=== PATIENT | female | born 1955 | race African-American/Black ===

== ENCOUNTER 2016-07-25 11:21 | Day surgery (SDC) | payer OTHER ==
[2016-06-14 12:08] VITALS: BMI 20.1
[2016-07-25 12:19] LABS: INR 1.09 (0.82-1.09)
--- NOTE | 2016-07-25 12:55 | HP ---
Admitting History and Physical - Admission History of Present Illness: 61 year old female ESRD on HD with swollen right arm due to venous hypertension and occluded subclavian vein. She has functioning AV graft in the left arm. 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, Other (Blindness) Cardiovascular: Yes: HTN Renal/: Yes: Renal Failure (PCKD s/p nephrectomies) Heme/Onc: Yes: Anemia - Past Surgical History Past Surgical History: Yes: AV Fistula/Graft, Nephrectomy (right nephrectomy and left partial nephrectomy) - Smoking History Smoking history: Current every day smoker Have you smoked in the past 12 months: Yes Aproximately how many cigarettes per day: 12 - Alcohol/Substance Use Hx Alcohol Use: No History of Substance Use: reports: None - Social History ADL: Family Assistance History of Recent Travel: No Home Medications - Allergies Allergies/Adverse Reactions: Allergies Allergy/AdvReac Type Severity Reaction Status Date / Time codeine Allergy Severe Verified 07/25/16 12:19 - Home Medications Home Medications: Ambulatory Orders Phenytoin 200 mg PO BID 01/13/14 Clonidine HCl [Catapres -] 0.2 mg PO BID 11/19/14 Sevelamer Carbonate [Renvela -] 1,600 mg PO TID 02/10/15 Nifedipine [Nifedical Xl] 90 mg PO DAILY 07/21/15 Hydralazine HCl 50 mg PO BID 03/24/16 Losartan Potassium [Cozaar -] 100 mg PO DAILY 03/24/16 Family Disease History - Family Disease History Family Disease History: Other: Father (HTN), Mother (HTN) Physical Examination Vital Signs: Vital Signs Temperature 97.8 F 07/25/16 12:33 Pulse Rate 80 07/25/16 12:33 Respiratory Rate 20 07/25/16 12:33 Blood Pressure 146/68 07/25/16 12:33 O2 Sat by Pulse Oximetry (%) 97 07/25/16 12:29 Constitutional: Yes: No Distress Eyes: Yes: EOM Intact HENT: Yes: Other (Facial swelling) Neck: Yes: Other (Distended right jugular vein) Cardiovascular: Yes: Regular Rate and Rhythm Respiratory: Yes: Regular Gastrointestinal: Yes: Soft Edema: Yes Edema: RUE: 4+ Peripheral Pulses WNL: Yes Labs: CBC, BMP 07/25/16 11:35 Problem List - Problems (1) ESRD on hemodialysis Code(s): N18.6 - END STAGE RENAL DISEASE Z99.2 - DEPENDENCE ON RENAL DIALYSIS (2) Complication of AV dialysis fistula Assessment/Plan: Venous hypertension right arm. Plan ligation of AV fistula Code(s): T82.9XXA - UNSP COMP OF CARDIAC AND VASCULAR PROSTH DEV/GRFT, INIT Qualifiers: Encounter type: sequela Qualified Code(s): T82.9XXS - Unspecified complication of cardiac and vascular prosthetic device, implant and graft, sequela
[2016-07-25] MEDS ORDERED: MIDAZOLAM HCL 2 MG/2 ML SINGLE DOSE VIAL ONE (13:20)
[2016-07-25] MEDS ORDERED: hydrALAZINE HCL 20 MG/ML VIAL ONE (13:32)
[2016-07-25] MEDS ORDERED: LIDOCAINE HCL 1%, 10 MG/ML (20ML VIAL) IJ ONE (13:38)
--- NOTE | 2016-07-25 13:59 | OP ---
Operative Note - Note: Operative Date: 07/25/16 Pre-Operative Diagnosis: Venous hypertension right arm Operation: Ligation AV fistula right arm Findings: Brachial basilic fistula with known proximal venous occlusion Post-Operative Diagnosis: Same as Pre-op Surgeon: Regan Kim Toggler: Nandini Elaine Anesthesiologist/CLIN NURSE: Julien Forbes Anesthesia: Fractional Operative Report Dictated: Yes
[2016-07-25] MEDS ORDERED: ACETAMINOPHEN 325 MG TABLET (FP) PO PRN (14:00)
[2016-07-25] MEDS ORDERED: ONDANSETRON 4 MG/2 ML VIAL IVPUSH PRN (14:01)
[2016-07-25] MEDS ORDERED: PROMETHAZINE HCL 25 MG/1 ML VIAL IVPUSH PRN (14:01)
--- NOTE | 2016-07-25 14:08 | SURG ---
Surgery Simulation Software Engineer Note Simulation Software Engineer: Nandini Elaine PA-C Date of Service: 07/25/16 Diagnosis: Venous hypertension right arm Procedure: Ligation AV fistula right arm I was present for the entirety of the operative procedure. For further detail, please refer to operative report. Visit type - Case Type Case Type: Scheduled Admission - New patient This patient is new to me today: Yes Date on this admission: 07/25/16
[2016-07-25] MEDS ORDERED: SODIUM CHLORIDE 1,000 ML IV SCH (14:15)
[2016-07-25] MEDS: hydrALAZINE HCL 20 MG/ML VIAL IVPUSH ONE ×2 (15:00→15:40)
[2016-07-25 18:06] VITALS: PULSE 78
[2016-07-25 18:09] VITALS: BP 178/82; TEMP 97.8
--- NOTE | 2016-07-26 | OP ---
DATE OF OPERATION: 07/25/2016 SURGEON: Regan Garnica M.D. COLLECTION TELLER: PROCEDURE: Ligation arteriovenous fistula right arm. PREOPERATIVE DIAGNOSIS: Renal failure with venous hypertension of right arm fistula. POSTOPERATIVE DIAGNOSIS: Renal failure with venous hypertension of right arm fistula. ANESTHESIA: Fractional anesthesia. ANESTHESIOLOGIST: Julien Forbes M.D. OPERATIVE FINDINGS: The brachial artery basilic vein fistula was patent with dilatation of the proximal veins due to an occlusion of the subclavian vein. OPERATIVE PROCEDURE: Following routine patient identification with side and site verification, intravenous sedation was established. The right arm was prepped with Chloraprep. Then 1% Xylocaine was infiltrated over the arteriovenous anastomosis. The old scar was opened, and subcutaneous tissues divided sharply. Cautery was used for hemostasis. The distal portion of the fistula was identified near the arterial anastomosis. It was dissected free and doubly ligated with 2-0 silk. The wound was closed with interrupted suture of 3-0 Vicryl and skin enrique. A sterile dressing was applied, and the patient was taken to the recovery room in stable condition. REGAN GARNICA M.D. [id number]
== END 2016-07-25 18:11 | disposition home or self-care (01) ==
LOC: JASU-SURG 11:21
PROVIDERS: ATTEND Surgery
PROC: 05LD0ZZ Occlusion of Right Cephalic Vein, Open Approach (ICD-10-PCS; principal; 2016-07-25 12:30)
DX: I82.B11 Acute embolism and thrombosis of right subclavian vein (principal); I12.0 Hypertensive chronic kidney disease with stage 5 chronic kidney disease or end stage renal disease; N18.6 End stage renal disease; Z99.2 Dependence on renal dialysis; T82.898A Other specified complication of vascular prosthetic devices, implants and grafts, initial encounter; Y83.8 Other surgical procedures as the cause of abnormal reaction of the patient, or of later complication, without mention of misadventure at the time of the procedure; G40.909 Epilepsy, unspecified, not intractable, without status epilepticus; D64.9 Anemia, unspecified; Z90.5 Acquired absence of kidney; H54.0 Blindness, both eyes
CPT/HCPCS: 36415; 84132; 85610; 94760; J1644

== ENCOUNTER 2016-07-28 13:43 | Inpatient (IN) | payer OTHER ==
[2016-07-28 14:41] LABS: BASOPHIL 0.5 % (0-2.0); EOSINOPHIL 1.6 % (0-4.5); MCH 34.5 pg (25.7-33.7); MCHC 33.2 g/dl (32.0-36.0); MEAN CELL VOLUME 103.9 fl (80-96); MEAN PLT VOLUME 7.8 fl (7.5-11.1); NEUTROPHILS 68.2 % (42.8-82.8); PLATELET COUNT 159 K/MM3 (134-434); RDW 15.1 % (11.6-15.6); WHITE BLOOD COUNT 6.4 K/mm3 (4.0-10.0)
[2016-07-28 14:46] LABS: ALBUMIN 2.9 g/dl (3.4-5.0); CREATININE 3.5 mg/dL (0.55-1.02)
[2016-07-28 14:50] LABS: BILIRUBIN,TOTAL 0.2 mg/dL (0.2-1.0); TOT PROT 6.8 g/dl (6.4-8.2); TROPONIN I 0.02 ng/ml (0.00-0.05)
[2016-07-28 14:53] LABS: INR 1.07 (0.82-1.09); PROTHROMBIN TIME (PATIENT) 11.8 SEC (9.98-11.88)
--- NOTE | 2016-07-28 15:47 | PDOC ---
*Physical Exam - Vital Signs Last Vital Signs Temp Pulse Resp BP Pulse Ox 98.5 F 77 20 171/115 99 07/28/16 13:55 07/28/16 13:55 07/28/16 13:55 07/28/16 13:55 07/28/16 14:00 ED Treatment Course - LABORATORY CBC & Chemistry Diagram: 08/01/16 05:32 08/01/16 05:32 - ADDITIONAL ORDERS Additional order review: Laboratory Results 07/28/16 07/28/16 07/28/16 13:53 13:53 13:53 INR 1.07 Sodium 136 Potassium 3.3 L Chloride 101 Carbon Dioxide 26 Anion Gap 9 BUN 12 D Creatinine 3.5 H D Creat Clearance w eGFR 13.32 Random Glucose 93 Calcium 8.0 L Magnesium 2.0 Total Bilirubin 0.2 D AST 15 ALT 12 Alkaline Phosphatase 105 Creatine Kinase 156 D CK-MB (CK-2) 2.858 Troponin I 0.02 Total Protein 6.8 Albumin 2.9 L 07/28/16 13:53 RBC 3.21 L MCV 103.9 H MCHC 33.2 RDW 15.1 MPV 7.8 Neutrophils % 68.2 Lymphocytes % 17.3 D Monocytes % 12.4 H Eosinophils % 1.6 Basophils % 0.5 Medical Decision Making - Medical Decision Making 07/28/16 15:47 Pt seen by the Advanced Practice Provider under my direct supervision CECY Anna Ancillary studies reviewed I agree with plan as outlined by the Advanced Practice Provider *DC/Admit/Observation/Transfer Diagnosis at time of Disposition: End stage renal disease, Hypertension, Weakness, Poor appetite
--- NOTE | 2016-07-28 16:00 | PDOC ---
History of Present Illness - General Chief Complaint: Weakness Stated Complaint: WEANKNESS Time Seen by Provider: 07/28/16 13:53 History Source: Patient Exam Limitations: No Limitations - History of Present Illness Initial Comments: 07/28/16 15:57 61-year-old female presents the ED for evaluation of generalized fatigue, decreased appetite, and not feeling well a proximally 1 hour into dialysis today. Patient states has not been eating for the past 2 days and feels generally fatigued. Patient arrives here with a BP of 177/112 with no complaints of abdominal pain, chest pain, shortness of breath, headache, or low back pain. Patient also denies diarrhea. Patient is followed by Dr. Morrow and Dr. Darlene Anguiano kiln tester Timing/Duration: getting worse Severity: moderate Associated Symptoms: reports: loss of appetite, malaise, weakness Past History - Past Medical History Allergies/Adverse Reactions: Allergies Allergy/AdvReac Type Severity Reaction Status Date / Time codeine Allergy Severe Verified 07/28/16 13:55 Home Medications: Ambulatory Orders Clonidine HCl [Catapres -] 0.2 mg PO BID 07/28/16 Hydralazine HCl [Apresoline -] 50 mg PO TID 07/28/16 Labetalol HCl [Normodyne -] 300 mg PO BID 07/28/16 Losartan Potassium [Cozaar -] 50 mg PO DAILY 07/28/16 Nifedipine [Nifedipine ER] 90 mg PO DAILY 07/28/16 Phenytoin Na Extended [Dilantin -] 200 mg PO BID 07/28/16 Anemia: No Asthma: No Cancer: Yes (renal cell ca) Cardiac Disorders: No CVA: No COPD: No CHF: No Dementia: No Diabetes: No Dialysis: Yes () GI Disorders: Yes (REFLUX) Disorders: Yes (DIALYSIS ,,[facility] [place] [facility]) HTN: Yes Hypercholesterolemia: No Liver Disease: No Suicide Attempt (Hx): No Seizures: Yes (LAST SEIZURE X2 MONS AGO) Thyroid Disease: No - Surgical History Abdominal Surgery: No Appendectomy: No Cardiac Surgery: No Cholecystectomy: Yes Lung Surgery: No Neurologic Surgery: No Orthopedic Surgery: No - Immunization History Immunization Up to Date: Yes - Psycho/Social/Smoking Cessation Hx Anxiety: No Suicidal Ideation: No Smoking Status: Yes Smoking History: Current every day smoker Have you smoked in the past 12 months: Yes Number of Cigarettes Smoked Daily: 10 Information on smoking cessation initiated: No 'Breaking Loose' booklet given: 04/06/16 Hx Alcohol Use: No Drug/Substance Use Hx: No Substance Use Type: None Hx Substance Use Treatment: No Patient Lives Alone: No Review of Systems - Review of Systems Able to Perform ROS?: Yes Constitutional: Yes: Loss of Appetite, Malaise, Weakness HEENTM: No: Symptoms Reported Respiratory: No: Symptoms reported Cardiac (ROS): No: Symptoms Reported ABD/GI: Yes: Poor Appetite, Poor Fluid Intake Integumentary: No: Symptoms Reported Neurological: Yes: Weakness, Dizziness *Physical Exam - Vital Signs Last Vital Signs Temp Pulse Resp BP Pulse Ox 98.5 F 77 20 171/115 99 07/28/16 13:55 07/28/16 13:55 07/28/16 13:55 07/28/16 13:55 07/28/16 14:00 - Physical Exam General Appearance: Yes: Nourished, Appropriately Dressed. No: Apparent Distress HEENT: negative: JUNIOR (patient of bilateral opacified cataracts), Pale Conjunctivae Neck: positive: Supple Respiratory/Chest: positive: Lungs Clear, Normal Breath Sounds. negative: Respiratory Distress, Accessory Muscle Use Cardiovascular: positive: Regular Rhythm, Regular Rate. negative: Murmur Gastrointestinal/Abdominal: positive: Soft. negative: Tenderness Integumentary: positive: Normal Color, Dry, Warm Neurologic: positive: Normal Mood/Affect, Motor Strength 5/5 Heart Score/ECG Review - ECG Intrepretation Rhythm: Regular Rhythm (rate 72. Normal sinus rhythm.) ED Treatment Course - LABORATORY CBC & Chemistry Diagram: 07/28/16 13:53 07/28/16 13:53 - ADDITIONAL ORDERS Additional order review: Laboratory Results 07/28/16 07/28/16 07/28/16 13:53 13:53 13:53 INR 1.07 Sodium 136 Potassium 3.3 L Chloride 101 Carbon Dioxide 26 Anion Gap 9 BUN 12 D Creatinine 3.5 H D Creat Clearance w eGFR 13.32 Random Glucose 93 Calcium 8.0 L Magnesium 2.0 Total Bilirubin 0.2 D AST 15 ALT 12 Alkaline Phosphatase 105 Creatine Kinase 156 D CK-MB (CK-2) 2.858 Troponin I 0.02 Total Protein 6.8 Albumin 2.9 L 07/28/16 13:53 RBC 3.21 L MCV 103.9 H MCHC 33.2 RDW 15.1 MPV 7.8 Neutrophils % 68.2 Lymphocytes % 17.3 D Monocytes % 12.4 H Eosinophils % 1.6 Basophils % 0.5 - RADIOLOGY Radiology Studies Ordered: Category Date Time Status CHEST X-RAY PORTABLE* [RAD] Stat Radiology 07/28/16 13:58 Completed Medical Decision Making - Medical Decision Making 07/28/16 15:11 Patient here for complaints of decreased appetite, generalized fatigue, dizziness, and elevated BP noted while in dialysis labs including chest x-ray were sent. Call placed to patient's kiln tester, Dr. Leyva. 07/28/16 16:16 Sent text to Nae Sprague who is covering for Dr. Lj Morrow. Case discussed with Dr. Myke Joseph who is recommending clonidine 0.2 and will put patient on scheduled for dialysis. 07/28/16 16:18 Laboratory Tests 07/28/16 07/28/16 07/28/16 13:53 13:53 13:53 WBC 6.4 RBC 3.21 L Hgb 11.1 Hct 33.4 Plt Count 159 D MPV 7.8 Neutrophils % 68.2 Lymphocytes % 17.3 D INR 1.07 Sodium 136 Potassium 3.3 L Chloride 101 Carbon Dioxide 26 Anion Gap 9 BUN 12 D Creatinine 3.5 H D Creat Clearance w eGFR 13.32 Random Glucose 93 Calcium 8.0 L Magnesium AST 15 ALT 12 Alkaline Phosphatase 105 CK-MB (CK-2) 2.858 Troponin I 0.02 07/28/16 13:53 WBC RBC Hgb Hct Plt Count MPV Neutrophils % Lymphocytes % INR Sodium Potassium Chloride Carbon Dioxide Anion Gap BUN Creatinine Creat Clearance w eGFR Random Glucose Calcium Magnesium 2.0 AST ALT Alkaline Phosphatase CK-MB (CK-2) Troponin I Chest x-ray negative for acute findings. 07/28/16 16:[address] Bustamante who is covering for Dr. morrow and states to admit to MedSurg observation. Case rediscussed with Dr. Joseph and states will dialyze patient tomorrow since patient received most of her dialysis today and feels she is not in fluid overload and would benefit from antihypertensive medication tonight and will reevaluate in the morning. *DC/Admit/Observation/Transfer Diagnosis at time of Disposition: End stage renal disease, Weakness, Decrease in appetite Hypertension Qualifiers: Hypertension type: essential hypertension Qualified Code(s): I10 - Essential ( primary) hypertension - Discharge Dispostion Admit: Yes
[2016-07-28] MEDS ORDERED: cloNIDine HCL 0.1 MG TABLET PO ONE (16:15)
[2016-07-28] MEDS ORDERED: cloNIDine HCL 0.1 MG TABLET ONE (16:43)
--- NOTE | 2016-07-28 17:14 | EKG ---
Test Reason : Blood Pressure : / mmHG Vent. Rate : 072 BPM Atrial Rate : 072 BPM P-R Int : 152 ms QRS Dur : 094 ms QT Int : 442 ms P-R-T Axes : 065 -02 055 degrees QTc Int : 483 ms NORMAL SINUS RHYTHM POSSIBLE LEFT ATRIAL ENLARGEMENT PROLONGED QT ABNORMAL ECG WHEN COMPARED WITH ECG OF 21-JUL-2015 06:12, FUSION COMPLEXES ARE NO LONGER PRESENT NONSPECIFIC T WAVE ABNORMALITY HAS REPLACED INVERTED T WAVES IN LATERAL LEADS Confirmed by INNA MCCARTNEY MD ([id number]) on 07/28/2016 5:14:24 PM Referred By: Confirmed By:INNA MCCARTNEY MD
[2016-07-28] MEDS ORDERED: LABETALOL HCL 100 MG TABLET (FP) PO ONE (18:28)
[2016-07-28] MEDS ORDERED: hydrALAZINE HCL 50 MG TABLET (FP) PO ONE (22:30)
[2016-07-28] MEDS: cloNIDine HCL 0.1 MG TABLET PO SCH (22:45)
[2016-07-28] MEDS: LABETALOL HCL 100 MG TABLET (FP) PO SCH (22:47)
[2016-07-28] MEDS: PHENYTOIN NA EXTENDED 100 MG CAPSULE (FP) PO SCH (22:47)
[2016-07-29] MEDS ORDERED: METOPROLOL TARTRATE 5 MG/5 ML VIAL IVPB ONE (00:15)
[2016-07-29] MEDS ORDERED: ACETAMINOPHEN 325 MG TABLET (FP) PO ONE (00:52)
[2016-07-29 01:06] VITALS: BMI 19.3
[2016-07-29] MEDS: hydrALAZINE HCL 50 MG TABLET (FP) PO SCH ×4 (05:28→22:34)
[2016-07-29] MEDS ORDERED: PT OWN MED DRAWER 7, Y5N ONE (08:58)
--- NOTE | 2016-07-29 09:02 | CON.CARD ---
Consult Consult Specialty:: Cardiology Referred by:: Dr. Bustamante Reason for Consultation:: HTN urgency - History of Present Illness Chief Complaint: fatigue History of Present Illness: 61 year old woman with a history of ESRD on HD, HTN, chronic diastolic CHF admitted from HD with c/o fatigue, not feeling well during HD noted to have uncontrolled HTN. Pt. seen and examined today. states she has pain behind her eyes. denies chest pain, sob, palpitations. no pnd, orthopnea or LE edema. 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 - Past Surgical History Past Surgical History: Yes: AV Fistula/Graft, Nephrectomy (right nephrectomy and left partial nephrectomy) - Alcohol/Substance Use Hx Alcohol Use: No History of Substance Use: reports: None - Smoking History Smoking history: Current every day smoker Have you smoked in the past 12 months: Yes Aproximately how many cigarettes per day: 10 - Social History Usual Living Arrangement: With Spouse ADL: Family Assistance History of Recent Travel: No Home Medications - Allergies Allergies/Adverse Reactions: Allergies Allergy/AdvReac Type Severity Reaction Status Date / Time codeine Allergy Severe Verified 07/28/16 13:55 - Home Medications Home Medications: Ambulatory Orders Clonidine HCl [Catapres -] 0.2 mg PO BID 07/28/16 Hydralazine HCl [Apresoline -] 50 mg PO TID 07/28/16 Labetalol HCl [Normodyne -] 300 mg PO BID 07/28/16 Losartan Potassium [Cozaar -] 50 mg PO DAILY 07/28/16 Nifedipine [Nifedipine ER] 90 mg PO DAILY 07/28/16 Phenytoin Na Extended [Dilantin -] 200 mg PO BID 07/28/16 Family Disease History - Family Disease History Family Disease History: Other: Father (HTN), Mother (HTN) Review of Systems - Review of Systems Constitutional: reports: Malaise, Weakness. denies: No Symptoms, Chills, Diaphoresis, Fever, Lethargy, Loss of Appetite, Night Sweats, Unintentional Wgt. Loss, Other Eyes: reports: Other (blindness). denies: No Symptoms, Blind Spots, Blurred Vision, Double Vision, Eye Pain, Floaters, Photophobia, Recent Change in Vision HENT: denies: No Symptoms, Difficult Swallowing, Ear Discharge, Ear Pain, Epistaxis, Gingival Bleeding, Hearing Loss, Mouth Swelling, Nasal Congestion, Ocular Prosthesis, Throat Pain, Toothache, Ringing in Ears, Other Neck: denies: No Symptoms, Decreased ROM, Lumps, Pain on Movement, Stiffness, Swollen Glands, Tenderness, Other Cardiovascular: denies: No Symptoms, Chest Pain, Edema, Palpitations, Shortness of Breath, Other Respiratory: denies: No Symptoms, Cough, Exercise Intolerance, Hemoptysis, Orthopnea, PND, Snoring, SOB, SOB on Exertion, Wheezing, Other Gastrointestinal: denies: No Symptoms, Abdominal Pain, Bloating, Constipation, Diarrhea, Dysphagia, Indigestion, Melena, Nausea, Rectal Bleeding, Vomiting, Vomiting Blood, Other Genitourinary: denies: No Symptoms, Burning, Discharge, Dysuria, Flank Pain, Frequency, Hematuria, Incontinence, Lesions, Menses, Pain, Testicular Mass, Testicular Pain, Testicular Swelling, Urgency, Vaginal Bleeding, Other Breasts: denies: No Symptoms Reported, See HPI, Breast Implants, Discharge from Nipple, Lumps, Pain, Skin Changes, Other Musculoskeletal: denies: No Symptoms, Back Pain, Crepitus, Decreased ROM, Extremity Pain, Joint Pain, Joint Swelling, Muscle Pain, Muscle Cramps, Muscle Weakness, Other Integumentary: denies: No Symptoms, Blister, Bruising, Change in Color, Eczema, Erythema, Incision, Lesions, Lump, Pallor, Pruritis, Rash, Wound, Other Neurological: denies: No Symptoms, Change in LOC, Change in Speech, Confusion, Dizziness, Headache, Incoordination, Numbness, Parasthesia, Pre-Existing Deficit , Seizure, Syncope, Tremors, Unsteady Gait, Weakness, Other Endocrine: denies: No Symptoms, Excessive Sweating, Flushing, Increased Hunger, Increased Thirst, Intolerance to Cold, Intolerance to Heat, Unexplained Weight Gain, Unexplained Weight Loss, Other Hematology/Lymphatic: denies: No Symptoms, Easily Bruised, Excessive Bleeding, Swollen Glands, Other Psychiatric: denies: No Symptoms, Altered Sleep Pattern, Anxiety, Depression, Hallucinations, Panic, Paranoia, Suicidal, Other - Risk Factors Known Risk Factors: Yes: Hypercholesterolemia, Hypertension Vital Signs: Vital Signs Temperature 98.0 F 07/29/16 05:30 Pulse Rate 78 07/29/16 05:30 Respiratory Rate 18 07/29/16 05:30 Blood Pressure 177/97 07/29/16 05:30 O2 Sat by Pulse Oximetry (%) 99 07/28/16 21:00 Constitutional: Yes: Well Nourished, No Distress, Calm Eyes: Yes: Cataracts, Other (blindness) HENT: Yes: WNL, Atraumatic, Normocephalic Neck: Yes: WNL, Supple, Trachea Midline Respiratory: Yes: WNL, Regular, CTA Bilaterally. No: Rales, Rhonchi, Wheezes Gastrointestinal: Yes: WNL, Normal Bowel Sounds, Soft. No: Distention, Tenderness Renal/: Yes: WNL Cardiovascular: Yes: WNL, Regular Rate and Rhythm. No: Bradycardia, Tachycardia , Pulse Irregular, Gallop, Rub, Varicosities JVD: No Carotid Bruit: No PMI: Non-Displaced Heart Sounds: Yes: S1, S2. No: Split S2, S3, S4, Clicks, Gallop, Rub, Bruit Murmur: No: Systolic Murmur, Diastolic Murmur Musculoskeletal: Yes: WNL Extremities: Yes: WNL Edema: No Peripheral Pulses WNL: Yes Peripheral Pulses: 2+ Left Doralis Pedis, 2+ Right Dorsalis Pedis Integumentary: Yes: WNL Neurological: Yes: Alert, Oriented Psychiatric: Yes: Alert, Oriented - Other Data Labs, Other Data: INR, PTT INR 1.07 (0.82-1.09) 07/28/16 13:53 ekg 07/28-nsr 72bpm, lae, poor r progression, lvh, nonspecific St abnl Echo: Report Reviewed Imaging - Results Chest X-ray: Report Reviewed, Image Reviewed EKG: Report Reviewed, Image Reviewed Other: Report Reviewed, Image Reviewed Problem List - Problems (1) Hypertension Code(s): I10 - ESSENTIAL (PRIMARY) HYPERTENSION Qualifiers: Hypertension type: essential hypertension Qualified Code(s): I10 - Essential (primary) hypertension (2) End stage renal disease Code(s): N18.6 - END STAGE RENAL DISEASE (3) Dyspnea Code(s): R06.00 - DYSPNEA, UNSPECIFIED Qualifiers: Dyspnea type: unspecified Qualified Code(s): R06.00 - Dyspnea, unspecified (4) ESRD on hemodialysis Code(s): N18.6 - END STAGE RENAL DISEASE Z99.2 - DEPENDENCE ON RENAL DIALYSIS (5) Chronic diastolic (congestive) heart failure Code(s): I50.32 - CHRONIC DIASTOLIC (CONGESTIVE) HEART FAILURE Assessment/Plan HTN urgency -resume home meds Labetalol 300mg bid, nifedipine xl 90mg daily, hydralazine 50mg tid, clonidine 0.2mg bid Losartan 50mg daily (confirm dose-PMD office records say 100mg daily) -confirm pt adherence to medical regimen Chronic diastolic CHF -currently euvolemic -cont home medical regimen
[2016-07-29] MEDS: LABETALOL HCL 100 MG TABLET (FP) PO SCH ×3 (09:03→22:34)
[2016-07-29] MEDS: PHENYTOIN NA EXTENDED 100 MG CAPSULE (FP) PO SCH ×3 (09:03→22:34)
[2016-07-29] MEDS: cloNIDine HCL 0.1 MG TABLET PO SCH ×3 (09:04→22:34)
[2016-07-29] MEDS: NIFEdipine E.R. 90 MG TABLET (FP) PO SCH (09:04)
[2016-07-29] MEDS: HEPARIN NA (PORCINE) 5,000 UNITS/ML 1ML VIAL SQ SCH ×2 (09:04→21:01)
[2016-07-29] MEDS ORDERED: LOSARTAN POTASSIUM 50 MG TABLET (FP) PO SCH (10:00)
--- NOTE | 2016-07-29 13:06 | CONSULT ---
Consult - text type - Consultation Consultation Note: Renal Consult for ESRD on HD/Hypertensive Urgency This is a 61 year old woman with PMhx of ESRD on HD (TTS), Difficult to control hypertension, D-CHF, RCC s/p Nephrecotmy, Blindness with B/L cataracts who presented from the HD unit s/p dialysis with NELSON and elevated BP and admitted for hypertensive urgency. Pt Bp in HD was ~190/110. As per HD unit staff, pt was only given BP meds by daughter after she started dialysis. Pt reports taking medication in the AM before treatment. s/p HD yesterday. Reports feeling better today. BP running high overnight. Recived oral Hypertensive meds this am. No sob, chest pain, fever, chills, N/V/D. PMhx: as above Allergies: NKDA Family hx: NC Social Hx: No T/A/D ROS: as per HPI, all other ROS negative Home meds: Home Medications Medication Instructions Recorded Clonidine HCl [Catapres -] 0.2 mg PO BID 07/28/16 Hydralazine HCl [Apresoline -] 50 mg PO TID 07/28/16 Labetalol HCl [Normodyne -] 300 mg PO BID 07/28/16 Losartan Potassium [Cozaar -] 50 mg PO DAILY 07/28/16 Nifedipine [Nifedipine ER] 90 mg PO DAILY 07/28/16 Phenytoin Na Extended [Dilantin -] 200 mg PO BID 07/28/16 Vital Signs Temperature 98.0 F 07/29/16 05:30 Pulse Rate 78 07/29/16 05:30 Respiratory Rate 18 07/29/16 05:30 Blood Pressure 177/97 07/29/16 05:30 O2 Sat by Pulse Oximetry (%) 99 07/28/16 21:00 Intake & Output 07/26/16 07/27/16 07/28/16 07/29/16 23:59 23:59 23:59 23:59 Intake Total 50 50 Balance 50 50 Weight 120 lb 114 lb 14.4 oz Gen: NAD, awake and alert HEENT: NC/AT, MMM, No JVD CVS: RRR, No M/R Lungs: CTA, no rales or wheeze Abd: soft NT/ND Ext: No edema, clubbing or cyanosis Access: + AVF Neuro: awake and alert CBC, BMP 07/28/16 13:53 07/28/16 13:53 Laboratory Tests 07/28/16 07/28/16 13:53 13:53 Calcium 8.0 L Magnesium 2.0 Albumin 2.9 L Current Medications Acetaminophen (Tylenol -) 650 mg PO Q6H PRN PRN Reason: FEVER OR PAIN Clonidine (Catapres -) 0.2 mg PO BID [facility] Last Admin: 07/29/16 09:04 Dose: 0.2 mg Heparin Sodium (Porcine) (Heparin -) 5,000 unit SQ BID [facility] Last Admin: 07/29/16 09:04 Dose: 5,000 unit Hydralazine HCl (Apresoline -) 50 mg PO TID [facility] Last Admin: 07/29/16 05:28 Dose: 50 mg Labetalol HCl (Normodyne -) 300 mg PO BID [facility] Last Admin: 07/29/16 09:03 Dose: 300 mg Losartan Potassium (Cozaar -) 50 mg PO DAILY [facility] Last Admin: 07/29/16 09:04 Dose: 50 mg Nifedipine (Procardia Xl -) 90 mg PO DAILY [facility] Last Admin: 07/29/16 09:04 Dose: 90 mg Phenytoin Sodium (Dilantin -) 200 mg PO BID [facility] Last Admin: 07/29/16 09:03 Dose: 200 mg A/P 61 year old woman with PMhx of ESRD on HD (TTS), Difficult to control hypertension, D-CHF, RCC s/p Nephrecotmy, Blindness with B/L cataracts who presented from the HD unit s/p dialysis with NELSON and elevated BP and admitted for hypertensive urgency. #Hypertensive Urgency Continue Labetalol 300mg BID, Losartan 50mg Daily, Nifedpine 90mg Daily, Clonidine 0.2mg BID Goal BP < 140/90 Can titrate up Losartan to 100mg (can give additional 50mg today) if BP remains high No signs of volume expansion so unlikely that UF will help BP at this time #ESRD on HD for dialysis tomorrow with UF as tolerated #NELSON now improved Tylenol PRN #Seizure D/O continue Dilantin PO BID Thank you Will follow Jake Stringer DO
[2016-07-29] MEDS: ACETAMINOPHEN 325 MG TABLET (FP) PO PRN (17:36)
[2016-07-29] MEDS ORDERED: hydrALAZINE HCL 50 MG TABLET (FP) PO ONE (18:00)
[2016-07-29] MEDS ORDERED: LOSARTAN POTASSIUM 50 MG TABLET (FP) PO ONE (21:00)
[2016-07-30] MEDS: guaiFENesin 200 MG/10 ML 10 ML UNIT-DOSE CUPS PO PRN ×4 (01:14→21:30)
[2016-07-30] MEDS: hydrALAZINE HCL 50 MG TABLET (FP) PO SCH ×3 (06:21→21:29)
[2016-07-30] MEDS: ACETAMINOPHEN 325 MG TABLET (FP) PO PRN ×3 (06:22→20:28)
--- NOTE | 2016-07-30 07:54 | PN ---
Progress Note, Physician Chief Complaint: Pt is hard of hearing and blind; denies chest pain, but has a cough. History of Present Illness: 61-year-old black female presents to the ED for evaluation of generalized fatigue, decreased appetite, and not feeling well a proximately 1 hour into dialysis today. Patient states has not been eating for the past 2 days and feels generally fatigued. Patient arrives here with a BP of 177/112 with no complaints of abdominal pain, chest pain, shortness of breath, headache, or low back pain. Patient also denies diarrhea. Patient is followed by Dr. Morrow and Dr. Darlene Anguiano special makeup fx artist instructor Timing/Duration: getting worse Severity: moderate Associated Symptoms: reports: loss of appetite, malaise, weakness - Current Medication List Current Medications: Active Medications Acetaminophen (Tylenol -) 650 mg PO Q6H PRN PRN Reason: FEVER OR PAIN Last Admin: 07/30/16 06:22 Dose: 650 mg Clonidine (Catapres -) 0.2 mg PO BID [facility] Last Admin: 07/29/16 22:34 Dose: Not Given Guaifenesin (Robitussin -) 5 ml PO Q6H PRN PRN Reason: COUGH Last Admin: 07/30/16 01:14 Dose: 5 ml Heparin Sodium (Porcine) (Heparin -) 5,000 unit SQ BID [facility] Last Admin: 07/29/16 21:01 Dose: 5,000 unit Hydralazine HCl (Apresoline -) 100 mg PO TID [facility] Last Admin: 07/30/16 06:21 Dose: 100 mg Isosorbide Mononitrate (Imdur -) 30 mg PO DAILY [facility] Labetalol HCl (Normodyne -) 300 mg PO BID [facility] Last Admin: 07/29/16 22:34 Dose: Not Given Losartan Potassium (Cozaar -) 100 mg PO DAILY [facility] Nifedipine (Procardia Xl -) 90 mg PO DAILY [facility] Last Admin: 07/29/16 09:04 Dose: 90 mg Phenytoin Sodium (Dilantin -) 200 mg PO BID [facility] Last Admin: 07/29/16 22:34 Dose: Not Given Spironolactone (Aldactone -) 25 mg PO DAILY [facility] - Objective Vital Signs: Vital Signs Temperature 97.3 F L 07/30/16 06:00 Pulse Rate 83 07/30/16 06:00 Respiratory Rate 20 07/30/16 06:00 Blood Pressure 201/110 07/30/16 06:00 O2 Sat by Pulse Oximetry (%) 95 07/29/16 21:00 Constitutional: Yes: Anxious Eyes: Yes: Other (sclera, pupils covered opaque white streaks) HENT: Yes: WNL Neck: Yes: WNL Cardiovascular: Yes: Regular Rate and Rhythm, S1, S2, S4 Respiratory: Yes: Regular Gastrointestinal: Yes: Soft ...Rectal Exam: Yes: Deferred Genitourinary: Yes: Other (undergoing regular hemodialysis) Breast(s): Yes: WNL Musculoskeletal: Yes: Muscle Weakness Extremities: Yes: Cool Edema: No Peripheral Pulses WNL: No Peripheral Pulses: Left Doralis Pedis: 1+, Right Dorsalis Pedis: 1+ Integumentary: Yes: Venous Stasis Changes Wound/Incision: Yes: Other (UE AV graft) Neurological: Yes: Alert, Oriented, Weakness Psychiatric: Yes: WNL Labs: INR, PTT INR 1.07 (0.82-1.09) 07/28/16 13:53 - ....Imaging Other: Image Reviewed (telemetry: NSR) Problem List - Problems (1) Chronic diastolic (congestive) heart failure Code(s): I50.32 - CHRONIC DIASTOLIC (CONGESTIVE) HEART FAILURE (2) Hypertension Assessment/Plan: Added spironolactone for HTN; on multiple classes of antihypertensives, and undergoing hemodialysis: follow BP frequently and carefully. ECHO: low normal LVEF: moderate LVH; mlld AR; moderate pulmonary HTN. F/u electrolytes (low K+ 07/28/16). F/u lipids, TSH. Code(s): I10 - ESSENTIAL (PRIMARY) HYPERTENSION Qualifiers: Hypertension type: essential hypertension Qualified Code(s): I10 - Essential (primary) hypertension (3) Poor appetite Code(s): R63.0 - ANOREXIA (4) Weakness Code(s): R53.1 - WEAKNESS (5) ESRD on hemodialysis Code(s): N18.6 - END STAGE RENAL DISEASE Z99.2 - DEPENDENCE ON RENAL DIALYSIS (6) History of nephrectomy Code(s): Z90.5 - ACQUIRED ABSENCE OF KIDNEY (7) Seizure Code(s): R56.9 - UNSPECIFIED CONVULSIONS Qualifiers: Convulsion type: unspecified Qualified Code(s): R56.9 - Unspecified convulsions
[2016-07-30] MEDS: NIFEdipine E.R. 90 MG TABLET (FP) PO SCH ×2 (07:56→09:24)
[2016-07-30] MEDS: LABETALOL HCL 100 MG TABLET (FP) PO SCH ×3 (07:56→21:30)
[2016-07-30 08:40] LABS: BASOPHIL 0.4 % (0-2.0); EOSINOPHIL 2.3 % (0-4.5); MCH 34.5 pg (25.7-33.7); MCHC 33.3 g/dl (32.0-36.0); MEAN CELL VOLUME 103.7 fl (80-96); MEAN PLT VOLUME 7.8 fl (7.5-11.1); NEUTROPHILS 58.6 % (42.8-82.8); PLATELET COUNT 162 K/MM3 (134-434); RDW 14.9 % (11.6-15.6); WHITE BLOOD COUNT 5.5 K/mm3 (4.0-10.0)
[2016-07-30] MEDS ORDERED: PT OWN MED DRAWER 7, Y5N ONE ×2 (08:55→09:20)
[2016-07-30 08:56] LABS: ALBUMIN 2.8 g/dl (3.4-5.0); CALCIUM 8.1 mg/dL (8.5-10.1)
[2016-07-30 09:06] LABS: BILIRUBIN,TOTAL 0.3 mg/dL (0.2-1.0); CREATININE 6.5 mg/dL (0.55-1.02); PHOSPHOROUS 3.5 mg/dL (2.5-4.9); THYROID STIMULATING HORMONE 0.76 uIU/ml (0.358-3.74); TOT PROT 6.4 g/dl (6.4-8.2)
[2016-07-30] MEDS: cloNIDine HCL 0.1 MG TABLET PO SCH ×2 (09:22→21:30)
[2016-07-30] MEDS: LOSARTAN POTASSIUM 50 MG TABLET (FP) PO SCH (09:23)
[2016-07-30] MEDS: HEPARIN NA (PORCINE) 5,000 UNITS/ML 1ML VIAL SQ SCH ×2 (09:23→21:30)
[2016-07-30] MEDS ORDERED: ISOSORBIDE MONONITRATE 30 MG TAB.SR.24H (FP) PO SCH (10:00)
[2016-07-30] MEDS ORDERED: SPIRONOLACTONE 25 MG TABLET (FP) PO SCH (10:00)
[2016-07-30] MEDS: PHENYTOIN NA EXTENDED 100 MG CAPSULE (FP) PO SCH ×2 (10:28→21:30)
--- NOTE | 2016-07-30 12:44 | PN ---
Progress Note (short form) - Note Progress Note: Renal follow up for ESRD on HD Pt seen and examined at the bedside feel uncomfortable denies any NELSON BP high this am no chest pain or sob s/p dialysis this am with 2.8 L UF Vital Signs Temperature 98.0 F 07/30/16 10:45 Pulse Rate 78 07/30/16 10:45 Respiratory Rate 18 07/30/16 10:45 Blood Pressure 185/101 07/30/16 10:45 O2 Sat by Pulse Oximetry (%) 95 07/30/16 09:00 Intake & Output 07/27/16 07/28/16 07/29/16 07/30/16 23:59 23:59 23:59 23:59 Intake Total 50 350 10 Balance 50 350 10 Weight 120 lb 114 lb 14.4 oz 119 lb Gen: NAD, awake and alert CVS: RRR, No M/R Lungs: CTA, no rales or wheeze Abd: soft NT/ND Ext: No edema, clubbing or cyanosis CBC, BMP 07/30/16 07:00 07/30/16 07:00 Current Medications Acetaminophen (Tylenol -) 650 mg PO Q6H PRN PRN Reason: FEVER OR PAIN Last Admin: 07/30/16 06:22 Dose: 650 mg Clonidine (Catapres -) 0.2 mg PO BID [facility] Last Admin: 07/30/16 09:22 Dose: 0.2 mg Guaifenesin (Robitussin -) 5 ml PO Q6H PRN PRN Reason: COUGH Last Admin: 07/30/16 07:56 Dose: 5 ml Heparin Sodium (Porcine) (Heparin -) 5,000 unit SQ BID [facility] Last Admin: 07/30/16 09:23 Dose: 5,000 unit Hydralazine HCl (Apresoline -) 100 mg PO TID [facility] Last Admin: 07/30/16 06:21 Dose: 100 mg Isosorbide Mononitrate (Imdur -) 30 mg PO DAILY [facility] Last Admin: 07/30/16 09:22 Dose: 30 mg Labetalol HCl (Normodyne -) 300 mg PO BID [facility] Last Admin: 07/30/16 09:23 Dose: Not Given Losartan Potassium (Cozaar -) 100 mg PO DAILY [facility] Last Admin: 07/30/16 09:23 Dose: 100 mg Nifedipine (Procardia Xl -) 90 mg PO DAILY [facility] Last Admin: 07/30/16 09:24 Dose: Not Given Phenytoin Sodium (Dilantin -) 200 mg PO BID [facility] Last Admin: 07/30/16 10:28 Dose: 200 mg Spironolactone (Aldactone -) 25 mg PO DAILY [facility] Last Admin: 07/30/16 09:22 Dose: 25 mg A/P 61 year old woman with PMhx of ESRD on HD (TTS), Difficult to control hypertension, D-CHF, RCC s/p Nephrecotmy, Blindness with B/L cataracts who presented from the HD unit s/p dialysis with NELSON and elevated BP and admitted for hypertensive urgency. #Hypertensive Urgency Continue Labetalol 300mg BID, Nifedpine 90mg Daily, Clonidine 0.2mg BID Losartan increased to 100mg Daily and Started on Aldactone Trend BP on new meds s/p UF with HD #ESRD on HD Tolerated Hd well with 2.8L UF Jake Stringer DO
[2016-07-30] MEDS: FLUTICASONE PROP 0.05% 16 GM NASAL SPRAY NS SCH (23:09)
--- NOTE | 2016-07-30 23:22 | HP ---
Admitting History and Physical - Admission Chief Complaint: Pt was seen and examined on 07/29/16 however note was not saved History of Present Illness: Pt is a m61 y/o blind female w/ PMH [id number] for HTN, HLD, ESRD on HD, chronic diastolic chf, anemia, renal cell carcinoma (Rt nephrectomy and partial Lt nephrectomy) and seizure dz. Pt was sent to the ER from dialysis wc was not finished due to NELSON wc is frontal associated with generalized fatigue/weakness and poor appetite. Pt denies any fewver/chills. In the ER pt found to have accelerated HTN with a BP of 221/107 - Past Medical History ADDICTIONS THERAPIST: Yes: Seizure, Other (Blindness) Cardiovascular: Yes: HTN Renal/: Yes: Renal Failure (PCKD s/p nephrectomies), Cancer (Renal cell carcinoma) Heme/Onc: Yes: Anemia, Cancer (Renal cell carcinoma) - Past Surgical History Past Surgical History: Yes: AV Fistula/Graft, Nephrectomy (right nephrectomy and left partial nephrectomy) - Smoking History Smoking history: Current every day smoker Have you smoked in the past 12 months: Yes Aproximately how many cigarettes per day: 10 - Alcohol/Substance Use Hx Alcohol Use: No History of Substance Use: reports: None - Social History ADL: Family Assistance History of Recent Travel: No Home Medications - Allergies Allergies/Adverse Reactions: Allergies Allergy/AdvReac Type Severity Reaction Status Date / Time codeine Allergy Severe Verified 07/28/16 13:55 - Home Medications Home Medications: Ambulatory Orders Clonidine HCl [Catapres -] 0.2 mg PO BID 07/28/16 Hydralazine HCl [Apresoline -] 50 mg PO TID 07/28/16 Labetalol HCl [Normodyne -] 300 mg PO BID 07/28/16 Losartan Potassium [Cozaar -] 50 mg PO DAILY 07/28/16 Nifedipine [Nifedipine ER] 90 mg PO DAILY 07/28/16 Phenytoin Na Extended [Dilantin -] 200 mg PO BID 07/28/16 Family Disease History - Family Disease History Family History: Unremarkable Family Disease History: Other: Father (HTN), Mother (HTN) Review of Systems - Review of Systems Constitutional: reports: Lethargy, Loss of Appetite, Weakness HENT: reports: Other (Headache) Cardiovascular: reports: No Symptoms Respiratory: reports: No Symptoms Gastrointestinal: reports: No Symptoms Physical Examination Vital Signs: Vital Signs Temperature 98.2 F 07/30/16 18:00 Pulse Rate 80 07/30/16 18:00 Respiratory Rate 19 07/30/16 18:00 Blood Pressure 188/101 07/30/16 18:00 O2 Sat by Pulse Oximetry (%) 95 07/30/16 09:00 Constitutional: Yes: No Distress Eyes: Yes: Cataracts HENT: Yes: WNL Neck: Yes: Supple Cardiovascular: Yes: WNL, Regular Rate and Rhythm Respiratory: Yes: WNL, Regular, CTA Bilaterally Gastrointestinal: Yes: WNL, Normal Bowel Sounds, Soft Breast(s): Yes: WNL Musculoskeletal: Yes: WNL Extremities: Yes: Other ((+) AV graft) Edema: No Neurological: Yes: WNL, Alert, Oriented ...Motor Strength: WNL Labs: CBC, BMP 07/30/16 07:00 07/30/16 07:00 Problem List - Problems (1) Hypertension, uncontrolled Assessment/Plan: BP not controlled Cont hydralazine/clonidine/imdur/labetalol Check echo Cardiuo consult Adjust BP meds Code(s): I10 - ESSENTIAL (PRIMARY) HYPERTENSION (2) ESRD on hemodialysis Assessment/Plan: Pt on dialysis Probable dialsysis in am As per renal Monitor electrolytes Code(s): N18.6 - END STAGE RENAL DISEASE Z99.2 - DEPENDENCE ON RENAL DIALYSIS (3) Chronic diastolic (congestive) heart failure Code(s): I50.32 - CHRONIC DIASTOLIC (CONGESTIVE) HEART FAILURE (4) Seizure Assessment/Plan: Conbt dilantin Code(s): R56.9 - UNSPECIFIED CONVULSIONS Qualifiers: Convulsion type: unspecified Qualified Code(s): R56.9 - Unspecified convulsions (5) Weakness Assessment/Plan: Due to renal failure Code(s): R53.1 - WEAKNESS (6) Anemia Assessment/Plan: Anemia due to chronic dz(ESRD) Code(s): D64.9 - ANEMIA, UNSPECIFIED (7) Blind Code(s): H54.0 - BLINDNESS, BOTH EYES
--- NOTE | 2016-07-30 23:23 | PN ---
Progress Note, Physician History of Present Illness: Pt complains of hearing loss wc she states has been going on for a while - Current Medication List Current Medications: Active Medications Acetaminophen (Tylenol -) 650 mg PO Q6H PRN PRN Reason: FEVER OR PAIN Last Admin: 07/30/16 20:28 Dose: 650 mg Clonidine (Catapres -) 0.2 mg PO BID [facility] Last Admin: 07/30/16 21:30 Dose: 0.2 mg Fluticasone Propionate (Flonase -) 2 spray NS DAILY [facility] Last Admin: 07/30/16 23:09 Dose: 2 spray Guaifenesin (Robitussin -) 5 ml PO Q6H PRN PRN Reason: COUGH Last Admin: 07/30/16 21:30 Dose: 5 ml Heparin Sodium (Porcine) (Heparin -) 5,000 unit SQ BID [facility] Last Admin: 07/30/16 21:30 Dose: 5,000 unit Hydralazine HCl (Apresoline -) 100 mg PO TID [facility] Last Admin: 07/30/16 21:29 Dose: 100 mg Isosorbide Mononitrate (Imdur -) 30 mg PO DAILY [facility] Last Admin: 07/30/16 09:22 Dose: 30 mg Labetalol HCl (Normodyne -) 300 mg PO BID [facility] Last Admin: 07/30/16 21:30 Dose: 300 mg Losartan Potassium (Cozaar -) 100 mg PO DAILY [facility] Last Admin: 07/30/16 09:23 Dose: 100 mg Nifedipine (Procardia Xl -) 90 mg PO DAILY [facility] Last Admin: 07/30/16 09:24 Dose: Not Given Phenytoin Sodium (Dilantin -) 200 mg PO BID [facility] Last Admin: 07/30/16 21:30 Dose: 200 mg Spironolactone (Aldactone -) 25 mg PO DAILY [facility] Last Admin: 07/30/16 09:22 Dose: 25 mg - Objective Vital Signs: Vital Signs Temperature 98.2 F 07/30/16 18:00 Pulse Rate 80 07/30/16 18:00 Respiratory Rate 19 07/30/16 18:00 Blood Pressure 188/101 07/30/16 18:00 O2 Sat by Pulse Oximetry (%) 95 07/30/16 09:00 Constitutional: Yes: Anxious Eyes: Yes: Cataracts Neck: Yes: Supple Cardiovascular: Yes: WNL, Regular Rate and Rhythm, Murmur Respiratory: Yes: WNL, Regular, CTA Bilaterally Gastrointestinal: Yes: WNL, Normal Bowel Sounds, Soft Labs: CBC, BMP 07/30/16 07:00 07/30/16 07:00 INR, PTT INR 1.07 (0.82-1.09) 07/28/16 13:53 Problem List - Problems (1) Hearing loss Assessment/Plan: Will get ct scan head ENT consult Code(s): H91.90 - UNSPECIFIED HEARING LOSS, UNSPECIFIED EAR (2) Chronic diastolic (congestive) heart failure Code(s): I50.32 - CHRONIC DIASTOLIC (CONGESTIVE) HEART FAILURE (3) Weakness Code(s): R53.1 - WEAKNESS (4) ESRD on hemodialysis Code(s): N18.6 - END STAGE RENAL DISEASE Z99.2 - DEPENDENCE ON RENAL DIALYSIS (5) History of nephrectomy Code(s): Z90.5 - ACQUIRED ABSENCE OF KIDNEY (6) Hypertension, uncontrolled Code(s): I10 - ESSENTIAL (PRIMARY) HYPERTENSION (7) Seizure Code(s): R56.9 - UNSPECIFIED CONVULSIONS Qualifiers: Convulsion type: unspecified Qualified Code(s): R56.9 - Unspecified convulsions (8) Anemia Code(s): D64.9 - ANEMIA, UNSPECIFIED
[2016-07-31] MEDS: ACETAMINOPHEN 325 MG TABLET (FP) PO PRN ×3 (02:30→21:22)
[2016-07-31] MEDS: hydrALAZINE HCL 50 MG TABLET (FP) PO SCH ×3 (06:10→21:21)
--- NOTE | 2016-07-31 07:40 | PN ---
Progress Note, Physician Chief Complaint: Pt alert, pleasant; no chest pain or dyspnea; still with cough. History of Present Illness: 61-year-old black female presents to the ED for evaluation of generalized fatigue, decreased appetite, and not feeling well a proximately 1 hour into dialysis today. Patient states has not been eating for the past 2 days and feels generally fatigued. Patient arrives here with a BP of 177/112 with no complaints of abdominal pain, chest pain, shortness of breath, headache, or low back pain. Patient also denies diarrhea. Patient is followed by Dr. Morrow and Dr. 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 Timing/Duration: getting worse Severity: moderate Associated Symptoms: reports: loss of appetite, malaise, weakness - Current Medication List Current Medications: Active Medications Acetaminophen (Tylenol -) 650 mg PO Q6H PRN PRN Reason: FEVER OR PAIN Last Admin: 07/31/16 02:30 Dose: 650 mg Clonidine (Catapres -) 0.2 mg PO BID [facility] Last Admin: 07/30/16 21:30 Dose: 0.2 mg Fluticasone Propionate (Flonase -) 2 spray NS DAILY [facility] Last Admin: 07/30/16 23:09 Dose: 2 spray Guaifenesin (Robitussin -) 5 ml PO Q6H PRN PRN Reason: COUGH Last Admin: 07/30/16 21:30 Dose: 5 ml Heparin Sodium (Porcine) (Heparin -) 5,000 unit SQ BID [facility] Last Admin: 07/30/16 21:30 Dose: 5,000 unit Hydralazine HCl (Apresoline -) 100 mg PO TID [facility] Last Admin: 07/31/16 06:10 Dose: 100 mg Isosorbide Mononitrate (Imdur -) 30 mg PO DAILY [facility] Last Admin: 07/30/16 09:22 Dose: 30 mg Labetalol HCl (Normodyne -) 300 mg PO BID [facility] Last Admin: 07/30/16 21:30 Dose: 300 mg Losartan Potassium (Cozaar -) 100 mg PO DAILY [facility] Last Admin: 07/30/16 09:23 Dose: 100 mg Nifedipine (Procardia Xl -) 90 mg PO DAILY [facility] Last Admin: 07/30/16 09:24 Dose: Not Given Phenytoin Sodium (Dilantin -) 200 mg PO BID [facility] Last Admin: 07/30/16 21:30 Dose: 200 mg Spironolactone (Aldactone -) 50 mg PO DAILY [facility] - Objective Vital Signs: Vital Signs Temperature 98.1 F 07/31/16 02:00 Pulse Rate 82 07/31/16 02:00 Respiratory Rate 20 07/31/16 02:00 Blood Pressure 194/97 07/31/16 02:00 O2 Sat by Pulse Oximetry (%) 94 L 07/30/16 21:00 Constitutional: Yes: Calm Eyes: Yes: Other (blind; cloudy sclera) HENT: Yes: Other (cough; hard of hearing x past 2 months) Neck: Yes: WNL Cardiovascular: Yes: Regular Rate and Rhythm Respiratory: Yes: Regular Gastrointestinal: Yes: Soft ...Rectal Exam: Yes: Deferred Genitourinary: No: Anuria Breast(s): Yes: WNL Musculoskeletal: Yes: Muscle Weakness Extremities: Yes: Cool Edema: No Peripheral Pulses WNL: Yes Peripheral Pulses: Left Doralis Pedis: 1+, Right Dorsalis Pedis: 1+ Integumentary: Yes: Other (joceline UE AV grafts) Neurological: Yes: Alert, Oriented Psychiatric: Yes: WNL Labs: CBC, BMP 07/30/16 07:00 07/30/16 07:00 INR, PTT INR 1.07 (0.82-1.09) 07/28/16 13:53 Abnormal Lab Results 07/30/16 07/30/16 07:00 07:00 RBC 2.97 L Hgb 10.3 L Hct 30.8 L MCV 103.7 H Monocytes % 16.0 H Sodium 131 L Chloride 96 L BUN 24 H D Creatinine 6.5 H D Calcium 8.1 L AST 13 L ALT 9 L D Albumin 2.8 L Problem List - Problems (1) Chronic diastolic (congestive) heart failure Code(s): I50.32 - CHRONIC DIASTOLIC (CONGESTIVE) HEART FAILURE (2) Hypertension Assessment/Plan: Increase spironolactone to 50 mg daily. Increase Imdur to 60 mg daily. K+ 3.6. TSH WNL. Total cholesterol < 100 mg/dL. Code(s): I10 - ESSENTIAL (PRIMARY) HYPERTENSION Qualifiers: Qualified Code(s): I10 - Essential (primary) hypertension (3) Poor appetite Code(s): R63.0 - ANOREXIA (4) Weakness Code(s): R53.1 - WEAKNESS (5) ESRD on hemodialysis Assessment/Plan: had Hemodialysis yesterday; f/u with pasteurizing machine operator. Code(s): N18.6 - END STAGE RENAL DISEASE Z99.2 - DEPENDENCE ON RENAL DIALYSIS (6) History of nephrectomy Code(s): Z90.5 - ACQUIRED ABSENCE OF KIDNEY (7) Seizure Code(s): R56.9 - UNSPECIFIED CONVULSIONS Qualifiers: Qualified Code(s): R56.9 - Unspecified convulsions
[2016-07-31] MEDS: NIFEdipine E.R. 90 MG TABLET (FP) PO SCH (08:23)
[2016-07-31] MEDS: LOSARTAN POTASSIUM 50 MG TABLET (FP) PO SCH ×2 (08:24→11:10)
[2016-07-31] MEDS: cloNIDine HCL 0.1 MG TABLET PO SCH ×3 (08:25→21:22)
[2016-07-31] MEDS: LABETALOL HCL 100 MG TABLET (FP) PO SCH (08:26)
[2016-07-31] MEDS: HEPARIN NA (PORCINE) 5,000 UNITS/ML 1ML VIAL SQ SCH ×3 (08:27→21:22)
[2016-07-31 08:35] LABS: BASOPHIL 0.4 % (0-2.0); EOSINOPHIL 1.7 % (0-4.5); MCH 34.8 pg (25.7-33.7); MCHC 33.7 g/dl (32.0-36.0); MEAN CELL VOLUME 103.2 fl (80-96); MEAN PLT VOLUME 7.4 fl (7.5-11.1); NEUTROPHILS 64.1 % (42.8-82.8); PLATELET COUNT 161 K/MM3 (134-434); RDW 15.1 % (11.6-15.6); WHITE BLOOD COUNT 5.9 K/mm3 (4.0-10.0)
[2016-07-31] MEDS: ISOSORBIDE MONONITRATE 60 MG TAB.SR.24H (FP) PO SCH ×2 (08:45→11:10)
[2016-07-31] MEDS: SPIRONOLACTONE 25 MG TABLET (FP) PO SCH ×2 (08:46→11:09)
[2016-07-31] MEDS: FLUTICASONE PROP 0.05% 16 GM NASAL SPRAY NS SCH ×2 (08:47→11:11)
[2016-07-31 09:01] LABS: CALCIUM 8.4 mg/dL (8.5-10.1)
[2016-07-31 09:02] LABS: CREATININE 4.5 mg/dL (0.55-1.02)
[2016-07-31] MEDS ORDERED: PT OWN MED DRAWER 7, Y5N ONE ×2 (10:57→21:17)
[2016-07-31] MEDS: LABETALOL HCL 200 MG TABLET (FP) PO SCH ×2 (11:10→21:21)
[2016-07-31] MEDS: PHENYTOIN NA EXTENDED 100 MG CAPSULE (FP) PO SCH ×2 (11:16→21:21)
[2016-07-31] MEDS: guaiFENesin 200 MG/10 ML 10 ML UNIT-DOSE CUPS PO PRN (12:38)
[2016-07-31] MEDS: AMOX TR/POT CLAV 500MG/125MG TABLETS (FP) PO SCH (17:40)
--- NOTE | 2016-07-31 20:07 | PN ---
Progress Note, Physician History of Present Illness: Pt very anxious Pt complains of pain in her ears and states that her hearing has improved slightly - Current Medication List Current Medications: Active Medications Acetaminophen (Tylenol -) 650 mg PO Q6H PRN PRN Reason: FEVER OR PAIN Last Admin: 07/31/16 08:48 Dose: 650 mg Amoxicillin/Clavulanate Potassium (Augmentin - 500mg Tablet) 1 tab PO BIDWM [facility] Last Admin: 07/31/16 17:40 Dose: 1 tab Clonidine (Catapres -) 0.2 mg PO BID [facility] Last Admin: 07/31/16 11:10 Dose: Not Given Fluticasone Propionate (Flonase -) 2 spray NS DAILY [facility] Last Admin: 07/31/16 11:11 Dose: Not Given Guaifenesin (Robitussin -) 5 ml PO Q6H PRN PRN Reason: COUGH Last Admin: 07/31/16 12:38 Dose: 5 ml Heparin Sodium (Porcine) (Heparin -) 5,000 unit SQ BID [facility] Last Admin: 07/31/16 11:12 Dose: Not Given Hydralazine HCl (Apresoline -) 100 mg PO TID [facility] Last Admin: 07/31/16 14:22 Dose: 100 mg Isosorbide Mononitrate (Imdur -) 60 mg PO DAILY [facility] Last Admin: 07/31/16 11:10 Dose: Not Given Labetalol HCl (Normodyne -) 400 mg PO BID [facility] Last Admin: 07/31/16 11:10 Dose: Not Given Losartan Potassium (Cozaar -) 100 mg PO DAILY [facility] Last Admin: 07/31/16 11:10 Dose: Not Given Nifedipine (Procardia Xl -) 120 mg PO DAILY [facility] Phenytoin Sodium (Dilantin -) 200 mg PO BID [facility] Last Admin: 07/31/16 11:16 Dose: 200 mg Spironolactone (Aldactone -) 50 mg PO DAILY [facility] Last Admin: 07/31/16 11:09 Dose: Not Given - Objective Vital Signs: Vital Signs Temperature 98.4 F 07/31/16 18:16 Pulse Rate 78 07/31/16 18:16 Respiratory Rate 18 07/31/16 18:16 Blood Pressure 155/101 07/31/16 18:16 O2 Sat by Pulse Oximetry (%) 94 L 07/30/16 21:00 Neck: Yes: Supple Cardiovascular: Yes: WNL, Regular Rate and Rhythm, Murmur Respiratory: Yes: WNL, Regular, CTA Bilaterally Gastrointestinal: Yes: WNL, Normal Bowel Sounds, Soft Extremities: Yes: Other ((+) AVF) Labs: CBC, BMP 07/31/16 08:10 07/31/16 08:10 INR, PTT INR 1.07 (0.82-1.09) 07/28/16 13:53 Problem List - Problems (1) Anxiety Assessment/Plan: Anxiety may be adding to accelerated HTN Will add xanax Code(s): F41.9 - ANXIETY DISORDER, UNSPECIFIED (2) Hypertension, uncontrolled Assessment/Plan: BP not controlled and fluctuating Spironolactoneprocardia dose increased Cont hydralazine/clonidine/imdur/labetalol/procardia Code(s): I10 - ESSENTIAL (PRIMARY) HYPERTENSION (3) Hearing loss Assessment/Plan: Ct scan head showed [id number] of sinusis Pt started on augmentin ENT consult for am Code(s): H91.90 - UNSPECIFIED HEARING LOSS, UNSPECIFIED EAR (4) Weakness Assessment/Plan: Due to renal failure PT eval in am Code(s): R53.1 - WEAKNESS (5) ESRD on hemodialysis Assessment/Plan: Dialysis as per renal As per renal Monitor electrolytes Code(s): N18.6 - END STAGE RENAL DISEASE Z99.2 - DEPENDENCE ON RENAL DIALYSIS (6) Chronic diastolic (congestive) heart failure Assessment/Plan: Pt is no on spironolactone Code(s): I50.32 - CHRONIC DIASTOLIC (CONGESTIVE) HEART FAILURE (7) Seizure Assessment/Plan: Cont dilantin Check dilantin level in am Code(s): R56.9 - UNSPECIFIED CONVULSIONS Qualifiers: Convulsion type: unspecified Qualified Code(s): R56.9 - Unspecified convulsions (8) History of nephrectomy Assessment/Plan: Due to renal cell carcinoma Code(s): Z90.5 - ACQUIRED ABSENCE OF KIDNEY (9) Blind Code(s): H54.0 - BLINDNESS, BOTH EYES
[2016-08-01] MEDS: ACETAMINOPHEN 325 MG TABLET (FP) PO PRN ×2 (05:37→21:16)
[2016-08-01] MEDS: LOSARTAN POTASSIUM 50 MG TABLET (FP) PO SCH ×2 (06:48→09:04)
[2016-08-01] MEDS: hydrALAZINE HCL 50 MG TABLET (FP) PO SCH ×3 (06:48→21:16)
[2016-08-01 07:38] LABS: MCH 34.7 pg (25.7-33.7); MCHC 33.6 g/dl (32.0-36.0); MEAN CELL VOLUME 103.3 fl (80-96); MEAN PLT VOLUME 7.4 fl (7.5-11.1); PLATELET COUNT 172 K/MM3 (134-434); RDW 14.7 % (11.6-15.6); WHITE BLOOD COUNT 5.8 K/mm3 (4.0-10.0)
[2016-08-01 07:54] LABS: ALBUMIN 2.8 g/dl (3.4-5.0); CALCIUM 8.3 mg/dL (8.5-10.1)
[2016-08-01 07:56] LABS: BILIRUBIN,TOTAL 0.4 mg/dL (0.2-1.0); CREATININE 5.8 mg/dL (0.55-1.02); TOT PROT 6.3 g/dl (6.4-8.2)
--- NOTE | 2016-08-01 09:00 | CONSULT ---
Consult Consult Specialty:: ENT - History of Present Illness History of Present Illness: 61F ESRD on HD admitted for general fatigue, notes progressive hearing loss bilaterally of unclear duration possibly a couple days to weeks. She is legally blind. No pain, tinnitus, or vertigo. Had a cold recently. - History Source History Provided By: Patient - Past Medical History CPC: Yes: Seizure, Other (Blindness) Cardio/Vascular: Yes: HTN Renal/: Yes: Renal Failure (PCKD s/p nephrectomies), Cancer (Renal cell carcinoma) Additional Medical History: HTN for >10 years, RCC s/p R nephrectomy and L partial nephrectomy, CKD, seizure disorder, blindness, anemia referred for admission due to signs and symptoms of worsening renal function for initiation of [employer] - Past Surgical History Past Surgical History: Yes: AV Fistula/Graft, Nephrectomy (right nephrectomy and left partial nephrectomy) - Alcohol/Substance Use Hx Alcohol Use: No History of Substance Use: reports: None - Smoking History Smoking history: Current every day smoker Have you smoked in the past 12 months: Yes Aproximately how many cigarettes per day: 10 - Social History Usual Living Arrangement: With Spouse ADL: Family Assistance History of Recent Travel: No Home Medications - Allergies Allergies/Adverse Reactions: Allergies Allergy/AdvReac Type Severity Reaction Status Date / Time codeine Allergy Severe Verified 07/28/16 13:55 - Home Medications Home Medications: Ambulatory Orders Clonidine HCl [Catapres -] 0.2 mg PO BID 07/28/16 Hydralazine HCl [Apresoline -] 50 mg PO TID 07/28/16 Labetalol HCl [Normodyne -] 300 mg PO BID 07/28/16 Losartan Potassium [Cozaar -] 50 mg PO DAILY 07/28/16 Nifedipine [Nifedipine ER] 90 mg PO DAILY 07/28/16 Phenytoin Na Extended [Dilantin -] 200 mg PO BID 07/28/16 Family Disease History - Family Disease History Family Disease History: Other: Father (HTN), Mother (HTN) Review of Systems - Review of Systems HENT: reports: Hearing Loss. denies: Ear Pain Physical Exam Vital Signs: Vital Signs Temperature 98.9 F 08/01/16 08:47 Pulse Rate 81 08/01/16 08:47 Respiratory Rate 16 08/01/16 08:47 Blood Pressure 178/96 08/01/16 08:47 O2 Sat by Pulse Oximetry (%) 95 07/31/16 21:00 Constitutional: Yes: Well Nourished, No Distress, Calm Eyes: Yes: Other (cloudy sclerae OU) HENT: Yes: Other (ears: nml pinna, eacs. both eardrums are dull, retracted with serous effusions. no hyperemia or purulence. no mastoid tenderness or swelling. no auric protrusion. Nose: +DNA. Mouth: poor dentition (adv DDS). no gross masses/lesions. Post o/p clear.) Neck: Yes: Supple, Thyromegaly (known thyromegaly, followed by PMD) Neurological: Yes: Other (CN5, 7, 11,12 intact. (pt legally blind)) Labs: CBC, BMP 08/01/16 05:32 08/01/16 05:32 Imaging - Results Cat Scan: Report Reviewed, Image Reviewed (bilateral mastoid & middle ear effusions without bony destruction or mastoid swelling. sinuses clear.) Problem List - Problems (1) Acute serous otitis media of both ears Assessment/Plan: Middle Ear Serous Effusions, bilaterally - No infection. No indication for antibiotics for this purpose. - Likely postviral - Advise outpatient hearing test in my office in 1-2 weeks to re-evaluate. Further discussion can then take place regarding potential myringotomy to drain the fluid, though usually this is not necessary as it clears on its own and requires incising the eardrum(s). - Also advise dental evaluation for her teeth as outpatient. Discussed with Dr. Bustamante. Thank you for this consultation. Please call if there are any further questions. Code(s): H65.03 - ACUTE SEROUS OTITIS MEDIA, BILATERAL (2) Thyroid enlargement Assessment/Plan: Per her managing physician Code(s): E01.0 - IODINE-DEFICIENCY RELATED DIFFUSE (ENDEMIC) GOITER
[2016-08-01] MEDS: AMOX TR/POT CLAV 500MG/125MG TABLETS (FP) PO SCH ×2 (09:01→17:30)
[2016-08-01] MEDS: LABETALOL HCL 200 MG TABLET (FP) PO SCH ×2 (09:01→21:16)
[2016-08-01] MEDS: NIFEdipine E.R 60 MG TABLET (UD) PO SCH (09:01)
[2016-08-01] MEDS: SPIRONOLACTONE 25 MG TABLET (FP) PO SCH (09:04)
[2016-08-01] MEDS: cloNIDine HCL 0.1 MG TABLET PO SCH ×2 (09:04→21:16)
[2016-08-01] MEDS: ISOSORBIDE MONONITRATE 60 MG TAB.SR.24H (FP) PO SCH (09:06)
[2016-08-01] MEDS: PHENYTOIN NA EXTENDED 100 MG CAPSULE (FP) PO SCH ×2 (09:06→21:17)
[2016-08-01] MEDS: FLUTICASONE PROP 0.05% 16 GM NASAL SPRAY NS SCH (09:07)
[2016-08-01] MEDS: guaiFENesin 200 MG/10 ML 10 ML UNIT-DOSE CUPS PO PRN ×3 (09:07→23:40)
[2016-08-01] MEDS: HEPARIN NA (PORCINE) 5,000 UNITS/ML 1ML VIAL SQ SCH ×2 (09:08→21:17)
--- NOTE | 2016-08-01 11:16 | PN ---
Progress Note, Physician History of Present Illness: seen and examined today in nad. continued intermittent headaches. no overnight events. no new complaints. - Current Medication List Current Medications: Active Medications Acetaminophen (Tylenol -) 650 mg PO Q6H PRN PRN Reason: FEVER OR PAIN Last Admin: 08/01/16 05:37 Dose: 650 mg Alprazolam (Xanax -) 0.25 mg PO BID PRN PRN Reason: ANXIETY Amoxicillin/Clavulanate Potassium (Augmentin - 500mg Tablet) 1 tab PO BIDWM [facility] Last Admin: 08/01/16 09:01 Dose: 1 tab Clonidine (Catapres -) 0.2 mg PO BID [facility] Last Admin: 08/01/16 09:04 Dose: 0.2 mg Fluticasone Propionate (Flonase -) 2 spray NS DAILY [facility] Last Admin: 08/01/16 09:07 Dose: 2 spray Guaifenesin (Robitussin -) 5 ml PO Q6H PRN PRN Reason: COUGH Last Admin: 08/01/16 09:07 Dose: 5 ml Heparin Sodium (Porcine) (Heparin -) 5,000 unit SQ BID [facility] Last Admin: 08/01/16 09:08 Dose: 5,000 unit Hydralazine HCl (Apresoline -) 100 mg PO TID [facility] Last Admin: 08/01/16 06:48 Dose: 100 mg Isosorbide Mononitrate (Imdur -) 60 mg PO DAILY [facility] Last Admin: 08/01/16 09:06 Dose: 60 mg Labetalol HCl (Normodyne -) 400 mg PO BID [facility] Last Admin: 08/01/16 09:01 Dose: 400 mg Losartan Potassium (Cozaar -) 100 mg PO DAILY [facility] Last Admin: 08/01/16 09:04 Dose: Not Given Nifedipine (Procardia Xl -) 120 mg PO DAILY [facility] Last Admin: 08/01/16 09:01 Dose: 120 mg Phenytoin Sodium (Dilantin -) 200 mg PO BID [facility] Last Admin: 08/01/16 09:06 Dose: 200 mg Spironolactone (Aldactone -) 50 mg PO DAILY [facility] Last Admin: 08/01/16 09:04 Dose: 50 mg - Objective Vital Signs: Vital Signs Temperature 98.9 F 08/01/16 08:47 Pulse Rate 81 08/01/16 08:47 Respiratory Rate 16 03/27/17 08:51 Blood Pressure 178/96 08/01/16 08:47 O2 Sat by Pulse Oximetry (%) 95 08/01/16 08:51 Constitutional: Yes: Well Nourished, No Distress, Calm Eyes: Yes: EOM Intact. No: Conjunctiva Clear HENT: Yes: Atraumatic, Normocephalic Neck: Yes: Supple, Trachea Midline Cardiovascular: Yes: Regular Rate and Rhythm, S1, S2. No: Bradycardia, Tachycardia, Pulse Irregular, Bruit, JVD, Gallop, Murmur, Rub, S3, S4, Varicosities Respiratory: Yes: Regular, CTA Bilaterally. No: Rales, Rhonchi, Wheezes Gastrointestinal: Yes: WNL, Normal Bowel Sounds, Soft. No: Distention, Tenderness Extremities: Yes: WNL Edema: No Peripheral Pulses WNL: Yes Peripheral Pulses: Left Doralis Pedis: 2+, Right Dorsalis Pedis: 2+ Integumentary: Yes: WNL Neurological: Yes: Alert, Oriented Psychiatric: Yes: Alert, Oriented Labs: CBC, BMP 08/01/16 05:32 08/01/16 05:32 INR, PTT INR 1.07 (0.82-1.09) 07/28/16 13:53 - ....Imaging Chest X-ray: Report Reviewed, Image Reviewed EKG: Report Reviewed, Image Reviewed Other: Report Reviewed, Image Reviewed (tele-nsr, frequent pvcs) Problem List - Problems (1) Hypertension Code(s): I10 - ESSENTIAL (PRIMARY) HYPERTENSION Qualifiers: Hypertension type: essential hypertension Qualified Code(s): I10 - Essential (primary) hypertension (2) End stage renal disease Code(s): N18.6 - END STAGE RENAL DISEASE (3) Dyspnea Code(s): R06.00 - DYSPNEA, UNSPECIFIED Qualifiers: Dyspnea type: unspecified Qualified Code(s): R06.00 - Dyspnea, unspecified (4) ESRD on hemodialysis Code(s): N18.6 - END STAGE RENAL DISEASE Z99.2 - DEPENDENCE ON RENAL DIALYSIS (5) Chronic diastolic (congestive) heart failure Code(s): I50.32 - CHRONIC DIASTOLIC (CONGESTIVE) HEART FAILURE Assessment/Plan HTN urgency-HTN still uncontrolled, meds being uptitrated -cont Labetalol 400mg bid, nifedipine xl 120mg daily, hydralazine 100mg tid, clonidine 0.2mg bid, losartant 100mg daily -spironolactone 50mg daily was added, monitor K+ closely in setting of ESRD -low salt renal diet -of note pt had an IR embolization of a branch of R renal artery in 2014 due to RP bleed, as per reports no stenosis was found at the time -consider work up for other secondary causes of Severe uncontrolled HTN such as pheochromocytoma Chronic diastolic CHF -currently euvolemic -regular HD -cont home medical regimen
[2016-08-01 14:14] LABS: HEP B SURFACE AB Non Reactive (.)
[2016-08-01] MEDS ORDERED: LABETALOL HCL 5 MG/1 ML (100MG/20 ML VIAL) IVPUSH PRN (16:58)
--- NOTE | 2016-08-01 16:59 | PN ---
Progress Note (short form) - Note Progress Note: Renal follow up for ESRD on HD Pt seen and examined at the bedside no acute complaints no NELSON, chest pain, sob BP remains very elevated s/p dialysis on Monday Vital Signs Temperature 98.6 F 08/01/16 14:00 Pulse Rate 75 08/01/16 14:00 Respiratory Rate 20 08/01/16 14:00 Blood Pressure 170/79 08/01/16 14:00 O2 Sat by Pulse Oximetry (%) 95 08/01/16 08:51 Intake & Output 07/29/16 07/30/16 07/31/16 08/01/16 23:59 23:59 23:59 23:59 Intake Total 350 510 Balance 350 510 Weight 114 lb 14.4 oz 119 lb 116 lb 12.8 oz 120 lb 4 oz Gen: NAD, awake and alert CVS: RRR, No M/R Lungs: CTA, no rales or wheeze Abd: soft NT/ND Ext: No edema, clubbing or cyanosis CBC, BMP 08/01/16 05:32 08/01/16 05:32 Current Medications Acetaminophen (Tylenol -) 650 mg PO Q6H PRN PRN Reason: FEVER OR PAIN Last Admin: 08/01/16 05:37 Dose: 650 mg Alprazolam (Xanax -) 0.25 mg PO BID PRN PRN Reason: ANXIETY Amoxicillin/Clavulanate Potassium (Augmentin - 500mg Tablet) 1 tab PO BIDWM [facility] Last Admin: 08/01/16 09:01 Dose: 1 tab Clonidine (Catapres -) 0.2 mg PO BID [facility] Last Admin: 08/01/16 09:04 Dose: 0.2 mg Fluticasone Propionate (Flonase -) 2 spray NS DAILY [facility] Last Admin: 08/01/16 09:07 Dose: 2 spray Guaifenesin (Robitussin -) 5 ml PO Q6H PRN PRN Reason: COUGH Last Admin: 08/01/16 09:07 Dose: 5 ml Heparin Sodium (Porcine) (Heparin -) 5,000 unit SQ BID [facility] Last Admin: 08/01/16 09:08 Dose: 5,000 unit Hydralazine HCl (Apresoline -) 100 mg PO TID [facility] Last Admin: 08/01/16 14:15 Dose: 100 mg Isosorbide Mononitrate (Imdur -) 60 mg PO DAILY [facility] Last Admin: 08/01/16 09:06 Dose: 60 mg Labetalol HCl (Normodyne -) 400 mg PO BID [facility] Last Admin: 08/01/16 09:01 Dose: 400 mg Losartan Potassium (Cozaar -) 100 mg PO DAILY [facility] Last Admin: 08/01/16 09:04 Dose: Not Given Nifedipine (Procardia Xl -) 120 mg PO DAILY [facility] Last Admin: 08/01/16 09:01 Dose: 120 mg Phenytoin Sodium (Dilantin -) 200 mg PO BID [facility] Last Admin: 08/01/16 09:06 Dose: 200 mg Spironolactone (Aldactone -) 50 mg PO DAILY [facility] Last Admin: 08/01/16 09:04 Dose: 50 mg A/P 61 year old woman with PMhx of ESRD on HD (TTS), Difficult to control hypertension, D-CHF, RCC s/p Nephrecotmy, Blindness with B/L cataracts who presented from the HD unit s/p dialysis with NELSON and elevated BP and admitted for hypertensive urgency. #Hypertensive Urgency BP still not controlled despite max dose Losartan, Nedipine Pt is also on Beta Antonio, and Hydralzine and Clonidine given poor response to these agents pt may benefit from central acting alpha antonio like Eugenia Will discuss with Cardiology #ESRD on HD no acute indication for dialysis today HD tomorrow with UF as tolerated Jake Stringer DO
[2016-08-01] MEDS ORDERED: AMOX TR/POT CLAV 500MG/125MG TABLETS (FP) PO SCH (17:45)
[2016-08-01] MEDS: DOXAZOSIN MESYLATE 1 MG TABLET PO SCH (20:24)
[2016-08-01] MEDS: ALPRAZolam 0.25 MG TABLET PO PRN (21:16)
--- NOTE | 2016-08-01 23:30 | PN ---
Progress Note, Physician - Current Medication List Current Medications: Active Medications Acetaminophen (Tylenol -) 650 mg PO Q6H PRN PRN Reason: FEVER OR PAIN Last Admin: 08/01/16 21:16 Dose: 650 mg Alprazolam (Xanax -) 0.25 mg PO BID PRN PRN Reason: ANXIETY Amoxicillin/Clavulanate Potassium (Augmentin - 500mg Tablet) 1 tab PO BIDWM [facility] Last Admin: 08/01/16 17:30 Dose: 1 tab Clonidine (Catapres -) 0.2 mg PO BID [facility] Last Admin: 08/01/16 21:16 Dose: 0.2 mg Doxazosin Mesylate (Cardura -) 1 mg PO DAILY [facility] Last Admin: 08/01/16 20:24 Dose: 1 mg Fluticasone Propionate (Flonase -) 2 spray NS DAILY [facility] Last Admin: 08/01/16 09:07 Dose: 2 spray Guaifenesin (Robitussin -) 5 ml PO Q6H PRN PRN Reason: COUGH Last Admin: 08/01/16 19:00 Dose: 5 ml Heparin Sodium (Porcine) (Heparin -) 5,000 unit SQ BID [facility] Last Admin: 08/01/16 21:17 Dose: 5,000 unit Hydralazine HCl (Apresoline -) 100 mg PO TID [facility] Last Admin: 08/01/16 21:16 Dose: 100 mg Isosorbide Mononitrate (Imdur -) 60 mg PO DAILY [facility] Last Admin: 08/01/16 09:06 Dose: 60 mg Labetalol HCl (Normodyne -) 400 mg PO BID [facility] Last Admin: 08/01/16 21:16 Dose: 400 mg Labetalol HCl (Normodyne Injection -) 10 mg IVPUSH Q2H PRN PRN Reason: HYPERTENSION Losartan Potassium (Cozaar -) 100 mg PO DAILY [facility] Last Admin: 08/01/16 09:04 Dose: Not Given Nifedipine (Procardia Xl -) 120 mg PO DAILY [facility] Last Admin: 08/01/16 09:01 Dose: 120 mg Phenytoin Sodium (Dilantin -) 200 mg PO BID [facility] Last Admin: 08/01/16 21:17 Dose: 200 mg Spironolactone (Aldactone -) 50 mg PO DAILY [facility] Last Admin: 08/01/16 09:04 Dose: 50 mg - Objective Vital Signs: Vital Signs Temperature 97.9 F 08/01/16 17:00 Pulse Rate 81 08/01/16 17:00 Respiratory Rate 20 08/01/16 17:00 Blood Pressure 173/81 08/01/16 17:00 O2 Sat by Pulse Oximetry (%) 95 08/01/16 08:51 Labs: CBC, BMP 08/01/16 05:32 08/01/16 05:32 INR, PTT INR 1.07 (0.82-1.09) 07/28/16 13:53 Problem List - Problems (1) Anxiety Code(s): F41.9 - ANXIETY DISORDER, UNSPECIFIED (2) Hypertension, uncontrolled Code(s): I10 - ESSENTIAL (PRIMARY) HYPERTENSION (3) Hearing loss Code(s): H91.90 - UNSPECIFIED HEARING LOSS, UNSPECIFIED EAR (4) Weakness Code(s): R53.1 - WEAKNESS (5) ESRD on hemodialysis Code(s): N18.6 - END STAGE RENAL DISEASE Z99.2 - DEPENDENCE ON RENAL DIALYSIS (6) Chronic diastolic (congestive) heart failure Code(s): I50.32 - CHRONIC DIASTOLIC (CONGESTIVE) HEART FAILURE (7) Seizure Code(s): R56.9 - UNSPECIFIED CONVULSIONS Qualifiers: Convulsion type: unspecified Qualified Code(s): R56.9 - Unspecified convulsions (8) History of nephrectomy Code(s): Z90.5 - ACQUIRED ABSENCE OF KIDNEY (9) Blind Code(s): H54.0 - BLINDNESS, BOTH EYES
[2016-08-02] MEDS: hydrALAZINE HCL 50 MG TABLET (FP) PO SCH ×4 (05:38→21:45)
[2016-08-02] MEDS: ACETAMINOPHEN 325 MG TABLET (FP) PO PRN ×3 (06:47→22:30)
[2016-08-02 08:46] LABS: MCH 33.8 pg (25.7-33.7); MEAN CELL VOLUME 102.3 fl (80-96); MEAN PLT VOLUME 7.3 fl (7.5-11.1); PLATELET COUNT 173 K/MM3 (134-434); RDW 14.7 % (11.6-15.6); WHITE BLOOD COUNT 4.7 K/mm3 (4.0-10.0)
[2016-08-02 09:33] LABS: CALCIUM 8.2 mg/dL (8.5-10.1)
[2016-08-02] MEDS: guaiFENesin 200 MG/10 ML 10 ML UNIT-DOSE CUPS PO PRN ×2 (09:33→22:56)
[2016-08-02] MEDS: LABETALOL HCL 200 MG TABLET (FP) PO SCH ×2 (09:33→21:46)
[2016-08-02] MEDS: cloNIDine HCL 0.1 MG TABLET PO SCH ×2 (09:33→21:45)
[2016-08-02] MEDS: LOSARTAN POTASSIUM 50 MG TABLET (FP) PO SCH (09:33)
[2016-08-02] MEDS: ALPRAZolam 0.25 MG TABLET PO PRN (09:34)
[2016-08-02] MEDS: PHENYTOIN NA EXTENDED 100 MG CAPSULE (FP) PO SCH ×2 (09:35→21:44)
--- NOTE | 2016-08-02 09:42 | PN ---
Progress Note, Physician Chief Complaint: On HD, no distress. BP remains elevated TELE: NSR. 3 beats NSVT - Current Medication List Current Medications: Active Medications Acetaminophen (Tylenol -) 650 mg PO Q6H PRN PRN Reason: FEVER OR PAIN Last Admin: 08/02/16 06:47 Dose: 650 mg Alprazolam (Xanax -) 0.25 mg PO BID PRN PRN Reason: ANXIETY Last Admin: 08/02/16 09:34 Dose: 0.25 mg Amoxicillin/Clavulanate Potassium (Augmentin - 500mg Tablet) 1 tab PO BIDWM [facility] Last Admin: 08/01/16 17:30 Dose: 1 tab Clonidine (Catapres -) 0.2 mg PO BID [facility] Last Admin: 08/02/16 09:33 Dose: 0.2 mg Doxazosin Mesylate (Cardura -) 1 mg PO DAILY [facility] Last Admin: 08/01/16 20:24 Dose: 1 mg Fluticasone Propionate (Flonase -) 2 spray NS DAILY [facility] Last Admin: 08/01/16 09:07 Dose: 2 spray Guaifenesin (Robitussin -) 5 ml PO Q6H PRN PRN Reason: COUGH Last Admin: 08/02/16 09:33 Dose: 5 ml Heparin Sodium (Porcine) (Heparin -) 5,000 unit SQ BID [facility] Last Admin: 08/01/16 21:17 Dose: 5,000 unit Hydralazine HCl (Apresoline -) 100 mg PO TID [facility] Last Admin: 08/02/16 05:38 Dose: 100 mg Isosorbide Mononitrate (Imdur -) 60 mg PO DAILY [facility] Last Admin: 08/01/16 09:06 Dose: 60 mg Labetalol HCl (Normodyne -) 400 mg PO BID [facility] Last Admin: 08/02/16 09:33 Dose: 400 mg Labetalol HCl (Normodyne Injection -) 10 mg IVPUSH Q2H PRN PRN Reason: HYPERTENSION Losartan Potassium (Cozaar -) 100 mg PO DAILY [facility] Last Admin: 08/02/16 09:33 Dose: 100 mg Nifedipine (Procardia Xl -) 120 mg PO DAILY [facility] Last Admin: 08/01/16 09:01 Dose: 120 mg Phenytoin Sodium (Dilantin -) 200 mg PO BID [facility] Last Admin: 08/02/16 09:35 Dose: 200 mg Spironolactone (Aldactone -) 50 mg PO DAILY [facility] Last Admin: 08/01/16 09:04 Dose: 50 mg - Objective Vital Signs: Vital Signs Temperature 98.0 F 08/02/16 06:45 Pulse Rate 78 08/02/16 08:30 Respiratory Rate 16 08/02/16 08:30 Blood Pressure 210/103 08/02/16 08:30 O2 Sat by Pulse Oximetry (%) 98 08/01/16 21:00 Constitutional: Yes: No Distress Cardiovascular: Yes: Regular Rate and Rhythm Respiratory: Yes: CTA Bilaterally Gastrointestinal: Yes: Soft Edema: No Neurological: Yes: Alert Labs: CBC, BMP 08/02/16 08:00 08/02/16 08:00 INR, PTT INR 1.07 (0.82-1.09) 07/28/16 13:53 Assessment/Plan Assessment/Plan HTN urgency-HTN still uncontrolled, meds being uptitrated -cont Labetalol 400mg bid, nifedipine xl 120mg daily, hydralazine 100mg tid, clonidine 0.2mg bid -Would increase Cardura -low salt renal diet -of note pt had an IR embolization of a branch of R renal artery in 2014 due to RP bleed, as per reports no stenosis was found at the time -consider work up for other secondary causes of Severe uncontrolled HTN such as pheochromocytoma Chronic diastolic CHF secondary to hypertensive heart disease. -currently euvolemic -regular HD -cont home medical regimen -Will review records, needs an ischemic evaluation if not done recently. Should be done when BP is optimized.
[2016-08-02] MEDS: DOXAZOSIN MESYLATE 1 MG TABLET PO SCH ×3 (10:00→21:45)
[2016-08-02] MEDS: HEPARIN NA (PORCINE) 5,000 UNITS/ML 1ML VIAL SQ SCH ×2 (10:00→21:46)
[2016-08-02] MEDS: FLUTICASONE PROP 0.05% 16 GM NASAL SPRAY NS SCH (10:09)
--- NOTE | 2016-08-02 11:09 | PN ---
Progress Note (short form) - Note Progress Note: Renal follow up for ESRD on HD Pt seen and examined during dialysis BP elevated during treatment and required AM med early pt without complaints UF goal is 2.5L denies any NELSON, chest pain, SOB, N/V/D Vital Signs Temperature 98.4 F 08/02/16 09:25 Pulse Rate 78 08/02/16 10:29 Respiratory Rate 16 08/02/16 10:29 Blood Pressure 199/96 08/02/16 10:29 O2 Sat by Pulse Oximetry (%) 98 08/01/16 21:00 Intake & Output 07/30/16 07/31/16 08/01/16 08/02/16 23:59 23:59 23:59 23:59 Intake Total 510 210 0 Balance 510 210 0 Weight 119 lb 116 lb 12.8 oz 120 lb 4 oz 122 lb 3.2 oz Gen: NAD, awake and alert CVS: RRR, No M/R Lungs: CTA, no rales or wheeze Abd: soft NT/ND Ext: No edema, clubbing or cyanosis CBC, BMP 08/02/16 08:00 08/02/16 08:00 Current Medications Acetaminophen (Tylenol -) 650 mg PO Q6H PRN PRN Reason: FEVER OR PAIN Last Admin: 08/02/16 06:47 Dose: 650 mg Alprazolam (Xanax -) 0.25 mg PO BID PRN PRN Reason: ANXIETY Last Admin: 08/02/16 09:34 Dose: 0.25 mg Amoxicillin/Clavulanate Potassium (Augmentin - 500mg Tablet) 1 tab PO BIDWM [facility] Last Admin: 08/01/16 17:30 Dose: 1 tab Clonidine (Catapres -) 0.2 mg PO BID [facility] Last Admin: 08/02/16 09:33 Dose: 0.2 mg Doxazosin Mesylate (Cardura -) 1 mg PO DAILY [facility] Last Admin: 08/01/16 20:24 Dose: 1 mg Fluticasone Propionate (Flonase -) 2 spray NS DAILY [facility] Last Admin: 08/01/16 09:07 Dose: 2 spray Guaifenesin (Robitussin -) 5 ml PO Q6H PRN PRN Reason: COUGH Last Admin: 08/02/16 09:33 Dose: 5 ml Heparin Sodium (Porcine) (Heparin -) 5,000 unit SQ BID [facility] Last Admin: 08/01/16 21:17 Dose: 5,000 unit Hydralazine HCl (Apresoline -) 100 mg PO TID [facility] Last Admin: 08/02/16 05:38 Dose: 100 mg Isosorbide Mononitrate (Imdur -) 60 mg PO DAILY [facility] Last Admin: 08/01/16 09:06 Dose: 60 mg Labetalol HCl (Normodyne -) 400 mg PO BID [facility] Last Admin: 08/02/16 09:33 Dose: 400 mg Labetalol HCl (Normodyne Injection -) 10 mg IVPUSH Q2H PRN PRN Reason: HYPERTENSION Losartan Potassium (Cozaar -) 100 mg PO DAILY [facility] Last Admin: 08/02/16 09:33 Dose: 100 mg Nifedipine (Procardia Xl -) 120 mg PO DAILY [facility] Last Admin: 08/01/16 09:01 Dose: 120 mg Phenytoin Sodium (Dilantin -) 200 mg PO BID [facility] Last Admin: 08/02/16 09:35 Dose: 200 mg Spironolactone (Aldactone -) 50 mg PO DAILY [facility] Last Admin: 08/01/16 09:04 Dose: 50 mg A/P 61 year old woman with PMhx of ESRD on HD (TTS), Difficult to control hypertension, D-CHF, RCC s/p Nephrecotmy, Blindness with B/L cataracts who presented from the HD unit s/p dialysis with NELSON and elevated BP and admitted for hypertensive urgency. #Hypertensive Urgency BP still above goal Increase Cardura to 2mg Daily Continue Losartan, NIfedpine, Clondine, Labetalol Goal BP < 140/90 Check Serum Metanephrines #ESRD on HD tolerating dialysis today with 2k UF Dose all meds for intermittent HD Jake Stringer DO
[2016-08-02] MEDS: AMOX TR/POT CLAV 500MG/125MG TABLETS (FP) PO SCH ×2 (12:08→17:15)
[2016-08-02] MEDS: SPIRONOLACTONE 25 MG TABLET (FP) PO SCH (12:08)
[2016-08-02] MEDS: ISOSORBIDE MONONITRATE 60 MG TAB.SR.24H (FP) PO SCH (12:10)
[2016-08-02] MEDS: NIFEdipine E.R 60 MG TABLET (UD) PO SCH (12:11)
--- NOTE | 2016-08-02 20:26 | PN ---
Progress Note, Physician - Current Medication List Current Medications: Active Medications Acetaminophen (Tylenol -) 650 mg PO Q6H PRN PRN Reason: FEVER OR PAIN Last Admin: 08/02/16 17:14 Dose: 650 mg Alprazolam (Xanax -) 0.25 mg PO BID PRN PRN Reason: ANXIETY Last Admin: 08/02/16 09:34 Dose: 0.25 mg Amoxicillin/Clavulanate Potassium (Augmentin - 500mg Tablet) 1 tab PO BIDWM [facility] Last Admin: 08/02/16 17:15 Dose: 1 tab Clonidine (Catapres -) 0.2 mg PO BID [facility] Last Admin: 08/02/16 09:33 Dose: 0.2 mg Doxazosin Mesylate (Cardura -) 1 mg PO BID [facility] Last Admin: 08/02/16 12:11 Dose: 1 mg Fluticasone Propionate (Flonase -) 2 spray NS DAILY [facility] Last Admin: 08/02/16 10:09 Dose: Not Given Guaifenesin (Robitussin -) 5 ml PO Q6H PRN PRN Reason: COUGH Last Admin: 08/02/16 09:33 Dose: 5 ml Heparin Sodium (Porcine) (Heparin -) 5,000 unit SQ BID [facility] Last Admin: 08/02/16 10:00 Dose: Not Given Hydralazine HCl (Apresoline -) 100 mg PO TID [facility] Last Admin: 08/02/16 14:16 Dose: 100 mg Isosorbide Mononitrate (Imdur -) 60 mg PO DAILY [facility] Last Admin: 08/02/16 12:10 Dose: 60 mg Labetalol HCl (Normodyne -) 400 mg PO BID [facility] Last Admin: 08/02/16 09:33 Dose: 400 mg Labetalol HCl (Normodyne Injection -) 10 mg IVPUSH Q2H PRN PRN Reason: HYPERTENSION Losartan Potassium (Cozaar -) 100 mg PO DAILY [facility] Last Admin: 08/02/16 09:33 Dose: 100 mg Nifedipine (Procardia Xl -) 120 mg PO DAILY [facility] Last Admin: 08/02/16 12:11 Dose: 120 mg Phenytoin Sodium (Dilantin -) 200 mg PO BID [facility] Last Admin: 08/02/16 09:35 Dose: 200 mg Spironolactone (Aldactone -) 50 mg PO DAILY [facility] Last Admin: 08/02/16 12:08 Dose: 50 mg - Objective Vital Signs: Vital Signs Temperature 98.7 F 08/02/16 17:00 Pulse Rate 85 08/02/16 17:00 Respiratory Rate 20 08/02/16 17:00 Blood Pressure 183/104 08/02/16 17:00 O2 Sat by Pulse Oximetry (%) 98 08/02/16 10:00 Labs: CBC, BMP 08/02/16 08:00 08/02/16 08:00 INR, PTT INR 1.07 (0.82-1.09) 07/28/16 13:53 Problem List - Problems (1) Anxiety Code(s): F41.9 - ANXIETY DISORDER, UNSPECIFIED (2) Hypertension, uncontrolled Code(s): I10 - ESSENTIAL (PRIMARY) HYPERTENSION (3) Hearing loss Code(s): H91.90 - UNSPECIFIED HEARING LOSS, UNSPECIFIED EAR (4) Weakness Code(s): R53.1 - WEAKNESS (5) ESRD on hemodialysis Code(s): N18.6 - END STAGE RENAL DISEASE Z99.2 - DEPENDENCE ON RENAL DIALYSIS (6) Chronic diastolic (congestive) heart failure Code(s): I50.32 - CHRONIC DIASTOLIC (CONGESTIVE) HEART FAILURE (7) Seizure Code(s): R56.9 - UNSPECIFIED CONVULSIONS Qualifiers: Convulsion type: unspecified Qualified Code(s): R56.9 - Unspecified convulsions (8) History of nephrectomy Code(s): Z90.5 - ACQUIRED ABSENCE OF KIDNEY (9) Blind Code(s): H54.0 - BLINDNESS, BOTH EYES
[2016-08-03] MEDS: hydrALAZINE HCL 50 MG TABLET (FP) PO SCH ×3 (05:28→21:02)
[2016-08-03] MEDS: ACETAMINOPHEN 325 MG TABLET (FP) PO PRN ×2 (05:39→21:06)
[2016-08-03] MEDS ORDERED: PT OWN MED DRAWER 7, Y5N ONE ×2 (08:17→20:54)
[2016-08-03] MEDS: PHENYTOIN NA EXTENDED 100 MG CAPSULE (FP) PO SCH ×2 (09:27→21:04)
[2016-08-03] MEDS: LABETALOL HCL 200 MG TABLET (FP) PO SCH ×2 (09:27→21:03)
[2016-08-03] MEDS: DOXAZOSIN MESYLATE 1 MG TABLET PO SCH ×2 (09:28→21:04)
[2016-08-03] MEDS: AMOX TR/POT CLAV 500MG/125MG TABLETS (FP) PO SCH ×2 (09:31→18:18)
[2016-08-03] MEDS: NIFEdipine E.R 60 MG TABLET (UD) PO SCH (09:32)
[2016-08-03] MEDS: cloNIDine HCL 0.1 MG TABLET PO SCH ×2 (09:32→21:02)
[2016-08-03] MEDS: LOSARTAN POTASSIUM 50 MG TABLET (FP) PO SCH (09:33)
[2016-08-03] MEDS: ISOSORBIDE MONONITRATE 60 MG TAB.SR.24H (FP) PO SCH (09:35)
[2016-08-03] MEDS: SPIRONOLACTONE 25 MG TABLET (FP) PO SCH (09:38)
--- NOTE | 2016-08-03 09:44 | PN ---
Progress Note, Physician Chief Complaint: Wants to go home "No one is doing Nothing for me here" Refused to have stress test. Explained reasoning (NSVT)- says she will do as outpatient - Current Medication List Current Medications: Active Medications Acetaminophen (Tylenol -) 650 mg PO Q6H PRN PRN Reason: FEVER OR PAIN Last Admin: 08/03/16 05:39 Dose: 650 mg Alprazolam (Xanax -) 0.25 mg PO BID PRN PRN Reason: ANXIETY Last Admin: 08/02/16 09:34 Dose: 0.25 mg Amoxicillin/Clavulanate Potassium (Augmentin - 500mg Tablet) 1 tab PO BIDWM [facility] Last Admin: 08/02/16 17:15 Dose: 1 tab Clonidine (Catapres -) 0.2 mg PO BID [facility] Last Admin: 08/02/16 21:45 Dose: 0.2 mg Doxazosin Mesylate (Cardura -) 1 mg PO BID [facility] Last Admin: 08/02/16 21:45 Dose: 1 mg Fluticasone Propionate (Flonase -) 2 spray NS DAILY [facility] Last Admin: 08/02/16 10:09 Dose: Not Given Guaifenesin (Robitussin -) 5 ml PO Q6H PRN PRN Reason: COUGH Last Admin: 08/02/16 22:56 Dose: 5 ml Heparin Sodium (Porcine) (Heparin -) 5,000 unit SQ BID [facility] Last Admin: 08/02/16 21:46 Dose: 5,000 unit Hydralazine HCl (Apresoline -) 100 mg PO TID [facility] Last Admin: 08/03/16 05:28 Dose: 100 mg Isosorbide Mononitrate (Imdur -) 60 mg PO DAILY [facility] Last Admin: 08/02/16 12:10 Dose: 60 mg Labetalol HCl (Normodyne -) 400 mg PO BID [facility] Last Admin: 08/02/16 21:46 Dose: 400 mg Labetalol HCl (Normodyne Injection -) 10 mg IVPUSH Q2H PRN PRN Reason: HYPERTENSION Losartan Potassium (Cozaar -) 100 mg PO DAILY [facility] Last Admin: 08/02/16 09:33 Dose: 100 mg Nifedipine (Procardia Xl -) 120 mg PO DAILY [facility] Last Admin: 08/02/16 12:11 Dose: 120 mg Phenytoin Sodium (Dilantin -) 200 mg PO BID [facility] Last Admin: 08/02/16 21:44 Dose: 200 mg Spironolactone (Aldactone -) 50 mg PO DAILY [facility] Last Admin: 08/02/16 12:08 Dose: 50 mg - Objective Vital Signs: Vital Signs Temperature 98.9 F 08/03/16 06:00 Pulse Rate 80 08/03/16 06:00 Respiratory Rate 20 08/03/16 06:00 Blood Pressure 175/96 08/03/16 06:00 O2 Sat by Pulse Oximetry (%) 96 08/02/16 21:00 Constitutional: Yes: No Distress Cardiovascular: Yes: Regular Rate and Rhythm Respiratory: Yes: CTA Bilaterally Gastrointestinal: Yes: Soft Edema: No Neurological: Yes: Alert Labs: CBC, BMP 08/02/16 08:00 08/02/16 08:00 INR, PTT INR 1.07 (0.82-1.09) 07/28/16 13:53 - ....Imaging EKG: Image Reviewed (TELE: NSR) Assessment/Plan IMP: ESRD on HD Chronic uncontrolled HTN Hypertensive heart dz NSVT REC: Would titrate clonidine or cardura as tolerated. Refusing stress test- will do as outpatient. Continue HD. Secondary HTN w/u can be done as outpatient if patient continues to insist on going home
[2016-08-03] MEDS: HEPARIN NA (PORCINE) 5,000 UNITS/ML 1ML VIAL SQ SCH ×2 (09:48→21:23)
[2016-08-03] MEDS: FLUTICASONE PROP 0.05% 16 GM NASAL SPRAY NS SCH (09:48)
--- NOTE | 2016-08-03 16:13 | PN ---
Progress Note (short form) - Note Progress Note: Renal follow up for ESRD on HD Pt seen and examined at the bedside no acute complaints wants to go home Vital Signs Temperature 97.9 F 08/03/16 15:14 Pulse Rate 77 08/03/16 15:14 Respiratory Rate 20 08/03/16 15:14 Blood Pressure 142/84 08/03/16 15:14 O2 Sat by Pulse Oximetry (%) 96 08/03/16 10:00 Intake & Output 07/31/16 08/01/16 08/02/16 08/03/16 23:59 23:59 23:59 23:59 Intake Total 210 550 850 Balance 210 550 850 Weight 116 lb 12.8 oz 120 lb 4 oz 122 lb 3.2 oz 117 lb 8 oz Gen: NAD CVS: RRR, No M/R Lungs: CTA, no rales or wheeze Abd: soft NT/ND Ext: No edema, clubbing or cyanosis CBC, BMP 08/02/16 08:00 08/02/16 08:00 Laboratory Tests 08/01/16 08/02/16 05:32 08:00 Calcium 8.2 L Phosphorus 4.0 Albumin 2.8 L Current Medications Acetaminophen (Tylenol -) 650 mg PO Q6H PRN PRN Reason: FEVER OR PAIN Last Admin: 08/03/16 05:39 Dose: 650 mg Alprazolam (Xanax -) 0.25 mg PO BID PRN PRN Reason: ANXIETY Last Admin: 08/02/16 09:34 Dose: 0.25 mg Amoxicillin/Clavulanate Potassium (Augmentin - 500mg Tablet) 1 tab PO BIDWM [facility] Last Admin: 08/03/16 09:31 Dose: 1 tab Clonidine (Catapres -) 0.2 mg PO BID [facility] Last Admin: 08/03/16 09:32 Dose: 0.2 mg Doxazosin Mesylate (Cardura -) 1 mg PO BID [facility] Last Admin: 08/03/16 09:28 Dose: 1 mg Fluticasone Propionate (Flonase -) 2 spray NS DAILY [facility] Last Admin: 08/03/16 09:48 Dose: Not Given Guaifenesin (Robitussin -) 5 ml PO Q6H PRN PRN Reason: COUGH Last Admin: 08/02/16 22:56 Dose: 5 ml Heparin Sodium (Porcine) (Heparin -) 5,000 unit SQ BID [facility] Last Admin: 08/03/16 09:48 Dose: 5,000 unit Hydralazine HCl (Apresoline -) 100 mg PO TID [facility] Last Admin: 08/03/16 15:00 Dose: 100 mg Isosorbide Mononitrate (Imdur -) 60 mg PO DAILY [facility] Last Admin: 08/03/16 09:35 Dose: 60 mg Labetalol HCl (Normodyne -) 400 mg PO BID [facility] Last Admin: 08/03/16 09:27 Dose: 400 mg Labetalol HCl (Normodyne Injection -) 10 mg IVPUSH Q2H PRN PRN Reason: HYPERTENSION Losartan Potassium (Cozaar -) 100 mg PO DAILY [facility] Last Admin: 08/03/16 09:33 Dose: 100 mg Nifedipine (Procardia Xl -) 120 mg PO DAILY [facility] Last Admin: 08/03/16 09:32 Dose: 120 mg Phenytoin Sodium (Dilantin -) 200 mg PO BID [facility] Last Admin: 08/03/16 09:27 Dose: 200 mg Spironolactone (Aldactone -) 50 mg PO DAILY [facility] Last Admin: 08/03/16 09:38 Dose: 50 mg A/P 61 year old woman with PMhx of ESRD on HD (TTS), Difficult to control hypertension, D-CHF, RCC s/p Nephrecotmy, Blindness with B/L cataracts who presented from the HD unit s/p dialysis with NELSON and elevated BP and admitted for hypertensive urgency. #Hypertensive Urgency Cardura increased to 1mg BID Continue Losartan, NIfedpine, Clondine, Labetalol BP with moderate improvement would not push to achieve gaol BP of 140/90 right at this time as pt may have symptoms of relative hypotension BP ~150-160/90-100 ok for ow #ESRD No acute indication for dialysis today next treatment planned for tomorrow UF as tolerated Jake Stringer DO
[2016-08-03] MEDS: guaiFENesin 200 MG/10 ML 10 ML UNIT-DOSE CUPS PO PRN (21:01)
--- NOTE | 2016-08-03 22:47 | PN ---
Progress Note, Physician - Current Medication List Current Medications: Active Medications Acetaminophen (Tylenol -) 650 mg PO Q6H PRN PRN Reason: FEVER OR PAIN Last Admin: 08/03/16 21:06 Dose: 650 mg Amoxicillin/Clavulanate Potassium (Augmentin - 500mg Tablet) 1 tab PO BIDWM [facility] Last Admin: 08/03/16 18:18 Dose: 1 tab Clonidine (Catapres -) 0.2 mg PO BID [facility] Last Admin: 08/03/16 21:02 Dose: 0.2 mg Doxazosin Mesylate (Cardura -) 1 mg PO BID [facility] Last Admin: 08/03/16 21:04 Dose: 1 mg Fluticasone Propionate (Flonase -) 2 spray NS DAILY [facility] Last Admin: 08/03/16 09:48 Dose: Not Given Guaifenesin (Robitussin -) 5 ml PO Q6H PRN PRN Reason: COUGH Last Admin: 08/03/16 21:01 Dose: 5 ml Heparin Sodium (Porcine) (Heparin -) 5,000 unit SQ BID [facility] Last Admin: 08/03/16 21:23 Dose: 5,000 unit Hydralazine HCl (Apresoline -) 100 mg PO TID [facility] Last Admin: 08/03/16 21:02 Dose: 100 mg Isosorbide Mononitrate (Imdur -) 60 mg PO DAILY [facility] Last Admin: 08/03/16 09:35 Dose: 60 mg Labetalol HCl (Normodyne -) 400 mg PO BID [facility] Last Admin: 08/03/16 21:03 Dose: 400 mg Labetalol HCl (Normodyne Injection -) 10 mg IVPUSH Q2H PRN PRN Reason: HYPERTENSION Losartan Potassium (Cozaar -) 100 mg PO DAILY [facility] Last Admin: 08/03/16 09:33 Dose: 100 mg Nifedipine (Procardia Xl -) 120 mg PO DAILY [facility] Last Admin: 08/03/16 09:32 Dose: 120 mg Phenytoin Sodium (Dilantin -) 200 mg PO BID [facility] Last Admin: 08/03/16 21:04 Dose: 200 mg Spironolactone (Aldactone -) 50 mg PO DAILY [facility] Last Admin: 08/03/16 09:38 Dose: 50 mg - Objective Vital Signs: Vital Signs Temperature 97.9 F 08/03/16 17:00 Pulse Rate 73 08/03/16 17:00 Respiratory Rate 20 08/03/16 17:00 Blood Pressure 154/87 08/03/16 17:00 O2 Sat by Pulse Oximetry (%) 96 08/03/16 10:00 Labs: CBC, BMP 08/02/16 08:00 08/02/16 08:00 INR, PTT INR 1.07 (0.82-1.09) 07/28/16 13:53 Problem List - Problems (1) Anxiety Code(s): F41.9 - ANXIETY DISORDER, UNSPECIFIED (2) Hypertension, uncontrolled Code(s): I10 - ESSENTIAL (PRIMARY) HYPERTENSION (3) Hearing loss Code(s): H91.90 - UNSPECIFIED HEARING LOSS, UNSPECIFIED EAR (4) Weakness Code(s): R53.1 - WEAKNESS (5) ESRD on hemodialysis Code(s): N18.6 - END STAGE RENAL DISEASE Z99.2 - DEPENDENCE ON RENAL DIALYSIS (6) Chronic diastolic (congestive) heart failure Code(s): I50.32 - CHRONIC DIASTOLIC (CONGESTIVE) HEART FAILURE (7) Seizure Code(s): R56.9 - UNSPECIFIED CONVULSIONS Qualifiers: Convulsion type: unspecified Qualified Code(s): R56.9 - Unspecified convulsions (8) History of nephrectomy Code(s): Z90.5 - ACQUIRED ABSENCE OF KIDNEY (9) Blind Code(s): H54.0 - BLINDNESS, BOTH EYES
[2016-08-04] MEDS: ACETAMINOPHEN 325 MG TABLET (FP) PO PRN ×2 (02:48→16:14)
[2016-08-04] MEDS: hydrALAZINE HCL 50 MG TABLET (FP) PO SCH ×3 (05:33→16:11)
[2016-08-04] MEDS: cloNIDine HCL 0.1 MG TABLET PO SCH (09:01)
[2016-08-04] MEDS: AMOX TR/POT CLAV 500MG/125MG TABLETS (FP) PO SCH (09:01)
[2016-08-04] MEDS: ISOSORBIDE MONONITRATE 60 MG TAB.SR.24H (FP) PO SCH (09:01)
[2016-08-04] MEDS: NIFEdipine E.R 60 MG TABLET (UD) PO SCH (09:01)
[2016-08-04] MEDS: SPIRONOLACTONE 25 MG TABLET (FP) PO SCH (09:01)
[2016-08-04] MEDS: LABETALOL HCL 200 MG TABLET (FP) PO SCH (09:02)
[2016-08-04] MEDS: LOSARTAN POTASSIUM 50 MG TABLET (FP) PO SCH (09:02)
[2016-08-04] MEDS: DOXAZOSIN MESYLATE 1 MG TABLET PO SCH (09:03)
[2016-08-04] MEDS: HEPARIN NA (PORCINE) 5,000 UNITS/ML 1ML VIAL SQ SCH (09:04)
[2016-08-04] MEDS ORDERED: PT OWN MED DRAWER 7, Y5N ONE ×2 (09:15→16:17)
[2016-08-04] MEDS: PHENYTOIN NA EXTENDED 100 MG CAPSULE (FP) PO SCH (09:16)
[2016-08-04] MEDS: FLUTICASONE PROP 0.05% 16 GM NASAL SPRAY NS SCH (09:22)
--- NOTE | 2016-08-04 09:36 | PN ---
Progress Note, Physician Chief Complaint: no new complaints TELE: NSR - Current Medication List Current Medications: Active Medications Acetaminophen (Tylenol -) 650 mg PO Q6H PRN PRN Reason: FEVER OR PAIN Last Admin: 08/04/16 02:48 Dose: 650 mg Amoxicillin/Clavulanate Potassium (Augmentin - 500mg Tablet) 1 tab PO BIDWM [facility] Last Admin: 08/04/16 09:01 Dose: 1 tab Clonidine (Catapres -) 0.2 mg PO BID [facility] Last Admin: 08/04/16 09:01 Dose: 0.2 mg Doxazosin Mesylate (Cardura -) 1 mg PO BID [facility] Last Admin: 08/04/16 09:03 Dose: 1 mg Fluticasone Propionate (Flonase -) 2 spray NS DAILY [facility] Last Admin: 08/04/16 09:22 Dose: Not Given Guaifenesin (Robitussin -) 5 ml PO Q6H PRN PRN Reason: COUGH Last Admin: 08/03/16 21:01 Dose: 5 ml Heparin Sodium (Porcine) (Heparin -) 5,000 unit SQ BID [facility] Last Admin: 08/04/16 09:04 Dose: 5,000 unit Hydralazine HCl (Apresoline -) 100 mg PO TID [facility] Last Admin: 08/04/16 05:33 Dose: 100 mg Isosorbide Mononitrate (Imdur -) 60 mg PO DAILY [facility] Last Admin: 08/04/16 09:01 Dose: 60 mg Labetalol HCl (Normodyne -) 400 mg PO BID [facility] Last Admin: 08/04/16 09:02 Dose: 400 mg Labetalol HCl (Normodyne Injection -) 10 mg IVPUSH Q2H PRN PRN Reason: HYPERTENSION Losartan Potassium (Cozaar -) 100 mg PO DAILY [facility] Last Admin: 08/04/16 09:02 Dose: 100 mg Nifedipine (Procardia Xl -) 120 mg PO DAILY [facility] Last Admin: 08/04/16 09:01 Dose: 120 mg Phenytoin Sodium (Dilantin -) 200 mg PO BID [facility] Last Admin: 08/04/16 09:16 Dose: 200 mg Spironolactone (Aldactone -) 50 mg PO DAILY [facility] Last Admin: 08/04/16 09:01 Dose: 50 mg - Objective Vital Signs: Vital Signs Temperature 98.8 F 08/04/16 06:00 Pulse Rate 78 08/04/16 06:00 Respiratory Rate 18 08/04/16 06:00 Blood Pressure 182/96 08/04/16 06:00 O2 Sat by Pulse Oximetry (%) 95 08/04/16 06:00 Constitutional: Yes: No Distress Cardiovascular: Yes: Regular Rate and Rhythm Respiratory: Yes: CTA Bilaterally Gastrointestinal: Yes: Soft Edema: No Neurological: Yes: Alert Labs: CBC, BMP 08/02/16 08:00 08/02/16 08:00 INR, PTT INR 1.07 (0.82-1.09) 07/28/16 13:53 Assessment/Plan IMP: ESRD on HD Chronic uncontrolled HTN Hypertensive heart dz NSVT REC: Would titrate clonidine or cardura as tolerated to goal BP 150/90 Refusing stress test- will do as outpatient. Continue HD. Secondary HTN w/u can be done as outpatient if patient continues to insist on going home No further inpatient work up planned at this time
--- NOTE | 2016-08-04 11:21 | PN ---
Progress Note (short form) - Note Progress Note: Renal follow up for ESRD on HD Pt seen and examined at the bedside no complaints for dialysis later today Vital Signs Temperature 98.8 F 08/04/16 06:00 Pulse Rate 78 08/04/16 06:00 Respiratory Rate 18 08/04/16 06:00 Blood Pressure 182/96 08/04/16 06:00 O2 Sat by Pulse Oximetry (%) 95 08/04/16 06:00 Intake & Output 08/01/16 08/02/16 08/03/16 08/04/16 23:59 23:59 23:59 23:59 Intake Total 375 440 0714 240 Output Total 100 0 Balance 993 771 2639 240 Weight 120 lb 4 oz 122 lb 3.2 oz 117 lb 8 oz 120 lb 4 oz Gen: NAD CVS: RRR, No M/R Lungs: CTA, no rales or wheeze Abd: soft NT/ND Ext: No edema, clubbing or cyanosis CBC, BMP 08/02/16 08:00 08/02/16 08:00 Laboratory Tests 08/02/16 08:00 Calcium 8.2 L Phosphorus 4.0 Current Medications Acetaminophen (Tylenol -) 650 mg PO Q6H PRN PRN Reason: FEVER OR PAIN Last Admin: 08/04/16 02:48 Dose: 650 mg Amoxicillin/Clavulanate Potassium (Augmentin - 500mg Tablet) 1 tab PO BIDWM [facility] Last Admin: 08/04/16 09:01 Dose: 1 tab Clonidine (Catapres -) 0.2 mg PO BID [facility] Last Admin: 08/04/16 09:01 Dose: 0.2 mg Doxazosin Mesylate (Cardura -) 1 mg PO BID [facility] Last Admin: 08/04/16 09:03 Dose: 1 mg Fluticasone Propionate (Flonase -) 2 spray NS DAILY [facility] Last Admin: 08/04/16 09:22 Dose: Not Given Guaifenesin (Robitussin -) 5 ml PO Q6H PRN PRN Reason: COUGH Last Admin: 08/03/16 21:01 Dose: 5 ml Heparin Sodium (Porcine) (Heparin -) 5,000 unit SQ BID [facility] Last Admin: 08/04/16 09:04 Dose: 5,000 unit Hydralazine HCl (Apresoline -) 100 mg PO TID [facility] Last Admin: 08/04/16 05:33 Dose: 100 mg Isosorbide Mononitrate (Imdur -) 60 mg PO DAILY [facility] Last Admin: 08/04/16 09:01 Dose: 60 mg Labetalol HCl (Normodyne -) 400 mg PO BID [facility] Last Admin: 08/04/16 09:02 Dose: 400 mg Labetalol HCl (Normodyne Injection -) 10 mg IVPUSH Q2H PRN PRN Reason: HYPERTENSION Losartan Potassium (Cozaar -) 100 mg PO DAILY [facility] Last Admin: 08/04/16 09:02 Dose: 100 mg Nifedipine (Procardia Xl -) 120 mg PO DAILY [facility] Last Admin: 08/04/16 09:01 Dose: 120 mg Phenytoin Sodium (Dilantin -) 200 mg PO BID [facility] Last Admin: 08/04/16 09:16 Dose: 200 mg Spironolactone (Aldactone -) 50 mg PO DAILY [facility] Last Admin: 08/04/16 09:01 Dose: 50 mg A/P 61 year old woman with PMhx of ESRD on HD (TTS), Difficult to control hypertension, D-CHF, RCC s/p Nephrecotmy, Blindness with B/L cataracts who presented from the HD unit s/p dialysis with NELSON and elevated BP and admitted for hypertensive urgency. #Hypertensive Urgency Continue Losartan, NIfedpine, Clondine, Labetalol, Cardura BP with moderate improvement Can continue to titrate medications as outpatient #ESRD For dialysis today with UF as tolerated #CKD Related Anemia holding DAISHA at this time because of uncontrolled HTN Jake Stringer DO
[2016-08-04 12:56] LABS: MCH 34.3 pg (25.7-33.7); MCHC 33.4 g/dl (32.0-36.0); MEAN PLT VOLUME 7.2 fl (7.5-11.1); PLATELET COUNT 147 K/MM3 (134-434); RDW 14.6 % (11.6-15.6); WHITE BLOOD COUNT 4.1 K/mm3 (4.0-10.0)
[2016-08-04 13:47] VITALS: TEMP 97.4
[2016-08-04 15:38] VITALS: BP 143/83; PULSE 76
[2016-08-04 15:54] LABS: CALCIUM 7.8 mg/dL (8.5-10.1); CREATININE 6.5 mg/dL (0.55-1.02); PHOSPHOROUS 3.3 mg/dL (2.5-4.9)
[2016-08-04 17:01] LABS: CREATININE 2.3 mg/dL (0.55-1.02)
== END 2016-08-04 16:26 | disposition home health service (06) | DRG 304 ==
LOC: JER 13:43 → JERBED 17:24 → J6S 20:22 → OBSVTOIN 07-29 → J4W 07-29 21:47
PROVIDERS: ADMIT Internal Medicine; ATTEND Internal Medicine
DX: I16.0 Hypertensive urgency (principal); N18.6 End stage renal disease; I50.32 Chronic diastolic (congestive) heart failure; I47.2 Ventricular tachycardia; F17.210 Nicotine dependence, cigarettes, uncomplicated; Z90.5 Acquired absence of kidney; H54.0 Blindness, both eyes; R56.9 Unspecified convulsions; H91.90 Unspecified hearing loss, unspecified ear; F41.9 Anxiety disorder, unspecified; E01.0 Iodine-deficiency related diffuse (endemic) goiter; I11.0 Hypertensive heart disease with heart failure; D63.1 Anemia in chronic kidney disease; H65.03 Acute serous otitis media, bilateral; Z99.2 Dependence on renal dialysis
CPT/HCPCS: 36415; 70450-TC; 71010-TC; 80048; 80053; 80061; 80185; 82550; 82553; 82565; 83721; 83735; 84100; 84443; 84484; 84520; 85025; 85027; 85610; 86704; 86706; 86708; 87340; 93005; 93010; 93306-TC; 97116-GP; 97161-GP; 99285-25; G0378; J1644

== ENCOUNTER → 2016-09-24 | Emergency (ER) | payer OTHER ==
[~2016-09-24] MED LIST: ACETAMINOPHEN 325 MG TABLET (FP) ONE; ACETAMINOPHEN 325 MG TABLET (FP) PO ONE; ALBUTEROL SO4 2.5/IPRATROPIUM 0.5 INH SOL 3 ML VIAL.NEB. NEB ONE; CEFTRIAXONE 1 GM in DEXTROSE 5%-WATER - 50 ML IVPB ONE; CEFTRIAXONE 50 ML ONE; methylPREDNISolone NA SUCC 125 MG/2 ML VIAL IVPB ONE; methylPREDNISolone NA SUCC 125 MG/2 ML VIAL ONE
[2016-09-24 22:17] VITALS: TEMP 97.7; BMI 18.6
--- NOTE | 2016-09-24 22:22 | PDOC ---
History of Present Illness - General Stated Complaint: SOB Time Seen by Provider: 09/24/16 21:41 History Source: Patient Exam Limitations: No Limitations - History of Present Illness Initial Comments: 09/24/16 22:20 61yo Female patient w/ PmHx: ESRD, HTN, Renal Ca s/p Nephrectomy, Dialysis (e , , Sat) presents to ED via EMS from home c/o diff breathing. Patient reports symptoms have been ongoing for past couple days not getting better. She denies fever, CP, Abd pain, n/v/d, rash, congestion, or any other complaints at this time. Associated Cough. +smoker. Timing/Duration: reports: getting worse, week Severity: reports: moderate Possible Cause: Yes: frequent episodes Modifying Factors: improves with: coughing. worse with: activity, albuterol inhaler, albuterol nebulizer, antibiotics, lying down, oxygen, rest, other Associated Symptoms: reports: cough, shortness of breath. denies: denies symptoms, chest pain/soreness, dizziness, earache, facial pain, fever/chills, headache, lightheadedness, muscle aches, nasal congestion, nasal drainage, sinus infection, sore throat, wheezing, other Past History - Travel Traveled outside of the country in the last 30 days: No Close contact w/someone who was outside of country & ill: No - Past Medical History Allergies/Adverse Reactions: Allergies Allergy/AdvReac Type Severity Reaction Status Date / Time codeine Allergy Severe Verified 07/28/16 13:55 Home Medications: Ambulatory Orders Clonidine HCl [Catapres -] 0.2 mg PO BID 07/28/16 Labetalol HCl [Normodyne -] 300 mg PO BID 07/28/16 Losartan Potassium [Cozaar -] 50 mg PO DAILY 07/28/16 Nifedipine [Nifedipine ER] 90 mg PO DAILY 07/28/16 Phenytoin Na Extended [Dilantin -] 200 mg PO BID 07/28/16 Amox-Tr/K Cl [Augmentin 500-125mg Tablet -] 1 tab PO BIDWM #10 tablet 08/04/16 Clonidine HCl [Catapres -] 0.2 mg PO BID #60 tablet 08/04/16 Doxazosin Mesylate [Cardura -] 1 mg PO BID #30 tablet 08/04/16 Fluticasone Prop 0.05% Nasal [Flonase -] 2 spray NS DAILY #1 spray 08/04/16 Hydralazine HCl [Apresoline -] 100 mg PO TID #90 tablet 08/04/16 Labetalol HCl [Normodyne -] 400 mg PO BID #60 tablet 08/04/16 Losartan Potassium [Cozaar -] 100 mg PO DAILY #30 tablet 08/04/16 Spironolactone [Aldactone -] 50 mg PO DAILY #30 tablet 08/04/16 Azithromycin [Zithromax -] 250 mg PO DAILY #6 tablet 09/25/16 Prednisone [Deltasone] 40 mg PO DAILY #8 tablet 09/25/16 Anemia: No Asthma: No Cancer: Yes (renal cell ca) Cardiac Disorders: No CVA: No COPD: No CHF: No Dementia: No Diabetes: No Dialysis: Yes (--Mon) GI Disorders: Yes (REFLUX) Disorders: Yes (DIALYSIS ,,[facility]) HTN: Yes Hypercholesterolemia: No Liver Disease: No Suicide Attempt (Hx): No Seizures: Yes (LAST SEIZURE X2 MONS AGO) Thyroid Disease: No - Surgical History Abdominal Surgery: No Appendectomy: No Cardiac Surgery: No Cholecystectomy: Yes Lung Surgery: No Neurologic Surgery: No Orthopedic Surgery: No - Immunization History Immunization Up to Date: Yes - Psycho/Social/Smoking Cessation Hx Anxiety: No Suicidal Ideation: No Smoking Status: Yes Smoking History: Current every day smoker Have you smoked in the past 12 months: Yes Number of Cigarettes Smoked Daily: 15 Information on smoking cessation initiated: No 'Breaking Loose' booklet given: 04/06/16 Hx Alcohol Use: No Drug/Substance Use Hx: No Substance Use Type: None Hx Substance Use Treatment: No Respiratory Specific PMHX - Complaint Specific PMHX Angina: No Bronchitis: No Pneumonia: No Pulmonary Embolus: No TB (Tuberculosis): No Review of Systems - Review of Systems Able to Perform ROS?: Yes Is the patient limited [place] proficient: No Constitutional: No: Chills, Fever Respiratory: Yes: Shortness of Breath, SOB with Exertion Cardiac (ROS): Yes: Edema. No: Chest Pain, Lightheadedness, Palpitations, Chest Tightness ABD/GI: No: Diarrhea, Nausea, Poor Appetite, Poor Fluid Intake, Vomiting : No: Burning, Dysuria, Frequency, Flank Pain, Hematuria Musculoskeletal: No: Back Pain All Other Systems: Reviewed and Negative *Physical Exam - Vital Signs Last Vital Signs Temp Pulse Resp BP Pulse Ox 97.7 F 72 16 193/94 100 09/24/16 21:50 09/24/16 21:50 09/24/16 21:50 09/24/16 21:50 09/24/16 21:50 - Physical Exam General Appearance: Yes: Appropriately Dressed, Mild Distress. No: Apparent Distress, Moderate Distress, Severe Distress Neck: positive: Trachea midline, Supple. negative: Stridor, Lymphadenopathy (R) , Lymphadenopathy (L) Respiratory/Chest: positive: Decreased Breath Sounds, Crackles, Wheezing. negative: Lungs Clear, Normal Breath Sounds, Respiratory Distress, Accessory Muscle Use, Labored Respiration, Rapid RR Cardiovascular: positive: Regular Rhythm, Regular Rate Gastrointestinal/Abdominal: positive: Normal Bowel Sounds, Soft. negative: Distended, Guarding, Rebound, Tenderness Musculoskeletal: positive: Normal Inspection. negative: CVA Tenderness Extremity: positive: Normal Capillary Refill, Normal Inspection, Normal Range of Motion Integumentary: positive: Normal Color, Dry, Warm Neurologic: positive: paramedic supervisor II-XII NML intact, Fully Oriented, Alert, Normal Mood/ Affect, Normal Response, Motor Strength / ED Treatment Course - LABORATORY CBC & Chemistry Diagram: 09/24/16 22:50 09/25/16 00:12 - RADIOLOGY Radiology Studies Ordered: Category Date Time Status CHEST X-RAY PORTABLE* [RAD] Stat Radiology 09/24/16 21:52 Taken *DC/Admit/Observation/Transfer Diagnosis at time of Disposition: COPD exacerbation - Discharge Dispostion Disposition: HOME Condition at time of disposition: Improved Admit: No - Prescriptions Prescriptions: Prednisone [Deltasone] 40 mg PO DAILY #8 tablet Azithromycin [Zithromax -] 250 mg PO DAILY #6 tablet - Patient Instructions Printed Discharge Instructions: DI for Chronic Obstructive Pulmonary Disease Additional Instructions: FOLLOW UP WITH YOUR PRIMARY CARE PROVIDER THIS WEEK. CALL TO SCHEDULE APPOINTMENT. TAKE MEDICATIONS PRESCRIBED. RETURN IF SYMPTOMS WORSEN OR ANY CONCERNS FOR FURTHER EVALUATION. Print Language: MALAY
[2016-09-24] MEDS: ALBUTEROL SO4 2.5/IPRATROPIUM 0.5 INH SOL 3 ML VIAL.NEB. NEB SCH ×3 (22:30→23:10)
[2016-09-24 23:13] LABS: BASOPHIL 0.5 % (0-2.0); EOSINOPHIL 1.5 % (0-4.5); MCH 33.8 pg (25.7-33.7); MCHC 33.1 g/dl (32.0-36.0); MEAN CELL VOLUME 102.1 fl (80-96); MEAN PLT VOLUME 8.7 fl (7.5-11.1); NEUTROPHILS 77.2 % (42.8-82.8); PLATELET COUNT 189 K/MM3 (134-434); RDW 18.1 % (11.6-15.6); WHITE BLOOD COUNT 7.6 K/mm3 (4.0-10.0)
[2016-09-25 00:46] LABS: ALBUMIN 2.7 g/dl (3.4-5.0); BILIRUBIN,TOTAL 0.4 mg/dL (0.2-1.0); CALCIUM 8.2 mg/dL (8.5-10.1); COCKROFT - GAULT 13.311; CREATININE 3.7 mg/dL (0.55-1.02); MAGNESIUM 2.3 mg/dL (1.8-2.4); PHOSPHOROUS 2.7 mg/dL (2.5-4.9); TOT PROT 6.2 g/dl (6.4-8.2)
[2016-09-25 01:43] VITALS: BP 196/98; PULSE 74
--- NOTE | 2016-09-25 02:19 | PDOC ---
*Physical Exam - Vital Signs Last Vital Signs Temp Pulse Resp BP Pulse Ox 97.7 F 74 18 196/98 98 09/24/16 21:50 09/25/16 01:42 09/25/16 01:42 09/25/16 01:42 09/25/16 01:42 - Physical Exam Comments: 09/25/16 02:16 elevated BP b/l cataracts neuro nonfocal diffuse end-expiratory wheeze without focally decreased BS, no accessory muscle use ED Treatment Course - LABORATORY CBC & Chemistry Diagram: 09/24/16 22:50 09/25/16 00:12 - ADDITIONAL ORDERS Additional order review: Laboratory Results 09/25/16 09/24/16 09/24/16 00:12 22:50 22:50 Sodium 139 Cancelled Potassium 4.0 Cancelled Chloride 102 D Cancelled Carbon Dioxide 26 Cancelled Anion Gap 11 Cancelled BUN 18 D Cancelled Creatinine 3.7 H D Cancelled Creat Clearance w eGFR 12.50 Cancelled Random Glucose 81 Cancelled Calcium 8.2 L Cancelled Phosphorus 2.7 Magnesium 2.3 Cancelled Total Bilirubin 0.4 Cancelled AST 52 H D Cancelled ALT 40 D Cancelled Alkaline Phosphatase 214 H D Cancelled Creatine Kinase Cancelled Troponin I Cancelled B-Natriuretic Peptide Cancelled Total Protein 6.2 L Cancelled Albumin 2.7 L Cancelled 09/24/16 22:50 RBC 2.96 L MCV 102.1 H MCHC 33.1 RDW 18.1 H D MPV 8.7 D Neutrophils % 77.2 D Lymphocytes % 12.2 D Monocytes % 8.6 Eosinophils % 1.5 Basophils % 0.5 - Medications Given in the ED: ED Medications Discontinued Medications Generic Name Dose Route Start Last Admin Trade Name Kota PRN Reason Stop Dose Admin Acetaminophen 650 mg 09/24/16 23:05 09/24/16 23:23 Tylenol - PO 09/24/16 23:06 650 mg ONCE ONE Administration Albuterol/Ipratropium 1 amp 09/24/16 22:00 09/24/16 23:10 Duoneb - NEB 09/24/16 22:31 1 amp Q15M CECILIO Administration Ceftriaxone Sodium 1 gm/ 50 mls @ 100 mls/hr 09/25/16 01:04 09/25/16 01:23 Dextrose IVPB 09/25/16 01:33 100 mls/hr ONCE ONE Administration Methylprednisolone Sodium Succinate 125 mg 09/25/16 01:40 09/25/16 01:49 Solu-Medrol - IVPB 09/25/16 01:41 125 mg ONCE ONE Administration Medical Decision Making - Medical Decision Making 09/25/16 02:17 Patient seen and evaluated with the nurse practitioner. I agree with the overall evaluation, assessment, and management with the following summary of visit: 61-year-old female with multiple medical problems including end-stage renal disease on dialysis, COPD, baseline difficult to control hypertension presents with subjective shortness of breath. Afebrile, elevated blood pressure but baseline O2 sats on room air, workup without leukocytosis or acute abnormalities on chest x-ray. Improved after nebulizers, received IV steroids subjectively improved and without respiratory distress will discharge on steroids and antibiotics to follow-up with her PMD and for dialysis as scheduled. Understands return criteria. *DC/Admit/Observation/Transfer Diagnosis at time of Disposition: COPD exacerbation - Prescriptions Prescriptions: Prednisone [Deltasone] 40 mg PO DAILY #8 tablet Azithromycin [Zithromax -] 250 mg PO DAILY #6 tablet - Referrals Referrals: Lj Morrow MD [Primary Care Provider] - - Patient Instructions Printed Discharge Instructions: DI for Chronic Obstructive Pulmonary Disease Additional Instructions: FOLLOW UP WITH YOUR PRIMARY CARE PROVIDER THIS WEEK. CALL TO SCHEDULE APPOINTMENT. TAKE MEDICATIONS PRESCRIBED. RETURN IF SYMPTOMS WORSEN OR ANY CONCERNS FOR FURTHER EVALUATION. Print Language: [place] - Post Discharge Activity
== END | disposition home or self-care (01) ==
LOC: JER 21:36
PROC: 3E0F7GC Introduction of Other Therapeutic Substance into Respiratory Tract, Via Natural or Artificial Opening (ICD-10-PCS; principal; 2016-09-24)
PROC: 3E03329 Introduction of Other Anti-infective into Peripheral Vein, Percutaneous Approach (ICD-10-PCS; 2016-09-24)
PROC: 3E0333Z Introduction of Anti-inflammatory into Peripheral Vein, Percutaneous Approach (ICD-10-PCS; 2016-09-24)
DX: J44.1 Chronic obstructive pulmonary disease with (acute) exacerbation (principal); I12.0 Hypertensive chronic kidney disease with stage 5 chronic kidney disease or end stage renal disease; N18.6 End stage renal disease; N17.8 Other acute kidney failure; Z99.2 Dependence on renal dialysis; Z85.528 Personal history of other malignant neoplasm of kidney; Z90.5 Acquired absence of kidney
CPT/HCPCS: 36415; 71010-TC; 80053; 83735; 84100; 85025; 87040; 94640; 96365; 96375; 99282-25

== ENCOUNTER 2016-12-13 14:58 | Inpatient (IN) | payer OTHER ==
--- NOTE | 2016-12-13 16:29 | PDOC ---
History of Present Illness - General History Source: Patient, Old Records Exam Limitations: No Limitations <Estephanie Rios - Last Filed: 12/13/16 18:26> - General History Source: Patient Exam Limitations: No Limitations - History of Present Illness Initial Comments: 12/13/16 16:31 The patient is a 61 year old female with a significant past medical history of ESRD, HTN, Renal CA s/p nephrectomy, dialysis (Mon, , Mon) and CHF who presents to the ED with 2 weeks of left arm pain. Patient reports she developed pain underneath her left armpit area secondary to moving it 2 weeks ago. Patient reports progressively worsening left armpit pain radiating down her left arm with numbness. She also reports a wound and states she developed swelling at the site of her left armpit pain. She states she took aspirin with no relief of present symptoms. Patient reports her right graft stopped working 3 months ago and she had a left graft placement. Patient was receiving dialysis today, full treatment, when the nurses called Dr. Kim and told patient to come into the ED because he was concerned for a blood clot. Denies fever or chills. Denies chest pain or shortness of breath. Denies nausea , vomiting, or diarrhea. Denies changes in urinary output. Denies any other symptoms. <Melo Douglas - Last Filed: 12/13/16 18:48> - General Chief Complaint: Pain, Acute Stated Complaint: BRUISED LT ARM (PCP SENT) Time Seen by Provider: 12/13/16 15:44 Past History - Past Medical History Anemia: No Asthma: No Cancer: Yes (renal cell ca) Cardiac Disorders: No CVA: No COPD: No CHF: No Dementia: No Diabetes: No Dialysis: Yes () GI Disorders: Yes (REFLUX) Disorders: Yes (DIALYSIS ,,[facility]) HTN: Yes Hypercholesterolemia: No Liver Disease: No Suicide Attempt (Hx): No Seizures: Yes (LAST SEIZURE X2 MONS AGO) Thyroid Disease: No - Surgical History Abdominal Surgery: No Appendectomy: No Cardiac Surgery: No Cholecystectomy: Yes Lung Surgery: No Neurologic Surgery: No Orthopedic Surgery: No - Immunization History Immunization Up to Date: Yes - Psycho/Social/Smoking Cessation Hx Anxiety: No Suicidal Ideation: No Smoking Status: Yes Smoking History: Current every day smoker Have you smoked in the past 12 months: Yes Number of Cigarettes Smoked Daily: 15 Information on smoking cessation initiated: No 'Breaking Loose' booklet given: 04/06/16 Hx Alcohol Use: No Drug/Substance Use Hx: No Substance Use Type: None Hx Substance Use Treatment: No <Estephanie Rios - Last Filed: 12/13/16 18:26> <Melo Douglas - Last Filed: 12/13/16 18:48> - Past Medical History Allergies/Adverse Reactions: Allergies Allergy/AdvReac Type Severity Reaction Status Date / Time codeine Allergy Severe Verified 12/13/16 15:02 Home Medications: Ambulatory Orders Nifedipine [Nifedipine ER] 90 mg PO DAILY 07/28/16 Phenytoin Na Extended [Dilantin -] 200 mg PO BID 07/28/16 Clonidine HCl [Catapres -] 0.2 mg PO BID #60 tablet 08/04/16 Doxazosin Mesylate [Cardura -] 1 mg PO BID #30 tablet 08/04/16 Fluticasone Prop 0.05% Nasal [Flonase -] 2 spray NS DAILY #1 spray 08/04/16 Hydralazine HCl [Apresoline -] 100 mg PO TID #90 tablet 08/04/16 Labetalol HCl [Normodyne -] 400 mg PO BID #60 tablet 08/04/16 Losartan Potassium [Cozaar -] 100 mg PO DAILY #30 tablet 08/04/16 Spironolactone [Aldactone -] 50 mg PO DAILY #30 tablet 08/04/16 Prednisone [Deltasone] 40 mg PO DAILY #8 tablet 09/25/16 Review of Systems - Review of Systems Able to Perform ROS?: Yes Comments:: 12/13/16 16:32 CONSTITUTIONAL: No reported: Fever, Chills, Diaphoresis, Generalized Weakness, Malaise, Loss of Appetite HEENT: No reported: Rhinorrhea, Nasal Congestion, Throat Pain, Throat Swelling, Difficulty Swallowing, Mouth Swelling, Ear Pain, Eye Pain, Visual Changes CARDIOVASCULAR: No reported: Chest Pain, Syncope, Palpitations, Irregular Heart Rate, Lightheadedness, Peripheral Edema RESPIRATORY: No reported: Cough, Shortness of Breath, SOB with Exertion, Orthopnea, Wheezing , Stridor, Hemoptysis GASTROINTESTINAL: No reported: Abdominal pain, Abdominal Distension, Nausea, Vomiting, Diarrhea, Constipation, Melena, Hematochezia GENITOURINARY: No reported: Dysuria, Frequency, Urgency, Hesitancy, Flank Pain, Genital Pain MUSCULOSKELETAL:+ arm pain No reported: Joint Swelling, Back pain, Neck Pain SKIN:n + arm wound No reported: Rash, Itching, Pallor HEMEATOLOGIC/IMMUNOLOGIC: No reported: Easy Bleeding, Easy Bruising, Lymphadenopathy, Frequent infections ENDOCRINE: No reported: Unexplained Weight Gain, Unexplained Weight Loss, Heat Intolerance , Cold Intolerance NEUROLOGIC: No reported: Headache, Focal Weakness, Paresthesias, Vertigo, Lightheadedness, Unsteady Gait, Seizure, Mental Status Changes, Incontinence PSYCHIATRIC: No reported: Anxiety, Depression All Other Systems: Reviewed and Negative <Melo Douglas - Last Filed: 12/13/16 18:48> *Physical Exam - Vital Signs Last Vital Signs Temp Pulse Resp BP Pulse Ox 98.1 F 81 18 120/52 98 12/13/16 15:02 12/13/16 15:02 12/13/16 15:02 12/13/16 15:02 12/13/16 15:02 <Estephanie Rios - Last Filed: 12/13/16 18:26> - Vital Signs Last Vital Signs Temp Pulse Resp BP Pulse Ox 98.1 F 81 18 120/52 98 12/13/16 15:02 12/13/16 15:02 12/13/16 15:02 12/13/16 15:02 12/13/16 15:02 - Physical Exam Comments: 12/13/16 16:32 GENERAL: Well developed, well nourished. Awake and alert. No acute distress. HEENT: + bilateral blindness Normocephalic, atraumatic. Moist mucous membranes. Oropharynx is clear. NECK: Supple. Full ROM. No JVD. Carotid pulses 2+ and symmetric, without bruits. No thyromegaly. No lymphadenopathy. CARDIOVASCULAR: Regular rate and rhythm. No murmurs, rubs, or gallops. Distal pulses are 2+ and symmetric. PULMONARY: No evidence of respiratory distress. Lungs clear to auscultation bilaterally. No wheezing, rales or rhonchi. ABDOMINAL: Soft. Non-tender. Non-distended. No rebound or guarding. No organomegaly. Normoactive bowel sounds. MUSCULOSKELETAL Normal range of motion at all joints. No bony deformities or tenderness. No CVA tenderness. EXTREMITIES: No cyanosis. No clubbing. No edema. No calf tenderness. SKIN: + large fluctuant area proximal and medial to the left graft site, 8x8 cm, with surrounding ecchymosis. Warm and dry. No rashes. No jaundice. NEUROLOGICAL: Alert, awake, appropriate. Cranial nerves 2-12 intact. No deficits to light touch and temperature in face, upper extremities and lower extremities. No motor deficits in the in face, upper extremities and lower extremities. Normoreflexic in the upper and lower extremities. Normal speech. Toes are down- going bilaterally. Gait is normal without ataxia. PSYCHIATRIC: Cooperative. Good eye contact. Appropriate mood and affect. <Melo Douglas - Last Filed: 12/13/16 18:48> ED Treatment Course - LABORATORY CBC & Chemistry Diagram: 12/13/16 17:00 12/13/16 17:00 - RADIOLOGY Radiology Studies Ordered: Category Date Time Status CHEST X-RAY PORTABLE* [RAD] Stat Radiology 12/13/16 16:26 Ordered DUPLEX VASCUL US-1 ARM [US] Stat Ultrasound 12/13/16 16:28 Ordered <Estephanie Rios - Last Filed: 12/13/16 18:26> - LABORATORY CBC & Chemistry Diagram: 12/13/16 17:00 12/13/16 17:00 - RADIOLOGY Radiograph Interpretation: 12/13/16 18:46 US/DUPLEX VASCUL US 1-ARM Impression: Large left upper extremity fluid collection with some internal debris. The collection is separate from a paten AV fistula with no associated vascularity Clinical correlation is advised. Reported by: Emanuel Funez <Melo Douglas - Last Filed: 12/13/16 18:48> Medical Decision Making - Medical Decision Making 12/13/16 16:35 61-year-old female with history of renal cell carcinoma status post nephrectomy , hypertension, end-stage renal disease on hemodialysis Monday and Monday with AV graft in the left upper extremity presents the emergency department with 2 week history of swelling to the proximal medial aspect of the left upper extremity. Differential diagnosis includes but is not limited to: AV graft leak, hematoma, fistula, abscess. The patient had a full session of dialysis with access from the [facility] [place] today. Plan: 1. Labs 2. Vascular study of the left upper extremity 3. Vascular consult 4. Observe and reevaluate <Estephanie Rios - Last Filed: 12/13/16 18:26> - Medical Decision Making 12/13/16 16:30 Dr. Kim was paged at 16:13. Case discussed with Dr. Morrow at 16:27. 12/13/16 17:[address] Kim at 16:43. <Melo Douglas - Last Filed: 12/13/16 18:48> *DC/Admit/Observation/Transfer - Attestations Physician Attestion: 12/13/16 16:35 I, Dr. Estephanie Rios, attest that the scribes documentation that appears above has been prepared under my direction and personally reviewed by me in its entirety. I confirmed that the note above accurately reflects all work, treatment, procedures, and medical decision-making performed by me. <Estephanie Rios - Last Filed: 12/13/16 18:26> - Attestations Scribe Attestion: 12/13/16 16:32 Documentation prepared by Melo Douglas, acting as medical transcription editor for Estephanie Rios MD <Melo Douglas - Last Filed: 12/13/16 18:48> Diagnosis at time of Disposition: Left arm swelling - Referrals Referrals: Lj Morrow MD [Primary Care Provider] -
[2016-12-13 17:21] LABS: BASOPHIL 0.7 % (0-2.0); EOSINOPHIL 2.3 % (0-4.5); MCH 35.1 pg (25.7-33.7); MCHC 33.5 g/dl (32.0-36.0); MEAN CELL VOLUME 104.7 fl (80-96); MEAN PLT VOLUME 7.6 fl (7.5-11.1); NEUTROPHILS 76.6 % (42.8-82.8); PLATELET COUNT 273 K/MM3 (134-434); RDW 15.6 % (11.6-15.6)
[2016-12-13 17:41] LABS: INR 1.03 (0.82-1.09); PROTHROMBIN TIME (PATIENT) 11.3 SEC (9.98-11.88)
[2016-12-13 17:44] LABS: ACTIVATED PTT 29.8 SECONDS (26.9-34.4)
[2016-12-13] MEDS ORDERED: VANCOMYCIN 1,000 MG in DEXTROSE 5%-WATER - 250 ML IVPB ONE (18:34)
[2016-12-13] MEDS ORDERED: morphine CARPU-JECT 4 MG/1 ML DISP.SYRIN IVPUSH ONE (19:00)
[2016-12-13] MEDS ORDERED: VANCOMYCIN 1 GRAM (PRE-DOCKED) 250 ML IVPB ONE (19:02)
[2016-12-13 19:14] LABS: ANION GAP 8 (8-16); BILIRUBIN,TOTAL 0.4 mg/dL (0.2-1.0); CALCIUM 8.2 mg/dL (8.5-10.1); CO2 24 mmol/L (21-32); CREATININE 3.5 mg/dL (0.55-1.02); GLUCOSE,RANDOM 103 mg/dL (74-106); SGOT/AST 17 U/L (15-37); SGPT/ALT 14 U/L (12-78); TOT PROT 6.7 g/dl (6.4-8.2)
[2016-12-13 19:15] LABS: ALK PHOS 139 U/L (45-117)
[2016-12-13] MEDS ORDERED: morphine CARPU-JECT 4 MG/1 ML DISP.SYRIN ONE (19:27)
--- NOTE | 2016-12-13 20:34 | CONSULT ---
Consult - History of Present Illness History of Present Illness: 61 year old woman with ESRD on HD. She states about 10 days ago she moved while on dialysis and the needle infiltrated in the left arm causing severe swelling. Today the nurses at dialysis told her to go the ER. She denies pain, fever. She has been having dialysis with her arm graft without problem. 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 - Past Surgical History Past Surgical History: Yes: AV Fistula/Graft, Nephrectomy (right nephrectomy and left partial nephrectomy) - Alcohol/Substance Use Hx Alcohol Use: No History of Substance Use: reports: None - Smoking History Smoking history: Current every day smoker Have you smoked in the past 12 months: Yes Aproximately how many cigarettes per day: 15 - Social History Usual Living Arrangement: With Spouse ADL: Family Assistance History of Recent Travel: No Home Medications - Allergies Allergies/Adverse Reactions: Allergies Allergy/AdvReac Type Severity Reaction Status Date / Time codeine Allergy Severe Verified 12/13/16 15:02 - Home Medications Home Medications: Ambulatory Orders Nifedipine [Nifedipine ER] 90 mg PO DAILY 07/28/16 Phenytoin Na Extended [Dilantin -] 200 mg PO BID 07/28/16 Clonidine HCl [Catapres -] 0.2 mg PO BID #60 tablet 08/04/16 Doxazosin Mesylate [Cardura -] 1 mg PO BID #30 tablet 08/04/16 Fluticasone Prop 0.05% Nasal [Flonase -] 2 spray NS DAILY #1 spray 08/04/16 Hydralazine HCl [Apresoline -] 100 mg PO TID #90 tablet 08/04/16 Labetalol HCl [Normodyne -] 400 mg PO BID #60 tablet 08/04/16 Losartan Potassium [Cozaar -] 100 mg PO DAILY #30 tablet 08/04/16 Spironolactone [Aldactone -] 50 mg PO DAILY #30 tablet 03/30/17 Prednisone [Deltasone] 40 mg PO DAILY #8 tablet 09/25/16 Family Disease History - Family Disease History Family Disease History: Other: Father (HTN), Mother (HTN) Physical Exam Vital Signs: Vital Signs Temperature 98.1 F 12/13/16 15:02 Pulse Rate 81 12/13/16 15:02 Respiratory Rate 18 12/13/16 15:02 Blood Pressure 120/52 12/13/16 15:02 O2 Sat by Pulse Oximetry (%) 98 12/13/16 15:02 Constitutional: Yes: No Distress Eyes: Yes: Cataracts Neck: Yes: Supple Cardiovascular: Yes: Regular Rate and Rhythm Respiratory: Yes: Regular Gastrointestinal: Yes: Soft Extremities: Yes: Other (Large mass in left upper arm extending distal to axilla. Skin over mass has central necrosis. Graft pulse intact.) Imaging - Results Ultrasound: Image Reviewed (9 cm mass in left arm, no arterial flow on Duplex.) Problem List - Problems (1) Left arm swelling Assessment/Plan: Large hematoma in left arm adjacent to functioning AV graft. There is a necrotic area of skin and high risk for infection of the graft. Hematoma evacuation will be needed in OR. IV Vancomycin to be started. Surgery after next dialysis. Code(s): M79.89 - OTHER SPECIFIED SOFT TISSUE DISORDERS
[2016-12-13 21:48] VITALS: BMI 17.6
--- NOTE | 2016-12-14 01:17 | HP ---
Admitting History and Physical - Admission History of Present Illness: Pt is a 61 y/o female with PMH significant for ESRD( on H.D.), HTN, Renal CA s/ p nephrectomy, and CHF. Pt presented to the ER with 2 weeks of left arm pain. Patient reports she developed pain underneath her left armpit area secondary to moving it 2 weeks ago. Pt states that it was moved about 2 weeks ago when she had dialysis and it was the way the needle was positioned? Patient reports progressively worsening left armpit pain radiating down her left arm with numbness. Pt reports her right graft stopped working 3 months ago and she had a left graft placement. Patient was receiving dialysis today, full treatment, when the nurses called Dr. Kim and told patient to come into the ED because he was concerned for a blood clot. 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, Other (Blindness) Cardiovascular: Yes: HTN Renal/: Yes: Renal Failure (PCKD s/p nephrectomies), Cancer (Renal cell carcinoma) ...: No Heme/Onc: Yes: Anemia, Cancer (Renal cell carcinoma) - Past Surgical History Past Surgical History: Yes: AV Fistula/Graft, Nephrectomy (right nephrectomy and left partial nephrectomy) - Smoking History Smoking history: Current every day smoker Have you smoked in the past 12 months: Yes Aproximately how many cigarettes per day: 15 - Alcohol/Substance Use Hx Alcohol Use: No History of Substance Use: reports: None - Social History ADL: Family Assistance History of Recent Travel: No Home Medications - Allergies Allergies/Adverse Reactions: Allergies Allergy/AdvReac Type Severity Reaction Status Date / Time codeine Allergy Severe Verified 12/13/16 15:02 - Home Medications Home Medications: Ambulatory Orders Nifedipine [Nifedipine ER] 90 mg PO DAILY 07/28/16 Phenytoin Na Extended [Dilantin -] 200 mg PO BID 07/28/16 Clonidine HCl [Catapres -] 0.2 mg PO BID #60 tablet 08/04/16 Doxazosin Mesylate [Cardura -] 1 mg PO BID #30 tablet 08/04/16 Fluticasone Prop 0.05% Nasal [Flonase -] 2 spray NS DAILY #1 spray 08/04/16 Hydralazine HCl [Apresoline -] 100 mg PO TID #90 tablet 08/04/16 Labetalol HCl [Normodyne -] 400 mg PO BID #60 tablet 08/04/16 Losartan Potassium [Cozaar -] 100 mg PO DAILY #30 tablet 08/04/16 Spironolactone [Aldactone -] 50 mg PO DAILY #30 tablet 08/04/16 Prednisone [Deltasone] 40 mg PO DAILY #8 tablet 09/25/16 Family Disease History - Family Disease History Family History: Unremarkable Family Disease History: Other: Father (HTN), Mother (HTN) Review of Systems - Review of Systems Constitutional: reports: No Symptoms Eyes: reports: No Symptoms HENT: reports: No Symptoms Neck: reports: No Symptoms Cardiovascular: reports: No Symptoms Respiratory: reports: No Symptoms Gastrointestinal: reports: No Symptoms Physical Examination Vital Signs: Vital Signs Temperature 98.5 F 12/13/16 21:00 Pulse Rate 80 12/13/16 21:00 Respiratory Rate 22 12/13/16 21:00 Blood Pressure 166/83 12/13/16 21:00 O2 Sat by Pulse Oximetry (%) 100 12/13/16 21:00 Constitutional: Yes: No Distress Neck: Yes: WNL, Supple Cardiovascular: Yes: WNL, Regular Rate and Rhythm Respiratory: Yes: WNL, Regular, CTA Bilaterally Gastrointestinal: Yes: WNL, Normal Bowel Sounds, Soft Extremities: Yes: Other ((+) LUE AV graft w/ hematoma) Problem List - Problems (1) ESRD on hemodialysis Assessment/Plan: As per vascular surgery Pt to have evacuation of hematoma after dialysis Cont IV vanco Code(s): N18.6 - END STAGE RENAL DISEASE Z99.2 - DEPENDENCE ON RENAL DIALYSIS (2) Chronic diastolic (congestive) heart failure Code(s): I50.32 - CHRONIC DIASTOLIC (CONGESTIVE) HEART FAILURE (3) Hypertension Code(s): I10 - ESSENTIAL (PRIMARY) HYPERTENSION Qualifiers: Hypertension type: essential hypertension Qualified Code(s): I10 - Essential (primary) hypertension (4) End stage renal disease Code(s): N18.6 - END STAGE RENAL DISEASE (5) History of nephrectomy Code(s): Z90.5 - ACQUIRED ABSENCE OF KIDNEY (6) Seizure Code(s): R56.9 - UNSPECIFIED CONVULSIONS Qualifiers: Convulsion type: unspecified Qualified Code(s): R56.9 - Unspecified convulsions (7) Anemia Code(s): D64.9 - ANEMIA, UNSPECIFIED (8) Blind Code(s): H54.0 - BLINDNESS, BOTH EYES
[2016-12-14] MEDS: PHENYTOIN NA EXTENDED 100 MG CAPSULE (FP) PO SCH ×3 (01:39→22:04)
[2016-12-14] MEDS: DOXAZOSIN MESYLATE 1 MG TABLET PO SCH ×3 (01:41→22:04)
[2016-12-14] MEDS: cloNIDine HCL 0.1 MG TABLET PO SCH ×4 (01:41→22:03)
[2016-12-14] MEDS: hydrALAZINE HCL 50 MG TABLET (FP) PO SCH ×3 (06:41→22:03)
[2016-12-14] MEDS ORDERED: PT OWN MED DRAWER 7, Y5N ONE ×3 (08:47→22:15)
[2016-12-14] MEDS: morphine CARPU-JECT 4 MG/1 ML DISP.SYRIN IVPB PRN ×2 (08:53→22:05)
[2016-12-14] MEDS: SPIRONOLACTONE 25 MG TABLET (FP) PO SCH ×2 (08:56→09:37)
[2016-12-14] MEDS: LABETALOL HCL 200 MG TABLET (FP) PO SCH ×3 (08:57→22:03)
[2016-12-14] MEDS: LOSARTAN POTASSIUM 50 MG TABLET (FP) PO SCH ×2 (08:57→09:37)
[2016-12-14] MEDS: NIFEdipine E.R. 90 MG TABLET (FP) PO SCH ×2 (08:58→09:37)
[2016-12-14] MEDS ORDERED: VANCOMYCIN 1,000 MG in DEXTROSE 5%-WATER - 250 ML IVPB SCH (10:00)
[2016-12-14 11:58] LABS: BASOPHIL 0.7 % (0-2.0); EOSINOPHIL 2.7 % (0-4.5); MCH 33.7 pg (25.7-33.7); MCHC 33.2 g/dl (32.0-36.0); MEAN CELL VOLUME 101.7 fl (80-96); MEAN PLT VOLUME 7.3 fl (7.5-11.1); NEUTROPHILS 66.5 % (42.8-82.8); PLATELET COUNT 229 K/MM3 (134-434); RDW 16.9 % (11.6-15.6); WHITE BLOOD COUNT 8.6 K/mm3 (4.0-10.0)
[2016-12-14 12:25] LABS: CALCIUM 8.8 mg/dL (8.5-10.1); SGOT/AST 21 U/L (15-37)
[2016-12-14 13:00] LABS: ALBUMIN 2.8 g/dl (3.4-5.0); ANION GAP 9 (8-16); CO2 24 mmol/L (21-32); CREATININE 5.1 mg/dL (0.55-1.02); GLUCOSE,RANDOM 81 mg/dL (74-106)
[2016-12-14 13:02] LABS: ALK PHOS 118 U/L (45-117); BILIRUBIN,TOTAL 0.5 mg/dL (0.2-1.0); SGPT/ALT 15 U/L (12-78); TOT PROT 6.1 g/dl (6.4-8.2)
--- NOTE | 2016-12-14 14:34 | CONSULT ---
Consult Consult Specialty:: infectious diseases Referred by:: Reason for Consultation:: hematoma cellulitis of the rt arm - History of Present Illness Chief Complaint: pain and swelling of the left arm near the axilla History of Present Illness: this is a 61 year old woman with ESRD on HD. according to the patient about 10 days ago she moved while on dialysis and the needle infiltrated in the left arm causing severe swelling. Today the nurses at dialysis told her to go the ER. She denies pain, fever. She has been having dialysis with her arm graft without problem. patient is legally blind patient has been seen by vascular and the plan is to evacuate the collection. patient also has pain at the site but denies any fever or any other issues. u/s done shows the graft is intact with no problems Patient reports progressively worsening left armpit pain radiating down her left arm with numbness. She also reports a wound and states she developed swelling at the site of her left armpit pain. She states she took aspirin with no relief of present symptoms. Patient reports her right graft stopped working 3 months ago and she had a left graft placement. 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 Surgical History Past Surgical History: Yes: AV Fistula/Graft, Nephrectomy (right nephrectomy and left partial nephrectomy) - Alcohol/Substance Use Hx Alcohol Use: No History of Substance Use: reports: None - Smoking History Smoking history: Current every day smoker Have you smoked in the past 12 months: Yes Aproximately how many cigarettes per day: 15 - Social History Usual Living Arrangement: With Spouse ADL: Family Assistance History of Recent Travel: No Home Medications - Allergies Allergies/Adverse Reactions: Allergies Allergy/AdvReac Type Severity Reaction Status Date / Time codeine Allergy Severe Verified 12/13/16 15:02 - Home Medications Home Medications: Ambulatory Orders Nifedipine [Nifedipine ER] 90 mg PO DAILY 07/28/16 Phenytoin Na Extended [Dilantin -] 200 mg PO BID 07/28/16 Clonidine HCl [Catapres -] 0.2 mg PO BID #60 tablet 08/04/16 Doxazosin Mesylate [Cardura -] 1 mg PO BID #30 tablet 08/04/16 Fluticasone Prop 0.05% Nasal [Flonase -] 2 spray NS DAILY #1 spray 08/04/16 Hydralazine HCl [Apresoline -] 100 mg PO TID #90 tablet 08/04/16 Labetalol HCl [Normodyne -] 400 mg PO BID #60 tablet 08/04/16 Losartan Potassium [Cozaar -] 100 mg PO DAILY #30 tablet 08/04/16 Spironolactone [Aldactone -] 50 mg PO DAILY #30 tablet 08/04/16 Prednisone [Deltasone] 40 mg PO DAILY #8 tablet 09/25/16 Family Disease History - Family Disease History Family Disease History: Other: Father (HTN), Mother (HTN) Review of Systems - Review of Systems Constitutional: reports: No Symptoms Eyes: reports: No Symptoms HENT: reports: No Symptoms Neck: reports: No Symptoms Cardiovascular: reports: No Symptoms Respiratory: reports: No Symptoms Gastrointestinal: reports: No Symptoms Genitourinary: reports: No Symptoms Musculoskeletal: reports: Muscle Pain Integumentary: reports: Change in Color, Erythema (left axilla site) Neurological: reports: No Symptoms (legally blind) Endocrine: reports: No Symptoms Hematology/Lymphatic: reports: No Symptoms Psychiatric: reports: No Symptoms Physical Exam Vital Signs: Vital Signs Temperature 98.2 F 12/14/16 10:00 Pulse Rate 75 12/14/16 10:00 Respiratory Rate 18 12/14/16 10:00 Blood Pressure 166/81 12/14/16 10:00 O2 Sat by Pulse Oximetry (%) 100 12/14/16 09:00 Constitutional: Yes: No Distress, Calm Eyes: Yes: Other (bilateral catracts) HENT: Yes: Atraumatic Cardiovascular: Yes: Regular Rate and Rhythm Respiratory: Yes: Regular, CTA Bilaterally Gastrointestinal: Yes: Normal Bowel Sounds, Soft Musculoskeletal: Yes: Other Wound/Incision: Yes: Other (Yes: Other Large mass in left upper arm extending distal to axilla. Skin over mass has central necrosis. Graft pulse intact.) Neurological: Yes: Alert, Oriented Psychiatric: Yes: Alert, Oriented Labs: CBC, BMP 08/09/17 11:19 12/14/16 11:19 Imaging - Results Ultrasound: Report Reviewed, Image Reviewed Assessment/Plan Problem List - Problems (1) Left arm swelling Code(s): M79.89 - OTHER SPECIFIED SOFT TISSUE DISORDERS hematoma of the left arm plan we will continue vanco will add ceftriaxone rest as per vascular surgery
[2016-12-14] MEDS ORDERED: VANCOMYCIN 1 GRAM (PRE-DOCKED) 1,000 MG/250 ML BAG IVPB SCH (15:00)
[2016-12-14] MEDS ORDERED: DEXTROSE 5%-WATER - 50 ML IVPB ONE (15:03)
[2016-12-14] MEDS ORDERED: cefTRIAXone SODIUM 1 GM VIAL ONE (15:03)
[2016-12-14] MEDS: CEFTRIAXONE 1 GM in DEXTROSE 5%-WATER - 50 ML IVPB SCH (15:14)
--- NOTE | 2016-12-14 16:07 | CON.NEP ---
Consult Consult Specialty:: Nephrology (Je/Myke) Referred by:: Reason for Consultation:: ESRD on HD - History of Present Illness Chief Complaint: Hematoma on AVF Arm History of Present Illness: This is a 61 year old woman with PMhx of ESRD on HD (TTS), RCC s/p Nephrectomy, Blindness with b/l cataracts, CHF, Hypertension who presented with a large left arm hematoma near her AVF site. Pt states that she first started to notice a collection there about 3 weeks ago. It is located near her axilla and is away from the dialysis needle insertion site. + tenderness. Last dialysis was Monday w/o complication. 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 - Past Surgical History Past Surgical History: Yes: AV Fistula/Graft, Nephrectomy (right nephrectomy and left partial nephrectomy) - Alcohol/Substance Use Hx Alcohol Use: No History of Substance Use: reports: None - Smoking History Smoking history: Current every day smoker Have you smoked in the past 12 months: Yes Aproximately how many cigarettes per day: 15 - Social History Usual Living Arrangement: With Spouse ADL: Family Assistance History of Recent Travel: No Home Medications - Allergies Allergies/Adverse Reactions: Allergies Allergy/AdvReac Type Severity Reaction Status Date / Time codeine Allergy Severe Verified 12/13/16 15:02 - Home Medications Home Medications: Ambulatory Orders Nifedipine [Nifedipine ER] 90 mg PO DAILY 07/28/16 Phenytoin Na Extended [Dilantin -] 200 mg PO BID 07/28/16 Clonidine HCl [Catapres -] 0.2 mg PO BID #60 tablet 08/04/16 Doxazosin Mesylate [Cardura -] 1 mg PO BID #30 tablet 08/04/16 Fluticasone Prop 0.05% Nasal [Flonase -] 2 spray NS DAILY #1 spray 08/04/16 Hydralazine HCl [Apresoline -] 100 mg PO TID #90 tablet 08/04/16 Labetalol HCl [Normodyne -] 400 mg PO BID #60 tablet 08/04/16 Losartan Potassium [Cozaar -] 100 mg PO DAILY #30 tablet 08/04/16 Spironolactone [Aldactone -] 50 mg PO DAILY #30 tablet 08/04/16 Prednisone [Deltasone] 40 mg PO DAILY #8 tablet 09/25/16 Family Disease History - Family Disease History Family Disease History: Other: Father (HTN), Mother (HTN) Review of Systems - Review of Systems Constitutional: reports: No Symptoms Eyes: reports: No Symptoms HENT: reports: No Symptoms Neck: reports: No Symptoms Cardiovascular: reports: No Symptoms Respiratory: reports: No Symptoms Gastrointestinal: reports: No Symptoms Musculoskeletal: reports: No Symptoms Integumentary: reports: Other (collection on left arm with tenderness) Neurological: reports: No Symptoms Nephrology Consult - Height Height: 5 ft 6 in - Weight Weight: 109 lb 8 oz - BMI Body Mass Index (BMI): 17.6 - Lab Results CBC,BMP: CBC, BMP 12/14/16 11:19 12/14/16 11:19 Anion Gap: Anion Gap Anion Gap 9 (8-16) 12/14/16 11:19 - Imaging Chest X-ray: Report Reviewed - Physical Examination Vital Signs: Vital Signs Temperature 98.0 F 12/14/16 14:51 Pulse Rate 67 12/14/16 14:51 Respiratory Rate 18 12/14/16 14:51 Blood Pressure 148/78 12/14/16 14:51 O2 Sat by Pulse Oximetry (%) 100 12/14/16 09:00 Constitutional: Yes: Well Nourished, No Distress Eyes: Yes: Conjunctiva Clear HENT: Yes: Atraumatic, Normocephalic Neck: Yes: Supple Cardiovascular: Yes: Regular Rate and Rhythm Respiratory: Yes: Regular, CTA Bilaterally Gastrointestinal: Yes: Normal Bowel Sounds, Soft. No: Tenderness Extremities: Yes: Other (tender hematoma on left arm with eschar) Edema: No Problem List - Problems (1) Chronic diastolic (congestive) heart failure Code(s): I50.32 - CHRONIC DIASTOLIC (CONGESTIVE) HEART FAILURE (2) Hypertension Code(s): I10 - ESSENTIAL (PRIMARY) HYPERTENSION Qualifiers: Hypertension type: essential hypertension Qualified Code(s): I10 - Essential (primary) hypertension (3) Left arm swelling Code(s): M79.89 - OTHER SPECIFIED SOFT TISSUE DISORDERS (4) ESRD on hemodialysis Code(s): N18.6 - END STAGE RENAL DISEASE Z99.2 - DEPENDENCE ON RENAL DIALYSIS (5) History of nephrectomy Code(s): Z90.5 - ACQUIRED ABSENCE OF KIDNEY (6) Hypertension, uncontrolled Code(s): I10 - ESSENTIAL (PRIMARY) HYPERTENSION (7) Hematoma Code(s): T14.8 - OTHER INJURY OF UNSPECIFIED BODY REGION Assessment/Plan 61 year old woman with PMhx of ESRD on HD (TTS), RCC s/p Nephrectomy, Blindness with b/l cataracts, CHF, Hypertension who presented with a large left arm hematoma near her AVF site. #Hematoma on left ARM with eschar for evacuation of hematoma in am per vascular local wound care #ESRD on HD for dialysis in AM no acute indication for dialysis today #Hypertension Continue Losartan, Aldactone, Hydralazine, Nifedipine #CKD related Anemia Trend H/H continue DAISHA with HD transfuse for hgb less then 8 #CHF pt appears evolemic at the present time Current Medications Clonidine (Catapres -) 0.2 mg PO BID [facility] Last Admin: 12/14/16 22:03 Dose: 0.2 mg Doxazosin Mesylate (Cardura -) 1 mg PO BID [facility] Last Admin: 12/14/16 22:04 Dose: 1 mg Hydralazine HCl (Apresoline -) 100 mg PO TID [facility] Last Admin: 12/14/16 22:03 Dose: 100 mg Ceftriaxone Sodium 1 gm/ (Dextrose) 50 mls @ 100 mls/hr IVPB DAILY [facility] Last Admin: 12/14/16 15:14 Dose: 100 mls/hr Labetalol HCl (Normodyne -) 400 mg PO BID [facility] Last Admin: 12/14/16 22:03 Dose: 400 mg Losartan Potassium (Cozaar -) 100 mg PO DAILY [facility] Last Admin: 12/14/16 09:37 Dose: 100 mg Morphine Sulfate (Morphine Injection -) 2 mg IVPB Q6H PRN Last Admin: 12/14/16 22:05 Dose: 2 mg Nifedipine (Procardia Xl -) 90 mg PO DAILY [facility] Last Admin: 12/14/16 09:37 Dose: 90 mg Phenytoin Sodium (Dilantin -) 200 mg PO BID [facility] Last Admin: 12/14/16 22:04 Dose: 200 mg Spironolactone (Aldactone -) 50 mg PO DAILY [facility] Last Admin: 12/14/16 09:37 Dose: 50 mg Vancomycin HCl (Vancomycin (Pre-Docked)) 1,000 mg IVPB MoWeFr@1500 [facility] Last Admin: 12/14/16 15:15 Dose: 1,000 mg
--- NOTE | 2016-12-14 16:17 | SPA.PREOP ---
- PRE-OP NOTE Dx: left upper extremity hematoma Planned Procedure: evacuation of left upper extremity hematoma Surgeon: Dr. Kim Last Vital Signs Temp Pulse Resp BP Pulse Ox 98.0 F 67 18 148/78 100 12/14/16 14:51 12/14/16 14:51 12/14/16 14:51 12/14/16 14:51 12/14/16 09:00 Lab Results WBC 8.6 K/mm3 (4.0-10.0) 12/14/16 11:19 RBC 2.57 M/mm3 (3.60-5.2) L 12/14/16 11:19 Hgb 8.7 GM/dL (10.7-15.3) L D 12/14/16 11:19 Hct 26.2 % (32.4-45.2) L D 12/14/16 11:19 MCV 101.7 fl (80-96) H 12/14/16 11:19 MCHC 33.2 g/dl (32.0-36.0) 12/14/16 11:19 RDW 16.9 % (11.6-15.6) H 12/14/16 11:19 Plt Count 229 K/MM3 (134-434) 12/14/16 11:19 Sodium 139 mmol/L (136-145) 12/14/16 11:19 Potassium 4.7 mmol/L (3.5-5.1) D 12/14/16 11:19 Chloride 106 mmol/L (98-107) 12/14/16 11:19 Carbon Dioxide 24 mmol/L (21-32) 12/14/16 11:19 Anion Gap 9 (8-16) 12/14/16 11:19 BUN 27 mg/dL (7-18) H D 12/14/16 11:19 Creatinine 5.1 mg/dL (0.55-1.02) H D 12/14/16 11:19 Random Glucose 81 mg/dL (74-106) D 12/14/16 11:19 Calcium 8.8 mg/dL (8.5-10.1) 12/14/16 11:19 Blood Type O POSITIVE 12/13/16 17:00 Antibody Screen Negative 12/13/16 17:00 INR 1.03 (0.82-1.09) 12/13/16 17:00 US- 12/13/2016 large hematoma of Left upper extremity, separate from the AV fistula - ASSESSMENT/PLAN 61 yo female for evacuation of left upper ext hematoma 1. Make NPO after 7 am except po meds 2. Medical optimization / clearance 3. plan for HD in the am Visit type - Case Type Case Type: ED Admission - Emergency Emergency Visit: Yes ED Registration Date: 12/13/16 Care time: The patient presented to the Emergency Department on the above date and was hospitalized for further evaluation of their emergent condition. - New patient This patient is new to me today: Yes Date on this admission: 12/14/16 - Critical Care Critical Care patient: No
[2016-12-15] MEDS: hydrALAZINE HCL 50 MG TABLET (FP) PO SCH ×3 (06:09→21:55)
[2016-12-15] MEDS ORDERED: PT OWN MED DRAWER 7, Y5N ONE ×2 (06:36→21:32)
[2016-12-15 07:20] LABS: BASOPHIL 0.8 % (0-2.0); MCH 34.1 pg (25.7-33.7); MCHC 33.7 g/dl (32.0-36.0); MEAN CELL VOLUME 101.3 fl (80-96); MEAN PLT VOLUME 7.3 fl (7.5-11.1); NEUTROPHILS 64.9 % (42.8-82.8); PLATELET COUNT 238 K/MM3 (134-434); RDW 16.8 % (11.6-15.6); WHITE BLOOD COUNT 9.5 K/mm3 (4.0-10.0)
[2016-12-15 07:54] LABS: ALBUMIN 2.8 g/dl (3.4-5.0); ANION GAP 10 (8-16); CALCIUM 8.6 mg/dL (8.5-10.1); CO2 22 mmol/L (21-32); GLUCOSE,RANDOM 71 mg/dL (74-106)
[2016-12-15 07:58] LABS: ALK PHOS 121 U/L (45-117); BILIRUBIN,TOTAL 0.4 mg/dL (0.2-1.0); CREATININE 6.4 mg/dL (0.55-1.02); SGOT/AST 20 U/L (15-37); SGPT/ALT 15 U/L (12-78); TOT PROT 6.2 g/dl (6.4-8.2)
[2016-12-15 08:07] LABS: MCH 33.9 pg (25.7-33.7); MCHC 33.4 g/dl (32.0-36.0); MEAN CELL VOLUME 101.5 fl (80-96); MEAN PLT VOLUME 7.3 fl (7.5-11.1); PLATELET COUNT 241 K/MM3 (134-434); RDW 16.7 % (11.6-15.6); WHITE BLOOD COUNT 9.8 K/mm3 (4.0-10.0)
[2016-12-15] MEDS ORDERED: EPOETIN ALFA 20,000 UNIT/1 ML VIAL IVPUSH ONE (09:00)
[2016-12-15] MEDS: morphine CARPU-JECT 4 MG/1 ML DISP.SYRIN IVPB PRN ×2 (09:10→19:59)
--- NOTE | 2016-12-15 10:43 | PN ---
Progress Note (short form) - Note Progress Note: Renal follow up for ESRD on HD Pt seen and examined during dialysis BP stable, access with good flow goal UF is 2.5L pt without any acute complaints. Vital Signs Temperature 97.6 F 12/15/16 06:45 Pulse Rate 68 12/15/16 07:30 Respiratory Rate 18 12/15/16 07:30 Blood Pressure 146/77 12/15/16 07:30 O2 Sat by Pulse Oximetry (%) 96 12/14/16 20:53 Intake & Output 12/12/16 12/13/16 12/14/16 12/15/16 23:59 23:59 23:59 23:59 Intake Total 250 150 Output Total 0 Balance 250 150 Weight 109 lb 8 oz 109 lb 8 oz Gen: NAD CVS: RRR Lungs: CTA Abd: soft NT/ND Ext: left UE hematoma, with ozzing blood CBC, BMP 12/15/16 07:00 12/15/16 05:35 Current Medications Clonidine (Catapres -) 0.2 mg PO BID [facility] Last Admin: 12/14/16 22:03 Dose: 0.2 mg Doxazosin Mesylate (Cardura -) 1 mg PO BID [facility] Last Admin: 12/14/16 22:04 Dose: 1 mg Hydralazine HCl (Apresoline -) 100 mg PO TID [facility] Last Admin: 12/15/16 06:09 Dose: Not Given Ceftriaxone Sodium 1 gm/ (Dextrose) 50 mls @ 100 mls/hr IVPB DAILY [facility] Last Admin: 12/14/16 15:14 Dose: 100 mls/hr Labetalol HCl (Normodyne -) 400 mg PO BID [facility] Last Admin: 12/14/16 22:03 Dose: 400 mg Losartan Potassium (Cozaar -) 100 mg PO DAILY [facility] Last Admin: 12/14/16 09:37 Dose: 100 mg Morphine Sulfate (Morphine Injection -) 2 mg IVPB Q6H PRN Last Admin: 12/15/16 09:10 Dose: 2 mg Nifedipine (Procardia Xl -) 90 mg PO DAILY [facility] Last Admin: 12/14/16 09:37 Dose: 90 mg Phenytoin Sodium (Dilantin -) 200 mg PO BID [facility] Last Admin: 12/14/16 22:04 Dose: 200 mg Spironolactone (Aldactone -) 50 mg PO DAILY [facility] Last Admin: 12/14/16 09:37 Dose: 50 mg Vancomycin HCl (Vancomycin (Pre-Docked)) 1,000 mg IVPB MoWeFr@1500 [facility] Last Admin: 12/14/16 15:15 Dose: 1,000 mg A/P 61 year old woman with PMhx of ESRD on HD (TTS), RCC s/p Nephrectomy, Blindness with b/l cataracts, CHF, Hypertension who presented with a large left arm hematoma near her AVF site. #Hematoma on left ARM with eschar for evacuation of hematoma today in the OR #ESRD on HD tolerating dialysis well no acute complaints #Hypertension Continue Losartan, Aldactone, Hydralazine, Nifedipine #CKD related Anemia Trend H/H continue DAISHA with HD transfuse for hgb less then 8 #CHF pt appears evolemic at the present time continue UF with HD as neede Jake Stringer DO Problem List - Problems (1) Chronic diastolic (congestive) heart failure Code(s): I50.32 - CHRONIC DIASTOLIC (CONGESTIVE) HEART FAILURE (2) Hypertension Code(s): I10 - ESSENTIAL (PRIMARY) HYPERTENSION Qualifiers: Hypertension type: essential hypertension Qualified Code(s): I10 - Essential (primary) hypertension (3) Left arm swelling Code(s): M79.89 - OTHER SPECIFIED SOFT TISSUE DISORDERS (4) ESRD on hemodialysis Code(s): N18.6 - END STAGE RENAL DISEASE Z99.2 - DEPENDENCE ON RENAL DIALYSIS (5) History of nephrectomy Code(s): Z90.5 - ACQUIRED ABSENCE OF KIDNEY (6) Hypertension, uncontrolled Code(s): I10 - ESSENTIAL (PRIMARY) HYPERTENSION (7) Hematoma Code(s): T14.8 - OTHER INJURY OF UNSPECIFIED BODY REGION
[2016-12-15] MEDS ORDERED: DEXTROSE 5%-WATER - 50 ML IVPB ONE (10:49)
[2016-12-15] MEDS ORDERED: cefTRIAXone SODIUM 1 GM VIAL ONE (10:49)
[2016-12-15] MEDS: CEFTRIAXONE 1 GM in DEXTROSE 5%-WATER - 50 ML IVPB SCH (11:15)
[2016-12-15] MEDS: LABETALOL HCL 200 MG TABLET (FP) PO SCH ×2 (11:16→21:55)
[2016-12-15] MEDS: PHENYTOIN NA EXTENDED 100 MG CAPSULE (FP) PO SCH ×2 (11:16→21:54)
[2016-12-15] MEDS: DOXAZOSIN MESYLATE 1 MG TABLET PO SCH ×2 (11:16→21:54)
[2016-12-15] MEDS: cloNIDine HCL 0.1 MG TABLET PO SCH ×2 (11:16→21:56)
[2016-12-15] MEDS: NIFEdipine E.R. 90 MG TABLET (FP) PO SCH (11:16)
[2016-12-15] MEDS: LOSARTAN POTASSIUM 50 MG TABLET (FP) PO SCH (11:17)
[2016-12-15] MEDS: SPIRONOLACTONE 25 MG TABLET (FP) PO SCH (11:18)
--- NOTE | 2016-12-15 12:55 | PN ---
Progress Note, Physician History of Present Illness: stable no new issues - Current Medication List Current Medications: Active Medications Clonidine (Catapres -) 0.2 mg PO BID [facility] Last Admin: 12/15/16 11:16 Dose: 0.2 mg Doxazosin Mesylate (Cardura -) 1 mg PO BID [facility] Last Admin: 12/15/16 11:16 Dose: 1 mg Hydralazine HCl (Apresoline -) 100 mg PO TID [facility] Last Admin: 12/15/16 06:09 Dose: Not Given Ceftriaxone Sodium 1 gm/ (Dextrose) 50 mls @ 100 mls/hr IVPB DAILY [facility] Last Admin: 12/15/16 11:15 Dose: 100 mls/hr Labetalol HCl (Normodyne -) 400 mg PO BID [facility] Last Admin: 12/15/16 11:16 Dose: 400 mg Losartan Potassium (Cozaar -) 100 mg PO DAILY [facility] Last Admin: 12/15/16 11:17 Dose: 100 mg Morphine Sulfate (Morphine Injection -) 2 mg IVPB Q6H PRN Last Admin: 12/15/16 09:10 Dose: 2 mg Nifedipine (Procardia Xl -) 90 mg PO DAILY [facility] Last Admin: 12/15/16 11:16 Dose: 90 mg Phenytoin Sodium (Dilantin -) 200 mg PO BID [facility] Last Admin: 12/15/16 11:16 Dose: 200 mg Spironolactone (Aldactone -) 50 mg PO DAILY [facility] Last Admin: 12/15/16 11:18 Dose: 50 mg Vancomycin HCl (Vancomycin (Pre-Docked)) 1,000 mg IVPB MoWeFr@1500 [facility] Last Admin: 12/14/16 15:15 Dose: 1,000 mg - Objective Vital Signs: Vital Signs Temperature 98.2 F 12/15/16 10:50 Pulse Rate 72 12/15/16 10:50 Respiratory Rate 18 12/15/16 10:30 Blood Pressure 155/82 12/15/16 10:50 O2 Sat by Pulse Oximetry (%) 96 12/15/16 09:00 Constitutional: Yes: No Distress, Calm Cardiovascular: Yes: Regular Rate and Rhythm Respiratory: Yes: Regular, CTA Bilaterally Gastrointestinal: Yes: Normal Bowel Sounds, Soft Extremities: Yes: Other (hematoma of the left arm) Wound/Incision: Yes: Open to air, Other Neurological: Yes: Alert, Oriented Psychiatric: Yes: Alert Labs: CBC, BMP 12/15/16 07:00 12/15/16 05:35 INR, PTT INR 1.03 (0.82-1.09) 12/13/16 17:00 Assessment/Plan Problem List - Problems (1) Left arm swelling Code(s): M79.89 - OTHER SPECIFIED SOFT TISSUE DISORDERS hematoma of the left arm plan continue current mgmt patient going for surgery rest continue current mgmt rest as per primary team
[2016-12-15] MEDS ORDERED: LIDOCAINE HCL 1%, 10 MG/ML (20ML VIAL) ONE (16:00)
[2016-12-15] MEDS ORDERED: MIDAZOLAM HCL 2 MG/2 ML SINGLE DOSE VIAL ONE (16:21)
[2016-12-15] MEDS ORDERED: POVIDONE-IODINE OINTMENT 10% - 28.4 GM TUBE ONE (16:21)
[2016-12-15] MEDS ORDERED: HEPARIN NA (PORCINE) 5,000 UNITS/ML 1ML VIAL ONE (16:21)
[2016-12-15] MEDS ORDERED: ROCURONIUM BROMIDE 50 MG/5 ML VIAL ONE (16:38)
[2016-12-15] MEDS ORDERED: LIDOCAINE HCL/PF 2% SDV 5ML VIAL ONE (16:38)
[2016-12-15] MEDS ORDERED: PROPOFOL 20 ML ONE (16:38)
[2016-12-15] MEDS ORDERED: BACITRACIN 50,000 UNITS VIAL NR ONE (16:50)
[2016-12-15] MEDS ORDERED: LIDOCAINE HCL 1%, 10 MG/ML (50 mL VIAL) IJ ONE (17:00)
--- NOTE | 2016-12-15 17:07 | OP ---
Operative Note - Note: Operative Date: 12/15/16 Pre-Operative Diagnosis: Hematoma left upper arm Operation: Evacuation hematome left upper arm Findings: Large hematoma left proximal upper arm. 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
[2016-12-15] MEDS ORDERED: ONDANSETRON 4 MG/2 ML VIAL IVPUSH PRN (17:16)
--- NOTE | 2016-12-15 23:45 | PN ---
Progress Note, Physician - Current Medication List Current Medications: Active Medications Clonidine (Catapres -) 0.2 mg PO BID [facility] Last Admin: 12/15/16 21:56 Dose: 0.2 mg Doxazosin Mesylate (Cardura -) 1 mg PO BID [facility] Last Admin: 12/15/16 21:54 Dose: 1 mg Hydralazine HCl (Apresoline -) 100 mg PO TID [facility] Last Admin: 12/15/16 21:55 Dose: 100 mg Ceftriaxone Sodium 1 gm/ (Dextrose) 50 mls @ 100 mls/hr IVPB DAILY [facility] Labetalol HCl (Normodyne -) 400 mg PO BID [facility] Last Admin: 12/15/16 21:55 Dose: 400 mg Losartan Potassium (Cozaar -) 100 mg PO DAILY [facility] Morphine Sulfate (Morphine Injection -) 2 mg IVPB Q6H PRN Last Admin: 12/15/16 19:59 Dose: 2 mg Nifedipine (Procardia Xl -) 90 mg PO DAILY [facility] Phenytoin Sodium (Dilantin -) 200 mg PO BID [facility] Last Admin: 12/15/16 21:54 Dose: 200 mg Spironolactone (Aldactone -) 50 mg PO DAILY [facility] Vancomycin HCl (Vancomycin (Pre-Docked)) 1,000 mg IVPB MoWeFr@1500 [facility] - Objective Vital Signs: Vital Signs Temperature 98.9 F 12/15/16 18:11 Pulse Rate 72 12/15/16 18:11 Respiratory Rate 20 12/15/16 21:00 Blood Pressure 161/79 12/15/16 18:11 O2 Sat by Pulse Oximetry (%) 100 12/15/16 21:00 Constitutional: Yes: No Distress Neck: Yes: WNL, Supple Cardiovascular: Yes: WNL, Regular Rate and Rhythm Respiratory: Yes: WNL, Regular, CTA Bilaterally Gastrointestinal: Yes: WNL, Normal Bowel Sounds, Soft Extremities: Yes: Other ((+) LUE AV graft) Labs: CBC, BMP 12/15/16 07:00 12/15/16 05:35 INR, PTT INR 1.03 (0.82-1.09) 12/13/16 17:00 Problem List - Problems (1) ESRD on hemodialysis Assessment/Plan: S/P evacuation of LUE hematoma Cont IV ceftria xone/vanco Wound culture grew staph coag (-) Code(s): N18.6 - END STAGE RENAL DISEASE Z99.2 - DEPENDENCE ON RENAL DIALYSIS (2) Hypertension Assessment/Plan: BP stable Cont antihypertensives Code(s): I10 - ESSENTIAL (PRIMARY) HYPERTENSION Qualifiers: Hypertension type: essential hypertension Qualified Code(s): I10 - Essential (primary) hypertension (3) Seizure Assessment/Plan: Cont dilantin Code(s): R56.9 - UNSPECIFIED CONVULSIONS Qualifiers: Convulsion type: unspecified Qualified Code(s): R56.9 - Unspecified convulsions (4) Anemia Assessment/Plan: Multifactorial: CKD Monitor H/H Code(s): D64.9 - ANEMIA, UNSPECIFIED (5) Blind Code(s): H54.0 - BLINDNESS, BOTH EYES (6) History of nephrectomy Code(s): Z90.5 - ACQUIRED ABSENCE OF KIDNEY
[2016-12-16 06:07] LABS: HEP B SURFACE AB Non Reactive (.)
[2016-12-16] MEDS: hydrALAZINE HCL 50 MG TABLET (FP) PO SCH ×3 (07:01→21:22)
[2016-12-16 07:44] LABS: BASOPHIL 0.7 % (0-2.0); EOSINOPHIL 4.6 % (0-4.5); MCH 33.7 pg (25.7-33.7); MCHC 33.2 g/dl (32.0-36.0); MEAN CELL VOLUME 101.4 fl (80-96); MEAN PLT VOLUME 7.3 fl (7.5-11.1); NEUTROPHILS 66.2 % (42.8-82.8); PLATELET COUNT 236 K/MM3 (134-434); RDW 16.4 % (11.6-15.6); WHITE BLOOD COUNT 10.2 K/mm3 (4.0-10.0)
--- NOTE | 2016-12-16 08:03 | OP ---
DATE OF OPERATION: 12/15/2016 SURGEON: Regan Garnica MD PROCEDURE: Evacuation of hematoma of the left upper extremity. PREOPERATIVE DIAGNOSIS: Large hematoma of the left arm. POSTOPERATIVE DIAGNOSIS: Large hematoma of the left arm. ANESTHESIA: Fractional. ANESTHESIOLOGIST: Love Oneal MD OPERATIVE FINDINGS: At the upper aspect of the medial arm was a 10-cm hematoma. After evacuation, the underlying wound was clean, without evidence of infection and no exposed graft material. OPERATIVE PROCEDURE: Following routine patient identification, with site and side verification, intravenous sedation was established. The left arm was prepped with Betadine solution. One percent Xylocaine was infiltrated around the area of necrotic skin over the hematoma. This was excised and the underlying hematoma evacuated with suction and pressure. The cavity was cultured and then irrigated with bacitracin solution. A Jake-Chaudhary drain was placed into the cavity through a separate stab incision in the lower part of the arm. The skin was then approximated with a running suture of 3-0 nylon. The drain was sutured to the skin with 3-0 nylon. A sterile dressing was applied, and the patient was taken to the recovery room in stable condition. REGAN GARNICA M.D. [id number]
[2016-12-16] MEDS ORDERED: PT OWN MED DRAWER 7, Y5N ONE (09:11)
[2016-12-16] MEDS ORDERED: cefTRIAXone SODIUM 1 GM VIAL ONE (09:11)
[2016-12-16] MEDS ORDERED: DEXTROSE 5%-WATER - 50 ML IVPB ONE (09:11)
--- NOTE | 2016-12-16 09:12 | PN ---
Progress Note (short form) - Note Progress Note: Anesthesia Post op Pt seen and examined S:alert and awake O: Vital Signs Temperature 98 F 12/16/16 06:00 Pulse Rate 72 12/16/16 06:00 Respiratory Rate 20 12/16/16 06:00 Blood Pressure 160/75 12/16/16 06:00 O2 Sat by Pulse Oximetry (%) 100 12/15/16 21:00 CBC, BMP 12/16/16 06:00 12/15/16 05:35 A/P: Current Active Problems Acute serous otitis media of both ears (Acute) Anxiety (Acute) Chronic diastolic (congestive) heart failure (Acute) Hearing loss (Acute) Hematoma (Acute) Hypertension (Acute) Left arm swelling (Acute) Poor appetite (Acute) Thyroid enlargement (Acute) Weakness (Acute) End stage renal disease (Chronic) s/p evacuation of hematoma left upper extremity Doing well post op Continue current care Santiago Mathur MD
[2016-12-16] MEDS: LABETALOL HCL 200 MG TABLET (FP) PO SCH ×2 (09:20→21:22)
[2016-12-16] MEDS: CEFTRIAXONE 1 GM in DEXTROSE 5%-WATER - 50 ML IVPB SCH (09:20)
[2016-12-16] MEDS: LOSARTAN POTASSIUM 50 MG TABLET (FP) PO SCH (09:20)
[2016-12-16] MEDS: NIFEdipine E.R. 90 MG TABLET (FP) PO SCH (09:21)
[2016-12-16] MEDS: cloNIDine HCL 0.1 MG TABLET PO SCH ×2 (09:21→21:22)
[2016-12-16] MEDS: PHENYTOIN NA EXTENDED 100 MG CAPSULE (FP) PO SCH ×2 (09:21→21:21)
[2016-12-16] MEDS: DOXAZOSIN MESYLATE 1 MG TABLET PO SCH ×2 (09:21→21:22)
[2016-12-16] MEDS: SPIRONOLACTONE 25 MG TABLET (FP) PO SCH (09:21)
[2016-12-16] MEDS: morphine CARPU-JECT 4 MG/1 ML DISP.SYRIN IVPB PRN ×2 (09:22→20:29)
--- NOTE | 2016-12-16 09:34 | EKG ---
Test Reason : Blood Pressure : / mmHG Vent. Rate : 078 BPM Atrial Rate : 078 BPM P-R Int : 146 ms QRS Dur : 092 ms QT Int : 406 ms P-R-T Axes : 075 -01 060 degrees QTc Int : 462 ms NORMAL SINUS RHYTHM POSSIBLE LEFT ATRIAL ENLARGEMENT NONSPECIFIC ST ABNORMALITY WHEN COMPARED WITH ECG OF 28-JUL-2016 14:11, NO SIGNIFICANT CHANGE WAS FOUND Confirmed by WILMER PERALTA MD ([id number]) on 12/16/2016 9:34:11 AM Referred By: Confirmed By:WILMER PERALTA MD
--- NOTE | 2016-12-16 13:39 | PN ---
Progress Note, Physician History of Present Illness: patient post op from hematoma evacuation stable - Current Medication List Current Medications: Active Medications Clonidine (Catapres -) 0.2 mg PO BID [facility] Last Admin: 12/16/16 09:21 Dose: 0.2 mg Doxazosin Mesylate (Cardura -) 1 mg PO BID [facility] Last Admin: 12/16/16 09:21 Dose: 1 mg Hydralazine HCl (Apresoline -) 100 mg PO TID [facility] Last Admin: 12/16/16 07:01 Dose: 100 mg Ceftriaxone Sodium 1 gm/ (Dextrose) 50 mls @ 100 mls/hr IVPB DAILY [facility] Last Admin: 12/16/16 09:20 Dose: 100 mls/hr Labetalol HCl (Normodyne -) 400 mg PO BID [facility] Last Admin: 12/16/16 09:20 Dose: 400 mg Losartan Potassium (Cozaar -) 100 mg PO DAILY [facility] Last Admin: 12/16/16 09:20 Dose: 100 mg Morphine Sulfate (Morphine Injection -) 2 mg IVPB Q6H PRN Last Admin: 12/16/16 09:22 Dose: 2 mg Nifedipine (Procardia Xl -) 90 mg PO DAILY [facility] Last Admin: 12/16/16 09:21 Dose: 90 mg Phenytoin Sodium (Dilantin -) 200 mg PO BID [facility] Last Admin: 12/16/16 09:21 Dose: 200 mg Spironolactone (Aldactone -) 50 mg PO DAILY [facility] Last Admin: 12/16/16 09:21 Dose: 50 mg Vancomycin HCl (Vancomycin (Pre-Docked)) 1,000 mg IVPB MoWeFr@1500 [facility] - Objective Vital Signs: Vital Signs Temperature 99.3 F 12/16/16 10:00 Pulse Rate 75 12/16/16 10:00 Respiratory Rate 20 12/16/16 10:00 Blood Pressure 137/71 12/16/16 10:00 O2 Sat by Pulse Oximetry (%) 96 12/16/16 09:00 Constitutional: Yes: No Distress, Calm Cardiovascular: Yes: S1, S2 Respiratory: Yes: Regular, CTA Bilaterally Gastrointestinal: Yes: Normal Bowel Sounds, Soft Musculoskeletal: Yes: Other Extremities: Yes: Other Neurological: Yes: Alert Psychiatric: Yes: Alert Labs: CBC, BMP 12/16/16 06:00 12/15/16 05:35 INR, PTT INR 1.03 (0.82-1.09) 12/13/16 17:00 Assessment/Plan Problem List - Problems (1) Left arm swelling Code(s): M79.89 - OTHER SPECIFIED SOFT TISSUE DISORDERS hematoma of the left arm plan continue abx await for cx report once we have that will decide what abx will start deescalating from tomorrow
--- NOTE | 2016-12-16 13:55 | PN ---
Progress Note (short form) - Note Progress Note: Renal follow up for ESRD on HD Pt seen and examined at the bedside awake and alert no acute complaints s/p OR yesterday for proximal arm hematoma Vital Signs Temperature 99.3 F 12/16/16 10:00 Pulse Rate 75 12/16/16 10:00 Respiratory Rate 20 12/16/16 10:00 Blood Pressure 137/71 12/16/16 10:00 O2 Sat by Pulse Oximetry (%) 96 12/16/16 09:00 Intake & Output 12/13/16 12/14/16 12/15/16 12/16/16 23:59 23:59 23:59 23:59 Intake Total 250 450 150 Output Total 125 5 Balance 250 325 145 Weight 109 lb 8 oz 109 lb 8 oz Gen: NAD CVS: RRR Lungs: CTA Abd: soft NT/ND Ext: left UE hematoma, with ozzing blood CBC, BMP 12/16/16 06:00 12/15/16 05:35 Current Medications Clonidine (Catapres -) 0.2 mg PO BID [facility] Last Admin: 12/16/16 09:21 Dose: 0.2 mg Doxazosin Mesylate (Cardura -) 1 mg PO BID [facility] Last Admin: 12/16/16 09:21 Dose: 1 mg Hydralazine HCl (Apresoline -) 100 mg PO TID [facility] Last Admin: 12/16/16 07:01 Dose: 100 mg Ceftriaxone Sodium 1 gm/ (Dextrose) 50 mls @ 100 mls/hr IVPB DAILY [facility] Last Admin: 12/16/16 09:20 Dose: 100 mls/hr Labetalol HCl (Normodyne -) 400 mg PO BID [facility] Last Admin: 12/16/16 09:20 Dose: 400 mg Losartan Potassium (Cozaar -) 100 mg PO DAILY [facility] Last Admin: 12/16/16 09:20 Dose: 100 mg Morphine Sulfate (Morphine Injection -) 2 mg IVPB Q6H PRN Last Admin: 12/16/16 09:22 Dose: 2 mg Nifedipine (Procardia Xl -) 90 mg PO DAILY [facility] Last Admin: 12/16/16 09:21 Dose: 90 mg Phenytoin Sodium (Dilantin -) 200 mg PO BID [facility] Last Admin: 12/16/16 09:21 Dose: 200 mg Spironolactone (Aldactone -) 50 mg PO DAILY [facility] Last Admin: 12/16/16 09:21 Dose: 50 mg Vancomycin HCl (Vancomycin (Pre-Docked)) 1,000 mg IVPB MoWeFr@1500 [facility] A/P 61 year old woman with PMhx of ESRD on HD (TTS), RCC s/p Nephrectomy, Blindness with b/l cataracts, CHF, Hypertension who presented with a large left arm hematoma near her AVF site. #Hematoma on left ARM with eschar s/p evacuation of hematoma by vascular local wound care abx as per ID #[id number] on HD no acute indication for dialysis today next treatment is tomorrow #Hypertension Continue Losartan, Aldactone, Hydralazine, Nifedipine #CKD related Anemia Trend H/H continue DAISHA with HD transfuse for hgb less then 8 #CHF pt appears evolemic at the present time continue UF with HD as needed Jake Stringer DO Problem List - Problems (1) Chronic diastolic (congestive) heart failure Code(s): I50.32 - CHRONIC DIASTOLIC (CONGESTIVE) HEART FAILURE (2) Hypertension Code(s): I10 - ESSENTIAL (PRIMARY) HYPERTENSION Qualifiers: Hypertension type: essential hypertension Qualified Code(s): I10 - Essential (primary) hypertension (3) Left arm swelling Code(s): M79.89 - OTHER SPECIFIED SOFT TISSUE DISORDERS (4) ESRD on hemodialysis Code(s): N18.6 - END STAGE RENAL DISEASE Z99.2 - DEPENDENCE ON RENAL DIALYSIS (5) History of nephrectomy Code(s): Z90.5 - ACQUIRED ABSENCE OF KIDNEY (6) Hypertension, uncontrolled Code(s): I10 - ESSENTIAL (PRIMARY) HYPERTENSION (7) Hematoma Code(s): T14.8 - OTHER INJURY OF UNSPECIFIED BODY REGION
[2016-12-16] MEDS ORDERED: VANCOMYCIN 1 GRAM (PRE-DOCKED) 1,000 MG/250 ML BAG IVPB SCH (15:00)
--- NOTE | 2016-12-16 23:00 | PN ---
Progress Note, Physician History of Present Illness: No new complaints - Current Medication List Current Medications: Active Medications Clonidine (Catapres -) 0.2 mg PO BID [facility] Last Admin: 12/16/16 21:22 Dose: 0.2 mg Doxazosin Mesylate (Cardura -) 1 mg PO BID [facility] Last Admin: 12/16/16 21:22 Dose: 1 mg Epoetin Nick (Procrit -) 10,000 unit IVPUSH ONCE ONE Stop: 12/17/16 06:01 Hydralazine HCl (Apresoline -) 100 mg PO TID [facility] Last Admin: 12/16/16 21:22 Dose: 100 mg Ceftriaxone Sodium 1 gm/ (Dextrose) 50 mls @ 100 mls/hr IVPB DAILY [facility] Last Admin: 12/16/16 09:20 Dose: 100 mls/hr Labetalol HCl (Normodyne -) 400 mg PO BID [facility] Last Admin: 12/16/16 21:22 Dose: 400 mg Losartan Potassium (Cozaar -) 100 mg PO DAILY [facility] Last Admin: 12/16/16 09:20 Dose: 100 mg Morphine Sulfate (Morphine Injection -) 2 mg IVPB Q6H PRN Last Admin: 12/16/16 20:29 Dose: 2 mg Nifedipine (Procardia Xl -) 90 mg PO DAILY [facility] Last Admin: 12/16/16 09:21 Dose: 90 mg Phenytoin Sodium (Dilantin -) 200 mg PO BID [facility] Last Admin: 12/16/16 21:21 Dose: 200 mg Spironolactone (Aldactone -) 50 mg PO DAILY [facility] Last Admin: 12/16/16 09:21 Dose: 50 mg Vancomycin HCl (Vancomycin (Pre-Docked)) 1,000 mg IVPB MoWeFr@1500 [facility] Last Admin: 12/16/16 17:20 Dose: 1,000 mg - Objective Vital Signs: Vital Signs Temperature 98.2 F 12/16/16 18:00 Pulse Rate 77 12/16/16 18:00 Respiratory Rate 20 12/16/16 18:00 Blood Pressure 138/66 12/16/16 18:00 O2 Sat by Pulse Oximetry (%) 96 12/16/16 09:00 Neck: Yes: WNL, Supple Cardiovascular: Yes: WNL, Regular Rate and Rhythm Respiratory: Yes: WNL, Regular, CTA Bilaterally Gastrointestinal: Yes: WNL, Normal Bowel Sounds, Soft Extremities: Yes: Other ((+) LUE AV fistula) Labs: CBC, BMP 12/16/16 06:00 12/15/16 05:35 INR, PTT INR 1.03 (0.82-1.09) 12/13/16 17:00 Problem List - Problems (1) Hypertension Code(s): I10 - ESSENTIAL (PRIMARY) HYPERTENSION Qualifiers: Hypertension type: essential hypertension Qualified Code(s): I10 - Essential (primary) hypertension (2) ESRD on hemodialysis Code(s): N18.6 - END STAGE RENAL DISEASE Z99.2 - DEPENDENCE ON RENAL DIALYSIS (3) Hypertension, uncontrolled Code(s): I10 - ESSENTIAL (PRIMARY) HYPERTENSION (4) Seizure Code(s): R56.9 - UNSPECIFIED CONVULSIONS Qualifiers: Convulsion type: unspecified Qualified Code(s): R56.9 - Unspecified convulsions (5) Anemia Code(s): D64.9 - ANEMIA, UNSPECIFIED (6) Blind Code(s): H54.0 - BLINDNESS, BOTH EYES
[2016-12-17] MEDS: morphine CARPU-JECT 4 MG/1 ML DISP.SYRIN IVPB PRN (02:46)
[2016-12-17] MEDS: hydrALAZINE HCL 50 MG TABLET (FP) PO SCH ×3 (06:37→22:36)
[2016-12-17 08:02] LABS: ALBUMIN 2.7 g/dl (3.4-5.0); ALK PHOS 125 U/L (45-117); ANION GAP 9 (8-16); BILIRUBIN,TOTAL 0.4 mg/dL (0.2-1.0); CALCIUM 8.5 mg/dL (8.5-10.1); CO2 28 mmol/L (21-32); CREATININE 6.8 mg/dL (0.55-1.02); GLUCOSE,RANDOM 75 mg/dL (74-106); SGOT/AST 15 U/L (15-37); SGPT/ALT 15 U/L (12-78)
[2016-12-17 08:21] LABS: BASOPHIL 0.7 % (0-2.0); MCH 33.7 pg (25.7-33.7); MEAN CELL VOLUME 102.1 fl (80-96); MEAN PLT VOLUME 7.5 fl (7.5-11.1); NEUTROPHILS 61.2 % (42.8-82.8); PLATELET COUNT 225 K/MM3 (134-434); RDW 16.4 % (11.6-15.6); WHITE BLOOD COUNT 8.3 K/mm3 (4.0-10.0)
[2016-12-17] MEDS ORDERED: PT OWN MED DRAWER 7, Y5N ONE ×2 (10:51→20:43)
[2016-12-17] MEDS: PHENYTOIN NA EXTENDED 100 MG CAPSULE (FP) PO SCH ×2 (10:52→22:37)
[2016-12-17] MEDS: LOSARTAN POTASSIUM 50 MG TABLET (FP) PO SCH (10:53)
--- NOTE | 2016-12-17 11:06 | PN ---
Progress Note (short form) - Note Progress Note: VSS Wound dry, drain 10 cc Dialysis today I will remove drain tomorrow. Culture Staph epi Vanco at dialysis Problem List - Problems (1) Left arm swelling Code(s): M79.89 - OTHER SPECIFIED SOFT TISSUE DISORDERS
--- NOTE | 2016-12-17 11:24 | PN ---
Progress Note, Physician Chief Complaint: The patient seen in her bed. Awake, alert, with minimal pain at the surgical site. The TOMY drain with minimal bloody drainage. IV Abx well tolerated. History of Present Illness: 61 year old woman with PMhx of ESRD on HD , RCC s/p Nephrectomy, Blindness with b/l cataracts, CHF, Hypertension who presented with a large left arm hematoma near her AVF site. S/p evacuation of hematoma by the vascular surgeon. The patient receiving IV Rocephin and Vancomycin. - Current Medication List Current Medications: Active Medications Clonidine (Catapres -) 0.2 mg PO BID [facility] Last Admin: 12/16/16 21:22 Dose: 0.2 mg Doxazosin Mesylate (Cardura -) 1 mg PO BID [facility] Last Admin: 12/16/16 21:22 Dose: 1 mg Epoetin Nick (Procrit -) 10,000 unit IVPUSH ONCE ONE Stop: 12/17/16 06:01 Hydralazine HCl (Apresoline -) 100 mg PO TID [facility] Last Admin: 12/17/16 06:37 Dose: Not Given Ceftriaxone Sodium 1 gm/ (Dextrose) 50 mls @ 100 mls/hr IVPB DAILY [facility] Last Admin: 12/16/16 09:20 Dose: 100 mls/hr Labetalol HCl (Normodyne -) 400 mg PO BID [facility] Last Admin: 12/16/16 21:22 Dose: 400 mg Losartan Potassium (Cozaar -) 100 mg PO DAILY [facility] Last Admin: 12/17/16 10:53 Dose: 100 mg Morphine Sulfate (Morphine Injection -) 2 mg IVPUSH Q8H PRN PRN Reason: PAIN Nifedipine (Procardia Xl -) 90 mg PO DAILY [facility] Last Admin: 12/16/16 09:21 Dose: 90 mg Phenytoin Sodium (Dilantin -) 200 mg PO BID [facility] Last Admin: 12/17/16 10:52 Dose: 200 mg Spironolactone (Aldactone -) 50 mg PO DAILY [facility] Last Admin: 12/16/16 09:21 Dose: 50 mg Vancomycin HCl (Vancomycin (Pre-Docked)) 1,000 mg IVPB MoWeFr@1500 [facility] Last Admin: 12/16/16 17:20 Dose: 1,000 mg - Objective Vital Signs: Vital Signs Temperature 99.1 F 12/16/16 22:00 Pulse Rate 80 12/16/16 22:00 Respiratory Rate 20 12/16/16 22:00 Blood Pressure 143/78 12/16/16 22:00 O2 Sat by Pulse Oximetry (%) 96 12/16/16 21:00 Constitutional: Yes: Mild Distress HENT: Yes: Atraumatic Neck: Yes: Trachea Midline Respiratory: Yes: Regular, CTA Bilaterally Gastrointestinal: Yes: Normal Bowel Sounds, Soft Extremities: Yes: Other (dressing over the left arm surgical site, TOMY drain in place.) Labs: CBC, BMP 12/17/16 06:00 12/17/16 06:00 INR, PTT INR 1.03 (0.82-1.09) 12/13/16 17:00 Problem List - Problems (1) Hematoma Code(s): T14.8 - OTHER INJURY OF UNSPECIFIED BODY REGION (2) Hypertension Code(s): I10 - ESSENTIAL (PRIMARY) HYPERTENSION Qualifiers: Hypertension type: essential hypertension Qualified Code(s): I10 - Essential (primary) hypertension (3) ESRD on hemodialysis Code(s): N18.6 - END STAGE RENAL DISEASE Z99.2 - DEPENDENCE ON RENAL DIALYSIS (4) Smoker Code(s): F17.200 - NICOTINE DEPENDENCE, UNSPECIFIED, UNCOMPLICATED (5) Anemia Code(s): D64.9 - ANEMIA, UNSPECIFIED Assessment/Plan 61 year old woman with PMhx of ESRD on HD (TTS), RCC s/p Nephrectomy, Blindness with b/l cataracts, CHF, Hypertension who presented with a large left arm hematoma near her AVF site. Dr. Kim's f/u notes noted. Will continue the antibiotics. Hemodialyis today in the acute HD unit. Orders written and reviewed with the RN. Darlene Wooten MD
--- NOTE | 2016-12-17 12:43 | PN ---
Progress Note, Physician History of Present Illness: stable post op drain with minimal drain - Current Medication List Current Medications: Active Medications Clonidine (Catapres -) 0.2 mg PO BID [facility] Last Admin: 12/16/16 21:22 Dose: 0.2 mg Doxazosin Mesylate (Cardura -) 1 mg PO BID [facility] Last Admin: 12/16/16 21:22 Dose: 1 mg Epoetin Nick (Procrit -) 10,000 unit IVPUSH ONCE ONE Stop: 12/17/16 06:01 Hydralazine HCl (Apresoline -) 100 mg PO TID [facility] Last Admin: 12/17/16 06:37 Dose: Not Given Ceftriaxone Sodium 1 gm/ (Dextrose) 50 mls @ 100 mls/hr IVPB DAILY [facility] Last Admin: 12/16/16 09:20 Dose: 100 mls/hr Labetalol HCl (Normodyne -) 400 mg PO BID [facility] Last Admin: 12/16/16 21:22 Dose: 400 mg Losartan Potassium (Cozaar -) 100 mg PO DAILY [facility] Last Admin: 12/17/16 10:53 Dose: 100 mg Morphine Sulfate (Morphine Injection -) 2 mg IVPUSH Q8H PRN PRN Reason: PAIN Nifedipine (Procardia Xl -) 90 mg PO DAILY [facility] Last Admin: 12/16/16 09:21 Dose: 90 mg Phenytoin Sodium (Dilantin -) 200 mg PO BID [facility] Last Admin: 12/17/16 10:52 Dose: 200 mg Spironolactone (Aldactone -) 50 mg PO DAILY [facility] Last Admin: 12/16/16 09:21 Dose: 50 mg - Objective Vital Signs: Vital Signs Temperature 99.1 F 12/16/16 22:00 Pulse Rate 80 12/16/16 22:00 Respiratory Rate 20 12/16/16 22:00 Blood Pressure 143/78 12/16/16 22:00 O2 Sat by Pulse Oximetry (%) 96 12/16/16 21:00 Constitutional: Yes: No Distress, Calm Cardiovascular: Yes: Regular Rate and Rhythm Respiratory: Yes: Regular, CTA Bilaterally Gastrointestinal: Yes: Normal Bowel Sounds, Soft Musculoskeletal: Yes: Other Extremities: Yes: Other (drain in place) Wound/Incision: Yes: Clean/Dry, Other (drain with draiange improving) Neurological: Yes: Alert, Oriented Labs: CBC, BMP 12/17/16 06:00 12/17/16 06:00 INR, PTT INR 1.03 (0.82-1.09) 12/13/16 17:00 Assessment/Plan Problem List - Problems Left arm swelling Code(s): M79.89 - OTHER SPECIFIED SOFT TISSUE DISORDERS hematoma of the left arm (1) Hematoma Code(s): T14.8 - OTHER INJURY OF UNSPECIFIED BODY REGION (2) Hypertension Code(s): I10 - ESSENTIAL (PRIMARY) HYPERTENSION Qualifiers: Hypertension type: essential hypertension Qualified Code(s): I10 - Essential (primary) hypertension (3) ESRD on hemodialysis Code(s): N18.6 - END STAGE RENAL DISEASE Z99.2 - DEPENDENCE ON RENAL DIALYSIS (4) Smoker Code(s): F17.200 - NICOTINE DEPENDENCE, UNSPECIFIED, UNCOMPLICATED (5) Anemia Code(s): D64.9 - ANEMIA, UNSPECIFIED plan continue abx vanco level noted vanco stopped for now continue rest
[2016-12-17] MEDS: morphine CARPU-JECT 4 MG/1 ML DISP.SYRIN IVPUSH PRN ×2 (13:27→22:25)
[2016-12-17] MEDS ORDERED: EPOETIN ALFA 10,000 UNIT/1 ML VIAL IVPUSH ONE (15:00)
[2016-12-17 15:49] LABS: PHOSPHOROUS 5.8 mg/dL (2.5-4.9)
[2016-12-17] MEDS ORDERED: cefTRIAXone SODIUM 1 GM VIAL ONE (18:04)
[2016-12-17] MEDS ORDERED: DEXTROSE 5%-WATER - 50 ML IVPB ONE (18:04)
[2016-12-17] MEDS: CEFTRIAXONE 1 GM in DEXTROSE 5%-WATER - 50 ML IVPB SCH (18:12)
[2016-12-17] MEDS: NIFEdipine E.R. 90 MG TABLET (FP) PO SCH (18:13)
[2016-12-17] MEDS: SPIRONOLACTONE 25 MG TABLET (FP) PO SCH (18:13)
[2016-12-17] MEDS: cloNIDine HCL 0.1 MG TABLET PO SCH ×2 (18:14→22:36)
[2016-12-17] MEDS: DOXAZOSIN MESYLATE 1 MG TABLET PO SCH ×2 (18:41→22:37)
[2016-12-17] MEDS: LABETALOL HCL 200 MG TABLET (FP) PO SCH ×2 (18:41→22:36)
--- NOTE | 2016-12-17 21:02 | PN ---
Progress Note, Physician History of Present Illness: No new complaints - Current Medication List Current Medications: Active Medications Clonidine (Catapres -) 0.2 mg PO BID [facility] Last Admin: 12/17/16 18:14 Dose: 0.2 mg Doxazosin Mesylate (Cardura -) 1 mg PO BID [facility] Last Admin: 12/17/16 18:41 Dose: 1 mg Hydralazine HCl (Apresoline -) 100 mg PO TID [facility] Last Admin: 12/17/16 14:15 Dose: Not Given Ceftriaxone Sodium 1 gm/ (Dextrose) 50 mls @ 100 mls/hr IVPB DAILY [facility] Last Admin: 12/17/16 18:12 Dose: 100 mls/hr Labetalol HCl (Normodyne -) 400 mg PO BID [facility] Last Admin: 12/17/16 18:41 Dose: 400 mg Losartan Potassium (Cozaar -) 100 mg PO DAILY [facility] Last Admin: 12/17/16 10:53 Dose: 100 mg Morphine Sulfate (Morphine Injection -) 2 mg IVPUSH Q8H PRN PRN Reason: PAIN Last Admin: 12/17/16 13:27 Dose: 2 mg Nifedipine (Procardia Xl -) 90 mg PO DAILY [facility] Last Admin: 12/17/16 18:13 Dose: 90 mg Phenytoin Sodium (Dilantin -) 200 mg PO BID [facility] Last Admin: 12/17/16 10:52 Dose: 200 mg Spironolactone (Aldactone -) 50 mg PO DAILY [facility] Last Admin: 12/17/16 18:13 Dose: 50 mg - Objective Vital Signs: Vital Signs Temperature 98.4 F 12/17/16 18:25 Pulse Rate 79 12/17/16 18:25 Respiratory Rate 20 12/17/16 18:25 Blood Pressure 156/91 12/17/16 18:25 O2 Sat by Pulse Oximetry (%) 96 12/17/16 09:00 Constitutional: Yes: No Distress Neck: Yes: WNL, Supple Cardiovascular: Yes: WNL, Regular Rate and Rhythm Respiratory: Yes: WNL, Regular, CTA Bilaterally Gastrointestinal: Yes: WNL, Normal Bowel Sounds Extremities: Yes: Other ((+) LUE graft) Labs: CBC, BMP 12/17/16 06:00 12/17/16 06:00 INR, PTT INR 1.03 (0.82-1.09) 12/13/16 17:00 Problem List - Problems (1) ESRD on hemodialysis Assessment/Plan: S/P evacuation of LUE hematoma Cont IV ceftria xone/vanco Wound culture grew staph coag (-) As per ID Code(s): N18.6 - END STAGE RENAL DISEASE Z99.2 - DEPENDENCE ON RENAL DIALYSIS (2) Hypertension Assessment/Plan: BP stable Cont antihypertensives Code(s): I10 - ESSENTIAL (PRIMARY) HYPERTENSION Qualifiers: Hypertension type: essential hypertension Qualified Code(s): I10 - Essential (primary) hypertension (3) Seizure Assessment/Plan: Cont dilantin Code(s): R56.9 - UNSPECIFIED CONVULSIONS Qualifiers: Convulsion type: unspecified Qualified Code(s): R56.9 - Unspecified convulsions (4) Anemia Assessment/Plan: Multifactorial: CKD Monitor H/H Code(s): D64.9 - ANEMIA, UNSPECIFIED (5) Blind Code(s): H54.0 - BLINDNESS, BOTH EYES
[2016-12-18] MEDS: hydrALAZINE HCL 50 MG TABLET (FP) PO SCH ×2 (06:08→14:49)
[2016-12-18] MEDS ORDERED: DEXTROSE 5%-WATER - 50 ML IVPB ONE (08:42)
[2016-12-18] MEDS ORDERED: PT OWN MED DRAWER 7, Y5N ONE (08:42)
[2016-12-18] MEDS ORDERED: cefTRIAXone SODIUM 1 GM VIAL ONE (08:42)
[2016-12-18] MEDS: morphine CARPU-JECT 4 MG/1 ML DISP.SYRIN IVPUSH PRN (08:45)
[2016-12-18] MEDS: CEFTRIAXONE 1 GM in DEXTROSE 5%-WATER - 50 ML IVPB SCH (09:15)
[2016-12-18] MEDS: LABETALOL HCL 200 MG TABLET (FP) PO SCH (09:16)
[2016-12-18] MEDS: LOSARTAN POTASSIUM 50 MG TABLET (FP) PO SCH (09:16)
[2016-12-18] MEDS: cloNIDine HCL 0.1 MG TABLET PO SCH (09:17)
[2016-12-18] MEDS: SPIRONOLACTONE 25 MG TABLET (FP) PO SCH (09:17)
[2016-12-18] MEDS: DOXAZOSIN MESYLATE 1 MG TABLET PO SCH (09:17)
[2016-12-18] MEDS: NIFEdipine E.R. 90 MG TABLET (FP) PO SCH (09:17)
[2016-12-18] MEDS: PHENYTOIN NA EXTENDED 100 MG CAPSULE (FP) PO SCH (09:18)
--- NOTE | 2016-12-18 11:58 | PN ---
Progress Note, Physician History of Present Illness: stable post op drain with minimal drain no complaints - Current Medication List Current Medications: Active Medications Clonidine (Catapres -) 0.2 mg PO BID [facility] Last Admin: 12/18/16 09:17 Dose: 0.2 mg Doxazosin Mesylate (Cardura -) 1 mg PO BID [facility] Last Admin: 12/18/16 09:17 Dose: 1 mg Hydralazine HCl (Apresoline -) 100 mg PO TID [facility] Last Admin: 12/18/16 06:08 Dose: 100 mg Ceftriaxone Sodium 1 gm/ (Dextrose) 50 mls @ 100 mls/hr IVPB DAILY [facility] Last Admin: 12/18/16 09:15 Dose: 100 mls/hr Labetalol HCl (Normodyne -) 400 mg PO BID [facility] Last Admin: 12/18/16 09:16 Dose: 400 mg Losartan Potassium (Cozaar -) 100 mg PO DAILY [facility] Last Admin: 12/18/16 09:16 Dose: 100 mg Morphine Sulfate (Morphine Injection -) 2 mg IVPUSH Q8H PRN PRN Reason: PAIN Last Admin: 12/18/16 08:45 Dose: 2 mg Nifedipine (Procardia Xl -) 90 mg PO DAILY [facility] Last Admin: 12/18/16 09:17 Dose: 90 mg Phenytoin Sodium (Dilantin -) 200 mg PO BID [facility] Last Admin: 12/18/16 09:18 Dose: 200 mg Spironolactone (Aldactone -) 50 mg PO DAILY [facility] Last Admin: 12/18/16 09:17 Dose: 50 mg - Objective Vital Signs: Vital Signs Temperature 98.4 F 12/18/16 10:00 Pulse Rate 74 12/18/16 10:00 Respiratory Rate 18 12/18/16 10:00 Blood Pressure 139/60 12/18/16 10:00 O2 Sat by Pulse Oximetry (%) 97 12/17/16 21:00 Constitutional: Yes: No Distress, Calm Cardiovascular: Yes: Regular Rate and Rhythm Respiratory: Yes: Regular, CTA Bilaterally Gastrointestinal: Yes: Normal Bowel Sounds, Soft Musculoskeletal: Yes: Other Extremities: Yes: Other (dressing in place drainage tube in place) Wound/Incision: Yes: Dressing Dry and Intact, Other (drain present) Neurological: Yes: Alert, Oriented Psychiatric: Yes: Alert Labs: CBC, BMP 12/17/16 06:00 12/17/16 06:00 INR, PTT INR 1.03 (0.82-1.09) 12/13/16 17:00 Assessment/Plan Problem List - Problems Left arm swelling Code(s): M79.89 - OTHER SPECIFIED SOFT TISSUE DISORDERS hematoma of the left arm (1) Hematoma Code(s): T14.8 - OTHER INJURY OF UNSPECIFIED BODY REGION (2) Hypertension Code(s): I10 - ESSENTIAL (PRIMARY) HYPERTENSION Qualifiers: Hypertension type: essential hypertension Qualified Code(s): I10 - Essential (primary) hypertension (3) ESRD on hemodialysis Code(s): N18.6 - END STAGE RENAL DISEASE Z99.2 - DEPENDENCE ON RENAL DIALYSIS (4) Smoker Code(s): F17.200 - NICOTINE DEPENDENCE, UNSPECIFIED, UNCOMPLICATED (5) Anemia Code(s): D64.9 - ANEMIA, UNSPECIFIED plan continue abx labs to be done during dialysis cx result noted whittaker top abx
[2016-12-18 13:54] VITALS: BP 147/77; PULSE 71; TEMP 98.6
--- NOTE | 2016-12-18 14:04 | PN ---
Progress Note (short form) - Note Progress Note: No c/o VSS Arm swelling resolved, drain with minimal fluid Drain removed. Stable for discharge. Vancomycin can be given at dialysis if necessary. Problem List - Problems (1) Left arm swelling Code(s): M79.89 - OTHER SPECIFIED SOFT TISSUE DISORDERS
--- NOTE | 2016-12-18 15:13 | PN ---
Progress Note, Physician Chief Complaint: The patient seen in her bed. Awake, alert, with minimal pain at the surgical site. Dressings done by Dr. Kim. TOMY removed. History of Present Illness: 61 year old woman with PMhx of ESRD on HD , RCC s/p Nephrectomy, Blindness with b/l cataracts, CHF, Hypertension who presented with a large left arm hematoma near her AVF site. S/p evacuation of hematoma by the vascular surgeon. Off antibioics. - Current Medication List Current Medications: Active Medications Clonidine (Catapres -) 0.2 mg PO BID [facility] Last Admin: 12/18/16 09:17 Dose: 0.2 mg Doxazosin Mesylate (Cardura -) 1 mg PO BID [facility] Last Admin: 12/18/16 09:17 Dose: 1 mg Hydralazine HCl (Apresoline -) 100 mg PO TID [facility] Last Admin: 12/18/16 14:49 Dose: 100 mg Labetalol HCl (Normodyne -) 400 mg PO BID [facility] Last Admin: 12/18/16 09:16 Dose: 400 mg Losartan Potassium (Cozaar -) 100 mg PO DAILY [facility] Last Admin: 12/18/16 09:16 Dose: 100 mg Morphine Sulfate (Morphine Injection -) 2 mg IVPUSH Q8H PRN PRN Reason: PAIN Last Admin: 12/18/16 08:45 Dose: 2 mg Nifedipine (Procardia Xl -) 90 mg PO DAILY [facility] Last Admin: 12/18/16 09:17 Dose: 90 mg Phenytoin Sodium (Dilantin -) 200 mg PO BID [facility] Last Admin: 12/18/16 09:18 Dose: 200 mg Spironolactone (Aldactone -) 50 mg PO DAILY [facility] Last Admin: 12/18/16 09:17 Dose: 50 mg - Objective Vital Signs: Vital Signs Temperature 98.6 F 12/18/16 13:52 Pulse Rate 71 12/18/16 13:52 Respiratory Rate 20 12/18/16 13:52 Blood Pressure 147/77 12/18/16 13:52 O2 Sat by Pulse Oximetry (%) 100 12/18/16 09:00 Constitutional: Yes: No Distress Eyes: Yes: Conjunctiva Clear, Other (joceline blind) HENT: Yes: Atraumatic Neck: Yes: Trachea Midline Cardiovascular: Yes: Regular Rate and Rhythm, S1, S2 Respiratory: Yes: Regular Gastrointestinal: Yes: Normal Bowel Sounds, Soft Extremities: Yes: Other (Dressing over the rose marie wound. AVF working well.) Edema: No Labs: CBC, BMP 12/17/16 06:00 12/17/16 06:00 INR, PTT INR 1.03 (0.82-1.09) 12/13/16 17:00 Problem List - Problems (1) Hematoma Code(s): T14.8 - OTHER INJURY OF UNSPECIFIED BODY REGION (2) Hypertension Code(s): I10 - ESSENTIAL (PRIMARY) HYPERTENSION Qualifiers: Hypertension type: essential hypertension Qualified Code(s): I10 - Essential (primary) hypertension (3) ESRD on hemodialysis Code(s): N18.6 - END STAGE RENAL DISEASE Z99.2 - DEPENDENCE ON RENAL DIALYSIS (4) Smoker Code(s): F17.200 - NICOTINE DEPENDENCE, UNSPECIFIED, UNCOMPLICATED (5) Anemia Code(s): D64.9 - ANEMIA, UNSPECIFIED Assessment/Plan 61 year old woman with PMhx of ESRD on HD (TTS), RCC s/p Nephrectomy, Blindness with b/l cataracts, CHF, Hypertension who presented with a large left arm hematoma near her AVF site. Dr. Kim's f/u notes noted. The patient off antibiotics. If discharged, she will come to [facility] for her outpatient HD. Discussed with the patient and the . Out patient f/u with Dr. Kim with regards to wound care. Darlene Wooten MD
--- NOTE | 2016-12-18 15:31 | DS ---
Physical Examination Vital Signs: Vital Signs Temperature 98.6 F 12/18/16 13:52 Pulse Rate 71 12/18/16 13:52 Respiratory Rate 20 12/18/16 13:52 Blood Pressure 147/77 12/18/16 13:52 O2 Sat by Pulse Oximetry (%) 100 12/18/16 09:00 Labs: CBC, BMP 12/17/16 06:00 12/17/16 06:00 Discharge Summary Reason For Visit: ESRD ON HEMODIAL/SWELLING OF LEFT UPPER EXTREMITY Current Active Problems Hematoma LUE Anxiety (Acute) Chronic diastolic (congestive) heart failure (Acute) Hearing loss (Acute) Hypertension (Acute) Left arm swelling (Acute) Poor appetite (Acute) Thyroid enlargement (Acute) Weakness (Acute) End stage renal disease (Chronic) Hospital Course: Pt is a 61 y/o female w/ ESRD on dialysis who presented to the ER bc of pain and swelling of LUE. Pt was seen by vasular and ID and was intially started on IV antibxs. Pt had evacuation of hematoma of LUE. Pt toelrated procedure and now can be dc'ed home. As per ID pt does not need any outpt antibx Condition: Good - Instructions Diet, Activity, Other Instructions: Keep arm incision clean and dry, cover with gauze. Referrals: Lj Morrow MD [Primary Care Provider] - Regan Kim MD [Staff Physician] - 2 Weeks Disposition: VNS/HOME HEALTH CARE - Home Medications Comprehensive Discharge Medication List: Ambulatory Orders Nifedipine [Nifedipine ER] 90 mg PO DAILY 07/28/16 Phenytoin Na Extended [Dilantin -] 200 mg PO BID 07/28/16 Clonidine HCl [Catapres -] 0.2 mg PO BID #60 tablet 08/04/16 Doxazosin Mesylate [Cardura -] 1 mg PO BID #30 tablet 08/04/16 Fluticasone Prop 0.05% Nasal [Flonase -] 2 spray NS DAILY #1 spray 08/04/16 Hydralazine HCl [Apresoline -] 100 mg PO TID #90 tablet 08/04/16 Labetalol HCl [Normodyne -] 400 mg PO BID #60 tablet 08/04/16 Losartan Potassium [Cozaar -] 100 mg PO DAILY #30 tablet 08/04/16 Spironolactone [Aldactone -] 50 mg PO DAILY #30 tablet 08/04/16 Prednisone [Deltasone] 40 mg PO DAILY #8 tablet 09/25/16
--- NOTE | 2016-12-19 16:41 | PATH ---
Surgical Pathology Report Patient Name: RAFAEL RAMIREZ Med. Rec. #: [id number] /Age/Gender: 1955 (Age: 61) / F Account: [id number] Location: [facility] MED/SURG Taken: 12/16/2016 Received: 12/16/2016 Reported: 12/19/2016 Physicians: Cass Shelby M.D. Specimen(s) Received ESCHAR LEFT ARM WOUND Clinical History Hematoma left upper extremity Final Diagnosis ESCHAR, LEFT ARM WOUND, EXCISION: ULCERATED SKIN AND UNDERLYING SOFT TISSUE WITH GANGRENOUS NECROSIS, FRAGMENTS OF INFLAMED GRANULATION TISSUE AND CLOTTED BLOOD. Electronically Signed Sukh Peralta M.D. Gross Description Received in formalin labeled "eschar left arm wound" is a 2.1 x 2.0 cm brown-black portion of skin with minimal attached underlying soft tissue. Also received within the same container is a 5.5 x 4.8 x 1.4 cm aggregate of red-brown blood clot. Railway Traction Line Worker sections are submitted in one cassette. /12/16/2016 [facility]12/16/2016
== END 2016-12-18 15:57 | disposition home health service (06) | DRG 604 ==
LOC: JER 14:58 → JERBED 18:25 → J7W 21:36
PROVIDERS: ADMIT Internal Medicine; ATTEND Internal Medicine
PROC: 0X9 Anatomical Regions, Upper Extremities, Drainage (ICD-10-PCS; principal; 2016-12-15 16:00)
PROC: 5A1D60Z (ICD-10-PCS; 2016-12-17)
DX: S40.022A Contusion of left upper arm, initial encounter (principal); N18.6 End stage renal disease; E43 Unspecified severe protein-calorie malnutrition; I13.2 Hypertensive heart and chronic kidney disease with heart failure and with stage 5 chronic kidney disease, or end stage renal disease; I50.32 Chronic diastolic (congestive) heart failure; F17.210 Nicotine dependence, cigarettes, uncomplicated; Z99.2 Dependence on renal dialysis; T14.8 Other injury of unspecified body region; H54.0 Blindness, both eyes; M79.89 Other specified soft tissue disorders; D63.1 Anemia in chronic kidney disease; T14.90 Injury, unspecified; X58.XXXA Exposure to other specified factors, initial encounter; Y93.9 Activity, unspecified; Y92.89 Other specified places as the place of occurrence of the external cause; Y99.9 Unspecified external cause status
CPT/HCPCS: 36415; 36430; 71010-TC; 80053; 84100; 85025; 85027; 85610; 85730; 86704; 86706; 86708; 86803; 86850; 86900; 86901; 86922; 87070; 87186; 87205; 87340; 88304-TC; 93005; 93010; 93971; 94760; 99284-25; G0480; J0885; J1644; P9058

== ENCOUNTER 2017-02-14 13:56 | Inpatient (IN) | payer OTHER ==
--- NOTE | 2017-02-14 14:58 | PDOC ---
History of Present Illness - General Chief Complaint: Revisit, Lab Variance Stated Complaint: blood levels Problem Time Seen by Provider: 02/14/17 14:57 History Source: Patient - History of Present Illness Initial Comments: 02/14/17 15:39 CC: Presents from HD for Hb of 5 Patient is a 61 y.o. female with a PMH of ESRD (on HD ,,Mon), HTN, Renal CA ( s/p nephrectomy) and B/L cataracts who presents from HD for a Hb of 5. Patient notes lightheadedness but denies shortness of breath or palpitation. Past History - Past Medical History Allergies/Adverse Reactions: Allergies Allergy/AdvReac Type Severity Reaction Status Date / Time codeine Allergy Severe Verified 02/14/17 14:53 Home Medications: Ambulatory Orders Phenytoin Na Extended [Dilantin -] 200 mg PO BID 07/28/16 Hydralazine HCl [Apresoline -] 100 mg PO TID #90 tablet 08/04/16 Labetalol HCl [Normodyne -] 400 mg PO BID #60 tablet 08/04/16 Budesonide/Formeterol Fumarate [SYMBICORT 160/4.5mcg -] 2 inh PO BID 02/14/17 Sevelamer Carbonate [Renvela] 1,600 mg PO QID 02/14/17 Clonidine HCl 0.1 mg PO BID 02/18/17 Anemia: No Asthma: No Cancer: Yes (renal cell ca) Cardiac Disorders: No CVA: No COPD: No CHF: No Dementia: No Diabetes: No Dialysis: Yes () GI Disorders: Yes (REFLUX) Disorders: Yes (DIALYSIS ,,[facility]) HTN: Yes Hypercholesterolemia: No Liver Disease: No Seizures: Yes (LAST SEIZURE X2 MONS AGO) Thyroid Disease: No - Surgical History Abdominal Surgery: No Appendectomy: No Cardiac Surgery: No Cholecystectomy: Yes Lung Surgery: No Neurologic Surgery: No Orthopedic Surgery: No - Immunization History Immunization Up to Date: Yes - Suicide/Smoking/Psychosocial Hx Smoking Status: Yes Smoking History: Current some day smoker Have you smoked in the past 12 months: Yes Number of Cigarettes Smoked Daily: 15 Information on smoking cessation initiated: No 'Breaking Loose' booklet given: 04/06/16 Hx Alcohol Use: No Drug/Substance Use Hx: No Substance Use Type: None Hx Substance Use Treatment: No Review of Systems - Review of Systems Constitutional: No: Chills, Fever HEENTM: Yes: Cataracts Respiratory: No: Shortness of Breath Cardiac (ROS): Yes: Lightheadedness. No: Chest Pain ABD/GI: No: Constipated, Diarrhea, Nausea, Vomiting All Other Systems: Reviewed and Negative *Physical Exam - Vital Signs Last Vital Signs Temp Pulse Resp BP Pulse Ox 97.0 F L 85 18 148/82 100 02/14/17 14:50 02/14/17 14:50 02/14/17 14:50 02/14/17 14:50 02/14/17 14:50 - Physical Exam General Appearance: Yes: Thin HEENT: positive: Other (B/L blindness 2/2 cataracts) Neck: positive: Trachea midline, Supple Respiratory/Chest: positive: Lungs Clear, Normal Breath Sounds Cardiovascular: positive: S1, S2 Gastrointestinal/Abdominal: positive: Normal Bowel Sounds, Soft Musculoskeletal: negative: CVA Tenderness Extremity: positive: Normal Capillary Refill Integumentary: positive: Normal Color, Dry, Warm Neurologic: positive: Fully Oriented, Alert ED Treatment Course - LABORATORY CBC & Chemistry Diagram: 02/18/17 08:21 02/18/17 08:21 Medical Decision Making - Medical Decision Making 02/18/17 21:56 Patient is a 61 y.o. female who presents from HD for Hb of 5. Repeat Hb at our facility 5.3. Patient transfused 2 units PRBC and admitted under Dr. Bustamante. *DC/Admit/Observation/Transfer Diagnosis at time of Disposition: Anemia associated with stage 5 chronic renal failure - Discharge Dispostion Condition at time of disposition: Good
[2017-02-14 15:17] LABS: BASOPHIL 0.7 % (0-2.0); EOSINOPHIL 2.5 % (0-4.5); MCH 33.7 pg (25.7-33.7); MCHC 33.6 g/dl (32.0-36.0); MEAN CELL VOLUME 100.3 fl (80-96); MEAN PLT VOLUME 8.4 fl (7.5-11.1); PLATELET COUNT 202 K/MM3 (134-434); RDW 14.2 % (11.6-15.6); WHITE BLOOD COUNT 5.4 K/mm3 (4.0-10.0)
[2017-02-14 15:31] LABS: INR 1.05 (0.82-1.09); PROTHROMBIN TIME (PATIENT) 11.5 SEC (9.98-11.88)
[2017-02-14 15:34] LABS: ACTIVATED PTT 24.6 SECONDS (26.9-34.4)
[2017-02-14] MEDS ORDERED: IBUPROFEN 400 MG TABLET (FP) PO ONE ×2 (15:37→16:09)
[2017-02-14 15:50] LABS: ALBUMIN 2.7 g/dl (3.4-5.0); ANION GAP 12 (8-16); BILIRUBIN,TOTAL 0.2 mg/dL (0.2-1.0); CALCIUM 8.3 mg/dL (8.5-10.1); CO2 25 mmol/L (21-32); CREATININE 3.3 mg/dL (0.55-1.02); GLUCOSE,RANDOM 106 mg/dL (74-106); MAGNESIUM 2.2 mg/dL (1.8-2.4); SGOT/AST 19 U/L (15-37); SGPT/ALT 17 U/L (12-78); TOT PROT 6.1 g/dl (6.4-8.2)
[2017-02-14 15:51] LABS: ALK PHOS 85 U/L (45-117)
[2017-02-14 17:18] VITALS: BMI 19.1
--- NOTE | 2017-02-14 20:16 | HP ---
Admitting History and Physical - Admission History of Present Illness: Pt is a 61 y/o female with a PMH of ESRD (on HD T,Th,Sat), HTN, Renal CA (s/p nephrectomies), blindness, anemia, HTN and seizure dz. Pt was at dialysis but did not finish. Pt was found to have H/H of 515 and was sent to the ER for blood transfusion. Pt ordered for transfusion of 2 units PRBC's. Pt denies any chest pain, palpitations or SOB. 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, Other (Blindness) Cardiovascular: Yes: HTN Renal/: Yes: Renal Failure (PCKD s/p nephrectomies), Cancer (Renal cell carcinoma) Heme/Onc: Yes: Anemia, Cancer (Renal cell carcinoma) - Past Surgical History Past Surgical History: Yes: AV Fistula/Graft, Nephrectomy (right nephrectomy and left partial nephrectomy) - Smoking History Smoking history: Current some day smoker Have you smoked in the past 12 months: Yes Aproximately how many cigarettes per day: 15 - Alcohol/Substance Use Hx Alcohol Use: No History of Substance Use: reports: None - Social History ADL: Family Assistance History of Recent Travel: No Home Medications - Allergies Allergies/Adverse Reactions: Allergies Allergy/AdvReac Type Severity Reaction Status Date / Time codeine Allergy Severe Verified 02/14/17 14:53 - Home Medications Home Medications: Ambulatory Orders Phenytoin Na Extended [Dilantin -] 100 mg PO BID 07/28/16 Hydralazine HCl [Apresoline -] 100 mg PO TID #90 tablet 08/04/16 Labetalol HCl [Normodyne -] 400 mg PO BID #60 tablet 08/04/16 Budesonide/Formeterol Fumarate [SYMBICORT 160/4.5mcg -] 2 inh PO BID 02/14/17 Sevelamer Carbonate [Renvela] 1,600 mg PO QID 02/14/17 Family Disease History - Family Disease History Family History: Unremarkable Family Disease History: Other: Father (HTN), Mother (HTN) Review of Systems - Review of Systems Constitutional: reports: Other (B/L catarracts) HENT: reports: No Symptoms Neck: reports: No Symptoms Cardiovascular: reports: No Symptoms Respiratory: reports: No Symptoms Gastrointestinal: reports: No Symptoms Physical Examination Vital Signs: Vital Signs Temperature 97.0 F L 02/14/17 14:50 Pulse Rate 80 02/14/17 17:00 Respiratory Rate 18 02/14/17 17:00 Blood Pressure 146/77 02/14/17 17:00 O2 Sat by Pulse Oximetry (%) 99 02/14/17 19:00 Constitutional: Yes: No Distress Eyes: Yes: Cataracts HENT: Yes: WNL Neck: Yes: WNL, Supple Cardiovascular: Yes: WNL, Regular Rate and Rhythm Respiratory: Yes: WNL, Regular, CTA Bilaterally Gastrointestinal: Yes: WNL, Normal Bowel Sounds, Soft Musculoskeletal: Yes: WNL Extremities: Yes: WNL Edema: No Neurological: Yes: WNL, Alert, Oriented ...Motor Strength: WNL Problem List - Problems (1) Symptomatic anemia Assessment/Plan: Pt being transfused 2 units PRBC's Due to chronic renal dz Check H/H in am Code(s): D64.9 - ANEMIA, UNSPECIFIED (2) ESRD on hemodialysis Assessment/Plan: Pt only did partial dialysis today Renal consult Code(s): N18.6 - END STAGE RENAL DISEASE Z99.2 - DEPENDENCE ON RENAL DIALYSIS (3) Hypertension Assessment/Plan: Cont labetalol/hydralazine Code(s): I10 - ESSENTIAL (PRIMARY) HYPERTENSION Qualifiers: Hypertension type: essential hypertension Qualified Code(s): I10 - Essential (primary) hypertension; I10 - Essential (primary) hypertension; I10 - Essential (primary) hypertension (4) Seizure Assessment/Plan: Cont phenytoin Code(s): R56.9 - UNSPECIFIED CONVULSIONS Qualifiers: Convulsion type: unspecified Qualified Code(s): R56.9 - Unspecified convulsions; R56.9 - Unspecified convulsions; R56.9 - Unspecified convulsions; R56.9 - Unspecified convulsions (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
[2017-02-14] MEDS: KETOROLAC TROMETHAMINE 15 MG/ML VIAL IVPUSH PRN (20:49)
[2017-02-14] MEDS: SEVELAMER CARBONATE 800 MG TAB (FP) PO SCH (21:29)
[2017-02-14] MEDS: LABETALOL HCL 200 MG TABLET (FP) PO SCH (21:30)
[2017-02-14] MEDS: hydrALAZINE HCL 50 MG TABLET (FP) PO SCH (21:30)
[2017-02-14] MEDS: BUDESONIDE/FORMETEROL FUMARATE 160/4.5 mcg INHALER IH SCH (21:31)
[2017-02-14] MEDS ORDERED: PHENYTOIN NA EXTENDED 100 MG CAPSULE (FP) PO SCH (22:00)
[2017-02-14] MEDS: PHENYTOIN NA EXTENDED 100 MG CAPSULE (FP) PO SCH (23:06)
[2017-02-15] MEDS: KETOROLAC TROMETHAMINE 15 MG/ML VIAL IVPUSH PRN ×3 (03:02→21:50)
[2017-02-15] MEDS: hydrALAZINE HCL 50 MG TABLET (FP) PO SCH ×3 (06:58→21:06)
[2017-02-15 08:10] LABS: BASOPHIL 0.6 % (0-2.0); EOSINOPHIL 2.8 % (0-4.5); MCH 32.9 pg (25.7-33.7); MCHC 34.7 g/dl (32.0-36.0); MEAN CELL VOLUME 94.6 fl (80-96); MEAN PLT VOLUME 8.2 fl (7.5-11.1); NEUTROPHILS 63.7 % (42.8-82.8); PLATELET COUNT 194 K/MM3 (134-434); RDW 16.2 % (11.6-15.6); WHITE BLOOD COUNT 8.8 K/mm3 (4.0-10.0)
[2017-02-15 08:32] LABS: ALBUMIN 2.6 g/dl (3.4-5.0); ANION GAP 13 (8-16); CALCIUM 8.3 mg/dL (8.5-10.1); CO2 23 mmol/L (21-32); GLUCOSE,RANDOM 89 mg/dL (74-106)
[2017-02-15 08:35] LABS: ALK PHOS 71 U/L (45-117); BILIRUBIN,TOTAL 0.4 mg/dL (0.2-1.0); CREATININE 4.8 mg/dL (0.55-1.02); SGOT/AST 19 U/L (15-37); SGPT/ALT 16 U/L (12-78); TOT PROT 5.5 g/dl (6.4-8.2)
[2017-02-15] MEDS ORDERED: PT OWN MED DRAWER 7, Y5N ONE (12:06)
[2017-02-15] MEDS: LABETALOL HCL 200 MG TABLET (FP) PO SCH ×2 (12:07→21:06)
[2017-02-15] MEDS: SEVELAMER CARBONATE 800 MG TAB (FP) PO SCH ×4 (12:07→21:07)
[2017-02-15] MEDS: PHENYTOIN NA EXTENDED 100 MG CAPSULE (FP) PO SCH ×2 (12:07→21:06)
[2017-02-15] MEDS: FERROUS SO4 325 MG TABLET (FP) PO SCH ×2 (12:07→21:06)
[2017-02-15] MEDS: BUDESONIDE/FORMETEROL FUMARATE 160/4.5 mcg INHALER IH SCH ×2 (12:08→21:07)
--- NOTE | 2017-02-15 12:40 | CON.NEP ---
Consult Consult Specialty:: Nephrology Referred by:: Dr. Bustamante Reason for Consultation:: ESRD on HD - History of Present Illness Chief Complaint: Low Hgb at dialysis History of Present Illness: This is a 61 year old woman with PMhx of ESRD on HD, RCC s/p Nephrecotmy, Hypertension, CHF, B/l cataracts with blindness who was sent from HD unit with Hgb of 5. Pt s/p 2 units prbc transfusion last night off of dialysis. Pt told the HD unit that she felt weak and was having SOB during her treatment when they checked a stat Hgb which was 5. Pt denies any fall, bursing, abd pain, flank pain, N/V/D. Pt was not told that she had any dark stools. 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 - Past Surgical History Past Surgical History: Yes: AV Fistula/Graft, Nephrectomy (right nephrectomy and left partial nephrectomy) - Alcohol/Substance Use Hx Alcohol Use: No History of Substance Use: reports: None - Smoking History Smoking history: Current some day smoker Have you smoked in the past 12 months: Yes Aproximately how many cigarettes per day: 15 - Social History Usual Living Arrangement: With Spouse ADL: Family Assistance History of Recent Travel: No Home Medications - Allergies Allergies/Adverse Reactions: Allergies Allergy/AdvReac Type Severity Reaction Status Date / Time codeine Allergy Severe Verified 02/14/17 14:53 - Home Medications Home Medications: Ambulatory Orders Phenytoin Na Extended [Dilantin -] 200 mg PO BID 07/28/16 Hydralazine HCl [Apresoline -] 100 mg PO TID #90 tablet 08/04/16 Labetalol HCl [Normodyne -] 400 mg PO BID #60 tablet 08/04/16 Budesonide/Formeterol Fumarate [SYMBICORT 160/4.5mcg -] 2 inh PO BID 02/14/17 Sevelamer Carbonate [Renvela] 1,600 mg PO QID 02/14/17 Family Disease History - Family Disease History Family Disease History: Other: Father (HTN), Mother (HTN) Review of Systems - Review of Systems Constitutional: reports: No Symptoms Eyes: reports: No Symptoms HENT: reports: No Symptoms Neck: reports: No Symptoms Cardiovascular: reports: No Symptoms Respiratory: reports: No Symptoms Gastrointestinal: reports: No Symptoms Musculoskeletal: reports: No Symptoms Nephrology Consult - Height Height: 5 ft 5 in - Weight Weight: 115 lb - BMI Body Mass Index (BMI): 19.1 - Lab Results CBC,BMP: CBC, BMP 02/15/17 06:58 02/15/17 06:58 Anion Gap: Anion Gap Anion Gap 13 (8-16) 02/15/17 06:58 - Physical Examination Vital Signs: Vital Signs Temperature 98.4 F 02/15/17 06:00 Pulse Rate 87 02/15/17 10:00 Respiratory Rate 18 02/15/17 10:00 Blood Pressure 157/76 02/15/17 10:00 O2 Sat by Pulse Oximetry (%) 99 02/14/17 23:00 Constitutional: Yes: Well Nourished, No Distress, Calm Eyes: Yes: Conjunctiva Clear HENT: Yes: Atraumatic Neck: Yes: Supple Cardiovascular: Yes: Regular Rate and Rhythm Respiratory: Yes: Regular, CTA Bilaterally Gastrointestinal: Yes: Normal Bowel Sounds, Soft Renal/: No: CVA Tenderness - Left, CVA Tenderness - Right Extremities: No: Cold, Cool, Cyanosis Edema: No Peripheral Pulses WNL: Yes Problem List - Problems (1) Anemia Code(s): D64.9 - ANEMIA, UNSPECIFIED (2) ESRD on hemodialysis Code(s): N18.6 - END STAGE RENAL DISEASE Z99.2 - DEPENDENCE ON RENAL DIALYSIS (3) Hypertension Code(s): I10 - ESSENTIAL (PRIMARY) HYPERTENSION Qualifiers: Hypertension type: essential hypertension Qualified Code(s): I10 - Essential (primary) hypertension; I10 - Essential (primary) hypertension; I10 - Essential (primary) hypertension Assessment/Plan 61 year old woman with PMhx of ESRD on HD, RCC s/p Nephrecotmy, Hypertension, CHF, B/l cataracts with blindness who was sent from HD unit with Hgb of 5. Pt s/ p 2 units prbc transfusion last night off of dialysis. #Acute on Chronic Anemia Hgb improve to 6.9 s/p 2 units prbc will transfuse an additional 2 units with HD today check stool occult blood check LDH, Haptoglobin to r/o hemolysis Check CT of the Abd w/o contrast to r/o any RP bleed Goal Hgb ~10 will continue high dose DAISHA with HD #ESRD on Hd s/p 3 hours of HD as a outpatient yesterday will do a short run of dialysis with PRBC transfusion today will resume HD on regular TTS schedule tomorrow Renal Diet Fluid restriction dose all med for intermittent HD #Hypertension Continue Labetalola and Hydralazine #Renal osteodystrophy continue renvela trend phos levels Thank you Jake Stringer DO
--- NOTE | 2017-02-15 22:43 | PN ---
Progress Note, Physician History of Present Illness: No new changes - Current Medication List Current Medications: Active Medications Budesonide/Formoterol Fumarate (Symbicort 160/4.5mcg -) 2 puff IH BID [facility] Last Admin: 02/15/17 21:07 Dose: 2 puff Epoetin Nick (Epogen -) 20,000 units IVPUSH ONCE ONE Stop: 02/16/17 06:01 Ferrous Sulfate (Feosol -) 325 mg PO BID [facility] Last Admin: 02/15/17 21:06 Dose: 325 mg Hydralazine HCl (Apresoline -) 100 mg PO TID [facility] Last Admin: 02/15/17 21:06 Dose: 100 mg Ketorolac Tromethamine (Toradol Injection -) 15 mg IVPUSH Q6H PRN PRN Reason: PAIN Stop: 02/19/17 20:14 Last Admin: 02/15/17 21:50 Dose: 15 mg Labetalol HCl (Normodyne -) 400 mg PO BID [facility] Last Admin: 02/15/17 21:06 Dose: 400 mg Phenytoin Sodium (Dilantin -) 200 mg PO BID [facility] Last Admin: 02/15/17 21:06 Dose: 200 mg Sevelamer Carbonate (Renvela -) 1,600 mg PO QID [facility] Last Admin: 02/15/17 21:07 Dose: 1,600 mg - Objective Vital Signs: Vital Signs Temperature 98.2 F 02/15/17 18:50 Pulse Rate 79 02/15/17 20:40 Respiratory Rate 18 02/15/17 20:40 Blood Pressure 169/81 02/15/17 20:40 O2 Sat by Pulse Oximetry (%) 99 02/15/17 10:00 Eyes: Yes: Cataracts Neck: Yes: WNL, Supple Cardiovascular: Yes: WNL, Regular Rate and Rhythm Respiratory: Yes: WNL, Regular, CTA Bilaterally Gastrointestinal: Yes: WNL, Normal Bowel Sounds, Soft Labs: CBC, BMP 02/15/17 06:58 02/15/17 06:58 INR, PTT INR 1.05 (0.82-1.09) 02/14/17 15:00 Problem List - Problems (1) Symptomatic anemia Assessment/Plan: Pt transfused PRBC's Due to chronic renal dz Check H/H in am CT scan abd showed leimyoma 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 consult Follow stool hemoccult Code(s): D64.9 - ANEMIA, UNSPECIFIED (2) ESRD on hemodialysis Assessment/Plan: Dialysis as per renal Code(s): N18.6 - END STAGE RENAL DISEASE Z99.2 - DEPENDENCE ON RENAL DIALYSIS (3) Hypertension Assessment/Plan: Cont labetalol/hydralazine Code(s): I10 - ESSENTIAL (PRIMARY) HYPERTENSION Qualifiers: Hypertension type: essential hypertension Qualified Code(s): I10 - Essential (primary) hypertension; I10 - Essential (primary) hypertension; I10 - Essential (primary) hypertension (4) Seizure Code(s): R56.9 - UNSPECIFIED CONVULSIONS Qualifiers: Convulsion type: unspecified Qualified Code(s): R56.9 - Unspecified convulsions; R56.9 - Unspecified convulsions; R56.9 - Unspecified convulsions; R56.9 - Unspecified convulsions (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
[2017-02-16] MEDS: hydrALAZINE HCL 50 MG TABLET (FP) PO SCH ×3 (06:02→21:59)
[2017-02-16] MEDS: KETOROLAC TROMETHAMINE 15 MG/ML VIAL IVPUSH PRN ×3 (07:04→23:01)
[2017-02-16] MEDS ORDERED: EPOETIN ALFA 20,000 UNIT/1 ML VIAL IVPUSH ONE (10:00)
[2017-02-16] MEDS: SEVELAMER CARBONATE 800 MG TAB (FP) PO SCH ×4 (10:20→22:01)
[2017-02-16] MEDS: FERROUS SO4 325 MG TABLET (FP) PO SCH ×2 (10:20→22:00)
[2017-02-16] MEDS: BUDESONIDE/FORMETEROL FUMARATE 160/4.5 mcg INHALER IH SCH ×2 (10:21→22:01)
[2017-02-16] MEDS: PHENYTOIN NA EXTENDED 100 MG CAPSULE (FP) PO SCH ×2 (10:21→22:00)
[2017-02-16] MEDS: LABETALOL HCL 200 MG TABLET (FP) PO SCH ×2 (10:26→22:00)
[2017-02-16 12:04] LABS: BASOPHIL 0.5 % (0-2.0); MCH 31.2 pg (25.7-33.7); MCHC 34.7 g/dl (32.0-36.0); MEAN CELL VOLUME 90.1 fl (80-96); MEAN PLT VOLUME 8.1 fl (7.5-11.1); NEUTROPHILS 65.1 % (42.8-82.8); PLATELET COUNT 208 K/MM3 (134-434); RDW 17.4 % (11.6-15.6); WHITE BLOOD COUNT 8.8 K/mm3 (4.0-10.0)
[2017-02-16 12:32] LABS: ALBUMIN 2.5 g/dl (3.4-5.0); ANION GAP 11 (8-16); BILIRUBIN,TOTAL 0.4 mg/dL (0.2-1.0); CALCIUM 8.2 mg/dL (8.5-10.1); CO2 26 mmol/L (21-32); CREATININE 4.7 mg/dL (0.55-1.02); GLUCOSE,RANDOM 68 mg/dL (74-106); SGOT/AST 25 U/L (15-37); SGPT/ALT 23 U/L (12-78); TOT PROT 5.5 g/dl (6.4-8.2)
[2017-02-16 12:33] LABS: ALK PHOS 74 U/L (45-117)
--- NOTE | 2017-02-16 15:02 | CON.OBG ---
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 Patient had a Cat scan showing incidental finding of leiomyoma of the uterus. Patient denies any vaginal bleeding nor pelvic pain. She admits to one previous . 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 - Past Surgical History Past Surgical History: Yes: AV Fistula/Graft, , Nephrectomy (right nephrectomy and left partial nephrectomy) - Alcohol/Substance Use Hx Alcohol Use: No History of Substance Use: reports: None - Smoking History Smoking history: Current some day smoker Have you smoked in the past 12 months: Yes Aproximately how many cigarettes per day: 15 - Social History Usual Living Arrangement: With Spouse ADL: Family Assistance History of Recent Travel: No Home Medications - Allergies Allergies/Adverse Reactions: Allergies Allergy/AdvReac Type Severity Reaction Status Date / Time codeine Allergy Severe Verified 02/14/17 14:53 - Home Medications Home Medications: Ambulatory Orders Phenytoin Na Extended [Dilantin -] 200 mg PO BID 07/28/16 Hydralazine HCl [Apresoline -] 100 mg PO TID #90 tablet 08/04/16 Labetalol HCl [Normodyne -] 400 mg PO BID #60 tablet 08/04/16 Budesonide/Formeterol Fumarate [SYMBICORT 160/4.5mcg -] 2 inh PO BID 02/14/17 Sevelamer Carbonate [Renvela] 1,600 mg PO QID 02/14/17 Family Disease History - Family Disease History Family Disease History: Other: Father (HTN), Mother (HTN) Review of Systems - Review of Systems Constitutional: reports: Weakness Eyes: reports: Other (Blind) HENT: reports: No Symptoms Neck: reports: No Symptoms Cardiovascular: reports: No Symptoms Respiratory: reports: No Symptoms Gastrointestinal: reports: No Symptoms Genitourinary: reports: Menses, Pain. denies: Vaginal Bleeding Breasts: reports: No Symptoms Reported Musculoskeletal: reports: Muscle Weakness Psychiatric: reports: No Symptoms Pain Intensity: 0 Physical Exam-MAKEUP ARTISTRY INSTRUCTOR Vital Signs: Vital Signs Temperature 98.3 F 02/16/17 10:20 Pulse Rate 80 02/16/17 13:15 Respiratory Rate 18 02/16/17 13:15 Blood Pressure 148/85 02/16/17 13:15 O2 Sat by Pulse Oximetry (%) 99 02/15/17 22:00 Constitutional: Yes: Thin Eyes: Yes: Cataracts, Other (Blind) HENT: Yes: WNL Neck: Yes: Supple, Trachea Midline Cardiovascular: Yes: Regular Rate and Rhythm Respiratory: Yes: Regular, CTA Bilaterally External Genitalia: Yes: Normal Vaginal Exam: Yes: Bleeding Cervix: Yes: Bleeding Uterus: Yes: Freely Moveable Musculoskeletal: No: Muscle Weakness Extremities: No: Calf Tenderness Neurological: Yes: Alert, Oriented Psychiatric: Yes: Alert, Oriented Labs: CBC, BMP 02/16/17 11:00 02/16/17 11:00 Problem List - Problems (1) Leiomyoma of uterus, unspecified Code(s): D25.9 - LEIOMYOMA OF UTERUS, UNSPECIFIED Assessment/Plan Anemia Hypertension Renal failure Personal h/o Renal cell carcinoma Leiomyoma of the uterus Continue dialysis F/U tumor markers Patient is not a candidate for surgery. Leiomyoma are usual benign. No intervention at this time unless tumor markers are elevated. Transvaginal sonogram and endometrial biopsy may be considered as outpatient. Chronic anemia is most likely caused by chronic renal failure.
[2017-02-16 15:49] LABS: ANION GAP 7 (8-16); CALCIUM 8.2 mg/dL (8.5-10.1); CO2 33 mmol/L (21-32); CREATININE 1.5 mg/dL (0.55-1.02); GLUCOSE,RANDOM 109 mg/dL (74-106)
--- NOTE | 2017-02-16 15:50 | CONSULT ---
Consult - text type - Consultation Consultation Note: Pt is a 61 y/o female with a PMH of ESRD (on HD T,Th,Sat), HTN, Renal CA (s/p nephrectomies), blindness, anemia, HTN and seizure dz. Pt was at dialysis and found to have H/H of 5/15 and was sent to the ER for blood transfusion. Pt ordered for transfusion of 2 units PRBC's. Pt denies any chest pain, palpitations or SOB. 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 (Blindness) Cardiovascular: Yes: HTN Renal/: Yes: Renal Failure (PCKD s/p nephrectomies), Cancer (Renal cell carcinoma) Heme/Onc: Yes: Anemia, Cancer (Renal cell carcinoma) - Past Surgical History Past Surgical History: Yes: AV Fistula/Graft, Nephrectomy ( left nephrectomy) - Smoking History Smoking history: Current some day smoker - Social History ADL: Family Assistance - Allergies Allergies/Adverse Reactions: Allergies Allergy/AdvReac Type Severity Reaction Status Date / Time codeine Allergy Severe Verified 02/14/17 14:53 - Home Medications Home Medications: Ambulatory Orders Phenytoin Na Extended [Dilantin -] 100 mg PO BID 07/28/16 Hydralazine HCl [Apresoline -] 100 mg PO TID #90 tablet 08/04/16 Labetalol HCl [Normodyne -] 400 mg PO BID #60 tablet 08/04/16 Budesonide/Formeterol Fumarate [SYMBICORT 160/4.5mcg -] 2 inh PO BID 02/14/17 Sevelamer Carbonate [Renvela] 1,600 mg PO QID 02/14/17 Family Disease History - Family Disease History Family History: Unremarkable Family Disease History: Other: Father (HTN), Mother (HTN) Vital Signs: Last Vital Signs Temp Pulse Resp BP Pulse Ox 98.3 F 90 18 186/81 100 02/16/17 22:45 02/16/17 22:45 02/16/17 22:45 02/16/17 22:45 02/16/17 20:30 Constitutional: Yes: No Distress Eyes: Yes: Cataracts HENT: Yes: WNL Neck: Yes: WNL, Supple Cardiovascular: Yes: WNL, Regular Rate and Rhythm Respiratory: Yes: WNL, Regular, CTA Bilaterally Gastrointestinal: Yes: WNL, Normal Bowel Sounds, Soft Musculoskeletal: Yes: WNL Extremities: Yes: WNL Abnormal Lab Results 02/16/17 02/16/17 02/16/17 11:00 11:00 14:30 RBC 2.62 L D Hgb 8.2 L D Hct 23.6 L D RDW 17.4 H Monocytes % 11.7 H Potassium 2.9 L* D Carbon Dioxide 33 H D Anion Gap 7 L BUN 65 H Creatinine 4.7 H 1.5 H D Random Glucose 68 L D 109 H D Calcium 8.2 L 8.2 L Phosphorus 1.1 L* D Total Protein 5.5 L Albumin 2.5 L 02/16/17 18:10 RBC Hgb Hct RDW Monocytes % Potassium 3.4 L Carbon Dioxide 34 H Anion Gap BUN 29 H D Creatinine 2.7 H D Random Glucose 125 H Calcium Phosphorus 2.1 L D Total Protein Albumin Active Medications Generic Name Dose Route Start Last Admin Trade Name Freq PRN Reason Stop Dose Admin Budesonide/Formoterol Fumarate 2 puff 02/14/17 22:00 02/16/17 22:01 Symbicort 160/4.5mcg - IH 2 puff BID CECILIO Administration Ferrous Sulfate 325 mg 02/15/17 10:00 02/16/17 22:00 Feosol - PO 325 mg BID CECILIO Administration Hydralazine HCl 100 mg 02/14/17 22:00 02/16/17 21:59 Apresoline - PO 100 mg TID CECILIO Administration Ketorolac Tromethamine 15 mg 02/14/17 20:15 02/16/17 15:07 Toradol Injection - IVPUSH 02/19/17 20:14 15 mg Q6H PRN Administration PAIN Labetalol HCl 400 mg 02/14/17 22:00 02/16/17 22:00 Normodyne - PO 400 mg BID CECILIO Administration Phenytoin Sodium 200 mg 02/14/17 22:00 02/16/17 22:00 Dilantin - PO 200 mg BID CECILIO Administration Sevelamer Carbonate 1,600 mg 02/14/17 22:00 02/16/17 22:01 Renvela - PO 1,600 mg QID CECILIO Administration 61 y/o patient with h/o PCKD, h/o nephrectomy,left for renal cell ca, ESRD,HTN, blindness come in with severe anemia Ordered screening tests--iron studies/ferritin/folate/B12/TSH/fT4/protein studies Discussed with patient and that 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 Schwarz as outpatient for endometrial biopsy will consult GI team---never had screeening colonoscopy discused in detail with [atioent and her
[2017-02-16 15:57] LABS: PHOSPHOROUS 1.1 mg/dL (2.5-4.9)
--- NOTE | 2017-02-16 16:56 | PN ---
Progress Note (short form) - Note Progress Note: Renal follow up for ESRD on HD Pt seen and examined at the bedside after dialysis no acute complaints no complications with HD Vital Signs Temperature 99.0 F 02/16/17 14:41 Pulse Rate 85 02/16/17 14:41 Respiratory Rate 22 02/16/17 14:41 Blood Pressure 150/86 02/16/17 14:41 O2 Sat by Pulse Oximetry (%) 99 02/15/17 22:00 Intake & Output 02/13/17 02/14/17 02/15/17 02/16/17 23:59 23:59 23:59 23:59 Intake Total 455 1989 580 Balance 455 1989 580 Weight 115 lb 115 lb 115 lb 1 oz NAD RRR, No M/R CTA soft NT/ND No edema in LE CBC, BMP 02/16/17 11:00 02/16/17 14:30 Current Medications Budesonide/Formoterol Fumarate (Symbicort 160/4.5mcg -) 2 puff IH BID [facility] Last Admin: 02/16/17 10:21 Dose: 2 puff Ferrous Sulfate (Feosol -) 325 mg PO BID C[facility] Last Admin: 02/16/17 10:20 Dose: 325 mg Hydralazine HCl (Apresoline -) 100 mg PO TID [facility] Last Admin: 02/16/17 14:54 Dose: 100 mg Ketorolac Tromethamine (Toradol Injection -) 15 mg IVPUSH Q6H PRN PRN Reason: PAIN Stop: 02/19/17 20:14 Last Admin: 02/16/17 15:07 Dose: 15 mg Labetalol HCl (Normodyne -) 400 mg PO BID [facility] Last Admin: 02/16/17 10:26 Dose: 400 mg Phenytoin Sodium (Dilantin -) 200 mg PO BID [facility] Last Admin: 02/16/17 10:21 Dose: 200 mg Sevelamer Carbonate (Renvela -) 1,600 mg PO QID [facility] Last Admin: 02/16/17 14:51 Dose: 1,600 mg A/P 61 year old woman with PMhx of ESRD on HD, RCC s/p Nephrecotmy, Hypertension, CHF, B/l cataracts with blindness who was sent from HD unit with Hgb of 5. Pt s/ p 2 units prbc transfusion last night off of dialysis. #Acute on Chronic Anemia Hgb levels improved s/p transfusion CT of the Abd showed no RP hematoma #ESRD on Hd s/p HD today labs drawn after dialysis show k of 2.9 and low phos, likely due to electrolyte shifts from dialysis will repeat labs in 1 hour #Hypertension Continue Labetalola and Hydralazine #Renal osteodystrophy continue renvela trend phos levels Thank you Jake Stringer DO Problem List - Problems (1) Anemia Code(s): D64.9 - ANEMIA, UNSPECIFIED (2) ESRD on hemodialysis Code(s): N18.6 - END STAGE RENAL DISEASE Z99.2 - DEPENDENCE ON RENAL DIALYSIS (3) Hypertension Code(s): I10 - ESSENTIAL (PRIMARY) HYPERTENSION Qualifiers: Hypertension type: essential hypertension Qualified Code(s): I10 - Essential (primary) hypertension; I10 - Essential (primary) hypertension; I10 - Essential (primary) hypertension
[2017-02-16 19:31] LABS: ANION GAP 8 (8-16); CALCIUM 8.5 mg/dL (8.5-10.1); CO2 34 mmol/L (21-32); CREATININE 2.7 mg/dL (0.55-1.02); GLUCOSE,RANDOM 125 mg/dL (74-106); PHOSPHOROUS 2.1 mg/dL (2.5-4.9)
[2017-02-16] MEDS ORDERED: PT OWN MED DRAWER 7, Y5N ONE (19:59)
--- NOTE | 2017-02-16 21:09 | PN ---
Progress Note, Physician History of Present Illness: No new changes - Current Medication List Current Medications: Active Medications Budesonide/Formoterol Fumarate (Symbicort 160/4.5mcg -) 2 puff IH BID [facility] Last Admin: 02/16/17 10:21 Dose: 2 puff Ferrous Sulfate (Feosol -) 325 mg PO BID [facility] Last Admin: 02/16/17 10:20 Dose: 325 mg Hydralazine HCl (Apresoline -) 100 mg PO TID [facility] Last Admin: 02/16/17 14:54 Dose: 100 mg Ketorolac Tromethamine (Toradol Injection -) 15 mg IVPUSH Q6H PRN PRN Reason: PAIN Stop: 02/19/17 20:14 Last Admin: 02/16/17 15:07 Dose: 15 mg Labetalol HCl (Normodyne -) 400 mg PO BID [facility] Last Admin: 02/16/17 10:26 Dose: 400 mg Phenytoin Sodium (Dilantin -) 200 mg PO BID [facility] Last Admin: 02/16/17 10:21 Dose: 200 mg Sevelamer Carbonate (Renvela -) 1,600 mg PO QID [facility] Last Admin: 02/16/17 17:53 Dose: 1,600 mg - Objective Vital Signs: Vital Signs Temperature 99.5 F 02/16/17 18:00 Pulse Rate 114 H 02/16/17 18:00 Respiratory Rate 20 02/16/17 20:30 Blood Pressure 157/62 02/16/17 18:00 O2 Sat by Pulse Oximetry (%) 100 02/16/17 20:30 Constitutional: Yes: No Distress Eyes: Yes: Cataracts Neck: Yes: WNL, Supple Cardiovascular: Yes: WNL, Regular Rate and Rhythm Respiratory: Yes: WNL, Regular, CTA Bilaterally Gastrointestinal: Yes: WNL, Normal Bowel Sounds, Soft Labs: CBC, BMP 02/16/17 11:00 02/16/17 18:10 INR, PTT INR 1.05 (0.82-1.09) 02/14/17 15:00 Problem List - Problems (1) Symptomatic anemia Assessment/Plan: Pt transfused PRBC's H/H improved Due to chronic renal dz CT scan abd showed leimyoma CLAY BURNER consult noted Follow stool hemoccult Code(s): D64.9 - ANEMIA, UNSPECIFIED (2) ESRD on hemodialysis Assessment/Plan: Dialysis as per renal Code(s): N18.6 - END STAGE RENAL DISEASE Z99.2 - DEPENDENCE ON RENAL DIALYSIS (3) Hypertension Assessment/Plan: Cont labetalol/hydralazine Code(s): I10 - ESSENTIAL (PRIMARY) HYPERTENSION Qualifiers: Hypertension type: essential hypertension Qualified Code(s): I10 - Essential (primary) hypertension; I10 - Essential (primary) hypertension; I10 - Essential (primary) hypertension (4) Seizure Assessment/Plan: Cont phenytoin Code(s): R56.9 - UNSPECIFIED CONVULSIONS Qualifiers: Convulsion type: unspecified Qualified Code(s): R56.9 - Unspecified convulsions; R56.9 - Unspecified convulsions; R56.9 - Unspecified convulsions; R56.9 - Unspecified convulsions (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
[2017-02-17] MEDS: hydrALAZINE HCL 50 MG TABLET (FP) PO SCH ×3 (06:34→21:56)
[2017-02-17 07:15] LABS: BASOPHIL 0.4 % (0-2.0); EOSINOPHIL 2.6 % (0-4.5); MCH 31.8 pg (25.7-33.7); MEAN CELL VOLUME 90.9 fl (80-96); MEAN PLT VOLUME 7.3 fl (7.5-11.1); NEUTROPHILS 66.4 % (42.8-82.8); PLATELET COUNT 213 K/MM3 (134-434); RDW 17.4 % (11.6-15.6)
[2017-02-17 07:35] LABS: ANION GAP 7 (8-16); CALCIUM 8.3 mg/dL (8.5-10.1); CO2 32 mmol/L (21-32); CREATININE 3.8 mg/dL (0.55-1.02); GLUCOSE,RANDOM 68 mg/dL (74-106)
[2017-02-17 07:37] LABS: FREE T4 0.81 ng/dl (0.76-1.46)
[2017-02-17 07:47] LABS: FERRITIN 228.856 ng/ml (6.9-282.5); THYROID STIMULATING HORMONE 0.95 uIU/ml (0.358-3.74)
--- NOTE | 2017-02-17 09:03 | DS ---
Physical Exam-CADMIUM BURNER Vital Signs: Vital Signs Temperature 99.1 F 02/17/17 06:00 Pulse Rate 89 02/17/17 06:00 Respiratory Rate 18 02/17/17 06:00 Blood Pressure 173/84 02/17/17 06:00 O2 Sat by Pulse Oximetry (%) 100 02/16/17 20:30 Constitutional: Yes: Well Nourished, No Distress, Calm Eyes: Yes: Conjunctiva Clear, EOM Intact HENT: Yes: Atraumatic, Normocephalic Neck: Yes: Supple, Trachea Midline Cardiovascular: Yes: Regular Rate and Rhythm Respiratory: Yes: Regular, CTA Bilaterally Gastrointestinal: Yes: Normal Bowel Sounds, Soft ....Post : Yes: Uterus firm, Uterus non-tender Extremities: Yes: WNL Wound/Incision: Yes: Clean/Dry, Well Approximated Neurological: Yes: Alert, Oriented Psychiatric: Yes: Alert, Oriented Labs: CBC, BMP 02/17/17 06:25 02/17/17 06:25 Delivery - Delivery Section: Repeat, Low Flap Transverse Episiotomy/Laceration: None EBL (cc): 600 Delivery, Single - Stages of Labor Date of Delivery: 02/13/17 Date Placenta Delivered: 02/13/17 Placenta: Yes: Manual Removal - 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 Pt underwent uncomplicated procedure. Had uncomplicated post op recovery. On post op day 4 was stable and discharge home. Condition: Good - Instructions Diet, Activity, Other Instructions: Physical activity Resume your normal everyday activity as tolerated no heavy lifting or exercise until seen by your surgeon. You may walk unlimited amounts and climb stairs. You may resume driving the car when you feel safe and comfortable behind the wheel. No sexual activity as instructed for 6 weeks. Wound care If there are tapes on the skin under the out of bandage leave them in place. They will peel off in the next 7 to 10 days. Do Not Peel them off. You may shower the day after surgery. If there are tapes present on the skin, you may shower over them. Diet There are no dietary restrictions. Eat healthy, high-fiber foods. Drink 6 to 8 glasses of liquid each day. This will assist in keeping your bowels are regular. Pain management You may take Tylenol or acetaminophen or Ibuprofen (for example, Motrin, Advil etc.) from mild pain. If any prescription medication is ordered should be taken as prescribed for moderate to severe pain. Call MD for any of the following: Severe pain not relieved by medication Fever of 101 or higher Excessive bleeding or drainage on dressing Inability to urinate Follow up in the office in 1 week for an incision check. Disposition: HOME - Home Medications Comprehensive Discharge Medication List: Ambulatory Orders Phenytoin Na Extended [Dilantin -] 200 mg PO BID 07/28/16 Hydralazine HCl [Apresoline -] 100 mg PO TID #90 tablet 08/04/16 Labetalol HCl [Normodyne -] 400 mg PO BID #60 tablet 08/04/16 Budesonide/Formeterol Fumarate [SYMBICORT 160/4.5mcg -] 2 inh PO BID 02/14/17 Sevelamer Carbonate [Renvela] 1,600 mg PO QID 02/14/17
[2017-02-17] MEDS: KETOROLAC TROMETHAMINE 15 MG/ML VIAL IVPUSH PRN ×3 (09:49→23:25)
[2017-02-17] MEDS ORDERED: PT OWN MED DRAWER 7, Y5N ONE ×2 (10:26→20:09)
[2017-02-17] MEDS: LABETALOL HCL 200 MG TABLET (FP) PO SCH ×2 (10:28→21:57)
[2017-02-17] MEDS: FERROUS SO4 325 MG TABLET (FP) PO SCH ×2 (10:28→21:57)
[2017-02-17] MEDS: SEVELAMER CARBONATE 800 MG TAB (FP) PO SCH ×4 (10:28→21:58)
[2017-02-17] MEDS: BUDESONIDE/FORMETEROL FUMARATE 160/4.5 mcg INHALER IH SCH ×2 (10:29→21:58)
[2017-02-17] MEDS: PHENYTOIN NA EXTENDED 100 MG CAPSULE (FP) PO SCH ×2 (10:29→21:57)
--- NOTE | 2017-02-17 12:27 | PN ---
Progress Note (short form) - Note Progress Note: Renal follow up for ESRD on HD Pt seen and examined at the bedside no acute complaints no sob, chest pain, abd pain, N/V/D reprots having a BM this am but no stools sent for occult blood Vital Signs Temperature 98.5 F 02/17/17 09:30 Pulse Rate 86 02/17/17 09:30 Respiratory Rate 18 02/17/17 09:30 Blood Pressure 142/72 02/17/17 09:30 O2 Sat by Pulse Oximetry (%) 100 02/16/17 20:30 Intake & Output 02/14/17 02/15/17 02/16/17 02/17/17 23:59 23:59 23:59 23:59 Intake Total 455 1989 1255 120 Balance 455 1989 1255 120 Weight 115 lb 115 lb 115 lb 1 oz NAD RRR, No M/R CTA soft NT/ND No edema in LE CBC, BMP 02/17/17 06:25 02/17/17 06:25 Laboratory Tests 02/17/17 06:25 Calcium 8.3 L Current Medications Budesonide/Formoterol Fumarate (Symbicort 160/4.5mcg -) 2 puff IH BID [facility] Last Admin: 02/17/17 10:29 Dose: 2 puff Ferrous Sulfate (Feosol -) 325 mg PO BID [facility] [place] Last Admin: 02/17/17 10:28 Dose: 325 mg Hydralazine HCl (Apresoline -) 100 mg PO TID [facility] [place] Last Admin: 02/17/17 06:34 Dose: 100 mg Ketorolac Tromethamine (Toradol Injection -) 15 mg IVPUSH Q6H PRN PRN Reason: PAIN Stop: 02/19/17 20:14 Last Admin: 02/17/17 09:49 Dose: 15 mg Labetalol HCl (Normodyne -) 400 mg PO BID [facility] [place] Last Admin: 02/17/17 10:28 Dose: 400 mg Phenytoin Sodium (Dilantin -) 200 mg PO BID [facility] [place] Last Admin: 02/17/17 10:29 Dose: 200 mg Sevelamer Carbonate (Renvela -) 1,600 mg PO QID [facility] [place] Last Admin: 02/17/17 10:28 Dose: 1,600 mg A/P 61 year old woman with PMhx of ESRD on HD, RCC s/p Nephrecotmy, Hypertension, CHF, B/l cataracts with blindness who was sent from HD unit with Hgb of 5. Pt s/ p 2 units prbc transfusion last night off of dialysis. #Acute on Chronic Anemia Hgb still downtrending stool occult blood is pending could source of bleeding be the lieomyoma ? 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 Heme following Transefuse to keep Hgb > 8 #ESRD on Hd s/p dialysis yesterday, no acute indication for treatment today next dialysis planned for tomorrow #Hypertension Continue Labetalol and Hydralazine #Renal osteodystrophy continue renvela trend phos levels Thank you Jake Stringer DO Problem List - Problems (1) Anemia Code(s): D64.9 - ANEMIA, UNSPECIFIED (2) ESRD on hemodialysis Code(s): N18.6 - END STAGE RENAL DISEASE Z99.2 - DEPENDENCE ON RENAL DIALYSIS (3) Hypertension Code(s): I10 - ESSENTIAL (PRIMARY) HYPERTENSION Qualifiers: Hypertension type: essential hypertension Qualified Code(s): I10 - Essential (primary) hypertension; I10 - Essential (primary) hypertension; I10 - Essential (primary) hypertension
--- NOTE | 2017-02-17 15:41 | PN ---
Progress Note (short form) - Note Progress Note: Patient seen and examined Offers no specific pains Last Vital Signs Temp Pulse Resp BP Pulse Ox 98.5 F 86 18 142/72 100 02/17/17 09:30 02/17/17 09:30 02/17/17 09:30 02/17/17 09:30 02/16/17 20:30 Daughter at bedside Had CT scan Received transfusion therapy HEENT: Blind Oropharynx: No thrush, No mucositis Breasts: Without masses Cor: RSR, No murmurs, No gallops Lungs: Clear to P&A Abd: Soft, Normal bowel sounds, No organomegaly Ext:No significant edema Skin: No rashes, Integument intact CBC, BMP 02/17/17 06:25 02/17/17 06:25 Current Medications Generic Name Dose Route Start Last Admin Trade Name Freq PRN Reason Stop Dose Admin Budesonide/Formoterol Fumarate 2 puff 02/14/17 22:00 02/17/17 10:29 Symbicort 160/4.5mcg - IH 2 puff BID CECILIO Administration Epoetin Nick 20,000 unit 02/18/17 06:00 Procrit - IVPUSH 02/18/17 06:01 ONCE ONE Ferrous Sulfate 325 mg 02/15/17 10:00 02/17/17 10:28 Feosol - PO 325 mg BID CECILIO Administration Hydralazine HCl 100 mg 02/14/17 22:00 02/17/17 14:14 Apresoline - PO 100 mg TID CECILIO Administration Ketorolac Tromethamine 15 mg 02/14/17 20:15 02/17/17 09:49 Toradol Injection - IVPUSH 02/19/17 20:14 15 mg Q6H PRN Administration PAIN Labetalol HCl 400 mg 02/14/17 22:00 02/17/17 10:28 Normodyne - PO 400 mg BID CECILIO Administration Phenytoin Sodium 200 mg 02/14/17 22:00 02/17/17 10:29 Dilantin - PO 200 mg BID CECILIO Administration Sevelamer Carbonate 1,600 mg 02/14/17 22:00 02/17/17 14:13 Renvela - PO 1,600 mg QID CECILIO Administration Impression Hx of renal cell ca - s/p left nephrectomy ESRD-H.D Anemia--s/p [address]-- hepatomegaly with defect and calcification ; Left adnexal mass ? pedunculated leiomyoma _ no obvious bleeding on non contrast CT into fibroid Right renal masses with calcification Blind HBP Pericardial effusion Plan: GI assessment Sales Donor Recruitment Representative assessment Procrit andFe+= per renal protocol MRI of abdomen and pelvis
--- NOTE | 2017-02-17 22:03 | PN ---
Progress Note, Physician History of Present Illness: No new changes - Current Medication List Current Medications: Active Medications Budesonide/Formoterol Fumarate (Symbicort 160/4.5mcg -) 2 puff IH BID [facility] Last Admin: 02/17/17 21:58 Dose: 2 puff Epoetin Nick (Procrit -) 20,000 unit IVPUSH ONCE ONE Stop: 02/18/17 06:01 Ferrous Sulfate (Feosol -) 325 mg PO BID [facility] Last Admin: 02/17/17 21:57 Dose: 325 mg Hydralazine HCl (Apresoline -) 100 mg PO TID [facility] Last Admin: 02/17/17 21:56 Dose: 100 mg Ketorolac Tromethamine (Toradol Injection -) 15 mg IVPUSH Q6H PRN PRN Reason: PAIN Stop: 02/19/17 20:14 Last Admin: 02/17/17 18:42 Dose: 15 mg Labetalol HCl (Normodyne -) 400 mg PO BID [facility] Last Admin: 02/17/17 21:57 Dose: 400 mg Phenytoin Sodium (Dilantin -) 200 mg PO BID [facility] Last Admin: 02/17/17 21:57 Dose: 200 mg Sevelamer Carbonate (Renvela -) 1,600 mg PO QID [facility] Last Admin: 02/17/17 21:58 Dose: 1,600 mg - Objective Vital Signs: Vital Signs Temperature 98.6 F 02/17/17 14:46 Pulse Rate 85 02/17/17 14:46 Respiratory Rate 18 02/17/17 14:46 Blood Pressure 142/72 02/17/17 09:30 O2 Sat by Pulse Oximetry (%) 100 02/17/17 10:00 Constitutional: Yes: No Distress, Anxious Neck: Yes: WNL, Supple Cardiovascular: Yes: WNL, Regular Rate and Rhythm Respiratory: Yes: WNL, Regular, CTA Bilaterally Gastrointestinal: Yes: WNL, Normal Bowel Sounds, Soft Labs: CBC, BMP 02/17/17 06:25 02/17/17 06:25 INR, PTT INR 1.05 (0.82-1.09) 02/14/17 15:00 Problem List - Problems (1) Symptomatic anemia Code(s): D64.9 - ANEMIA, UNSPECIFIED (2) ESRD on hemodialysis Code(s): N18.6 - END STAGE RENAL DISEASE Z99.2 - DEPENDENCE ON RENAL DIALYSIS (3) Hypertension Code(s): I10 - ESSENTIAL (PRIMARY) HYPERTENSION Qualifiers: Hypertension type: essential hypertension Qualified Code(s): I10 - Essential (primary) hypertension; I10 - Essential (primary) hypertension; I10 - Essential (primary) hypertension (4) Seizure Code(s): R56.9 - UNSPECIFIED CONVULSIONS Qualifiers: Convulsion type: unspecified Qualified Code(s): R56.9 - Unspecified convulsions; R56.9 - Unspecified convulsions; R56.9 - Unspecified convulsions; R56.9 - Unspecified convulsions (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
[2017-02-18] MEDS: hydrALAZINE HCL 50 MG TABLET (FP) PO SCH ×3 (06:14→22:34)
[2017-02-18] MEDS: KETOROLAC TROMETHAMINE 15 MG/ML VIAL IVPUSH PRN ×2 (06:39→12:42)
[2017-02-18 08:24] LABS: MCH 31.2 pg (25.7-33.7); MCHC 33.3 g/dl (32.0-36.0); MEAN CELL VOLUME 93.7 fl (80-96); MEAN PLT VOLUME 7.9 fl (7.5-11.1); PLATELET COUNT 227 K/MM3 (134-434); RDW 16.9 % (11.6-15.6); WHITE BLOOD COUNT 11.2 K/mm3 (4.0-10.0)
[2017-02-18 08:53] LABS: ANION GAP 9 (8-16); CO2 29 mmol/L (21-32); CREATININE 5.6 mg/dL (0.55-1.02); GLUCOSE,RANDOM 87 mg/dL (74-106)
[2017-02-18] MEDS ORDERED: EPOETIN ALFA 20,000 UNIT/1 ML VIAL IVPUSH ONE (09:00)
--- NOTE | 2017-02-18 09:52 | PN ---
Progress Note (short form) - Note Progress Note: Renal follow up for ESRD on HD Pt seen and examined during dialysis BP stable, goal UF is 2L access with good flow to get 2 prbc transfusion no acute complaints Vital Signs Temperature 98.4 F 02/18/17 06:00 Pulse Rate 78 02/18/17 09:20 Respiratory Rate 18 02/18/17 09:20 Blood Pressure 161/70 02/18/17 09:20 O2 Sat by Pulse Oximetry (%) 100 02/17/17 22:00 Intake & Output 02/15/17 02/16/17 02/17/17 02/18/17 23:59 23:59 23:59 23:59 Intake Total 1989 1255 790 120 Balance 1989 1255 790 120 Weight 115 lb 115 lb 1 oz NAD RRR, No M/R CTA soft NT/ND No edema in LE CBC, BMP 02/18/17 08:21 02/18/17 08:21 Laboratory Tests 02/18/17 08:21 Calcium 9.0 Phosphorus 3.0 D Current Medications Budesonide/Formoterol Fumarate (Symbicort 160/4.5mcg -) 2 puff IH BID [facility] Last Admin: 02/17/17 21:58 Dose: 2 puff Ferrous Sulfate (Feosol -) 325 mg PO BID [facility] Last Admin: 02/17/17 21:57 Dose: 325 mg Hydralazine HCl (Apresoline -) 100 mg PO TID [facility] Last Admin: 02/18/17 06:14 Dose: 100 mg Ketorolac Tromethamine (Toradol Injection -) 15 mg IVPUSH Q6H PRN PRN Reason: PAIN Stop: 02/19/17 20:14 Last Admin: 02/18/17 06:39 Dose: 15 mg Labetalol HCl (Normodyne -) 400 mg PO BID [facility] Last Admin: 02/17/17 21:57 Dose: 400 mg Phenytoin Sodium (Dilantin -) 200 mg PO BID [facility] Last Admin: 02/17/17 21:57 Dose: 200 mg Sevelamer Carbonate (Renvela -) 1,600 mg PO QID [facility] Last Admin: 02/17/17 21:58 Dose: 1,600 mg A/P 61 year old woman with PMhx of ESRD on HD, RCC s/p Nephrecotmy, Hypertension, CHF, B/l cataracts with blindness who was sent from HD unit with Hgb of 5. Pt s/ p 2 units prbc transfusion last night off of dialysis. #Acute on Chronic Anemia to get additional 2 units of prbc with hd today Heme following for MRI of the Abd will continue DAISHA with Hd #ESRD on Hd tolerating dialysis well continue on TTS [place] while inpatient dose all meds for intermittent HD #Hypertension Continue Labetalol and Hydralazine #Renal osteodystrophy continue renvela trend phos levels Thank you Jake Stringer DO Problem List - Problems (1) Anemia Code(s): D64.9 - ANEMIA, UNSPECIFIED (2) ESRD on hemodialysis Code(s): N18.6 - END STAGE RENAL DISEASE Z99.2 - DEPENDENCE ON RENAL DIALYSIS (3) Hypertension Code(s): I10 - ESSENTIAL (PRIMARY) HYPERTENSION Qualifiers: Hypertension type: essential hypertension Qualified Code(s): I10 - Essential (primary) hypertension; I10 - Essential (primary) hypertension; I10 - Essential (primary) hypertension
[2017-02-18] MEDS: BUDESONIDE/FORMETEROL FUMARATE 160/4.5 mcg INHALER IH SCH ×2 (09:53→22:41)
[2017-02-18] MEDS ORDERED: PT OWN MED DRAWER 7, Y5N ONE ×2 (09:56→12:38)
[2017-02-18] MEDS: PHENYTOIN NA EXTENDED 100 MG CAPSULE (FP) PO SCH ×2 (09:57→22:34)
[2017-02-18] MEDS: SEVELAMER CARBONATE 800 MG TAB (FP) PO SCH ×4 (11:46→22:35)
[2017-02-18] MEDS: LABETALOL HCL 200 MG TABLET (FP) PO SCH ×2 (11:55→22:34)
[2017-02-18] MEDS: FERROUS SO4 325 MG TABLET (FP) PO SCH (11:56)
--- NOTE | 2017-02-18 17:46 | CON.GI ---
Consult Consult Specialty:: GI Referred by:: Dr Bustamante Reason for Consultation:: Anemia guaiac (+) - History of Present Illness Chief Complaint: weakness and fatigue during dialysis History of Present Illness: 61 F with h/o ESRD on HD, renal cell Ca s/p nephrectomy, HTN, CHF, bilat cataracts legally blind, now with guaiac (+) stool and profound anemia. On further questioning, told by that she takes up to 7 excedrin per day for body pain. Likely NSAID induced injury. 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 - Past Surgical History Past Surgical History: Yes: AV Fistula/Graft, , Nephrectomy (right nephrectomy and left partial nephrectomy) - Alcohol/Substance Use Hx Alcohol Use: No History of Substance Use: reports: None - Smoking History Smoking history: Current some day smoker Have you smoked in the past 12 months: Yes Aproximately how many cigarettes per day: 15 - Social History Usual Living Arrangement: With Spouse ADL: Family Assistance History of Recent Travel: No Home Medications - Allergies Allergies/Adverse Reactions: Allergies Allergy/AdvReac Type Severity Reaction Status Date / Time codeine Allergy Severe Verified 02/14/17 14:53 - Home Medications Home Medications: Ambulatory Orders Phenytoin Na Extended [Dilantin -] 200 mg PO BID 07/28/16 Hydralazine HCl [Apresoline -] 100 mg PO TID #90 tablet 08/04/16 Labetalol HCl [Normodyne -] 400 mg PO BID #60 tablet 08/04/16 Budesonide/Formeterol Fumarate [SYMBICORT 160/4.5mcg -] 2 inh PO BID 02/14/17 Sevelamer Carbonate [Renvela] 1,600 mg PO QID 02/14/17 Clonidine HCl 0.1 mg PO BID 02/18/17 Family Disease History - Family Disease History Family Disease History: Other: Father (HTN), Mother (HTN) Physical Exam-GI Vital Signs: Vital Signs Temperature 99.7 F H 02/18/17 14:39 Pulse Rate 86 02/18/17 14:39 Respiratory Rate 18 02/18/17 14:39 Blood Pressure 153/92 02/18/17 14:39 O2 Sat by Pulse Oximetry (%) 100 02/18/17 12:00 Constitutional: Yes: Thin Eyes: Yes: Cataracts (bilateral, opaque) HENT: Yes: Atraumatic Cardiovascular: Yes: Regular Rate and Rhythm Respiratory: Yes: CTA Bilaterally Gastrointestinal Inspection: Yes: WNL ...Auscultate: Yes: Normoactive Bowel Sounds ...Palpate: Yes: Soft. No: Tenderness ...Percussion: Yes: Dullness Labs: CBC, BMP 02/18/17 08:21 02/18/17 08:21 INR, PTT INR 1.05 (0.82-1.09) 02/14/17 15:00 Imaging - Results Cat Scan: Report Reviewed (Large pelvic mass of unclear origin. TOOTH CUTTER PINION on case.) Assessment/Plan Likely NSAID -induced injury. Stop Toradol, stop Fe supplements for now. Will need EGD and colon Plan for Monday AM Prep tomorrow
--- NOTE | 2017-02-18 23:36 | PN ---
Progress Note, Physician History of Present Illness: No new changes - Current Medication List Current Medications: Active Medications Bisacodyl (Dulcolax -) 10 mg PO BID [facility] Stop: 02/19/17 16:01 Budesonide/Formoterol Fumarate (Symbicort 160/4.5mcg -) 2 puff IH BID [facility] Last Admin: 02/18/17 22:41 Dose: 2 puff Hydralazine HCl (Apresoline -) 100 mg PO TID [facility] Last Admin: 02/18/17 22:34 Dose: 100 mg Labetalol HCl (Normodyne -) 400 mg PO BID [facility] Last Admin: 02/18/17 22:34 Dose: 400 mg Phenytoin Sodium (Dilantin -) 200 mg PO BID [facility] Last Admin: 02/18/17 22:34 Dose: 200 mg Polyethylene Glycol (Miralax (For Bowel Prep) -) 255 gm PO ONCE ONE Stop: 02/19/17 16:01 Sevelamer Carbonate (Renvela -) 1,600 mg PO QID [facility] Last Admin: 02/18/17 22:35 Dose: Not Given - Objective Vital Signs: Vital Signs Temperature 99.0 F 02/18/17 18:00 Pulse Rate 83 02/18/17 18:00 Respiratory Rate 20 02/18/17 18:00 Blood Pressure 160/89 02/18/17 18:00 O2 Sat by Pulse Oximetry (%) 100 02/18/17 12:00 Constitutional: Yes: No Distress, Anxious HENT: Yes: WNL Neck: Yes: WNL, Supple Cardiovascular: Yes: WNL, Regular Rate and Rhythm Respiratory: Yes: WNL, Regular, CTA Bilaterally Gastrointestinal: Yes: WNL, Normal Bowel Sounds, Soft Labs: CBC, BMP 02/18/17 08:21 02/18/17 08:21 INR, PTT INR 1.05 (0.82-1.09) 02/14/17 15:00 Problem List - Problems (1) Symptomatic anemia Assessment/Plan: Pt to be transfused 2 units of PRBC's Awaiting MRI abd/pelvis Due to chronic renal dz CT scan abd showed leimyoma 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 Follow stool hemoccult Code(s): D64.9 - ANEMIA, UNSPECIFIED (2) ESRD on hemodialysis Assessment/Plan: Dialysis as per renal Code(s): N18.6 - END STAGE RENAL DISEASE Z99.2 - DEPENDENCE ON RENAL DIALYSIS (3) Hypertension Assessment/Plan: Cont labetalol/hydralazine Code(s): I10 - ESSENTIAL (PRIMARY) HYPERTENSION Qualifiers: Hypertension type: essential hypertension Qualified Code(s): I10 - Essential (primary) hypertension; I10 - Essential (primary) hypertension; I10 - Essential (primary) hypertension (4) Seizure Assessment/Plan: Cont phenytoin Code(s): R56.9 - UNSPECIFIED CONVULSIONS Qualifiers: Convulsion type: unspecified Qualified Code(s): R56.9 - Unspecified convulsions; R56.9 - Unspecified convulsions; R56.9 - Unspecified convulsions; R56.9 - Unspecified convulsions (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
[2017-02-19] MEDS ORDERED: hydrALAZINE HCL 25 MG TABLET (FP) PO ONE (03:00)
[2017-02-19] MEDS: hydrALAZINE HCL 50 MG TABLET (FP) PO SCH ×3 (06:05→21:20)
[2017-02-19 08:06] LABS: HEMATOCRIT 22.4 % (34.0-46.6)
[2017-02-19] MEDS ORDERED: PT OWN MED DRAWER 7, Y5N ONE (08:41)
[2017-02-19 09:00] LABS: BASOPHIL 0.6 % (0-2.0); EOSINOPHIL 3.4 % (0-4.5); MCH 30.4 pg (25.7-33.7); MCHC 33.2 g/dl (32.0-36.0); MEAN CELL VOLUME 91.6 fl (80-96); MEAN PLT VOLUME 7.3 fl (7.5-11.1); NEUTROPHILS 69.8 % (42.8-82.8); PLATELET COUNT 214 K/MM3 (134-434); RDW 16.6 % (11.6-15.6); WHITE BLOOD COUNT 11.6 K/mm3 (4.0-10.0)
[2017-02-19 09:33] LABS: ALBUMIN 2.5 g/dl (3.4-5.0); ANION GAP 7 (8-16); CALCIUM 8.2 mg/dL (8.5-10.1); CO2 32 mmol/L (21-32); GLUCOSE,RANDOM 80 mg/dL (74-106)
[2017-02-19 09:38] LABS: ALK PHOS 90 U/L (45-117); BILIRUBIN,TOTAL 0.4 mg/dL (0.2-1.0); CREATININE 4.1 mg/dL (0.55-1.02); SGOT/AST 24 U/L (15-37); SGPT/ALT 29 U/L (12-78); TOT PROT 5.6 g/dl (6.4-8.2)
[2017-02-19] MEDS: SEVELAMER CARBONATE 800 MG TAB (FP) PO SCH ×5 (10:22→21:20)
[2017-02-19] MEDS: BUDESONIDE/FORMETEROL FUMARATE 160/4.5 mcg INHALER IH SCH ×2 (10:22→21:21)
[2017-02-19] MEDS: LABETALOL HCL 200 MG TABLET (FP) PO SCH ×2 (10:22→21:20)
[2017-02-19] MEDS: PHENYTOIN NA EXTENDED 100 MG CAPSULE (FP) PO SCH ×2 (10:29→21:20)
--- NOTE | 2017-02-19 14:59 | PN ---
GI Progress Note Subjective: Comfortable. On tylenol for pain at this time - Objective Vital Signs: Vital Signs Temperature 98.6 F 02/19/17 11:06 Pulse Rate 82 02/19/17 11:06 Respiratory Rate 20 02/19/17 11:06 Blood Pressure 158/86 02/19/17 11:06 O2 Sat by Pulse Oximetry (%) 98 02/19/17 10:00 Constitutional: Thin HENT: Yes: Normocephalic Cardiovascular: Yes: Regular Rate and Rhythm Respiratory: Yes: CTA Bilaterally Gastrointestinal Inspection: Yes: WNL ...Auscultate: Yes: Normoactive Bowel Sounds ...Palpate: Yes: Soft. No: Tenderness Labs: CBC, BMP 02/19/17 08:00 02/19/17 08:00 INR, PTT INR 1.05 (0.82-1.09) 02/14/17 15:00 Assessment/Plan For EGD and colon tomorrow CT cancelled-S/P MRI result pending
[2017-02-19] MEDS ORDERED: POLYETHYLENE GLYCOL 3350 255 GM BTL PO ONE (16:00)
[2017-02-19] MEDS ORDERED: BISACODYL 5 MG TABLET.DR (FP) PO SCH (16:00)
--- NOTE | 2017-02-19 20:57 | PN ---
Progress Note, Physician History of Present Illness: No new changes - Current Medication List Current Medications: Active Medications Acetaminophen (Tylenol -) 650 mg PO Q4H PRN PRN Reason: FEVER OR PAIN Budesonide/Formoterol Fumarate (Symbicort 160/4.5mcg -) 2 puff IH BID [facility] Last Admin: 02/19/17 10:22 Dose: 2 puff Hydralazine HCl (Apresoline -) 100 mg PO TID [facility] Last Admin: 02/19/17 14:24 Dose: 100 mg Labetalol HCl (Normodyne -) 400 mg PO BID [facility] Last Admin: 02/19/17 10:22 Dose: 400 mg Phenytoin Sodium (Dilantin -) 200 mg PO BID [facility] Last Admin: 02/19/17 10:29 Dose: 200 mg Sevelamer Carbonate (Renvela -) 1,600 mg PO QID [facility] Last Admin: 02/19/17 17:56 Dose: Not Given - Objective Vital Signs: Vital Signs Temperature 98.2 F 02/19/17 15:42 Pulse Rate 73 02/19/17 15:42 Respiratory Rate 20 02/19/17 15:42 Blood Pressure 148/78 02/19/17 15:42 O2 Sat by Pulse Oximetry (%) 98 02/19/17 10:00 Constitutional: Yes: No Distress, Anxious Neck: Yes: WNL, Supple Cardiovascular: Yes: WNL, Regular Rate and Rhythm Respiratory: Yes: WNL, Regular, CTA Bilaterally Gastrointestinal: Yes: WNL, Normal Bowel Sounds, Soft Labs: CBC, BMP 02/19/17 08:00 02/19/17 08:00 INR, PTT INR 1.05 (0.82-1.09) 02/14/17 15:00 Problem List - Problems (1) Symptomatic anemia Assessment/Plan: Pt transfused 2 units of PRBC's yesterday Pt scheduled for EGD/colonoscopy in am H/H improved Awaitng MRI abd/pelvis Due to chronic renal dz CT scan abd showed leimyoma 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 Follow stool hemoccult Code(s): D64.9 - ANEMIA, UNSPECIFIED (2) ESRD on hemodialysis Assessment/Plan: Dialysis as per renal Code(s): N18.6 - END STAGE RENAL DISEASE Z99.2 - DEPENDENCE ON RENAL DIALYSIS (3) Hypertension Assessment/Plan: Pt's BP elevated last pm wc could be due to fluid overload from blood transfusions Cont to monitor Cardio consult Check echo Cont labetalol/hydralazine Code(s): I10 - ESSENTIAL (PRIMARY) HYPERTENSION Qualifiers: Hypertension type: essential hypertension Qualified Code(s): I10 - Essential (primary) hypertension; I10 - Essential (primary) hypertension; I10 - Essential (primary) hypertension (4) Seizure Assessment/Plan: Cont phenytoin Code(s): R56.9 - UNSPECIFIED CONVULSIONS Qualifiers: Convulsion type: unspecified Qualified Code(s): R56.9 - Unspecified convulsions; R56.9 - Unspecified convulsions; R56.9 - Unspecified convulsions; R56.9 - Unspecified convulsions (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
[2017-02-20] MEDS: ACETAMINOPHEN 325 MG TABLET (FP) PO PRN ×4 (03:50→23:50)
[2017-02-20] MEDS: hydrALAZINE HCL 50 MG TABLET (FP) PO SCH ×3 (06:40→22:14)
[2017-02-20 07:27] LABS: BASOPHIL 0.4 % (0-2.0); EOSINOPHIL 4.6 % (0-4.5); MCH 31.1 pg (25.7-33.7); MCHC 33.7 g/dl (32.0-36.0); MEAN CELL VOLUME 92.4 fl (80-96); MEAN PLT VOLUME 7.4 fl (7.5-11.1); PLATELET COUNT 209 K/MM3 (134-434); RDW 16.2 % (11.6-15.6); WHITE BLOOD COUNT 8.9 K/mm3 (4.0-10.0)
[2017-02-20] MEDS ORDERED: PROPOFOL 20 ML ONE ×3 (07:31→07:49)
[2017-02-20] MEDS ORDERED: LIDOCAINE HCL/PF 2% SDV 5ML VIAL ONE (07:31)
[2017-02-20] MEDS ORDERED: SUCCINYLCHOLINE CHLORIDE 200 MG/10 ML VIAL ONE (07:31)
[2017-02-20] MEDS ORDERED: LABETALOL HCL 5 MG/1 ML (100MG/20 ML VIAL) ONE (07:49)
[2017-02-20 07:51] LABS: ALBUMIN 2.6 g/dl (3.4-5.0); ALK PHOS 90 U/L (45-117); ANION GAP 12 (8-16); BILIRUBIN,TOTAL 0.3 mg/dL (0.2-1.0); CALCIUM 7.7 mg/dL (8.5-10.1); CO2 28 mmol/L (21-32); CREATININE 5.5 mg/dL (0.55-1.02); GLUCOSE,RANDOM 83 mg/dL (74-106); SGOT/AST 22 U/L (15-37); SGPT/ALT 27 U/L (12-78); TOT PROT 5.6 g/dl (6.4-8.2)
--- NOTE | 2017-02-20 09:49 | PN ---
Progress Note (short form) - Note Progress Note: ADDENDUM: S/P EGD WITH ANTRAL EROSIONS LIKELY SECONDARY TO NSAIDS COLON WITH DIVERTICULOSIS-OTHERWISE NORMAL START RENAL DIET AVOID NSAIDS PPI OUTPATIENT FF
[2017-02-20] MEDS ORDERED: LOSARTAN POTASSIUM 50 MG TABLET (FP) PO SCH (10:00)
[2017-02-20] MEDS: SEVELAMER CARBONATE 800 MG TAB (FP) PO SCH ×4 (11:26→22:14)
[2017-02-20] MEDS: LABETALOL HCL 200 MG TABLET (FP) PO SCH ×2 (11:26→22:14)
[2017-02-20] MEDS: BUDESONIDE/FORMETEROL FUMARATE 160/4.5 mcg INHALER IH SCH ×2 (11:27→22:15)
[2017-02-20] MEDS: PHENYTOIN NA EXTENDED 100 MG CAPSULE (FP) PO SCH ×2 (11:27→22:15)
--- NOTE | 2017-02-20 11:45 | PN ---
Progress Note (short form) - Note Progress Note: Renal follow up for ESRD on HD Pt seen and examined during dialysis awake and alert no sob, chest pain s/p colonoscopy this am Vital Signs Temperature 98.7 F 02/20/17 10:00 Pulse Rate 72 02/20/17 10:00 Respiratory Rate 19 02/20/17 10:00 Blood Pressure 115/87 02/20/17 10:00 O2 Sat by Pulse Oximetry (%) 100 02/20/17 09:18 Intake & Output 02/17/17 02/18/17 02/19/17 02/20/17 23:59 23:59 23:59 23:59 Intake Total 790 400 615 920 Balance 790 400 615 920 NAD RRR, No M/R CTA soft NT/ND No edema in LE CBC, BMP 02/20/17 06:30 02/20/17 06:30 Laboratory Tests 02/20/17 06:30 Calcium 7.7 L Albumin 2.6 L Current Medications Acetaminophen (Tylenol -) 650 mg PO Q4H PRN PRN Reason: FEVER OR PAIN Last Admin: 02/20/17 03:50 Dose: 650 mg Budesonide/Formoterol Fumarate (Symbicort 160/4.5mcg -) 2 puff IH BID [facility] Last Admin: 02/20/17 11:27 Dose: 2 puff Hydralazine HCl (Apresoline -) 100 mg PO TID [facility] Labetalol HCl (Normodyne -) 400 mg PO BID [facility] Last Admin: 02/20/17 11:26 Dose: 400 mg Phenytoin Sodium (Dilantin -) 200 mg PO BID [facility] Last Admin: 02/20/17 11:27 Dose: 200 mg Sevelamer Carbonate (Renvela -) 1,600 mg PO QID [facility] Last Admin: 02/20/17 11:26 Dose: 1,600 mg A/P 61 year old woman with PMhx of ESRD on HD, RCC s/p Nephrecotmy, Hypertension, CHF, B/l cataracts with blindness who was sent from HD unit with Hgb of 5. Pt s/ p 2 units prbc transfusion last night off of dialysis. #Acute on Chronic Anemia Hgb stable over the last 24 hours trend CBC s/p colonoscopy/EGD report pending Imaging of the Abd as per Oncology #ESRD on Hd no acute indication for dialysis today next treatment planned for tomorrow #Hypertension Continue Labetalol and Hydralazine #Renal osteodystrophy continue renvela trend phos levels Thank you Jake Stringer DO Problem List - Problems (1) Anemia Code(s): D64.9 - ANEMIA, UNSPECIFIED (2) ESRD on hemodialysis Code(s): N18.6 - END STAGE RENAL DISEASE Z99.2 - DEPENDENCE ON RENAL DIALYSIS (3) Hypertension Code(s): I10 - ESSENTIAL (PRIMARY) HYPERTENSION Qualifiers: Hypertension type: essential hypertension Qualified Code(s): I10 - Essential (primary) hypertension; I10 - Essential (primary) hypertension; I10 - Essential (primary) hypertension
[2017-02-20] MEDS ORDERED: PT OWN MED DRAWER 7, Y5N ONE (21:56)
--- NOTE | 2017-02-20 22:12 | PN ---
Progress Note, Physician History of Present Illness: Pt complains of NELSON - Current Medication List Current Medications: Active Medications Acetaminophen (Tylenol -) 650 mg PO Q4H PRN PRN Reason: FEVER OR PAIN Last Admin: 02/20/17 20:15 Dose: 650 mg Budesonide/Formoterol Fumarate (Symbicort 160/4.5mcg -) 2 puff IH BID [facility] Last Admin: 02/20/17 11:27 Dose: 2 puff Epoetin Nick (Procrit -) 10,000 unit IVPUSH ONCE ONE Stop: 02/21/17 06:01 Hydralazine HCl (Apresoline -) 100 mg PO TID [facility] Last Admin: 02/20/17 14:01 Dose: 100 mg Labetalol HCl (Normodyne -) 400 mg PO BID [facility] Last Admin: 02/20/17 11:26 Dose: 400 mg Phenytoin Sodium (Dilantin -) 200 mg PO BID [facility] Last Admin: 02/20/17 11:27 Dose: 200 mg Sevelamer Carbonate (Renvela -) 1,600 mg PO QID [facility] Last Admin: 02/20/17 18:34 Dose: 1,600 mg - Objective Vital Signs: Vital Signs Temperature 98.0 F 02/20/17 15:29 Pulse Rate 74 02/20/17 15:29 Respiratory Rate 18 02/20/17 15:29 Blood Pressure 147/80 02/20/17 15:29 O2 Sat by Pulse Oximetry (%) 100 02/20/17 10:00 Constitutional: Yes: No Distress Eyes: Yes: Cataracts Neck: Yes: WNL, Supple Cardiovascular: Yes: WNL, Regular Rate and Rhythm Respiratory: Yes: WNL, Regular, CTA Bilaterally Gastrointestinal: Yes: WNL, Normal Bowel Sounds, Soft Labs: CBC, BMP 02/20/17 06:30 02/20/17 06:30 INR, PTT INR 1.05 (0.82-1.09) 02/14/17 15:00 Problem List - Problems (1) Headache Assessment/Plan: Check ct scan head Code(s): R51 - HEADACHE (2) Symptomatic anemia Assessment/Plan: S/P blood transfusions MRI abd showed: 1. bladder mass 2. uterine fibroid 3. 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 Follow stool hemoccult As p Code(s): D64.9 - ANEMIA, UNSPECIFIED (3) ESRD on hemodialysis Assessment/Plan: Dialysis as per renal Code(s): N18.6 - END STAGE RENAL DISEASE Z99.2 - DEPENDENCE ON RENAL DIALYSIS (4) Hypertension Assessment/Plan: Cont labetalol/hydralazine Code(s): I10 - ESSENTIAL (PRIMARY) HYPERTENSION Qualifiers: Hypertension type: essential hypertension Qualified Code(s): I10 - Essential (primary) hypertension; I10 - Essential (primary) hypertension; I10 - Essential (primary) hypertension (5) Seizure Assessment/Plan: Cont phenytoin Code(s): R56.9 - UNSPECIFIED CONVULSIONS Qualifiers: Convulsion type: unspecified Qualified Code(s): R56.9 - Unspecified convulsions; R56.9 - Unspecified convulsions; R56.9 - Unspecified convulsions; R56.9 - Unspecified convulsions (6) Blind Code(s): H54.0 - BLINDNESS, BOTH EYES * DO NOT USE * (7) History of nephrectomy Code(s): Z90.5 - ACQUIRED ABSENCE OF KIDNEY
[2017-02-21] MEDS: hydrALAZINE HCL 50 MG TABLET (FP) PO SCH ×3 (06:31→22:49)
[2017-02-21] MEDS ORDERED: EPOETIN ALFA 10,000 UNIT/1 ML VIAL IVPUSH ONE (07:30)
[2017-02-21 08:55] LABS: BASOPHIL 0.4 % (0-2.0); EOSINOPHIL 2.5 % (0-4.5); MCH 31.6 pg (25.7-33.7); MEAN CELL VOLUME 93.1 fl (80-96); MEAN PLT VOLUME 7.3 fl (7.5-11.1); NEUTROPHILS 73.9 % (42.8-82.8); PLATELET COUNT 230 K/MM3 (134-434); WHITE BLOOD COUNT 10.9 K/mm3 (4.0-10.0)
[2017-02-21 09:23] LABS: SGPT/ALT 23 U/L (12-78)
[2017-02-21] MEDS: PHENYTOIN NA EXTENDED 100 MG CAPSULE (FP) PO SCH ×2 (09:23→22:49)
[2017-02-21] MEDS: SEVELAMER CARBONATE 800 MG TAB (FP) PO SCH ×4 (09:23→22:49)
[2017-02-21 09:27] LABS: ALBUMIN 2.5 g/dl (3.4-5.0); ALK PHOS 110 U/L (45-117); ANION GAP 14 (8-16); BILIRUBIN,TOTAL 0.3 mg/dL (0.2-1.0); CALCIUM 7.9 mg/dL (8.5-10.1); CO2 25 mmol/L (21-32); CREATININE 7.1 mg/dL (0.55-1.02); GLUCOSE,RANDOM 119 mg/dL (74-106); SGOT/AST 20 U/L (15-37); TOT PROT 5.7 g/dl (6.4-8.2)
[2017-02-21] MEDS: BUDESONIDE/FORMETEROL FUMARATE 160/4.5 mcg INHALER IH SCH ×2 (09:27→22:50)
[2017-02-21] MEDS: LABETALOL HCL 200 MG TABLET (FP) PO SCH ×2 (12:11→22:49)
--- NOTE | 2017-02-21 13:44 | PATH ---
Surgical Pathology Report Patient Name: RAFAEL RAMIREZ [facility]. Rec. #: [id number] /Age/Gender: 1955 (Age: 61) / F Account: [id number] Location: [address] [place] [address] Taken: 02/20/2017 Received: 02/20/2017 Reported: 02/21/2017 Physicians: Andi Martinez M.D. Specimen(s) Received A: BX DUODENAL BULB B: BX ANTRUM Clinical History Anemia, guaiac positive stool Hiatal hernia sac, duodenitis, redundant colon, antral gastritis, diverticulosis Final Diagnosis A. DUODENUM, BULB, BIOPSY: DUODENAL MUCOSA WITH ULCERATION AND ACUTE INFLAMMATION. NO CARCINOMA IDENTIFIED. NO HISTOLOGIC EVIDENCE OF GLUTEN SENSITIVE ENTEROPATHY (CELIAC SPRUE) IDENTIFIED. B. STOMACH, ANTRUM, BIOPSY: REACTIVE GASTROPATHY. IMMUNOSTAIN FOR H. PYLORI IS NEGATIVE. Electronically Signed Vlad Gutierrez M.D. Gross Description A. Received in formalin, labeled "biopsy duodenal bulb" are 2 woodson, irregular portions of soft tissue measuring 0.2 and 0.3 cm. in greatest dimension. The specimens are submitted in toto in one cassette. B. Received in formalin, labeled "biopsy antrum" are 2 woodson, irregular portions of soft tissue averaging 0.3 cm. in greatest dimension. The specimens are submitted in toto in one cassette. /02/20/201702/20/2017
--- NOTE | 2017-02-21 15:34 | PN ---
Progress Note (short form) - Note Progress Note: Renal follow up for ESRD on HD Pt seen and examined during dialysis awake and alert BP stable, tolerated 1.5 L UF no sob, chest pain, abd pain Vital Signs Temperature 98.9 F 02/21/17 12:11 Pulse Rate 76 02/21/17 12:11 Respiratory Rate 18 02/21/17 12:11 Blood Pressure 160/83 02/21/17 12:11 O2 Sat by Pulse Oximetry (%) 97 02/20/17 22:00 Intake & Output 02/18/17 02/19/17 02/20/17 02/21/17 23:59 23:59 23:59 23:59 Intake Total 787 277 1328 100 Balance 842 961 5910 100 Weight 117 lb NAD RRR, No M/R CTA soft NT/ND No edema in LE A/P 61 year old woman with PMhx of ESRD on HD, RCC s/p Nephrecotmy, Hypertension, CHF, B/l cataracts with blindness who was sent from HD unit with Hgb of 5. Pt s/ p 2 units prbc transfusion last night off of dialysis. #Acute on Chronic Anemia EGD showed antral erosions related to nsaids and colonoscopy showed diverticultis Hgb has been stable over the past 48 hours no transfusion needed at this time HEme following #ESRD on Hd tolerating dialysis well continue HD on TTS schedule #Hypertension Continue Labetalol and Hydralazine #Renal osteodystrophy continue renvela trend phos levels d/c planning as per primary Thank you Jake Stringer DO Problem List - Problems (1) Anemia Code(s): D64.9 - ANEMIA, UNSPECIFIED (2) ESRD on hemodialysis Code(s): N18.6 - END STAGE RENAL DISEASE Z99.2 - DEPENDENCE ON RENAL DIALYSIS (3) Hypertension Code(s): I10 - ESSENTIAL (PRIMARY) HYPERTENSION Qualifiers: Hypertension type: essential hypertension Qualified Code(s): I10 - Essential (primary) hypertension; I10 - Essential (primary) hypertension; I10 - Essential (primary) hypertension
--- NOTE | 2017-02-21 20:57 | PN ---
Progress Note, Physician History of Present Illness: BP has been elevated - Current Medication List Current Medications: Active Medications Acetaminophen (Tylenol -) 650 mg PO Q4H PRN PRN Reason: FEVER OR PAIN Last Admin: 02/20/17 23:50 Dose: 650 mg Budesonide/Formoterol Fumarate (Symbicort 160/4.5mcg -) 2 puff IH BID [facility] Last Admin: 02/21/17 09:27 Dose: 2 puff Hydralazine HCl (Apresoline -) 100 mg PO TID [facility] Last Admin: 02/21/17 15:47 Dose: 100 mg Labetalol HCl (Normodyne -) 400 mg PO BID [facility] Last Admin: 02/21/17 12:11 Dose: 400 mg Phenytoin Sodium (Dilantin -) 200 mg PO BID [facility] Last Admin: 02/21/17 09:23 Dose: 200 mg Sevelamer Carbonate (Renvela -) 1,600 mg PO QID [facility] Last Admin: 02/21/17 18:30 Dose: 1,600 mg - Objective Vital Signs: Vital Signs Temperature 99.6 F 02/21/17 19:00 Pulse Rate 84 02/21/17 19:00 Respiratory Rate 18 02/21/17 19:00 Blood Pressure 164/90 02/21/17 19:00 O2 Sat by Pulse Oximetry (%) 97 02/20/17 22:00 Constitutional: Yes: No Distress Eyes: Yes: Cataracts HENT: Yes: WNL, Atraumatic Neck: Yes: WNL, Supple Cardiovascular: Yes: WNL, Regular Rate and Rhythm Respiratory: Yes: WNL, Regular, CTA Bilaterally Gastrointestinal: Yes: WNL, Normal Bowel Sounds, Soft Labs: CBC, BMP 02/21/17 08:15 02/21/17 08:15 INR, PTT INR 1.05 (0.82-1.09) 02/14/17 15:00 Problem List - Problems (1) Headache Assessment/Plan: CT scan head unremarkable Code(s): R51 - HEADACHE (2) Symptomatic anemia Assessment/Plan: S/P blood transfusions MRI abd showed: 1. bladder mass 2. uterine fibroid 3. 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 Follow stool hemoccult H/H stable Code(s): D64.9 - ANEMIA, UNSPECIFIED (3) ESRD on hemodialysis Assessment/Plan: Dialysis as per renal Code(s): N18.6 - END STAGE RENAL DISEASE Z99.2 - DEPENDENCE ON RENAL DIALYSIS (4) Hypertension Assessment/Plan: Cont labetalol/hydralazine Will addnorvasc Cardio consult Code(s): I10 - ESSENTIAL (PRIMARY) HYPERTENSION Qualifiers: Hypertension type: essential hypertension Qualified Code(s): I10 - Essential (primary) hypertension; I10 - Essential (primary) hypertension; I10 - Essential (primary) hypertension (5) Seizure Assessment/Plan: Cont phenytoin Code(s): R56.9 - UNSPECIFIED CONVULSIONS Qualifiers: Convulsion type: unspecified Qualified Code(s): R56.9 - Unspecified convulsions; R56.9 - Unspecified convulsions; R56.9 - Unspecified convulsions; R56.9 - Unspecified convulsions (6) Blind Code(s): H54.0 - BLINDNESS, BOTH EYES * DO NOT USE * (7) History of nephrectomy Code(s): Z90.5 - ACQUIRED ABSENCE OF KIDNEY
[2017-02-21] MEDS ORDERED: PT OWN MED DRAWER 7, Y5N ONE ×2 (22:24→23:06)
--- NOTE | 2017-02-21 22:41 | EKG ---
Test Reason : Blood Pressure : / mmHG Vent. Rate : 075 BPM Atrial Rate : 075 BPM P-R Int : 150 ms QRS Dur : 092 ms QT Int : 424 ms P-R-T Axes : 062 003 052 degrees QTc Int : 473 ms NORMAL SINUS RHYTHM MINIMAL VOLTAGE CRITERIA FOR LVH, MAY BE NORMAL VARIANT BORDERLINE ECG WHEN COMPARED WITH ECG OF 13-DEC-2016 19:08, T WAVE AMPLITUDE HAS INCREASED IN ANTERIOR LEADS Confirmed by SHEIKH JASON, BRICE ([id number] on 02/21/2017 10:41:12 PM Referred By: Confirmed By:BRICE MEHTA MD
[2017-02-21] MEDS: ACETAMINOPHEN 325 MG TABLET (FP) PO PRN (22:49)
[2017-02-22] MEDS: hydrALAZINE HCL 50 MG TABLET (FP) PO SCH ×3 (06:47→23:27)
--- NOTE | 2017-02-22 09:35 | CON.CARD ---
Cardiology Consult (text) - Consultation Consultation Note: Cardiogy Consult 61F known to our service from prior admissions. Pertinent PMH includes ESRD on HD, Chronic difficult to control HTN, seizure disorder. She was admitted with marked anemia and subsequent work up including imaging has revealed a bladder mass and evidence of iron overload. We are called to assist in BP management. She was seen and examined today in no distress: On targeted cardiac ROS,she denied chest pain, palpitations, SOBm syncope, PND, orthopnea or edema. Amlodipine was added to her regimen yesterday. PMH: as outlined in HPI. ALL: Codeine MEDS: reviewed, they are charted separately in EMR. FH: Not pertinent to this clinical question. SH: smokes 15 cigs day. Legally blind. Physical Exam A& O x3 CV: S1, 2. RRR. Soft systolic murmur RSB Chest : CTA b/l Abd: soft, NT. No bruits Ext: No edema DATA: Echo: 07/22, Low normal LV. PHTN, Moderate MR. LVH, pericardial effusion ECG: NSR 75bpm, LVH CXR: Cardiomegaly MRI A/P: uterined fibroids, uterine mass, polypoid bladder mass Selected Entries 02/21/17 02/21/17 02/22/17 19:00 22:00 06:00 Temperature 98.5 F Blood Pressure 164/90 187/79 160/79 O2 Sat by Pulse 97 Oximetry (%) Laboratory Tests 02/15/17 02/21/17 02/21/17 19:30 08:15 08:15 WBC 10.9 H Hgb 9.8 L Plt Count 230 Potassium 4.1 Creatinine 7.1 H D Total Bilirubin 0.3 AST 20 ALT 23 Alkaline Phosphatase 110 D Hepatitis A Ab Total Negative Hep Bs Antigen Negative Hep Bs Antibody Non reactive Hep B Core Total Ab Negative Hepatitis C Antibody <0.1 IMP: ESRD on HD Chronic HTN Uterine and bladder masses Anemia REC: BP remains above her goal of 140/90, low dose amlodipine added yesterday. Will switch Ca2+ anjelica to Procardial XL a more potent and longer acting agent. Repeat echo to re-assess pericardial effusion noted in July
[2017-02-22] MEDS ORDERED: PT OWN MED DRAWER 7, Y5N ONE ×2 (09:59→21:24)
[2017-02-22] MEDS ORDERED: amLODIPine BESYLATE 2.5 MG TABLET (FP) PO SCH (10:00)
[2017-02-22] MEDS: PHENYTOIN NA EXTENDED 100 MG CAPSULE (FP) PO SCH ×2 (10:06→23:27)
[2017-02-22] MEDS: LABETALOL HCL 200 MG TABLET (FP) PO SCH ×2 (10:06→23:27)
[2017-02-22] MEDS: BUDESONIDE/FORMETEROL FUMARATE 160/4.5 mcg INHALER IH SCH ×2 (10:06→23:28)
[2017-02-22] MEDS: SEVELAMER CARBONATE 800 MG TAB (FP) PO SCH ×4 (10:06→23:28)
--- NOTE | 2017-02-22 14:22 | PN ---
Progress Note (short form) - Note Progress Note: Patient seen and examined Offers no specific complains. wanted to be dc.. HEENT: Blind Oropharynx: No thrush, No mucositis Breasts: Without masses Cor: RSR, No murmurs, No gallops Lungs: Clear to P&A Abd: Soft, Normal bowel sounds, No organomegaly Ext:No significant edema Skin: No rashes, Integument intact Temp Pulse Resp BP Pulse Ox 98.6 F 77 18 129/58 97 02/22/17 14:09 02/22/17 14:09 02/22/17 10:00 02/22/17 14:09 02/21/17 22:00 CBC, BMP 02/21/17 08:15 02/21/17 08:15 Current Medications Generic Name Dose Route Start Last Admin Trade Name Freq PRN Reason Stop Dose Admin Acetaminophen 650 mg 02/19/17 13:36 02/21/17 22:49 Tylenol - PO 650 mg Q4H PRN Administration FEVER OR PAIN Budesonide/Formoterol Fumarate 2 puff 02/14/17 22:00 02/22/17 10:06 Symbicort 160/4.5mcg - IH 2 puff BID CECILIO Administration Hydralazine HCl 100 mg 02/20/17 14:00 02/22/17 06:47 Apresoline - PO 100 mg TID CECILIO Administration Labetalol HCl 400 mg 02/14/17 22:00 02/22/17 10:06 Normodyne - PO 400 mg BID CECILIO Administration Nifedipine 30 mg 02/22/17 10:45 Procardia Xl - PO DAILY CECILIO Phenytoin Sodium 200 mg 02/14/17 22:00 02/22/17 10:06 Dilantin - PO 200 mg BID CECILIO Administration Sevelamer Carbonate 1,600 mg 02/14/17 22:00 02/22/17 10:06 Renvela - PO 1,600 mg QID CECILIO Administration Hx of renal cell ca - s/p left nephrectomy ESRD-H.D Anemia--s/p [address]-- hepatomegaly with defect and calcification ; Left adnexal mass ? 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
[2017-02-22] MEDS: NIFEdipine E.R. 30 MG TABLET (FP) PO SCH (15:13)
--- NOTE | 2017-02-22 18:23 | PN ---
Progress Note (short form) - Note Progress Note: Renal follow up for ESRD on HD Pt seen and examined at the bedside awake and alert no acute complaints no sob, chest pain, N/V/D Vital Signs Temperature 98.6 F 02/22/17 14:09 Pulse Rate 77 02/22/17 14:09 Respiratory Rate 18 02/22/17 10:00 Blood Pressure 129/58 02/22/17 14:09 O2 Sat by Pulse Oximetry (%) 97 02/21/17 22:00 Intake & Output 02/19/17 02/20/17 02/21/17 02/22/17 23:59 23:59 23:59 23:59 Intake Total 615 1940 500 800 Balance 615 1940 500 800 Weight 117 lb NAD RRR, No M/R CTA soft NT/ND No edema in LE CBC, BMP 02/21/17 08:15 02/21/17 08:15 Current Medications Acetaminophen (Tylenol -) 650 mg PO Q4H PRN PRN Reason: FEVER OR PAIN Last Admin: 02/21/17 22:49 Dose: 650 mg Budesonide/Formoterol Fumarate (Symbicort 160/4.5mcg -) 2 puff IH BID [facility] Last Admin: 02/22/17 10:06 Dose: 2 puff Hydralazine HCl (Apresoline -) 100 mg PO TID [facility] Last Admin: 02/22/17 15:14 Dose: 100 mg Labetalol HCl (Normodyne -) 400 mg PO BID [facility] Last Admin: 02/22/17 10:06 Dose: 400 mg Nifedipine (Procardia Xl -) 30 mg PO DAILY [facility] Last Admin: 02/22/17 15:13 Dose: 30 mg Phenytoin Sodium (Dilantin -) 200 mg PO BID [facility] Last Admin: 02/22/17 10:06 Dose: 200 mg Sevelamer Carbonate (Renvela -) 1,600 mg PO QID [facility] Last Admin: 02/22/17 15:14 Dose: 1,600 mg A/P 61 year old woman with PMhx of ESRD on HD, RCC s/p Nephrecotmy, Hypertension, CHF, B/l cataracts with blindness who was sent from HD unit with Hgb of 5. Pt s/ p 2 units prbc transfusion last night off of dialysis. #Acute on Chronic Anemia Hgb stable over the past 72 hours no indication for transfusion at this time will continue DAISHA with HD #Bladder Mass seen on MRI on Abd Urology consult may need biopsy Oncology following #ESRD on Hd no indication for dialysis today next treatment tomorrow #Hypertension Continue Labetalol and Hydralazine #Renal osteodystrophy continue renvela trend phos levels d/c planning as per primary Thank you Jake Stringer DO Problem List - Problems (1) Anemia Code(s): D64.9 - ANEMIA, UNSPECIFIED (2) ESRD on hemodialysis Code(s): N18.6 - END STAGE RENAL DISEASE Z99.2 - DEPENDENCE ON RENAL DIALYSIS (3) Hypertension Code(s): I10 - ESSENTIAL (PRIMARY) HYPERTENSION Qualifiers: Hypertension type: essential hypertension Qualified Code(s): I10 - Essential (primary) hypertension; I10 - Essential (primary) hypertension; I10 - Essential (primary) hypertension
--- NOTE | 2017-02-22 20:08 | PN ---
Progress Note, Physician History of Present Illness: Spoke to pt at length about bladder mass wc I had already spoken to her about - Current Medication List Current Medications: Active Medications Acetaminophen (Tylenol -) 650 mg PO Q4H PRN PRN Reason: FEVER OR PAIN Last Admin: 02/21/17 22:49 Dose: 650 mg Budesonide/Formoterol Fumarate (Symbicort 160/4.5mcg -) 2 puff IH BID [facility] Last Admin: 02/22/17 10:06 Dose: 2 puff Epoetin Nick (Procrit -) 20,000 unit IVPUSH ONCE ONE Stop: 02/23/17 06:01 Hydralazine HCl (Apresoline -) 100 mg PO TID [facility] Last Admin: 02/22/17 15:14 Dose: 100 mg Labetalol HCl (Normodyne -) 400 mg PO BID [facility] Last Admin: 02/22/17 10:06 Dose: 400 mg Nifedipine (Procardia Xl -) 30 mg PO DAILY [facility] Last Admin: 02/22/17 15:13 Dose: 30 mg Phenytoin Sodium (Dilantin -) 200 mg PO BID [facility] Last Admin: 02/22/17 10:06 Dose: 200 mg Sevelamer Carbonate (Renvela -) 1,600 mg PO QID [facility] Last Admin: 02/22/17 18:23 Dose: 1,600 mg - Objective Vital Signs: Vital Signs Temperature 98.7 F 02/22/17 18:58 Pulse Rate 81 02/22/17 18:58 Respiratory Rate 18 02/22/17 18:58 Blood Pressure 154/92 02/22/17 18:58 O2 Sat by Pulse Oximetry (%) 97 02/22/17 10:00 Constitutional: Yes: No Distress Neck: Yes: WNL, Supple Cardiovascular: Yes: WNL, Regular Rate and Rhythm Respiratory: Yes: WNL, Regular, CTA Bilaterally Gastrointestinal: Yes: WNL, Normal Bowel Sounds, Soft Labs: CBC, BMP 02/21/17 08:15 02/21/17 08:15 INR, PTT INR 1.05 (0.82-1.09) 02/14/17 15:00 Problem List - Problems (1) Symptomatic anemia Assessment/Plan: S/P blood transfusions MRI abd showed: 1. bladder mass 2. uterine fibroid 3. 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 Follow stool hemoccult H/H stable Code(s): D64.9 - ANEMIA, UNSPECIFIED (2) Hypertension Assessment/Plan: Cont labetalol/hydralazine Meds being adjusted and procardia was added Check echo to evaluate for effusion Code(s): I10 - ESSENTIAL (PRIMARY) HYPERTENSION Qualifiers: Hypertension type: essential hypertension Qualified Code(s): I10 - Essential (primary) hypertension; I10 - Essential (primary) hypertension; I10 - Essential (primary) hypertension (3) ESRD on hemodialysis Assessment/Plan: Dialysis as per renal Code(s): N18.6 - END STAGE RENAL DISEASE Z99.2 - DEPENDENCE ON RENAL DIALYSIS (4) Seizure Code(s): R56.9 - UNSPECIFIED CONVULSIONS Qualifiers: Convulsion type: unspecified Qualified Code(s): R56.9 - Unspecified convulsions; R56.9 - Unspecified convulsions; R56.9 - Unspecified convulsions; R56.9 - Unspecified convulsions (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 (7) Headache Assessment/Plan: CT scan head unremarkable Code(s): R51 - HEADACHE
[2017-02-23] MEDS: hydrALAZINE HCL 50 MG TABLET (FP) PO SCH ×3 (06:50→22:50)
[2017-02-23] MEDS: BUDESONIDE/FORMETEROL FUMARATE 160/4.5 mcg INHALER IH SCH ×3 (06:56→22:51)
[2017-02-23] MEDS ORDERED: PT OWN MED DRAWER 7, Y5N ONE ×4 (07:31→23:15)
[2017-02-23] MEDS: ACETAMINOPHEN 325 MG TABLET (FP) PO PRN (08:15)
--- NOTE | 2017-02-23 09:05 | PN ---
Progress Note, Physician Chief Complaint: no distress, seen and examined in [place] History of Present Illness: BP trend improved - Current Medication List Current Medications: Active Medications Acetaminophen (Tylenol -) 650 mg PO Q4H PRN PRN Reason: FEVER OR PAIN Last Admin: 02/23/17 08:15 Dose: 650 mg Budesonide/Formoterol Fumarate (Symbicort 160/4.5mcg -) 2 puff IH BID [facility] Last Admin: 02/23/17 06:56 Dose: 2 puff Epoetin Nick (Procrit -) 20,000 unit IVPUSH ONCE ONE Stop: 02/23/17 06:01 Hydralazine HCl (Apresoline -) 100 mg PO TID [facility] Last Admin: 02/23/17 06:50 Dose: 100 mg Labetalol HCl (Normodyne -) 400 mg PO BID [facility] Last Admin: 02/22/17 23:27 Dose: 400 mg Nifedipine (Procardia Xl -) 30 mg PO DAILY [facility] Last Admin: 02/22/17 15:13 Dose: 30 mg Phenytoin Sodium (Dilantin -) 200 mg PO BID [facility] Last Admin: 02/22/17 23:27 Dose: 200 mg Sevelamer Carbonate (Renvela -) 1,600 mg PO QID [facility] Last Admin: 02/22/17 23:28 Dose: 1,600 mg - Objective Vital Signs: Vital Signs Temperature 98.8 F 02/23/17 06:00 Pulse Rate 80 02/23/17 06:00 Respiratory Rate 18 02/23/17 06:00 Blood Pressure 165/81 02/23/17 06:00 O2 Sat by Pulse Oximetry (%) 99 02/22/17 22:00 Constitutional: Yes: No Distress Cardiovascular: Yes: Regular Rate and Rhythm Respiratory: Yes: CTA Bilaterally Gastrointestinal: Yes: Soft Edema: No Neurological: Yes: Alert Labs: CBC, BMP 02/21/17 08:15 02/21/17 08:15 INR, PTT INR 1.05 (0.82-1.09) 02/14/17 15:00 Assessment/Plan IMP: ESRD on HD Chronic HTN Uterine and bladder masses Anemia REC: BP trend improving. Goal: 140/90, titrate Procardial XL to goal. Repeat echo to re-assess pericardial effusion noted in July
[2017-02-23] MEDS: LABETALOL HCL 200 MG TABLET (FP) PO SCH ×2 (10:00→22:50)
[2017-02-23] MEDS: SEVELAMER CARBONATE 800 MG TAB (FP) PO SCH ×4 (10:00→23:33)
[2017-02-23] MEDS: PHENYTOIN NA EXTENDED 100 MG CAPSULE (FP) PO SCH ×2 (11:17→22:50)
[2017-02-23 12:27] LABS: MCH 31.5 pg (25.7-33.7); MCHC 33.5 g/dl (32.0-36.0); MEAN PLT VOLUME 7.3 fl (7.5-11.1); PLATELET COUNT 228 K/MM3 (134-434); RDW 16.9 % (11.6-15.6); WHITE BLOOD COUNT 8.8 K/mm3 (4.0-10.0)
[2017-02-23 12:55] LABS: ANION GAP 10 (8-16); CALCIUM 7.9 mg/dL (8.5-10.1); CO2 30 mmol/L (21-32); CREATININE 6.4 mg/dL (0.55-1.02); GLUCOSE,RANDOM 123 mg/dL (74-106); PHOSPHOROUS 3.4 mg/dL (2.5-4.9)
[2017-02-23] MEDS ORDERED: EPOETIN ALFA 10,000 UNIT/1 ML VIAL IVPUSH ONE (14:00)
--- NOTE | 2017-02-23 15:49 | PN ---
Progress Note (short form) - Note Progress Note: Renal follow up for ESRD on HD Pt seen and examined during dialysis awake and alert no acute complaints no sob, chest pain Vital Signs Temperature 98.4 F 02/23/17 11:55 Pulse Rate 80 02/23/17 15:00 Respiratory Rate 18 02/23/17 15:00 Blood Pressure 157/80 02/23/17 15:00 O2 Sat by Pulse Oximetry (%) 99 02/22/17 22:00 Intake & Output 02/20/17 02/21/17 02/22/17 02/23/17 23:59 23:59 23:59 23:59 Intake Total 1446 516 6021 350 Balance 8962 863 0020 350 Weight 117 lb 115 lb 12.8 oz NAD RRR, No M/R CTA soft NT/ND No edema in LE CBC, BMP 02/23/17 12:16 02/23/17 12:16 Current Medications Acetaminophen (Tylenol -) 650 mg PO Q4H PRN PRN Reason: FEVER OR PAIN Last Admin: 02/23/17 08:15 Dose: 650 mg Budesonide/Formoterol Fumarate (Symbicort 160/4.5mcg -) 2 puff IH BID [facility] Last Admin: 02/23/17 06:56 Dose: 2 puff Hydralazine HCl (Apresoline -) 100 mg PO TID [facility] Last Admin: 02/23/17 06:50 Dose: 100 mg Labetalol HCl (Normodyne -) 400 mg PO BID [facility] Last Admin: 02/22/17 23:27 Dose: 400 mg Nifedipine (Procardia Xl -) 30 mg PO DAILY [facility] Last Admin: 02/22/17 15:13 Dose: 30 mg Phenytoin Sodium (Dilantin -) 200 mg PO BID [facility] Last Admin: 02/23/17 11:17 Dose: 200 mg Sevelamer Carbonate (Renvela -) 1,600 mg PO QID [facility] Last Admin: 02/22/17 23:28 Dose: 1,600 mg A/P 61 year old woman with PMhx of ESRD on HD, RCC s/p Nephrecotmy, Hypertension, CHF, B/l cataracts with blindness who was sent from HD unit with Hgb of 5. Pt s/ p 2 units prbc transfusion last night off of dialysis. #Acute on Chronic Anemia Hgb stable over the past 4 days #Bladder Mass seen on MRI on Abd Urology consult may need biopsy Oncology following ABd US noted, showing complex lesions in the kidney if pt need further imaging can consider CT with IV contrast #ESRD on Hd tolerating dialysis well today #Hypertension Continue Labetalol and Hydralazine #Renal osteodystrophy continue renvela trend phos levels d/c planning as per primary Thank you Jake Stringer DO Problem List - Problems (1) Anemia Code(s): D64.9 - ANEMIA, UNSPECIFIED (2) ESRD on hemodialysis Code(s): N18.6 - END STAGE RENAL DISEASE Z99.2 - DEPENDENCE ON RENAL DIALYSIS (3) Hypertension Code(s): I10 - ESSENTIAL (PRIMARY) HYPERTENSION Qualifiers: Hypertension type: essential hypertension Qualified Code(s): I10 - Essential (primary) hypertension; I10 - Essential (primary) hypertension; I10 - Essential (primary) hypertension
[2017-02-23] MEDS: NIFEdipine E.R. 30 MG TABLET (FP) PO SCH (16:14)
--- NOTE | 2017-02-23 16:36 | PN ---
Progress Note (short form) - Note Progress Note: Patient sen and examined no complaints Last Vital Signs Temp Pulse Resp BP Pulse Ox 98.4 F 84 18 152/68 98 02/23/17 11:55 02/23/17 16:01 02/23/17 16:01 02/23/17 16:01 02/23/17 09:30 Cor: RSR, No murmurs, No gallops Lungs: Clear to P&A Abd: Soft, Normal bowel sounds, No organomegaly Ext:No significant edema Skin: No rashes, Integument intact Abnormal Lab Results 02/23/17 02/23/17 12:16 12:16 RBC 3.06 L Hgb 9.7 L Hct 28.8 L RDW 16.9 H MPV 7.3 L Sodium 135 L Chloride 95 L BUN 42 H D Creatinine 6.4 H Random Glucose 123 H Calcium 7.9 L Home Medication List Medication Instructions Recorded Confirmed Type Phenytoin Na Extended [Dilantin -] 200 mg PO BID 07/28/16 02/15/17 History Budesonide/Formeterol Fumarate 2 inh PO BID 02/14/17 02/14/17 History [SYMBICORT 160/4.5mcg -] Sevelamer Carbonate [Renvela] 1,600 mg PO QID 02/14/17 02/14/17 History Clonidine HCl 0.1 mg PO BID 02/18/17 02/18/17 History Active Medications Generic Name Dose Route Start Last Admin Trade Name Freq PRN Reason Stop Dose Admin Acetaminophen 650 mg 02/19/17 13:36 02/23/17 08:15 Tylenol - PO 650 mg Q4H PRN Administration FEVER OR PAIN Budesonide/Formoterol Fumarate 2 puff 02/14/17 22:00 02/23/17 16:11 Symbicort 160/4.5mcg - IH Not Given BID CECILIO Hydralazine HCl 100 mg 02/20/17 14:00 02/23/17 16:14 Apresoline - PO 100 mg TID CECILIO Administration Labetalol HCl 400 mg 02/14/17 22:00 02/23/17 10:00 Normodyne - PO Not Given BID CECILIO Nifedipine 30 mg 02/22/17 10:45 02/23/17 16:14 Procardia Xl - PO 30 mg DAILY CECILIO Administration Phenytoin Sodium 200 mg 02/14/17 22:00 02/23/17 11:17 Dilantin - PO 200 mg BID CECILIO Administration Sevelamer Carbonate 1,600 mg 02/14/17 22:00 02/23/17 14:00 Renvela - PO Not Given QID CECILIO A/P 61 y/o female with Hx of renal cell ca - s/p left nephrectomy ESRD-H.D Anemia--s/p [address]-- hepatomegaly with defect and calcification ; Left adnexal mass ? pedunculated leiomyoma _ no obvious bleeding on non contrast CT into fibroid Right renal masses with calcification fibroids bladder polyp---awaiting urology Blind HBP Pericardial effusion discussed with patient in detail discussed the need to f/u with GOLD CHARMER/GI teams
--- NOTE | 2017-02-23 18:15 | CON.GU ---
Consult - History of Present Illness History of Present Illness: 61 yo female with ESRD on HD, admitted with anemia. Pt has history significant for RCC s/p left nephrectomy and rt partial nx many years ago. Recent MRI nooted to have possible 1.5cm bladder mass. 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 - Past Surgical History Past Surgical History: Yes: AV Fistula/Graft, , Nephrectomy (right nephrectomy and left partial nephrectomy) - Alcohol/Substance Use Hx Alcohol Use: No History of Substance Use: reports: None - Smoking History Smoking history: Current some day smoker Have you smoked in the past 12 months: Yes Aproximately how many cigarettes per day: 15 - Social History Usual Living Arrangement: With Spouse ADL: Family Assistance History of Recent Travel: No Home Medications - Allergies Allergies/Adverse Reactions: Allergies Allergy/AdvReac Type Severity Reaction Status Date / Time codeine Allergy Severe Verified 02/14/17 14:53 - Home Medications Home Medications: Ambulatory Orders Phenytoin Na Extended [Dilantin -] 200 mg PO BID 07/28/16 Hydralazine HCl [Apresoline -] 100 mg PO TID #90 tablet 08/04/16 Labetalol HCl [Normodyne -] 400 mg PO BID #60 tablet 08/04/16 Budesonide/Formeterol Fumarate [SYMBICORT 160/4.5mcg -] 2 inh PO BID 02/14/17 Sevelamer Carbonate [Renvela] 1,600 mg PO QID 02/14/17 Clonidine HCl 0.1 mg PO BID 02/18/17 Family Disease History - Family Disease History Family Disease History: Other: Father (HTN), Mother (HTN) Physical Exam- Vital Signs: Vital Signs Temperature 98.4 F 02/23/17 11:55 Pulse Rate 84 02/23/17 16:01 Respiratory Rate 18 02/23/17 16:01 Blood Pressure 152/68 02/23/17 16:01 O2 Sat by Pulse Oximetry (%) 98 02/23/17 09:30 Labs: CBC, BMP 02/23/17 12:16 02/23/17 12:16 Imaging - Results Cat Scan: Image Reviewed MRI: Report Reviewed Problem List - Problems (1) Bladder mass Assessment/Plan: patient will require cystoscopy. Offered in house versus outpt, pt prefers latter. Will plan for Monday in office, number given Code(s): N32.89 - OTHER SPECIFIED DISORDERS OF BLADDER
--- NOTE | 2017-02-23 21:21 | PN ---
Progress Note, Physician History of Present Illness: No new changes - Current Medication List Current Medications: Active Medications Acetaminophen (Tylenol -) 650 mg PO Q4H PRN PRN Reason: FEVER OR PAIN Last Admin: 02/23/17 08:15 Dose: 650 mg Budesonide/Formoterol Fumarate (Symbicort 160/4.5mcg -) 2 puff IH BID [facility] Last Admin: 02/23/17 16:11 Dose: Not Given Hydralazine HCl (Apresoline -) 100 mg PO TID [facility] Last Admin: 02/23/17 16:14 Dose: 100 mg Labetalol HCl (Normodyne -) 400 mg PO BID [facility] Last Admin: 02/23/17 10:00 Dose: Not Given Nifedipine (Procardia Xl -) 30 mg PO DAILY [facility] Last Admin: 02/23/17 16:14 Dose: 30 mg Phenytoin Sodium (Dilantin -) 200 mg PO BID [facility] Last Admin: 02/23/17 11:17 Dose: 200 mg Sevelamer Carbonate (Renvela -) 1,600 mg PO QID [facility] Last Admin: 02/23/17 18:49 Dose: 1,600 mg - Objective Vital Signs: Vital Signs Temperature 98.0 F 02/23/17 19:00 Pulse Rate 88 02/23/17 19:00 Respiratory Rate 20 02/23/17 19:00 Blood Pressure 161/79 02/23/17 19:00 O2 Sat by Pulse Oximetry (%) 98 02/23/17 09:30 Constitutional: Yes: No Distress Neck: Yes: WNL, Supple Cardiovascular: Yes: WNL, Regular Rate and Rhythm Respiratory: Yes: WNL, Regular, CTA Bilaterally Gastrointestinal: Yes: WNL, Normal Bowel Sounds, Soft Labs: CBC, BMP 02/23/17 12:16 02/23/17 12:16 INR, PTT INR 1.05 (0.82-1.09) 02/14/17 15:00 Problem List - Problems (1) Symptomatic anemia Assessment/Plan: S/P blood transfusions MRI abd showed: 1. bladder mass 2. uterine fibroid 3. hemochromatosis Uro consult noted Pt to f/u w/ uro on monday for cystoscopy Will speak to pt's daughter in am about need for close f/u Pt also to f/u w/ [employer]OUN[employer]ELT SUPERVISOR as outpt DC planning for am Code(s): D64.9 - ANEMIA, UNSPECIFIED (2) Hypertension Assessment/Plan: Cont labetalol/hydralazine/procardia Code(s): I10 - ESSENTIAL (PRIMARY) HYPERTENSION Qualifiers: Hypertension type: essential hypertension Qualified Code(s): I10 - Essential (primary) hypertension; I10 - Essential (primary) hypertension; I10 - Essential (primary) hypertension (3) ESRD on hemodialysis Code(s): N18.6 - END STAGE RENAL DISEASE Z99.2 - DEPENDENCE ON RENAL DIALYSIS (4) Seizure Assessment/Plan: Cont phenytoin Code(s): R56.9 - UNSPECIFIED CONVULSIONS Qualifiers: Convulsion type: unspecified Qualified Code(s): R56.9 - Unspecified convulsions; R56.9 - Unspecified convulsions; R56.9 - Unspecified convulsions; R56.9 - Unspecified convulsions (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 (7) Headache Code(s): R51 - HEADACHE
[2017-02-24] MEDS: hydrALAZINE HCL 50 MG TABLET (FP) PO SCH (06:34)
[2017-02-24 08:51] LABS: BASOPHIL 0.8 % (0-2.0); EOSINOPHIL 3.4 % (0-4.5); MCH 31.8 pg (25.7-33.7); MCHC 33.5 g/dl (32.0-36.0); MEAN CELL VOLUME 94.9 fl (80-96); MEAN PLT VOLUME 7.1 fl (7.5-11.1); NEUTROPHILS 68.6 % (42.8-82.8); PLATELET COUNT 224 K/MM3 (134-434); RDW 17.5 % (11.6-15.6); WHITE BLOOD COUNT 9.2 K/mm3 (4.0-10.0)
[2017-02-24 09:17] LABS: ALBUMIN 2.6 g/dl (3.4-5.0); ANION GAP 10 (8-16); CALCIUM 7.7 mg/dL (8.5-10.1); CO2 31 mmol/L (21-32); GLUCOSE,RANDOM 94 mg/dL (74-106); MAGNESIUM 2.4 mg/dL (1.8-2.4)
[2017-02-24 09:21] LABS: ALK PHOS 102 U/L (45-117); BILIRUBIN,TOTAL 0.4 mg/dL (0.2-1.0); CREATININE 4.3 mg/dL (0.55-1.02); PHOSPHOROUS 2.8 mg/dL (2.5-4.9); SGOT/AST 16 U/L (15-37); SGPT/ALT 23 U/L (12-78); TOT PROT 5.9 g/dl (6.4-8.2)
[2017-02-24] MEDS: LABETALOL HCL 200 MG TABLET (FP) PO SCH (09:39)
[2017-02-24] MEDS: NIFEdipine E.R. 30 MG TABLET (FP) PO SCH (09:39)
[2017-02-24] MEDS: ACETAMINOPHEN 325 MG TABLET (FP) PO PRN (09:40)
[2017-02-24] MEDS: PHENYTOIN NA EXTENDED 100 MG CAPSULE (FP) PO SCH (09:40)
[2017-02-24] MEDS: BUDESONIDE/FORMETEROL FUMARATE 160/4.5 mcg INHALER IH SCH (09:40)
[2017-02-24] MEDS: SEVELAMER CARBONATE 800 MG TAB (FP) PO SCH (10:01)
--- NOTE | 2017-02-24 13:22 | PN ---
Progress Note (short form) - Note Progress Note: Patient seen and examined no complaints Last Vital Signs Temp Pulse Resp BP Pulse Ox 99.1 F 78 18 164/87 95 02/24/17 06:00 02/24/17 10:00 02/24/17 10:00 02/24/17 10:00 02/23/17 22:00 Cor: RSR, No murmurs, No gallops Lungs: Clear to P&A Abd: Soft, Normal bowel sounds, No organomegaly Ext:No significant edema Skin: No rashes, Integument intact Abnormal Lab Results 02/24/17 02/24/17 07:12 07:12 RBC 3.34 L Hgb 10.6 L Hct 31.8 L RDW 17.5 H MPV 7.1 L Monocytes % 12.8 H Chloride 97 L BUN 26 H D Creatinine 4.3 H D Calcium 7.7 L Total Protein 5.9 L Albumin 2.6 L Home Medication List Medication Instructions Recorded Confirmed Type Phenytoin Na Extended [Dilantin -] 200 mg PO BID 07/28/16 02/15/17 History Budesonide/Formeterol Fumarate 2 inh PO BID 02/14/17 02/14/17 History [SYMBICORT 160/4.5mcg -] Sevelamer Carbonate [Renvela] 1,600 mg PO QID 02/14/17 02/14/17 History Clonidine HCl 0.1 mg PO BID 02/18/17 02/18/17 History Active Medications Generic Name Dose Route Start Last Admin Trade Name Freq PRN Reason Stop Dose Admin Acetaminophen 650 mg 02/19/17 13:36 02/24/17 09:40 Tylenol - PO 650 mg Q4H PRN Administration FEVER OR PAIN Budesonide/Formoterol Fumarate 2 puff 02/14/17 22:00 02/24/17 09:40 Symbicort 160/4.5mcg - IH 2 puff BID CECILIO Administration Hydralazine HCl 100 mg 02/20/17 14:00 02/24/17 06:34 Apresoline - PO 100 mg TID CECILIO Administration Labetalol HCl 400 mg 02/14/17 22:00 02/24/17 09:39 Normodyne - PO 400 mg BID CECILIO Administration Nifedipine 30 mg 02/22/17 10:45 02/24/17 09:39 Procardia Xl - PO 30 mg DAILY CECILIO Administration Phenytoin Sodium 200 mg 02/14/17 22:00 02/24/17 09:40 Dilantin - PO 200 mg BID CECILIO Administration Sevelamer Carbonate 1,600 mg 02/14/17 22:00 02/24/17 10:01 Renvela - PO 1,600 mg QID CECILIO Administration A/P 61 y/o female with Hx of renal cell ca - s/p left nephrectomy ESRD-H.D Anemia--s/p [address]-- hepatomegaly with defect and calcification ; Left adnexal mass ? pedunculated leiomyoma -- no obvious bleeding on non contrast CT into fibroid Right renal masses with calcification fibroids bladder polyp---awaiting urology Blind HBP discussed the need to f/u with SEED EXPERT/GI /GUteams
[2017-02-24 14:38] VITALS: BP 143/87; PULSE 79; TEMP 98.8
--- NOTE | 2017-02-24 15:37 | PN ---
Progress Note (short form) - Note Progress Note: Renal follow up for ESRD on HD Pt seen and examined at the bedside awake and alert no acute complaints no SOB, chest pain, abd pain, N/v/D s/p dialysis yesterday Vital Signs Temperature 98.8 F 02/24/17 14:36 Pulse Rate 79 02/24/17 14:36 Respiratory Rate 18 02/24/17 10:00 Blood Pressure 143/87 02/24/17 14:36 O2 Sat by Pulse Oximetry (%) 95 02/23/17 22:00 Intake & Output 02/21/17 02/22/17 02/23/17 02/24/17 23:59 23:59 23:59 23:59 Intake Total 500 1200 1120 825 Output Total 0 Balance 500 1200 1120 825 Weight 117 lb 115 lb 12.8 oz 115 lb 1.6 oz NAD RRR, No M/R CTA soft NT/ND No edema in LE CBC, BMP 02/24/17 07:12 02/24/17 07:12 Current Medications Acetaminophen (Tylenol -) 650 mg PO Q4H PRN PRN Reason: FEVER OR PAIN Last Admin: 02/24/17 09:40 Dose: 650 mg Budesonide/Formoterol Fumarate (Symbicort 160/4.5mcg -) 2 puff IH BID [facility] Last Admin: 02/24/17 09:40 Dose: 2 puff Hydralazine HCl (Apresoline -) 100 mg PO TID [facility] Last Admin: 02/24/17 06:34 Dose: 100 mg Labetalol HCl (Normodyne -) 400 mg PO BID [facility] Last Admin: 02/24/17 09:39 Dose: 400 mg Nifedipine (Procardia Xl -) 30 mg PO DAILY [facility] Last Admin: 02/24/17 09:39 Dose: 30 mg Phenytoin Sodium (Dilantin -) 200 mg PO BID [facility] Last Admin: 02/24/17 09:40 Dose: 200 mg Sevelamer Carbonate (Renvela -) 1,600 mg PO QID [facility] Last Admin: 02/24/17 10:01 Dose: 1,600 mg A/P 61 year old woman with PMhx of ESRD on HD, RCC s/p Nephrecotmy, Hypertension, CHF, B/l cataracts with blindness who was sent from HD unit with Hgb of 5. Pt s/ p 2 units prbc transfusion last night off of dialysis. #Acute on Chronic Anemia Hgb remains stable #Bladder Mass seen on MRI on Abd seen by urology, for cysto as outpatient this coming monday #ESRD on Hd next dialysis is planned for tomorrow as outpatient #Hypertension Continue Labetalol and Hydralazine #Renal osteodystrophy continue renvela trend phos levels d/c planning as per primary Thank you Jake Stringer DO Problem List - Problems (1) Anemia Code(s): D64.9 - ANEMIA, UNSPECIFIED (2) ESRD on hemodialysis Code(s): N18.6 - END STAGE RENAL DISEASE Z99.2 - DEPENDENCE ON RENAL DIALYSIS (3) Hypertension Code(s): I10 - ESSENTIAL (PRIMARY) HYPERTENSION Qualifiers: Hypertension type: essential hypertension Qualified Code(s): I10 - Essential (primary) hypertension; I10 - Essential (primary) hypertension; I10 - Essential (primary) hypertension
--- NOTE | 2017-02-26 16:36 | DS ---
Physical Examination Vital Signs: Vital Signs Temperature 98.8 F 02/24/17 14:36 Pulse Rate 79 02/24/17 14:36 Respiratory Rate 18 02/24/17 10:00 Blood Pressure 143/87 02/24/17 14:36 O2 Sat by Pulse Oximetry (%) 95 02/24/17 10:00 Labs: CBC, BMP 02/24/17 07:12 02/24/17 07:12 Discharge Summary Reason For Visit: ANEMIA Current Active Problems Acute serous otitis media of both ears (Acute) Anxiety (Acute) Chronic diastolic (congestive) heart failure (Acute) Hearing loss (Acute) Hypertension (Acute) Poor appetite (Acute) Thyroid enlargement (Acute) Weakness (Acute) End stage renal disease (Chronic) - Instructions Diet, Activity, Other Instructions: 2 gram sodium and renal diet See Dr Gaines on Monday Please Dr Morrow next week to follow up on results [phone] Disposition: VNS/HOME HEALTH CARE - Home Medications Comprehensive Discharge Medication List: Ambulatory Orders Hydralazine HCl [Apresoline -] 100 mg PO TID #90 tablet 08/04/16 Labetalol HCl [Normodyne -] 400 mg PO BID #60 tablet 08/04/16 Budesonide/Formeterol Fumarate [SYMBICORT 160/4.5mcg -] 2 inh PO BID 02/14/17 Sevelamer Carbonate [Renvela -] 1,600 mg PO QID 02/14/17 Clonidine HCl 0.1 mg PO BID 02/18/17 Hydralazine HCl [Apresoline -] 100 mg PO TID tablet 02/24/17 Nifedipine ER [Procardia XL -] 30 mg PO DAILY #30 tab 02/24/17 Phenytoin Na Extended [Dilantin -] 200 mg PO BID #30 cap 02/24/17
== END 2017-02-24 15:51 | disposition home health service (06) | DRG 291 ==
LOC: JER 13:56 → JERBED 15:38 → J5S 17:10
PROVIDERS: ADMIT Internal Medicine; ATTEND Internal Medicine
PROC: 30233N1 Transfusion of Nonautologous Red Blood Cells into Peripheral Vein, Percutaneous Approach (ICD-10-PCS; 2017-02-14)
PROC: 5A1D70Z Performance of Urinary Filtration, Intermittent, Less than 6 Hours Per Day (ICD-10-PCS; 2017-02-15)
PROC: 0DD68ZX Extraction of Stomach, Via Natural or Artificial Opening Endoscopic, Diagnostic (ICD-10-PCS; 2017-02-20)
PROC: 0DJD8ZZ Inspection of Lower Intestinal Tract, Via Natural or Artificial Opening Endoscopic (ICD-10-PCS; 2017-02-20)
PROC: 0DD98ZX Extraction of Duodenum, Via Natural or Artificial Opening Endoscopic, Diagnostic (ICD-10-PCS; principal; 2017-02-20 07:30)
DX: I13.2 Hypertensive heart and chronic kidney disease with heart failure and with stage 5 chronic kidney disease, or end stage renal disease (principal); N18.6 End stage renal disease; G40.802 Other epilepsy, not intractable, without status epilepticus; I31.3 Pericardial effusion (noninflammatory); K92.1 Melena; Z68.1 Body mass index [BMI] 19.9 or less, adult; I50.9 Heart failure, unspecified; D63.1 Anemia in chronic kidney disease; H54.3 Unqualified visual loss, both eyes; F17.210 Nicotine dependence, cigarettes, uncomplicated; D25.9 Leiomyoma of uterus, unspecified; K57.90 Diverticulosis of intestine, part unspecified, without perforation or abscess without bleeding; K64.8 Other hemorrhoids; K44.9 Diaphragmatic hernia without obstruction or gangrene; K29.60 Other gastritis without bleeding; K25.9 Gastric ulcer, unspecified as acute or chronic, without hemorrhage or perforation; N32.89 Other specified disorders of bladder; E83.118 Other hemochromatosis; R16.0 Hepatomegaly, not elsewhere classified; Z90.5 Acquired absence of kidney; Z85.53 Personal history of malignant neoplasm of renal pelvis; Z99.2 Dependence on renal dialysis
CPT/HCPCS: 36415; 36430; 70450-TC; 71020-TC; 72195-TC; 74176-TC; 74181-TC; 76705-TC; 80048; 80053; 82272; 82378; 82607; 82728; 82747; 83010; 83540; 83550; 83615; 83735; 84100; 84439; 84443; 85014; 85025; 85027; 85610; 85730; 86304; 86704; 86706; 86708; 86803; 86850; 86880; 86900; 86901; 86922; 87340; 88305-TC; 93005; 93010; 93306-TC; 97116-GP; 97161-GP; 99284-25; J0885; P9038; P9058

== ENCOUNTER 2017-04-06 05:58 | Inpatient (IN) | payer OTHER ==
--- NOTE | 2017-04-06 06:25 | PDOC ---
History of Present Illness - General Exam Limitations: No Limitations - History of Present Illness Initial Comments: 04/06/17 07:00 Patient is a 61 year old female with a significant past medical history of ESRD (on HD ,,Mon), HTN, Renal CA (s/p nephrectomies), blindness, anemia, HTN and seizure dz who presents to the ED for admittance. Patient was referred to the ED by Dr. Mims for bladder resection that is scheduled to occur later this morning. As Per physician, patient is to be dialyzed before the procedure is to take place. Patient currently has no other complaints at this time. Denies chest pain, SOB. Denies fever, chills. Denies nausea, vomiting. Denies dysuria, hematuria, constipation, diarrhea. Denies any other symptoms. Allergies: Codeine. Social history: Current smoker (15 cigarettes per day). No alcohol. No illicit drugs. Surgical history: AV Fistula/Graft, Nephrectomy (right nephrectomy and left partial nephrectomy) PMD: Dr. Morrow. <Neo Yung - Last Filed: 04/06/17 07:00> - General History Source: Patient <Dick Livingston - Last Filed: 04/06/17 19:50> - General Stated Complaint: BLADDER PROBLEM Time Seen by Provider: 04/06/17 06:22 Past History <Neo Yung - Last Filed: 04/06/17 07:00> - Past Medical History Anemia: Yes Asthma: No Cancer: Yes (renal cell ca) Cardiac Disorders: No CVA: No COPD: No CHF: No Dementia: No Diabetes: No Dialysis: Yes () GI Disorders: Yes (REFLUX) Disorders: Yes (DIALYSIS ,,[facility]) HTN: Yes Hypercholesterolemia: No Liver Disease: No Seizures: Yes (2 YEARS AGO) Thyroid Disease: No - Surgical History Abdominal Surgery: No Appendectomy: No Cardiac Surgery: No Cholecystectomy: Yes Lung Surgery: No Neurologic Surgery: No Orthopedic Surgery: No - Immunization History Immunization Up to Date: Yes - Suicide/Smoking/Psychosocial Hx Smoking Status: Yes Smoking History: Current some day smoker Have you smoked in the past 12 months: Yes Number of Cigarettes Smoked Daily: 10 'Breaking Loose' booklet given: 04/05/17 Hx Alcohol Use: No Drug/Substance Use Hx: No Substance Use Type: None Hx Substance Use Treatment: No <Dick Livingston - Last Filed: 04/06/17 19:50> - Past Medical History Allergies/Adverse Reactions: Allergies Allergy/AdvReac Type Severity Reaction Status Date / Time codeine Allergy Severe Verified 04/06/17 06:30 Home Medications: Ambulatory Orders Labetalol HCl [Normodyne -] 400 mg PO BID #60 tablet 08/04/16 Hydralazine HCl [Apresoline -] 100 mg PO TID tablet 02/24/17 Losartan Potassium 100 mg PO DAILY 04/06/17 Nifedipine ER [Procardia XL -] 90 mg PO DAILY 04/06/17 Phenytoin Na Extended [Dilantin -] 100 mg PO BID 04/06/17 Spironolactone 50 mg PO DAILY 04/06/17 Review of Systems - Review of Systems Able to Perform ROS?: Yes Comments:: 04/06/17 07:01 CONSTITUTIONAL: Absent: fever, no chills, no fatigue EYES: Absent: visual changes ENT: Absent: ear pain, no sore throat CARDIOVASCULAR: Absent: chest pain, no palpitations RESPIRATORY: Absent: cough, no SOB GI: Absent: abdominal pain, no nausea, no vomiting, no constipation, no diarrhea GENITOURINARY: Absent: dysuria, no frequency, no hematuria MUSCULOSKELETAL: Absent: back pain, no arthralgia, no myalgia SKIN: Absent: rash All Other Systems: Reviewed and Negative <Neo Yung - Last Filed: 04/06/17 07:00> *Physical Exam - Vital Signs Last Vital Signs Temp Pulse Resp BP Pulse Ox 98.2 F 78 14 138/90 98 04/06/17 06:30 04/06/17 06:30 04/06/17 06:30 04/06/17 06:30 04/06/17 06:30 - Physical Exam Comments: 04/06/17 07:01 GENERAL: Well-appearing, well-nourished. No apparent distress. HEENT: +Bilateral cataract to both eyes. Normocephalic, atraumatic. PERRL, CARDIOVASCULAR: Normal S1, S2. Regular rate and rhythm. PULMONARY: Clear to auscultation bilaterally. ABDOMEN: Soft, non-distended, non-tender. EXTREMITIES: +AV fistula in upper left arm. +Bruit. +Thrill Normal ROM in all four extremities. No gross deformities. SKIN: Warm, dry. No rash NEUROLOGICAL: No focal neurological deficits. <Neo Yung - Last Filed: 04/06/17 07:00> ED Treatment Course - LABORATORY CBC & Chemistry Diagram: 04/06/17 07:00 04/06/17 07:00 <Dick Livingston - Last Filed: 04/06/17 19:50> Medical Decision Making - Medical Decision Making 04/06/17 19:50 Dr. Livingston: The scribe's documentation has been prepared under my direction and personally reviewed by me in its entirery. I confirm that the note above accurately reflects all work, treatment, procedures, and medical decision making performed by me. <Dick Livingston - Last Filed: 04/06/17 19:50> *DC/Admit/Observation/Transfer - Attestations Scribe Attestion: 04/06/17 07:02 Documentation prepared by Neo Yung, acting as medical fee clerk for Dick Livingston MD/DO. <Neo Yung - Last Filed: 04/06/17 07:00> - Discharge Dispostion Admit: Yes <Dick Livingston - Last Filed: 04/06/17 19:50> Diagnosis at time of Disposition: Bladder mass, End stage renal disease - Discharge Dispostion Condition at time of disposition: Stable
[2017-04-06 08:34] LABS: INR 1.04 (0.82-1.09); PROTHROMBIN TIME (PATIENT) 11.7 SEC (9.98-11.88)
[2017-04-06 08:36] LABS: BASO % 0.7 % (0-2.0); EOS % 4.4 % (0-4.5); LYMPH % 18.3 % (8-40); MCH 32.7 pg (25.7-33.7); MCHC 33.5 g/dl (32.0-36.0); MEAN CELL VOLUME 97.7 fl (80-96); MEAN PLT VOLUME 8.8 fl (7.5-11.1); MONO % 10.5 % (3.8-10.2); NEUT % 66.1 % (42.8-82.8); PLATELET COUNT 187 K/MM3 (134-434); RBC 3.37 M/mm3 (3.60-5.2); RDW 17.1 % (11.6-15.6); WHITE BLOOD COUNT 8.4 K/mm3 (4.0-10.0)
[2017-04-06 08:46] LABS: ALBUMIN 3.1 g/dl (3.4-5.0); ALK PHOS 94 U/L (45-117); ANION GAP 16 (8-16); BILIRUBIN,TOTAL 0.7 mg/dL (0.2-1.0); BLOOD UREA NITROGEN 62 mg/dL (7-18); CALCIUM 8.8 mg/dL (8.5-10.1); CHLORIDE 98 mmol/L (98-107); CO2 20 mmol/L (21-32); CREATININE 7.4 mg/dL (0.55-1.02); GLUCOSE,RANDOM 85 mg/dL (74-106); POTASSIUM 5.3 mmol/L (3.5-5.1); SGOT/AST 13 U/L (15-37); SGPT/ALT 22 U/L (12-78); SODIUM 134 mmol/L (136-145); TOT PROT 6.9 g/dl (6.4-8.2)
[2017-04-06] MEDS ORDERED: EPOETIN ALFA 10,000 UNIT/1 ML VIAL IVPUSH ONE (09:00)
[2017-04-06 10:43] LABS: HEMATOCRIT 33.1 % (32.4-45.2); HEMOGLOBIN 11.2 GM/dL (10.7-15.3); MCH 32.2 pg (25.7-33.7); MCHC 33.8 g/dl (32.0-36.0); MEAN CELL VOLUME 95.2 fl (80-96); MEAN PLT VOLUME 8.6 fl (7.5-11.1); PLATELET COUNT 192 K/MM3 (134-434); RBC 3.47 M/mm3 (3.60-5.2); RDW 16.7 % (11.6-15.6); WHITE BLOOD COUNT 7.3 K/mm3 (4.0-10.0)
--- NOTE | 2017-04-06 10:53 | CON.NEP ---
Consult Consult Specialty:: Nephrology Referred by:: Dr. Baum Reason for Consultation:: ESRD on HD - History of Present Illness Chief Complaint: Bladder mass History of Present Illness: 61 year old woman with PMhx of ESRD on HD (TTS), RCC s/p Nephrecotmy, Hypertension, CHF, B/l cataracts with blindness, Bladder mass admitted for bladder resection procedure. Pt was diagnosed with a bladder mass during her last admission. Pt without any acute complaints. Last dialysis was Monday w/o complication. Pt is currently on dialysis. Denies any sob, chest pain, abd pain , N/V/D. Reports some cramping on the left side of her abd periodically. 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 - Past Surgical History Past Surgical History: Yes: AV Fistula/Graft, , Nephrectomy (right nephrectomy and left partial nephrectomy) - Alcohol/Substance Use Hx Alcohol Use: No History of Substance Use: reports: None - Smoking History Smoking history: Current some day smoker Have you smoked in the past 12 months: Yes Aproximately how many cigarettes per day: 10 - Social History Usual Living Arrangement: With Spouse ADL: Family Assistance History of Recent Travel: No Home Medications - Allergies Allergies/Adverse Reactions: Allergies Allergy/AdvReac Type Severity Reaction Status Date / Time codeine Allergy Severe Verified 04/06/17 06:30 - Home Medications Home Medications: Ambulatory Orders Labetalol HCl [Normodyne -] 400 mg PO BID #60 tablet 08/04/16 Hydralazine HCl [Apresoline -] 100 mg PO TID tablet 02/24/17 Losartan Potassium 100 mg PO DAILY 04/06/17 Nifedipine ER [Procardia XL -] 90 mg PO DAILY 04/06/17 Phenytoin Na Extended [Dilantin -] 100 mg PO BID 04/06/17 Spironolactone 50 mg PO DAILY 04/06/17 Family Disease History - Family Disease History Family Disease History: Other: Father (HTN), Mother (HTN) Review of Systems - Review of Systems Constitutional: reports: No Symptoms Eyes: reports: No Symptoms HENT: reports: Gingival Bleeding Neck: reports: No Symptoms Cardiovascular: reports: No Symptoms Respiratory: reports: No Symptoms Gastrointestinal: reports: Other (abd cramping). denies: Abdominal Pain, Constipation, Diarrhea, Melena, Nausea, Vomiting Genitourinary: reports: No Symptoms Musculoskeletal: reports: No Symptoms Neurological: reports: No Symptoms Nephrology Consult - Height Height: 5 ft 7 in - Weight Weight: 52.163 kg - BMI Body Mass Index (BMI): 18.0 - Lab Results CBC,BMP: CBC, BMP 04/06/17 07:00 04/06/17 07:00 Anion Gap: Anion Gap Anion Gap 16 (8-16) 04/06/17 07:00 - Imaging Chest X-ray: Report Reviewed - Physical Examination Vital Signs: Vital Signs Temperature 98.2 F 04/06/17 06:30 Pulse Rate 78 04/06/17 06:30 Respiratory Rate 14 04/06/17 06:30 Blood Pressure 138/90 04/06/17 06:30 O2 Sat by Pulse Oximetry (%) 98 04/06/17 07:00 Constitutional: Yes: No Distress, Calm Eyes: Yes: Conjunctiva Clear HENT: Yes: Atraumatic, Normocephalic Neck: Yes: Supple Cardiovascular: Yes: Regular Rate and Rhythm Respiratory: Yes: Regular, CTA Bilaterally Gastrointestinal: Yes: Normal Bowel Sounds, Soft. No: Tenderness Renal/: No: Bladder Distention Access for Hemodialysis: AV Fistula Extremities: No: Cold, Cool, Cyanosis Edema: No Neurological: Yes: Alert, Oriented Problem List - Problems (1) Bladder mass Code(s): N32.89 - OTHER SPECIFIED DISORDERS OF BLADDER (2) End stage renal disease Code(s): N18.6 - END STAGE RENAL DISEASE (3) Chronic diastolic (congestive) heart failure Code(s): I50.32 - CHRONIC DIASTOLIC (CONGESTIVE) HEART FAILURE (4) ESRD on hemodialysis Code(s): N18.6 - END STAGE RENAL DISEASE; Z99.2 - DEPENDENCE ON RENAL DIALYSIS (5) Hypertension Code(s): I10 - ESSENTIAL (PRIMARY) HYPERTENSION Qualifiers: Assessment/Plan 61 year old woman with PMhx of ESRD on HD (TTS), RCC s/p Nephrecotmy, Hypertension, CHF, B/l cataracts with blindness, Bladder mass admitted for bladder resection procedure. #ESRD on HD Pt currently getting dialysis, tolerating it well BP is at goal UF is 2L as tolerated AVF with good flow Dose all meds for intermittent HD #Bladder mass for bladder resection this admission Urology follow up Pre-op care #Hypertension Continue home BP meds hold parameters for low BP Thank you Will follow Jake Stringer DO
[2017-04-06 11:09] LABS: ANION GAP 8 (8-16); BLOOD UREA NITROGEN 29 mg/dL (7-18); CHLORIDE 99 mmol/L (98-107); CO2 29 mmol/L (21-32); CREATININE 3.8 mg/dL (0.55-1.02); GLUCOSE,RANDOM 112 mg/dL (74-106); POTASSIUM 3.6 mmol/L (3.5-5.1); SODIUM 136 mmol/L (136-145)
[2017-04-06] MEDS ORDERED: MIDAZOLAM HCL 2 MG/2 ML SINGLE DOSE VIAL ONE (11:38)
[2017-04-06] MEDS ORDERED: ceFAZolin SODIUM 1 GM VIAL IVPB ONE (11:40)
[2017-04-06] MEDS ORDERED: ROCURONIUM BROMIDE 50 MG/5 ML VIAL ONE (11:44)
[2017-04-06] MEDS ORDERED: PROPOFOL 20 ML ONE (11:44)
--- NOTE | 2017-04-06 12:13 | OP ---
Operative Note - Note: Operative Date: 04/06/17 Pre-Operative Diagnosis: ant wall bladder tumor Operation: TURBT Findings: ant wall bladder tumor Post-Operative Diagnosis: Same as Pre-op Surgeon: Santiago Mims Anesthesia: General Specimens Removed: bladder tumor Estimated Blood Loss (mls): 2 Operative Report Dictated: Yes
--- NOTE | 2017-04-06 12:51 | EKG ---
Test Reason : Blood Pressure : / mmHG Vent. Rate : 075 BPM Atrial Rate : 075 BPM P-R Int : 150 ms QRS Dur : 086 ms QT Int : 424 ms P-R-T Axes : 066 017 057 degrees QTc Int : 473 ms NORMAL SINUS RHYTHM MINIMAL VOLTAGE CRITERIA FOR LVH, MAY BE NORMAL VARIANT BORDERLINE ECG WHEN COMPARED WITH ECG OF 20-FEB-2017 05:17, NO SIGNIFICANT CHANGE WAS FOUND Confirmed by INNA MCCARTNEY MD ([id number]) on 04/06/2017 12:50:45 PM Referred By: Confirmed By:INNA MCCARTNEY MD
--- NOTE | 2017-04-06 12:58 | OP ---
DATE OF OPERATION: PREOPERATIVE DIAGNOSIS: Bladder tumor. POSTOPERATIVE DIAGNOSIS: Medium-sized bladder tumor. PROCEDURE: Transurethral resection of the bladder tumor. SURGEON: Sanchez Wolf MD INDICATION: The patient is a 61-year-old female noted to have a bladder tumor. Offered TURBT. Risks, benefits, and alternatives discussed including the potential risk for bladder rupture and even potential even for additional procedures and potential inability to full completely eradicate the tumor. DESCRIPTION OF PROCEDURE: After informed consent was obtained, the patient was taken to the OR and placed supine on the operating room table. General anesthesia was then given. She was prepped and draped in the dorsal lithotomy position. A 26-sheath resectoscope was inserted without difficulty into the bladder. A papillary adhering medium-sized tumor was noted in the bladder on the anterior wall. This was resected in its entire and sent to Pathology for analysis as well as base of tumor. All of the tumor base was then fulgurated to its entirety. There was no evidence of any bleeding at the end of the procedure. The resectoscope was then removed. The patient was then awoken from anesthesia and transferred to the recovery room in stable condition. There were no complications. Estimated blood loss was minimal. SANCHEZ WOLF M.D. [id number]
[2017-04-06] MEDS ORDERED: ONDANSETRON 4 MG/2 ML VIAL IVPUSH PRN (14:09)
[2017-04-06] MEDS ORDERED: oxyCODONE HCL 5 MG TABLET PO PRN (14:09)
[2017-04-06] MEDS: hydrALAZINE HCL 25 MG TABLET (FP) PO SCH ×3 (15:50→22:15)
[2017-04-06 15:52] VITALS: BMI 18.6
--- NOTE | 2017-04-06 16:48 | HP ---
CHIEF COMPLAINT: PCP: Lj Morrow HISTORY OF PRESENT ILLNESS: 61 year old woman with PMH significant for ESRD on HD (TTS), RCC s/p nephrecotmy , hypertension, CHF, bilateral cataracts with blindness, and bladder mass admitted for bladder resection procedure. Pt was diagnosed with a bladder mass during her last admission. Pt without any acute complaints. Last dialysis was Monday w/o complication. Pt is currently on dialysis. Denies any sob, chest pain, abd pain, N/V/D. Reports some cramping on the left side of her abd periodically. Family history Mother and father hypertension Social history Current smoker Denies alcohol Denies illicits Allergies codeine Allergy (Severe, Verified 04/06/17 06:30) HOME MEDICATIONS: Home Medications Medication Instructions Recorded Labetalol HCl [Normodyne -] 400 mg PO BID #60 tablet 08/04/16 Hydralazine HCl [Apresoline -] 100 mg PO TID tablet 02/24/17 Losartan Potassium 100 mg PO DAILY 04/06/17 Nifedipine ER [Procardia XL -] 90 mg PO DAILY 04/06/17 Phenytoin Na Extended [Dilantin -] 100 mg PO BID 04/06/17 Spironolactone 50 mg PO DAILY 04/06/17 REVIEW OF SYSTEMS CONSTITUTIONAL: Absent: fever, chills, diaphoresis, generalized weakness, malaise, loss of appetite, weight change HEENT: Absent: rhinorrhea, nasal congestion, throat pain, throat swelling, difficulty swallowing, mouth swelling, ear pain, eye pain, visual changes CARDIOVASCULAR: Absent: chest pain, syncope, palpitations, irregular heart rate, lightheadedness , peripheral edema RESPIRATORY: Absent: cough, shortness of breath, dyspnea with exertion, orthopnea, wheezing, stridor, hemoptysis GASTROINTESTINAL: Absent: abdominal pain, abdominal distension, nausea, vomiting, diarrhea, constipation, melena, hematochezia GENITOURINARY: Present: Right flank pain Absent: dysuria, frequency, urgency, hesitancy, hematuria, flank pain, genital pain MUSCULOSKELETAL: Present left flank pain Absent: myalgia, arthralgia, joint swelling, back pain, neck pain SKIN: Absent: rash, itching, pallor HEMATOLOGIC/IMMUNOLOGIC: Absent: easy bleeding, easy bruising, lymphadenopathy, frequent infections ENDOCRINE: Absent: unexplained weight gain, unexplained weight loss, heat intolerance, cold intolerance NEUROLOGIC: Absent: headache, focal weakness or paresthesias, dizziness, unsteady gait, seizure, mental status changes, bladder or bowel incontinence PSYCHIATRIC: Absent: anxiety, depression, suicidal or homicidal ideation, hallucinations. PHYSICAL EXAMINATION Vital Signs - 24 hr 04/06/17 04/06/17 04/06/17 06:30 07:00 15:39 Temperature 98.2 F 98.5 F Pulse Rate 78 82 Respiratory 14 20 Rate Blood Pressure 138/90 149/74 O2 Sat by Pulse 98 98 Oximetry (%) 04/06/17 04/06/17 16:00 16:02 Temperature 98.8 F Pulse Rate 82 Respiratory 20 20 Rate Blood Pressure 149/76 O2 Sat by Pulse 98 Oximetry (%) GENERAL: Awake, alert, and fully oriented, in no acute distress. Thin, cachectic. HEAD: Normal with no signs of trauma. EYES: Pupils equal, round and reactive to light, extraocular movements intact, sclera anicteric, conjunctiva clear. No lid lag. EARS, NOSE, THROAT: Ears normal, nares patent, oropharynx clear without exudates. Moist mucous membranes. NECK: Normal range of motion, supple without lymphadenopathy, JVD, or masses. LUNGS: Breath sounds equal, clear to auscultation bilaterally. No wheezes, and no crackles. No accessory muscle use. HEART: Regular rate and rhythm, normal S1 and S2 without murmur, rub or gallop. ABDOMEN: Soft, nontender, not distended, normoactive bowel sounds, no guarding, no rebound, no masses. No hepatomegaly or splenomegaly. MUSCULOSKELETAL: Normal range of motion at all joints. No bony deformities or tenderness. No CVA tenderness. UPPER EXTREMITIES: 2+ pulses, warm, well-perfused. No cyanosis. No clubbing. No peripheral edema. LOWER EXTREMITIES: 2+ pulses, warm, well-perfused. No calf tenderness. No peripheral edema. NEUROLOGICAL: Cranial nerves II-XII intact. Normal speech. Normal gait. PSYCHIATRIC: Cooperative. Good eye contact. Appropriate mood and affect. SKIN: Warm, dry, normal turgor, no rashes or lesions noted, normal capillary refill. Laboratory Results - last 24 hr 04/06/17 04/06/17 04/06/17 07:00 07:00 07:00 WBC 8.4 RBC 3.37 L Hgb 11.0 Hct 33.0 MCV 97.7 H MCH 32.7 MCHC 33.5 RDW 17.1 H Plt Count 187 MPV 8.8 D Neutrophils % 66.1 Lymphocytes % 18.3 D Monocytes % 10.5 H Eosinophils % 4.4 Basophils % 0.7 PT with INR INR Sodium 134 L Potassium 5.3 H D Chloride 98 Carbon Dioxide 20 L D Anion Gap 16 BUN 62 H D Creatinine 7.4 H D Creat Clearance w eGFR 5.62 Random Glucose 85 Calcium 8.8 Total Bilirubin 0.7 D AST 13 L ALT 22 Alkaline Phosphatase 94 Total Protein 6.9 Albumin 3.1 L Blood Type O POSITIVE Antibody Screen Negative 04/06/17 07:57 WBC RBC Hgb Hct MCV MCH MCHC RDW Plt Count MPV Neutrophils % Lymphocytes % Monocytes % Eosinophils % Basophils % PT with INR 11.70 INR 1.04 Sodium Potassium Chloride Carbon Dioxide Anion Gap BUN Creatinine Creat Clearance w eGFR Random Glucose Calcium Total Bilirubin AST ALT Alkaline Phosphatase Total Protein Albumin Blood Type Antibody Screen Assessment/Plan 61 year old woman with PMH significant for HTN, CHF, ESRD on HD (TTS), renal cell carcinoma s/p nephrecotmy, bilateral cataracts with blindness, and blladder mass admitted for bladder resection procedure. ESRD on HD --received dialysis today prior to procedure Bladder mass s/p transurethral resection --underwent procedure, tolerated well --no signs of bleeding --ibuprofen PRN for pain Hypertension --BP under good control, continue home meds Visit type - Emergency Visit Emergency Visit: Yes ED Registration Date: 04/06/17 Care time: The patient presented to the Emergency Department on the above date and was hospitalized for further evaluation of their emergent condition. - New Patient This patient is new to me today: Yes Date on this admission: 04/07/17 - Critical Care Critical Care patient: No
[2017-04-06] MEDS ORDERED: IBUPROFEN 400 MG TABLET (FP) PO PRN ×2 (17:07→17:09)
[2017-04-06] MEDS ORDERED: LABETALOL HCL 200 MG TABLET (FP) PO SCH (22:00)
[2017-04-06] MEDS ORDERED: hydrALAZINE HCL 50 MG TABLET (FP) PO SCH (22:00)
[2017-04-06] MEDS: LABETALOL HCL 200 MG TABLET (FP) PO SCH (22:16)
[2017-04-06] MEDS: HEPARIN NA (PORCINE) 5,000 UNITS/ML 1ML VIAL SQ SCH (22:17)
[2017-04-06] MEDS ORDERED: PHENYTOIN NA EXTENDED 100 MG CAPSULE (FP) PO ONE (22:34)
[2017-04-07] MEDS: PHENYTOIN NA EXTENDED 100 MG CAPSULE (FP) PO SCH ×2 (00:33→11:31)
[2017-04-07] MEDS ORDERED: ACETAMINOPHEN 325 MG TABLET (FP) PO ONE ×2 (01:10→05:13)
[2017-04-07] MEDS: hydrALAZINE HCL 25 MG TABLET (FP) PO SCH ×2 (05:38→14:44)
[2017-04-07 06:08] LABS: HBSAG SCREEN Negative (Negative); HEP B CORE AB, TOT Negative (Negative)
[2017-04-07] MEDS ORDERED: ACETAMINOPHEN 325 MG TABLET (FP) PO PRN (07:41)
[2017-04-07 08:01] LABS: BASO % 0.4 % (0-2.0); EOS % 4.3 % (0-4.5); HEMATOCRIT 33.3 % (32.4-45.2); HEMOGLOBIN 11.2 GM/dL (10.7-15.3); LYMPH % 19.7 % (8-40); MCH 32.2 pg (25.7-33.7); MCHC 33.6 g/dl (32.0-36.0); MEAN CELL VOLUME 95.8 fl (80-96); MEAN PLT VOLUME 8.5 fl (7.5-11.1); MONO % 11.2 % (3.8-10.2); NEUT % 64.4 % (42.8-82.8); PLATELET COUNT 177 K/MM3 (134-434); RBC 3.48 M/mm3 (3.60-5.2); WHITE BLOOD COUNT 8.2 K/mm3 (4.0-10.0)
[2017-04-07 08:33] LABS: ALBUMIN 2.9 g/dl (3.4-5.0); ANION GAP 10 (8-16); CALCIUM 7.9 mg/dL (8.5-10.1); CHLORIDE 98 mmol/L (98-107); CO2 27 mmol/L (21-32); GLUCOSE,RANDOM 83 mg/dL (74-106); MAGNESIUM 2.2 mg/dL (1.8-2.4); POTASSIUM 4.2 mmol/L (3.5-5.1); SODIUM 135 mmol/L (136-145)
[2017-04-07 08:37] LABS: ALK PHOS 98 U/L (45-117); BILIRUBIN,TOTAL 0.6 mg/dL (0.2-1.0); BLOOD UREA NITROGEN 37 mg/dL (7-18); CREATININE 5.5 mg/dL (0.55-1.02); SGOT/AST 21 U/L (15-37); SGPT/ALT 14 U/L (12-78); TOT PROT 6.7 g/dl (6.4-8.2)
[2017-04-07] MEDS ORDERED: PT OWN MED DRAWER 7, Y5N ONE (09:02)
[2017-04-07] MEDS: LABETALOL HCL 200 MG TABLET (FP) PO SCH (09:20)
[2017-04-07] MEDS: HEPARIN NA (PORCINE) 5,000 UNITS/ML 1ML VIAL SQ SCH (09:21)
[2017-04-07] MEDS ORDERED: NIFEdipine E.R. 30 MG TABLET (FP) PO SCH (10:00)
[2017-04-07] MEDS ORDERED: LOSARTAN POTASSIUM 50 MG TABLET (FP) PO SCH (10:00)
[2017-04-07] MEDS ORDERED: NIFEdipine E.R. 90 MG TABLET (FP) PO SCH (10:00)
[2017-04-07] MEDS ORDERED: SPIRONOLACTONE 25 MG TABLET (FP) PO SCH ×2 (10:00)
[2017-04-07] MEDS ORDERED: PATIENT'S OWN MEDICATION (NON-FORMULARY) (Losartan Potassium [Losartan Potassium] 100 MG) PO SCH (10:00)
--- NOTE | 2017-04-07 10:47 | PN ---
Progress Note, Physician Chief Complaint: Pt resting comfortably, pain controlled, no GA complaints. - Current Medication List Current Medications: Active Medications Acetaminophen (Tylenol -) 325 mg PO Q6H PRN PRN Reason: FEVER OR PAIN Heparin Sodium (Porcine) (Heparin -) 5,000 unit SQ BID [facility] Last Admin: 04/07/17 09:21 Dose: 5,000 unit Hydralazine HCl (Apresoline -) 100 mg PO TID [facility] Last Admin: 04/07/17 05:38 Dose: 100 mg Ibuprofen (Motrin -) 400 mg PO Q6H PRN PRN Reason: FEVER Last Admin: 04/06/17 22:23 Dose: 400 mg Labetalol HCl (Normodyne -) 400 mg PO BID [facility] Last Admin: 04/07/17 09:20 Dose: 400 mg Losartan Potassium (Cozaar -) 100 mg PO DAILY [facility] Last Admin: 04/07/17 09:19 Dose: 100 mg Nifedipine (Procardia Xl -) 90 mg PO DAILY [facility] Last Admin: 04/07/17 09:20 Dose: 90 mg Phenytoin Sodium (Dilantin -) 100 mg PO BID [facility] Last Admin: 04/07/17 00:33 Dose: Not Given Spironolactone (Aldactone -) 25 mg PO DAILY [facility] Last Admin: 04/07/17 09:20 Dose: 25 mg Spironolactone (Aldactone -) 50 mg PO DAILY [facility] - Objective Vital Signs: Vital Signs Temperature 98.0 F 04/07/17 06:00 Pulse Rate 82 04/07/17 06:00 Respiratory Rate 20 04/07/17 06:00 Blood Pressure 182/97 04/07/17 06:00 O2 Sat by Pulse Oximetry (%) 97 04/06/17 23:00 Constitutional: Yes: Well Nourished, No Distress, Calm Neurological: Yes: WNL, Alert, Oriented Labs: CBC, BMP 04/07/17 06:00 04/07/17 06:00 INR, PTT INR 1.04 (0.82-1.09) 04/06/17 07:57 Assessment/Plan POD#1 s/p Cystoscopy with TURBT under GA. Doing well, D/C from anesthesia care.
--- NOTE | 2017-04-07 11:02 | PN ---
Progress Note, Physician Chief Complaint: The patient seen in her room. Comfortable, except fro soem lower abd pain. No overt bleeding. No chest pain. No shortness of breath. Had uneventful HD yesterday. History of Present Illness: This is a 61 y/o female with h/o bilateral legal blindness (Uveitis), Bilateral RCC, Unilateral nephrectomy and partial nephrectomy of the other side, s/p TURBT , for bladder CA. The patient has ESRD, on HD TIW. Last dialysis yesterday. - Current Medication List Current Medications: Active Medications Acetaminophen (Tylenol -) 325 mg PO Q6H PRN PRN Reason: FEVER OR PAIN Heparin Sodium (Porcine) (Heparin -) 5,000 unit SQ BID [facility] Last Admin: 04/07/17 09:21 Dose: 5,000 unit Hydralazine HCl (Apresoline -) 100 mg PO TID [facility] Last Admin: 04/07/17 05:38 Dose: 100 mg Ibuprofen (Motrin -) 400 mg PO Q6H PRN PRN Reason: FEVER Last Admin: 04/06/17 22:23 Dose: 400 mg Labetalol HCl (Normodyne -) 400 mg PO BID [facility] Last Admin: 04/07/17 09:20 Dose: 400 mg Losartan Potassium (Cozaar -) 100 mg PO DAILY [facility] Last Admin: 04/07/17 09:19 Dose: 100 mg Nifedipine (Procardia Xl -) 90 mg PO DAILY [facility] Last Admin: 04/07/17 09:20 Dose: 90 mg Phenytoin Sodium (Dilantin -) 100 mg PO BID [facility] Last Admin: 04/07/17 00:33 Dose: Not Given Spironolactone (Aldactone -) 25 mg PO DAILY [facility] Last Admin: 04/07/17 09:20 Dose: 25 mg Spironolactone (Aldactone -) 50 mg PO DAILY [facility] - Objective Vital Signs: Vital Signs Temperature 98.0 F 04/07/17 06:00 Pulse Rate 82 04/07/17 06:00 Respiratory Rate 20 04/07/17 06:00 Blood Pressure 182/97 04/07/17 06:00 O2 Sat by Pulse Oximetry (%) 97 04/06/17 23:00 Constitutional: Yes: Anxious, Mild Distress Eyes: Yes: Conjunctiva Clear Neck: Yes: Trachea Midline Cardiovascular: Yes: S1, S2 Respiratory: Yes: Regular, CTA Bilaterally, Diminished Gastrointestinal: Yes: Normal Bowel Sounds, Tenderness (suprapubic area) Genitourinary: No: CVA Tenderness - Left, CVA Tenderness - Right Neurological: Yes: Alert, Oriented Labs: CBC, BMP 04/07/17 06:00 04/07/17 06:00 INR, PTT INR 1.04 (0.82-1.09) 04/06/17 07:57 Problem List - Problems (1) Bladder mass Code(s): N32.89 - OTHER SPECIFIED DISORDERS OF BLADDER (2) End stage renal disease Code(s): N18.6 - END STAGE RENAL DISEASE (3) Anemia associated with stage 5 chronic renal failure Code(s): N18.5 - CHRONIC KIDNEY DISEASE, STAGE 5; D63.1 - ANEMIA IN CHRONIC KIDNEY DISEASE (4) Anxiety Code(s): F41.9 - ANXIETY DISORDER, UNSPECIFIED (5) ESRD on hemodialysis Code(s): N18.6 - END STAGE RENAL DISEASE; Z99.2 - DEPENDENCE ON RENAL DIALYSIS Assessment/Plan 61 y/o AA female admitted fro TURBT. The patient's clinical status is stable. No overt bleeding. If discharged, the patient will return to [facility] for her outpatient dialysis. Thank you. Darlene Wooten MD
--- NOTE | 2017-04-07 12:45 | PN ---
Progress Note (short form) - Note Progress Note: S/P TURBT voiding some bloody urine. Ok to be discharge if ok with nephrology
--- NOTE | 2017-04-07 15:05 | PATH ---
Surgical Pathology Report Patient Name: RAFAEL RAMIREZ Med. Rec. #: [id number] /Age/Gender: 1955 (Age: 61) / F Account: [id number] Location: [facility] MED/SURG Taken: 04/06/2017 Received: 04/06/2017 Reported: 04/07/2017 Physicians: Santiago Mims M.D. Specimen(s) Received A: BLADDER TUMOR TISSUE B: BASE OF TUMOR Clinical History Preoperative diagnosis: Bladder tumor Postoperative diagnosis: Same Final Diagnosis A. BLADDER, TUMOR TISSUE, TRANSURETHRAL RESECTION OF BLADDER TUMOR: NON-INVASIVE PAPILLARY UROTHELIAL CARCINOMA, PREDOMINANTLY LOW-GRADE WITH FOCAL HIGH GRADE. NO MUSCULARIS PROPRIA IDENTIFIED. SEE PART B. B. BLADDER, BASE OF TUMOR, TRANSURETHRAL RESECTION OF BLADDER TUMOR: FIBRO-VASCULAR TISSUE WITH LYMPHOID AGGREGATES, SCANTY MUSCULARIS PROPIA AND MARKED CAUTERY ARTIFACT. SEE COMMENT. Comment: Marked cautery artifact precludes definitive evaluation for presence of tumor. Suggest clinical/radiologic correlation. Office of Dr. Mims informed that significant finding will be faxed ([employer]). Electronically Signed Farzaneh Carrasco M.D. Gross Description A. Received in formalin labeled "bladder tumor tissue," is a 2.7 x 2.5 x 0.3 cm aggregate of woodson pink soft tissue fragments. The formalin is filtered and the specimen is entirely submitted in 2 cassettes. B. Received in formalin, labeled "base of tumor" are 2 woodson, irregular portions of soft tissue measuring 0.1 and 0.5 cm. in greatest dimension. The specimens are submitted in toto in one cassette. 04/06/201704/06/2017
[2017-04-07 15:21] VITALS: BP 183/93; PULSE 85; TEMP 98.3
--- NOTE | 2017-04-13 11:31 | PN ---
Progress Note (short form) - Note Progress Note: final diagnosis is Malignant neoplasm of anterior wall of bladder
== END 2017-04-07 16:11 | disposition home or self-care (01) | DRG 668 ==
LOC: JER 05:58 → JERBED 06:48 → J8W 15:10 → UNDODISIN 04-07 16:11
PROVIDERS: ADMIT Internal Medicine; ATTEND Internal Medicine
PROC: 5A1D70Z Performance of Urinary Filtration, Intermittent, Less than 6 Hours Per Day (ICD-10-PCS; 2017-04-06)
PROC: 0TBB8ZZ Excision of Bladder, Via Natural or Artificial Opening Endoscopic (ICD-10-PCS; principal; 2017-04-06 11:00)
DX: C67.3 Malignant neoplasm of anterior wall of bladder (principal); N18.6 End stage renal disease; G40.89 Other seizures; R64 Cachexia; Z68.1 Body mass index [BMI] 19.9 or less, adult; I12.0 Hypertensive chronic kidney disease with stage 5 chronic kidney disease or end stage renal disease; Z99.2 Dependence on renal dialysis; F17.210 Nicotine dependence, cigarettes, uncomplicated; D64.9 Anemia, unspecified; H26.9 Unspecified cataract; H54.3 Unqualified visual loss, both eyes; Z85.528 Personal history of other malignant neoplasm of kidney; Z90.5 Acquired absence of kidney
CPT/HCPCS: 36415; 71010-TC; 80048; 80053; 80185; 83735; 85025; 85027; 85610; 85730; 86704; 86706; 86708; 86803; 86850; 86900; 86901; 87340; 88305-TC; 93005; 93010; 94760; 97116-GP; 97161-GP; 99284-25; J0885; J1644

== ENCOUNTER 2018-04-14 15:12 | Inpatient (IN) | payer OTHER ==
--- NOTE | 2018-04-14 15:29 | PDOC ---
History of Present Illness - General Stated Complaint: WEAKNESS Time Seen by Provider: 04/14/18 15:29 - History of Present Illness Initial Comments: 62 year old ESRD on HD (TTS), RCC s/p nephrectomy, hypertension, CHF, bilateral cataracts with blindness, and bladder mass (s/p resection found to be malignant neoplasm on 04/13) presenting with generalized weakness and leg pains over the past few weeks. She also admits to decreased appetite, nausea, but no vomiting, diarrhea, chest pain, SOB, increased swelling or other symptoms. 04/14/18 15:31 Past History - Past Medical History Allergies/Adverse Reactions: Allergies Allergy/AdvReac Type Severity Reaction Status Date / Time codeine Allergy Severe Verified 04/06/17 06:30 Home Medications: Ambulatory Orders Labetalol HCl [Normodyne -] 400 mg PO BID #60 tablet 08/04/16 hydrALAZINE HCL [Apresoline -] 100 mg PO TID tablet 02/24/17 Losartan Potassium 100 mg PO DAILY 04/06/17 Nifedipine ER [Procardia XL -] 90 mg PO DAILY 04/06/17 Phenytoin Na Extended [Dilantin -] 100 mg PO BID 04/06/17 Labetalol HCl [Normodyne -] 400 mg PO BID tablet 04/07/17 Nifedipine ER [Procardia XL -] 90 mg PO DAILY tab.er.24 04/07/17 Spironolactone [Aldactone -] 25 mg PO DAILY #30 tablet 04/07/17 hydrALAZINE HCL [Apresoline -] 100 mg PO TID #90 tablet 04/07/17 Anemia: Yes Asthma: No Cancer: Yes (renal cell ca) Cardiac Disorders: No CVA: No COPD: No CHF: No Dementia: No Diabetes: No Dialysis: Yes () GI Disorders: Yes (REFLUX) Disorders: [facility] HTN: Yes Hypercholesterolemia: No Liver Disease: No Seizures: Yes (2 YEARS AGO) Thyroid Disease: No - Surgical History Abdominal Surgery: No Appendectomy: No Cardiac Surgery: No Cholecystectomy: Yes Lung Surgery: No Neurologic Surgery: No Orthopedic Surgery: No - Immunization History Immunization Up to Date: Yes - Suicide/Smoking/Psychosocial Hx Smoking Status: Yes Smoking History: Never smoked Have you smoked in the past 12 months: No Number of Cigarettes Smoked Daily: 10 Information on smoking cessation initiated: No 'Breaking Loose' booklet given: 04/05/17 Hx Alcohol Use: No Drug/Substance Use Hx: No Substance Use Type: None Hx Substance Use Treatment: No Review of Systems - Review of Systems Constitutional: No: Chills, Diaphoresis, Fever HEENTM: Yes: Cataracts. No: Tearing, Recent change in vision, Difficulty Swallowing Respiratory: No: Cough, Orthopnea, Shortness of Breath, Stridor, Wheezing Cardiac (ROS): No: Chest Pain, Edema, Irregular Heart Rate, Syncope, Chest Tightness ABD/GI: Yes: Nausea, Poor Appetite, Poor Fluid Intake. No: Diarrhea, Vomiting : No: Burning, Dysuria, Discharge Musculoskeletal: Yes: Muscle Pain, Muscle Weakness. No: Back Pain, Joint Pain Integumentary: No: Bruising, Erythema, Flushing Neurological: Yes: Weakness. No: Headache, Numbness, Paresthesia, Tremors Psychiatric: No: Stressors, Sleep Pattern Change Endocrine: No: Intolerance to Cold, Intolerance to Heat Hematologic/Lymphatic: No: Anemia, Blood Clots, Easy Bleeding *Physical Exam - Vital Signs Last Vital Signs Temp Pulse Resp BP Pulse Ox 97.9 F 82 18 134/67 04/14/18 15:21 04/14/18 15:21 04/14/18 15:21 04/14/18 15:21 - Physical Exam General Appearance: Yes: Appropriately Dressed. No: Apparent Distress, Thin HEENT: positive: EOMI, JUNIOR, Normal Voice. negative: Normal ENT Inspection ( bilateral cataracts) Neck: positive: Trachea midline, Normal Thyroid, Supple. negative: Tender, Rigid Respiratory/Chest: positive: Lungs Clear, Normal Breath Sounds. negative: Chest Tender, Respiratory Distress, Accessory Muscle Use Cardiovascular: positive: Regular Rhythm, Regular Rate Gastrointestinal/Abdominal: positive: Normal Bowel Sounds, Flat, Soft. negative : Tender Lymphatic: negative: Adenopathy, Tenderness Musculoskeletal: negative: Normal Inspection (overall weak), Decreased Range of Motion Extremity: positive: Normal Capillary Refill, Normal Inspection, Normal Range of Motion. negative: Tender Integumentary: positive: Normal Color, Dry, Warm Neurologic: positive: Fully Oriented, Alert, Normal Mood/Affect, Normal Response. negative: Motor Strength 5/5 Moderate Sedation - Procedure Monitoring Vital Signs: Procedure Monitoring Vital Signs Temperature 97.9 F 04/14/18 15:21 Pulse Rate 82 04/14/18 15:21 Respiratory Rate 18 04/14/18 15:21 Blood Pressure 134/67 04/14/18 15:21 O2 Sat by Pulse Oximetry (%) ED Treatment Course - LABORATORY CBC & Chemistry Diagram: 04/14/18 16:18 04/14/18 16:18 Medical Decision Making - Medical Decision Making 62 year old with known malignant bladder neoplasm presenting with generalized weakness, nausea, and bilateral leg pains concerning for mets/ worsening oncologic burden. Labs here are typical for an ESRD patient but K 3.0 (given Kdur 40) which could be likely cause of her muscle aches but patient needs further workup for mets so she was signed out to Dr. Bustamante. 04/14/18 16:17 *DC/Admit/Observation/Transfer Diagnosis at time of Disposition: Muscle ache Failure to thrive Qualifiers: Failure to thrive age range: in adult Qualified Code(s): R62.7 - Adult failure to thrive - Discharge Dispostion Condition at time of disposition: Stable Decision to Admit order: Yes - Referrals Referrals: Lj Morrow MD [Primary Care Provider] - - Patient Instructions - Post Discharge Activity
[2018-04-14] MEDS ORDERED: ACETAMINOPHEN 500 MG TABLET (FP) PO ONE (16:09)
[2018-04-14] MEDS ORDERED: ACETAMINOPHEN 325 MG TABLET (FP) ONE (16:20)
[2018-04-14 16:25] LABS: BASO % 0.6 % (0-2.0); EOS % 6.5 % (0-4.5); HEMATOCRIT 30.7 % (32.4-45.2); HEMOGLOBIN 10.9 GM/dL (10.7-15.3); MCHC 35.5 g/dl (32.0-36.0); MEAN CELL VOLUME 98.5 fl (80-96); MEAN PLT VOLUME 8.5 fl (7.5-11.1); MONO % 12.3 % (3.8-10.2); NEUT % 67.6 % (42.8-82.8); PLATELET COUNT 228 K/MM3 (134-434); RBC 3.11 M/mm3 (3.60-5.2); RDW 13.4 % (11.6-15.6); WHITE BLOOD COUNT 8.7 K/mm3 (4.0-10.0)
[2018-04-14 16:51] LABS: ALBUMIN 2.9 g/dl (3.4-5.0); ALK PHOS 301 U/L (45-117); ANION GAP 12 MMOL/L (8-16); BILIRUBIN,TOTAL 0.3 mg/dL (0.2-1); BLOOD UREA NITROGEN 20 mg/dL (7-18); CALCIUM 8.1 mg/dL (8.5-10.1); CHLORIDE 100 mmol/L (98-107); CO2 24 mmol/L (21-32); CREATININE 2.4 mg/dL (0.55-1.3); GLUCOSE,RANDOM 83 mg/dL (74-106); PHOSPHOROUS 1.9 mg/dL (2.5-4.9); SGOT/AST 178 U/L (15-37); SGPT/ALT 165 U/L (13-61); SODIUM 136 mmol/L (136-145); TOT PROT 7.1 g/dl (6.4-8.2)
[2018-04-14] MEDS ORDERED: ACETAMINOPHEN 325 MG TABLET (FP) PO ONE (17:02)
[2018-04-14] MEDS ORDERED: POTASSIUM CHLORIDE TABS 20 MEQ TABLET.ER (FP) PO ONE ×2 (17:03→17:27)
--- NOTE | 2018-04-14 18:53 | PDOC ---
Attending Attestation - Resident Resident Name: Rachael Hallman - ED Attending Attestation I have performed the following: I have examined & evaluated the patient, The case was reviewed & discussed with the resident, I agree w/resident's findings & plan, Exceptions are as noted - HPI HPI: 04/14/18 18:48 The patient is a 62 year old female with a significant PMH of ESRD (dialysis on , , Sat.; last dialysis was today), RCC s/p nephrectomy, HTN, CHF, bilateral cataracts, and bladder ca s/p resection 1 year ago (family reports mass limited to the bladder) who presents to the emergency department with progressive generalized weakness, body pain, anorexia and nausea for the past week. Patient and also report she has not been eating any solid food for 1 week. The patient denies chest pain, shortness of breath, headache and dizziness. Denies fever, chills, nausea, vomit, diarrhea and constipation. Denies dysuria, frequency, urgency and hematuria. Allergies: NKA Past surgical history: None reported. Social history: No reported alcohol, drug or cigarette use. - Physicial Exam PE: 04/14/18 18:53 GENERAL: Awake, alert, and fully oriented, in no acute distress. Appears chronically ill. HEAD: No signs of trauma EYES: blind ENT: Auricles normal inspection, hearing grossly normal, nares patent, oropharynx clear without exudates. Moist mucosa NECK: Normal ROM, supple, no lymphadenopathy, JVD, or masses LUNGS: Breath sounds equal, clear to auscultation bilaterally. No wheezes, and no crackles HEART: Regular rate and rhythm, normal S1 and S2, no murmurs, rubs or gallops ABDOMEN: Soft, diffusely mild ttp, no focal ttp, normoactive bowel sounds. No guarding, no rebound. No masses EXTREMITIES: Normal range of motion, no edema. No cords, erythema, or tenderness NEUROLOGICAL: Normal speech, cranial nerves intact, 4/5 strength in all 4 extremities, normal sensation to light touch in all 4 extremities, normal cerebellar exam SKIN: Warm, Dry, normal turgor, no rashes or lesions noted. - Medical Decision Making 04/14/18 18:55 62yo F hx MMP including bladder ca s/p resection, RCC s/p nephrectomy presents to the ED with progressive generalized weakness, anorexia, nausea. Vitals unremarkable. Exam reveals chronically ill, thin pt with diffuse abd discomfort to palpation. Concern for progression of bladder ca in light of anorexia, abd discomfort, failure to thrive. Labs reveal hypok to 4.0, given 40meq PO KCl. Plan for CTAP and admission for further w/u. Heart Score/ECG Review #1 04/14/18 18:59 Twelve-lead EKG was performed and reviewed by me. NSR, rate 80, normal axis. No DESTINY
[2018-04-14] MEDS ORDERED: SUCRALFATE 1 GM/10 ML UNIT DOSE CUPS PO ONE (19:50)
[2018-04-14] MEDS ORDERED: IBUPROFEN 400 MG TABLET (FP) PO ONE ×2 (21:49→22:10)
[2018-04-15] MEDS ORDERED: LABETALOL HCL 200 MG TABLET (FP) PO ONE (00:45)
[2018-04-15] MEDS ORDERED: PHENYTOIN NA EXTENDED 100 MG CAPSULE (FP) PO ONE ×2 (00:45→17:00)
[2018-04-15] MEDS: MORPHINE SULFATE 2 MG/ML VIAL IVPUSH PRN ×2 (06:35→20:33)
[2018-04-15] MEDS: hydrALAZINE HCL 50 MG TABLET (FP) PO SCH ×3 (06:36→21:00)
[2018-04-15 07:37] LABS: BASO % 0.8 % (0-2.0); EOS % 8.8 % (0-4.5); HEMATOCRIT 30.5 % (32.4-45.2); HEMOGLOBIN 10.1 GM/dL (10.7-15.3); LYMPH % 21.3 % (8-40); MCHC 33.1 g/dl (32.0-36.0); MEAN CELL VOLUME 99.9 fl (80-96); MEAN PLT VOLUME 8.7 fl (7.5-11.1); MONO % 13.4 % (3.8-10.2); NEUT % 55.7 % (42.8-82.8); PLATELET COUNT 211 K/MM3 (134-434); RBC 3.05 M/mm3 (3.60-5.2); RDW 13.4 % (11.6-15.6); WHITE BLOOD COUNT 7.2 K/mm3 (4.0-10.0)
[2018-04-15 08:45] LABS: ALBUMIN 2.6 g/dl (3.4-5.0); ALK PHOS 263 U/L (45-117); AMYLASE 95 U/L (25-115); ANION GAP 11 MMOL/L (8-16); BILIRUBIN,TOTAL 0.4 mg/dL (0.2-1); BLOOD UREA NITROGEN 26 mg/dL (7-18); CALCIUM 8.3 mg/dL (8.5-10.1); CHLORIDE 100 mmol/L (98-107); CO2 23 mmol/L (21-32); CREATININE 3.9 mg/dL (0.55-1.3); GLUCOSE,RANDOM 77 mg/dL (74-106); POTASSIUM 3.8 mmol/L (3.5-5.1); SGOT/AST 92 U/L (15-37); SGPT/ALT 135 U/L (13-61); SODIUM 134 mmol/L (136-145); TOT PROT 6.6 g/dl (6.4-8.2)
[2018-04-15] MEDS: LOSARTAN POTASSIUM 50 MG TABLET (FP) PO SCH (09:11)
[2018-04-15] MEDS: LABETALOL HCL 200 MG TABLET (FP) PO SCH ×2 (09:11→21:00)
[2018-04-15] MEDS: HEPARIN NA (PORCINE) 5,000 UNITS/ML 1ML VIAL SQ SCH ×2 (09:12→21:00)
[2018-04-15] MEDS: NIFEdipine E.R. 90 MG TABLET (FP) PO SCH (09:13)
[2018-04-15] MEDS ORDERED: PHENYTOIN NA EXTENDED 100 MG CAPSULE (FP) PO SCH (10:00)
--- NOTE | 2018-04-15 11:10 | CON.GI ---
Consult Consult Specialty:: GI Referred by:: md Robby - History of Present Illness History of Present Illness: 62 y/o F with PMH of bladder cancer s/p resection, ESRD, RCC s/p nephrectomy was admitted because of nausea, generalized weakness, anorexia . I was asked to see patient because of abdominal pain. S/P EGD and colonoscopy 02/21/[address] Martinez because of melena and hematochezia. She was noted to have mild gastritis and a redundant sigmoid. This morning the nausea and abdominal pain has improved. 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 - Past Surgical History Past Surgical History: Yes: AV Fistula/Graft, , Nephrectomy (right nephrectomy and left partial nephrectomy) - Alcohol/Substance Use Hx Alcohol Use: No History of Substance Use: reports: None - Smoking History Smoking history: Never smoked Have you smoked in the past 12 months: No Aproximately how many cigarettes per day: 10 - Social History Usual Living Arrangement: With Spouse ADL: Family Assistance History of Recent Travel: No Home Medications - Allergies Allergies/Adverse Reactions: Allergies Allergy/AdvReac Type Severity Reaction Status Date / Time codeine Allergy Severe Verified 04/06/17 06:30 - Home Medications Home Medications: Ambulatory Orders Losartan Potassium 100 mg PO DAILY 04/06/17 Phenytoin Na Extended [Dilantin -] 100 mg PO BID 04/06/17 Labetalol HCl [Normodyne -] 400 mg PO BID tablet 04/07/17 Nifedipine ER [Procardia XL -] 90 mg PO DAILY tab.er.24 04/07/17 hydrALAZINE HCL [Apresoline -] 100 mg PO TID #90 tablet 04/07/17 Family Disease History - Family Disease History Family Disease History: Other: Father (HTN), Mother (HTN) Physical Exam-GI Vital Signs: Vital Signs Temperature 98.8 F 04/15/18 05:34 Pulse Rate 80 04/15/18 05:34 Respiratory Rate 18 04/15/18 05:34 Blood Pressure 150/96 04/15/18 05:34 O2 Sat by Pulse Oximetry (%) 100 04/15/18 00:28 Constitutional: Yes: Well Nourished Eyes: Yes: Conjunctiva Clear HENT: Yes: Atraumatic Neck: Yes: Supple Cardiovascular: Yes: Regular Rate and Rhythm Respiratory: Yes: CTA Bilaterally ...Palpate: Yes: Soft. No: Firm/Rigid, Guarding, Hepatomegaly, Mass, Pulsatile Mass, Splenomegaly, Tenderness Labs: CBC, BMP 04/15/18 06:40 04/15/18 06:40 Problem List - Problems (1) Nausea Assessment/Plan: associated with vague abdominal pain R> Famotidine 40mg daily Reglan 5mg 30 min ac Code(s): R11.0 - NAUSEA
--- NOTE | 2018-04-15 11:25 | CONSULT ---
Consult Consult Specialty:: Nephrology ( Je/ Myke) Reason for Consultation:: Patient has ESRD - History of Present Illness Chief Complaint: Feeling weak and tired all the time History of Present Illness: The patient is a 62 year old female with a significant PMH of ESRD, RCC s/p nephrectomy, HTN, CHF, bilateral cataracts, and bladder ca s/p resection 1 year ago, admitted with progressive generalized weakness, body pain, anorexia and nausea for the past week. The patient's oral intake has been very poor. The patient denies chest pain, shortness of breath, headache and dizziness. Denies fever, chills, nausea, vomit, diarrhea and constipation. 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 - Past Surgical History Past Surgical History: Yes: AV Fistula/Graft, , Nephrectomy (right nephrectomy and left partial nephrectomy) - Alcohol/Substance Use Hx Alcohol Use: No History of Substance Use: reports: None - Smoking History Smoking history: Never smoked Have you smoked in the past 12 months: No Aproximately how many cigarettes per day: 10 - Social History Usual Living Arrangement: With Spouse ADL: Family Assistance History of Recent Travel: No Home Medications - Allergies Allergies/Adverse Reactions: Allergies Allergy/AdvReac Type Severity Reaction Status Date / Time codeine Allergy Severe Verified 04/06/17 06:30 - Home Medications Home Medications: Ambulatory Orders Losartan Potassium 100 mg PO DAILY 04/06/17 Phenytoin Na Extended [Dilantin -] 100 mg PO BID 04/06/17 Labetalol HCl [Normodyne -] 400 mg PO BID tablet 04/07/17 Nifedipine ER [Procardia XL -] 90 mg PO DAILY tab.er.24 04/07/17 hydrALAZINE HCL [Apresoline -] 100 mg PO TID #90 tablet 04/07/17 Family Disease History - Family Disease History Family Disease History: Other: Father (HTN), Mother (HTN) Review of Systems - Review of Systems Constitutional: reports: Loss of Appetite, Malaise, Unintentional Wgt. Loss, Weakness Neck: reports: No Symptoms Cardiovascular: denies: Chest Pain, Shortness of Breath Respiratory: reports: No Symptoms. denies: Orthopnea Gastrointestinal: denies: Abdominal Pain, Melena Musculoskeletal: reports: Joint Pain, Muscle Weakness Neurological: reports: Weakness Physical Exam Vital Signs: Vital Signs Temperature 98.8 F 04/15/18 05:34 Pulse Rate 80 04/15/18 05:34 Respiratory Rate 18 04/15/18 05:34 Blood Pressure 150/96 04/15/18 05:34 O2 Sat by Pulse Oximetry (%) 100 04/15/18 00:28 Constitutional: Yes: Anxious Eyes: Yes: Conjunctiva Clear HENT: Yes: Normocephalic Neck: Yes: Trachea Midline Cardiovascular: Yes: Pulse Irregular, S1, S2 Respiratory: Yes: CTA Bilaterally, Diminished Gastrointestinal: Yes: Normal Bowel Sounds, Soft Renal/: Yes: Other (On dialysis) Edema: No Labs: CBC, BMP 04/15/18 06:40 04/15/18 06:40 Assessment/Plan The patient is a 62 year old female with a multiple significant medical problems , including ESRD, Renal Cell Carcinoma, s/p nephrectomy, HTN, CHF, bilateral cataracts, and bladder ca s/p resection 1 year ago, admitted with progressive generalized weakness, body pain, anorexia and nausea for the past week. The patient's oral intake has been very poor. The Serum K on admission was 3.0 mEq. This was immedialtely post dialysis, and a low post dialysis K is not unusual. Nevertheless, given this patient's extremely poor oral intake, the supplement could be justified. A dietary funeral pre arrangement counselor may be advisable. The patient will be followed for making Hd arrangements. Next HD on Monday. Thank you. Darlene Wooten MD
[2018-04-15] MEDS ORDERED: BISACODYL 5 MG TABLET.DR (FP) PO ONE (17:00)
[2018-04-15] MEDS: METOCLOPRAMIDE HCL 10 MG TABLET (FP) PO SCH (17:04)
--- NOTE | 2018-04-15 17:08 | HP ---
Admitting History and Physical - Admission History of Present Illness: Pt is a 62 y/o F with PMH significant for bladder cancer s/p resection, ESRD, RCC s/p nephrectomy, HTN, CHF, seizure dz and anemia. Pt presented to the ER bc of of nausea, generalized weakness, and anorexia. Pt also complains of generalized abdominal pain. Pt denies any diarrhea/constipation/fever/chills. In the ER pt had a ct scan abd/pelvis wc is pending. Pt has an appointment w/ her urologist this week. 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, Other (Blindness) Cardiovascular: Yes: HTN Gastrointestinal: Yes: Constipation Renal/: Yes: Renal Failure (PCKD s/p nephrectomies), Cancer (Renal cell carcinoma) ...: No Heme/Onc: Yes: Anemia, Cancer (Renal cell carcinoma) - Past Surgical History Past Surgical History: Yes: AV Fistula/Graft, , Nephrectomy (right nephrectomy and left partial nephrectomy) Additional Past Surgical History: Catarract surgery - Smoking History Smoking history: Never smoked Have you smoked in the past 12 months: No Aproximately how many cigarettes per day: 10 - Alcohol/Substance Use Hx Alcohol Use: No History of Substance Use: reports: None - Social History ADL: Family Assistance History of Recent Travel: No Home Medications - Allergies Allergies/Adverse Reactions: Allergies Allergy/AdvReac Type Severity Reaction Status Date / Time codeine Allergy Severe Verified 04/06/17 06:30 - Home Medications Home Medications: Ambulatory Orders Losartan Potassium 100 mg PO DAILY 04/06/17 Phenytoin Na Extended [Dilantin -] 100 mg PO BID 04/06/17 Labetalol HCl [Normodyne -] 400 mg PO BID tablet 04/07/17 Nifedipine ER [Procardia XL -] 90 mg PO DAILY tab.er.24 04/07/17 hydrALAZINE HCL [Apresoline -] 100 mg PO TID #90 tablet 04/07/17 Family Disease History - Family Disease History Family History: Unremarkable Family Disease History: Other: Father (HTN), Mother (HTN) Review of Systems - Review of Systems Constitutional: reports: Loss of Appetite, Weakness HENT: reports: No Symptoms Neck: reports: No Symptoms Cardiovascular: reports: No Symptoms Respiratory: reports: No Symptoms Gastrointestinal: reports: Abdominal Pain, Nausea Physical Examination Vital Signs: Vital Signs Temperature 98.3 F 12/09/18 09:00 Pulse Rate 81 04/15/18 14:05 Respiratory Rate 19 04/15/18 14:05 Blood Pressure 128/74 04/15/18 14:05 O2 Sat by Pulse Oximetry (%) 98 04/15/18 09:00 Eyes: Yes: Other (B/L catarracts) Neck: Yes: WNL, Supple Cardiovascular: Yes: WNL, Regular Rate and Rhythm Respiratory: Yes: WNL, Regular, CTA Bilaterally Gastrointestinal: Yes: WNL, Normal Bowel Sounds, Soft Musculoskeletal: Yes: WNL Extremities: Yes: WNL Edema: No Labs: CBC, BMP 04/15/18 06:40 04/15/18 06:40 Problem List - Problems (1) Abdominal pain Assessment/Plan: Cont IVF and Pain management Check ct scan abdomen GI consult Code(s): R10.9 - UNSPECIFIED ABDOMINAL PAIN (2) Bladder cancer Assessment/Plan: Check ct scan abd Uro consult Code(s): C67.9 - MALIGNANT NEOPLASM OF BLADDER, UNSPECIFIED (3) Failure to thrive Assessment/Plan: Encourage PO intake Code(s): SGQ2118 - Qualifiers: Failure to thrive age range: in adult Qualified Code(s): R62.7 - Adult failure to thrive (4) Anemia associated with stage 5 chronic renal failure Code(s): N18.5 - CHRONIC KIDNEY DISEASE, STAGE 5; D63.1 - ANEMIA IN CHRONIC KIDNEY DISEASE (5) Chronic diastolic (congestive) heart failure Code(s): I50.32 - CHRONIC DIASTOLIC (CONGESTIVE) HEART FAILURE (6) ESRD on hemodialysis Code(s): N18.6 - END STAGE RENAL DISEASE; Z99.2 - DEPENDENCE ON RENAL DIALYSIS (7) History of nephrectomy Code(s): Z90.5 - ACQUIRED ABSENCE OF KIDNEY (8) Hypertension Code(s): I10 - ESSENTIAL (PRIMARY) HYPERTENSION Qualifiers: (9) Seizure Code(s): R56.9 - UNSPECIFIED CONVULSIONS Qualifiers: Convulsion type: unspecified Qualified Code(s): R56.9 - Unspecified convulsions (10) Weakness Code(s): R53.1 - WEAKNESS (11) Anemia Code(s): D64.9 - ANEMIA, UNSPECIFIED
--- NOTE | 2018-04-15 17:17 | EKG ---
Test Reason : Blood Pressure : / mmHG Vent. Rate : 080 BPM Atrial Rate : 080 BPM P-R Int : 154 ms QRS Dur : 086 ms QT Int : 394 ms P-R-T Axes : 136 -06 121 degrees QTc Int : 454 ms UNUSUAL P AXIS, POSSIBLE ECTOPIC ATRIAL RHYTHM SEPTAL INFARCT , AGE UNDETERMINED T WAVE ABNORMALITY, CONSIDER LATERAL ISCHEMIA ABNORMAL ECG WHEN COMPARED WITH ECG OF 06-APR-2017 07:02, ECTOPIC ATRIAL RHYTHM HAS REPLACED SINUS RHYTHM NONSPECIFIC T WAVE ABNORMALITY, WORSE IN INFERIOR LEADS Confirmed by AMBROSIO GOMEZ, CRISTO ([id number]) on 04/15/2018 5:16:46 PM Referred By: Confirmed By:CRISTO VALENTE MD
[2018-04-15] MEDS ORDERED: PT OWN MED DRAWER 7, Y5N ONE (18:52)
[2018-04-15] MEDS: PHENYTOIN NA EXTENDED 100 MG CAPSULE (FP) PO SCH (21:00)
[2018-04-15] MEDS: RANITIDINE HCL 150 MG TABLET (FP) PO SCH (21:00)
[2018-04-16] MEDS: hydrALAZINE HCL 50 MG TABLET (FP) PO SCH ×3 (05:52→22:03)
[2018-04-16] MEDS: METOCLOPRAMIDE HCL 10 MG TABLET (FP) PO SCH ×3 (06:08→17:07)
[2018-04-16 07:45] LABS: BASO % 0.7 % (0-2.0); EOS % 9.5 % (0-4.5); HEMATOCRIT 28.1 % (32.4-45.2); HEMOGLOBIN 9.9 GM/dL (10.7-15.3); LYMPH % 28.2 % (8-40); MCH 35.1 pg (25.7-33.7); MCHC 35.3 g/dl (32.0-36.0); MEAN CELL VOLUME 99.3 fl (80-96); MEAN PLT VOLUME 8.7 fl (7.5-11.1); MONO % 12.6 % (3.8-10.2); PLATELET COUNT 224 K/MM3 (134-434); RBC 2.83 M/mm3 (3.60-5.2); RDW 13.4 % (11.6-15.6); WHITE BLOOD COUNT 5.6 K/mm3 (4.0-10.0)
[2018-04-16] MEDS: MORPHINE SULFATE 2 MG/ML VIAL IVPUSH PRN ×2 (07:56→20:47)
[2018-04-16 08:51] LABS: ALBUMIN 2.5 g/dl (3.4-5.0); ALK PHOS 237 U/L (45-117); ANION GAP 11 MMOL/L (8-16); BILIRUBIN,TOTAL 0.4 mg/dL (0.2-1); BLOOD UREA NITROGEN 42 mg/dL (7-18); CALCIUM 8.4 mg/dL (8.5-10.1); CHLORIDE 100 mmol/L (98-107); CO2 22 mmol/L (21-32); CREATININE 5.9 mg/dL (0.55-1.3); GLUCOSE,RANDOM 79 mg/dL (74-106); POTASSIUM 4.1 mmol/L (3.5-5.1); SGOT/AST 50 U/L (15-37); SGPT/ALT 98 U/L (13-61); SODIUM 132 mmol/L (136-145); TOT PROT 6.3 g/dl (6.4-8.2)
[2018-04-16] MEDS: HEPARIN NA (PORCINE) 5,000 UNITS/ML 1ML VIAL SQ SCH ×2 (09:19→22:04)
[2018-04-16] MEDS: LABETALOL HCL 200 MG TABLET (FP) PO SCH ×2 (09:19→22:03)
[2018-04-16] MEDS: PHENYTOIN NA EXTENDED 100 MG CAPSULE (FP) PO SCH ×2 (09:19→22:04)
[2018-04-16] MEDS: LOSARTAN POTASSIUM 50 MG TABLET (FP) PO SCH (09:19)
[2018-04-16] MEDS: RANITIDINE HCL 150 MG TABLET (FP) PO SCH ×2 (09:19→22:03)
[2018-04-16] MEDS: NIFEdipine E.R. 90 MG TABLET (FP) PO SCH (09:21)
[2018-04-16] MEDS: DOCUSATE SODIUM 100 MG CAPSULE (FP) PO SCH ×2 (14:27→22:04)
--- NOTE | 2018-04-16 18:06 | PN ---
Progress Note (short form) - Note Progress Note: Renal follow up for ESRD on HD Pt seen and examined at the bedside no acute complaints. no sob, cp, , N/V/D continues to have mild sided abd pain Vital Signs Temperature 98.6 F 04/16/18 14:34 Pulse Rate 71 04/16/18 14:34 Respiratory Rate 18 04/16/18 14:34 Blood Pressure 121/66 04/16/18 14:34 O2 Sat by Pulse Oximetry (%) 96 04/16/18 09:00 Intake & Output 04/13/18 04/14/18 04/15/18 04/16/18 23:59 23:59 23:59 23:59 Intake Total 950 400 Balance 950 400 Weight 53.524 kg 57.107 kg NAD awake and alert soft NT/ND abd no LE edema CBC, BMP 04/16/18 07:10 04/16/18 07:10 Current Medications Docusate Sodium (Colace -) 100 mg PO TID [facility] Last Admin: 04/16/18 14:27 Dose: 100 mg Heparin Sodium (Porcine) (Heparin -) 5,000 unit SQ BID [facility] Last Admin: 04/16/18 09:19 Dose: 5,000 unit Hydralazine HCl (Apresoline -) 100 mg PO TID [facility] Last Admin: 04/16/18 14:27 Dose: 100 mg Labetalol HCl (Normodyne -) 400 mg PO BID [facility] Last Admin: 04/16/18 09:19 Dose: 400 mg Losartan Potassium (Cozaar -) 100 mg PO DAILY [facility] Last Admin: 04/16/18 09:19 Dose: 100 mg Metoclopramide HCl (Reglan -) 5 mg PO TIDAC [facility] Last Admin: 04/16/18 17:07 Dose: 5 mg Morphine Sulfate (Morphine Sulfate) 2 mg IVPUSH Q6H PRN PRN Reason: PAIN LEVEL 6-10 Last Admin: 04/16/18 07:56 Dose: 2 mg Nifedipine (Procardia Xl -) 90 mg PO DAILY [facility] Last Admin: 04/16/18 09:21 Dose: 90 mg Phenytoin Sodium (Dilantin -) 200 mg PO BID [facility] Last Admin: 04/16/18 09:19 Dose: 200 mg Ranitidine HCl (Zantac -) 150 mg PO BID [facility] Last Admin: 04/16/18 09:19 Dose: 150 mg 62 year old female with a significant PMH of ESRD, RCC s/p nephrectomy, HTN, CHF, bilateral cataracts, and bladder ca s/p resection 1 year ago, admitted with progressive generalized weakness, body pain, anorexia and nausea for the past week. 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
[2018-04-16] MEDS ORDERED: SODIUM CHLORIDE 250 ML IV PRN (18:07)
--- NOTE | 2018-04-16 21:09 | PN ---
Progress Note, Physician - Current Medication List Current Medications: Active Medications Docusate Sodium (Colace -) 100 mg PO TID [facility] Last Admin: 04/16/18 14:27 Dose: 100 mg Heparin Sodium (Porcine) (Heparin -) 5,000 unit SQ BID [facility] Last Admin: 04/16/18 09:19 Dose: 5,000 unit Hydralazine HCl (Apresoline -) 100 mg PO TID [facility] Last Admin: 04/16/18 14:27 Dose: 100 mg Sodium Chloride (Normal Saline -) 250 mls @ 3,000 mls/hr IV PRN PRN PRN Reason: Hypotension during Dialysis Stop: 04/17/18 18:07 Labetalol HCl (Normodyne -) 400 mg PO BID [facility] Last Admin: 04/16/18 09:19 Dose: 400 mg Losartan Potassium (Cozaar -) 100 mg PO DAILY [facility] Last Admin: 04/16/18 09:19 Dose: 100 mg Metoclopramide HCl (Reglan -) 5 mg PO TIDAC [facility] Last Admin: 04/16/18 17:07 Dose: 5 mg Morphine Sulfate (Morphine Sulfate) 2 mg IVPUSH Q6H PRN PRN Reason: PAIN LEVEL 6-10 Last Admin: 04/16/18 20:47 Dose: 2 mg Nifedipine (Procardia Xl -) 90 mg PO DAILY [facility] Last Admin: 04/16/18 09:21 Dose: 90 mg Phenytoin Sodium (Dilantin -) 200 mg PO BID [facility] Last Admin: 04/16/18 09:19 Dose: 200 mg Ranitidine HCl (Zantac -) 150 mg PO BID [facility] Last Admin: 04/16/18 09:19 Dose: 150 mg - Objective Vital Signs: Vital Signs Temperature 98.6 F 04/16/18 18:30 Pulse Rate 58 L 04/16/18 18:30 Respiratory Rate 18 04/16/18 18:30 Blood Pressure 124/69 04/16/18 18:30 O2 Sat by Pulse Oximetry (%) 96 04/16/18 09:00 Labs: CBC, BMP 04/16/18 07:10 04/16/18 07:10 Problem List - Problems (1) Abdominal pain Code(s): R10.9 - UNSPECIFIED ABDOMINAL PAIN (2) Bladder cancer Code(s): C67.9 - MALIGNANT NEOPLASM OF BLADDER, UNSPECIFIED (3) Failure to thrive Code(s): TSB1840 - Qualifiers: Failure to thrive age range: in adult Qualified Code(s): R62.7 - Adult failure to thrive (4) Anemia associated with stage 5 chronic renal failure Code(s): N18.5 - CHRONIC KIDNEY DISEASE, STAGE 5; D63.1 - ANEMIA IN CHRONIC KIDNEY DISEASE (5) Chronic diastolic (congestive) heart failure Code(s): I50.32 - CHRONIC DIASTOLIC (CONGESTIVE) HEART FAILURE (6) ESRD on hemodialysis Code(s): N18.6 - END STAGE RENAL DISEASE; Z99.2 - DEPENDENCE ON RENAL DIALYSIS (7) History of nephrectomy Code(s): Z90.5 - ACQUIRED ABSENCE OF KIDNEY (8) Hypertension Code(s): I10 - ESSENTIAL (PRIMARY) HYPERTENSION Qualifiers: (9) Seizure Code(s): R56.9 - UNSPECIFIED CONVULSIONS Qualifiers: Convulsion type: unspecified Qualified Code(s): R56.9 - Unspecified convulsions (10) Weakness Code(s): R53.1 - WEAKNESS (11) Anemia Code(s): D64.9 - ANEMIA, UNSPECIFIED
[2018-04-16 21:50] VITALS: BMI 20.7
[2018-04-17] MEDS ORDERED: MORPHINE SULFATE 2 MG/ML VIAL IVPUSH ONE (00:45)
[2018-04-17] MEDS: hydrALAZINE HCL 50 MG TABLET (FP) PO SCH ×3 (06:36→21:39)
[2018-04-17] MEDS: DOCUSATE SODIUM 100 MG CAPSULE (FP) PO SCH ×3 (06:37→21:39)
[2018-04-17] MEDS: METOCLOPRAMIDE HCL 10 MG TABLET (FP) PO SCH ×3 (06:37→17:17)
[2018-04-17] MEDS ORDERED: PT OWN MED DRAWER 7, Y5N ONE (09:33)
[2018-04-17] MEDS: LOSARTAN POTASSIUM 50 MG TABLET (FP) PO SCH (09:48)
[2018-04-17] MEDS: NIFEdipine E.R. 90 MG TABLET (FP) PO SCH (09:48)
[2018-04-17] MEDS: PHENYTOIN NA EXTENDED 100 MG CAPSULE (FP) PO SCH ×2 (09:48→21:39)
[2018-04-17] MEDS: LABETALOL HCL 200 MG TABLET (FP) PO SCH ×2 (09:49→21:39)
[2018-04-17] MEDS: RANITIDINE HCL 150 MG TABLET (FP) PO SCH ×2 (09:49→21:39)
[2018-04-17] MEDS: MORPHINE SULFATE 2 MG/ML VIAL IVPUSH PRN ×2 (09:50→20:12)
[2018-04-17] MEDS: HEPARIN NA (PORCINE) 5,000 UNITS/ML 1ML VIAL SQ SCH ×2 (09:50→21:39)
--- NOTE | 2018-04-17 13:21 | PN ---
Progress Note (short form) - Note Progress Note: Renal follow up for ESRD on HD Pt seen and examined at the bedside no acute complaints. Vital Signs Temperature 98.5 F 04/17/18 12:40 Pulse Rate 74 04/17/18 12:45 Respiratory Rate 18 04/17/18 12:45 Blood Pressure 131/69 04/17/18 12:45 O2 Sat by Pulse Oximetry (%) 96 04/16/18 21:00 Intake & Output 04/14/18 04/15/18 04/16/18 04/17/18 23:59 23:59 23:59 23:59 Intake Total 950 550 250 Balance 950 550 250 Weight 53.524 kg 57.107 kg 56.699 kg NAD awake and alert soft NT/ND abd no LE edema CBC, BMP 04/16/18 07:10 04/16/18 07:10 Current Medications Docusate Sodium (Colace -) 100 mg PO TID [facility] Last Admin: 04/17/18 06:37 Dose: 100 mg Heparin Sodium (Porcine) (Heparin -) 5,000 unit SQ BID [facility] Last Admin: 04/17/18 09:50 Dose: 5,000 unit Hydralazine HCl (Apresoline -) 100 mg PO TID [facility] Last Admin: 04/17/18 06:36 Dose: 100 mg Sodium Chloride (Normal Saline -) 250 mls @ 3,000 mls/hr IV PRN PRN PRN Reason: Hypotension during Dialysis Stop: 04/17/18 18:07 Labetalol HCl (Normodyne -) 400 mg PO BID [facility] Last Admin: 04/17/18 09:49 Dose: 400 mg Losartan Potassium (Cozaar -) 100 mg PO DAILY [facility] Last Admin: 04/17/18 09:48 Dose: 100 mg Metoclopramide HCl (Reglan -) 5 mg PO TIDAC [facility] Last Admin: 04/17/18 06:37 Dose: 5 mg Morphine Sulfate (Morphine Sulfate) 2 mg IVPUSH Q6H PRN PRN Reason: PAIN LEVEL 6-10 Last Admin: 04/17/18 09:50 Dose: 2 mg Nifedipine (Procardia Xl -) 90 mg PO DAILY [facility] Last Admin: 04/17/18 09:48 Dose: 90 mg Phenytoin Sodium (Dilantin -) 200 mg PO BID [facility] Last Admin: 04/17/18 09:48 Dose: 200 mg Ranitidine HCl (Zantac -) 150 mg PO BID [facility] Last Admin: 04/17/18 09:49 Dose: 150 mg 62 year old female with a significant PMH of ESRD, RCC s/p nephrectomy, HTN, CHF, bilateral cataracts, and bladder ca s/p resection 1 year ago, admitted with progressive generalized weakness, body pain, anorexia and nausea for the past week. #ESRD on HD #Abd pain #Anemia #Hypertension for dialysis today as inpatient with UF as tolerated renal diet with 1.2L fluid restriction Continue Nifedpine, Losartan, Labetalol for BP control Trend H/H, DAISHA as needed with HD Thank you Jake Stringer DO
[2018-04-17 13:26] LABS: HEMATOCRIT 25.9 % (32.4-45.2); MCH 34.3 pg (25.7-33.7); MCHC 34.8 g/dl (32.0-36.0); MEAN CELL VOLUME 98.8 fl (80-96); MEAN PLT VOLUME 9.2 fl (7.5-11.1); PLATELET COUNT 207 K/MM3 (134-434); RBC 2.62 M/mm3 (3.60-5.2); RDW 13.3 % (11.6-15.6); WHITE BLOOD COUNT 6.5 K/mm3 (4.0-10.0)
[2018-04-17 13:48] LABS: ANION GAP 11 MMOL/L (8-16); BLOOD UREA NITROGEN 66 mg/dL (7-18); CALCIUM 8.3 mg/dL (8.5-10.1); CHLORIDE 100 mmol/L (98-107); CO2 22 mmol/L (21-32); GLUCOSE,RANDOM 100 mg/dL (74-106); PHOSPHOROUS 3.8 mg/dL (2.5-4.9); POTASSIUM 4.3 mmol/L (3.5-5.1); SODIUM 133 mmol/L (136-145)
[2018-04-17 14:01] LABS: CREATININE 8.1 mg/dL (0.55-1.3)
--- NOTE | 2018-04-17 19:47 | PN ---
Progress Note, Physician History of Present Illness: Pt denies any further pain - Current Medication List Current Medications: Active Medications Docusate Sodium (Colace -) 100 mg PO TID [facility] Last Admin: 04/17/18 14:10 Dose: Not Given Heparin Sodium (Porcine) (Heparin -) 5,000 unit SQ BID [facility] Last Admin: 04/17/18 09:50 Dose: 5,000 unit Hydralazine HCl (Apresoline -) 100 mg PO TID [facility] Last Admin: 04/17/18 14:00 Dose: Not Given Sodium Chloride (Normal Saline -) 250 mls @ 3,000 mls/hr IV PRN PRN PRN Reason: Hypotension during Dialysis Stop: 04/17/18 18:07 Labetalol HCl (Normodyne -) 400 mg PO BID [facility] Last Admin: 04/17/18 09:49 Dose: 400 mg Losartan Potassium (Cozaar -) 100 mg PO DAILY [facility] Last Admin: 04/17/18 09:48 Dose: 100 mg Metoclopramide HCl (Reglan -) 5 mg PO TIDAC [facility] Last Admin: 04/17/18 17:17 Dose: 5 mg Morphine Sulfate (Morphine Sulfate) 2 mg IVPUSH Q6H PRN PRN Reason: PAIN LEVEL 6-10 Last Admin: 04/17/18 09:50 Dose: 2 mg Nifedipine (Procardia Xl -) 90 mg PO DAILY [facility] Last Admin: 04/17/18 09:48 Dose: 90 mg Phenytoin Sodium (Dilantin -) 200 mg PO BID [facility] Last Admin: 04/17/18 09:48 Dose: 200 mg Ranitidine HCl (Zantac -) 150 mg PO BID [facility] Last Admin: 04/17/18 09:49 Dose: 150 mg - Objective Vital Signs: Vital Signs Temperature 98.5 F 04/17/18 12:40 Pulse Rate 79 04/17/18 15:50 Respiratory Rate 18 04/17/18 15:50 Blood Pressure 128/62 04/17/18 15:50 O2 Sat by Pulse Oximetry (%) 96 04/16/18 21:00 Eyes: Yes: Other ((+) B/L catarracts) Neck: Yes: WNL, Supple Cardiovascular: Yes: WNL, Regular Rate and Rhythm Respiratory: Yes: WNL, Regular, CTA Bilaterally Gastrointestinal: Yes: WNL, Normal Bowel Sounds, Soft Labs: CBC, BMP 04/17/18 13:09 04/17/18 12:16 Problem List - Problems (1) Abdominal pain Assessment/Plan: GI consult CT scan abd/pelvis did not show acute pathology Possible dc planning for am Code(s): R10.9 - UNSPECIFIED ABDOMINAL PAIN (2) Bladder cancer Code(s): C67.9 - MALIGNANT NEOPLASM OF BLADDER, UNSPECIFIED (3) Failure to thrive Assessment/Plan: Encourage PO intake Code(s): EIR1000 - Qualifiers: Failure to thrive age range: in adult Qualified Code(s): R62.7 - Adult failure to thrive (4) Anemia associated with stage 5 chronic renal failure Code(s): N18.5 - CHRONIC KIDNEY DISEASE, STAGE 5; D63.1 - ANEMIA IN CHRONIC KIDNEY DISEASE (5) Chronic diastolic (congestive) heart failure Code(s): I50.32 - CHRONIC DIASTOLIC (CONGESTIVE) HEART FAILURE (6) ESRD on hemodialysis Code(s): N18.6 - END STAGE RENAL DISEASE; Z99.2 - DEPENDENCE ON RENAL DIALYSIS (7) History of nephrectomy Code(s): Z90.5 - ACQUIRED ABSENCE OF KIDNEY (8) Hypertension Code(s): I10 - ESSENTIAL (PRIMARY) HYPERTENSION Qualifiers: (9) Seizure Code(s): R56.9 - UNSPECIFIED CONVULSIONS Qualifiers: Convulsion type: unspecified Qualified Code(s): R56.9 - Unspecified convulsions (10) Weakness Code(s): R53.1 - WEAKNESS (11) Anemia Code(s): D64.9 - ANEMIA, UNSPECIFIED (12) Malnutrition Code(s): E46 - UNSPECIFIED PROTEIN-CALORIE MALNUTRITION
[2018-04-17 21:49] LABS: CREATININE 3.7 mg/dL (0.55-1.3)
[2018-04-18] MEDS: MORPHINE SULFATE 2 MG/ML VIAL IVPUSH PRN (02:05)
[2018-04-18] MEDS: DOCUSATE SODIUM 100 MG CAPSULE (FP) PO SCH ×2 (06:35→14:26)
[2018-04-18] MEDS: METOCLOPRAMIDE HCL 10 MG TABLET (FP) PO SCH ×3 (06:35→17:06)
[2018-04-18] MEDS: hydrALAZINE HCL 50 MG TABLET (FP) PO SCH ×2 (06:36→14:26)
[2018-04-18] MEDS ORDERED: PT OWN MED DRAWER 7, Y5N ONE (09:19)
[2018-04-18] MEDS: PHENYTOIN NA EXTENDED 100 MG CAPSULE (FP) PO SCH (09:20)
[2018-04-18] MEDS: NIFEdipine E.R. 90 MG TABLET (FP) PO SCH (09:21)
[2018-04-18] MEDS: LABETALOL HCL 200 MG TABLET (FP) PO SCH (09:21)
[2018-04-18] MEDS: RANITIDINE HCL 150 MG TABLET (FP) PO SCH (09:21)
[2018-04-18] MEDS: HEPARIN NA (PORCINE) 5,000 UNITS/ML 1ML VIAL SQ SCH (09:21)
[2018-04-18] MEDS: LOSARTAN POTASSIUM 50 MG TABLET (FP) PO SCH (09:21)
[2018-04-18 14:09] VITALS: BP 136/65; PULSE 85; TEMP 98
[2018-04-19 04:23] LABS: HBSAG SCREEN Negative (Negative); HEP B CORE AB, TOT Negative (Negative)
== END 2018-04-18 17:46 | disposition home or self-care (01) | DRG 686 ==
LOC: JER 15:12 → JERBED 18:45 → J6S 23:50
PROVIDERS: ADMIT Internal Medicine; ATTEND Internal Medicine
PROC: 5A1D70Z Performance of Urinary Filtration, Intermittent, Less than 6 Hours Per Day (ICD-10-PCS; principal; 2018-04-17)
DX: C67.9 Malignant neoplasm of bladder, unspecified (principal); N18.6 End stage renal disease; I13.2 Hypertensive heart and chronic kidney disease with heart failure and with stage 5 chronic kidney disease, or end stage renal disease; I50.32 Chronic diastolic (congestive) heart failure; Z99.2 Dependence on renal dialysis; R62.7 Adult failure to thrive; E87.6 Hypokalemia; R11.0 Nausea; G40.909 Epilepsy, unspecified, not intractable, without status epilepticus; D63.1 Anemia in chronic kidney disease; R63.0 Anorexia
CPT/HCPCS: 36415; 71045-TC-FY; 74176-TC; 80048; 80053; 82150; 82565; 83735; 84100; 84484; 84520; 85025; 85027; 86704; 86706; 86708; 86803; 87340; 93005; 93010; 99285-25; J1644

== ENCOUNTER 2019-04-08 07:08 | Emergency (ER) | payer OTHER ==
--- NOTE | 2019-04-08 07:24 | PDOC ---
History of Present Illness - General Chief Complaint: Pain Stated Complaint: HIP PAIN History Source: Patient Exam Limitations: No Limitations - History of Present Illness Initial Comments: 04/08/19 07:24 62 y/o F with PMH significant for bladder cancer s/p resection, bilateral cataracts, ESRD (, , MON; missed her dialysis appointment Monday), RCC s/p nephrectomy, HTN, CHF, seizure dz and anemia presents to the emergency department s/p fall on Monday at 8 pm. Per the patient, she was at dialysis today to make up her missed appointment and was referred to the emergency department. She states on Monday, she walked to the window to close it and turned around with a subsequent fall shortly thereafter. Prior to the fall, she denies having symptoms and denies the following: palpitations, chest pain, SOB, 04/08/19 07:36 04/08/19 07:39 04/08/19 07:48 Past History - Past Medical History Allergies/Adverse Reactions: Allergies Allergy/AdvReac Type Severity Reaction Status Date / Time codeine Allergy Severe Verified 04/08/19 07:36 Home Medications: Ambulatory Orders Losartan Potassium 100 mg PO DAILY 04/06/17 Phenytoin Na Extended [Dilantin -] 100 mg PO BID 04/06/17 Labetalol HCl [Normodyne -] 400 mg PO BID tablet 04/07/17 Nifedipine ER [Procardia XL -] 90 mg PO DAILY tab.er.24 04/07/17 hydrALAZINE HCL [Apresoline -] 100 mg PO TID #90 tablet 04/07/17 Budesonide/Formeterol Fumarate [SYMBICORT 160/4.5mcg -] 1 inh IH ASDIR 04/08/19 Anemia: Yes Asthma: No Cancer: Yes (renal cell ca) Cardiac Disorders: No CVA: No COPD: No CHF: No Dementia: No Diabetes: No Dialysis: Yes () GI Disorders: Yes (REFLUX) Disorders: Yes (DIALYSIS ,,Mon) HTN: Yes Hypercholesterolemia: No Liver Disease: No Seizures: Yes (2 YEARS AGO) Thyroid Disease: No - Surgical History Abdominal Surgery: No Appendectomy: No Cardiac Surgery: No Cholecystectomy: Yes Lung Surgery: No Neurologic Surgery: No Orthopedic Surgery: No - Immunization History Immunization Up to Date: Yes - Psycho Social/Smoking Cessation Hx Smoking Status: Yes Smoking History: Never smoked Have you smoked in the past 12 months: No Number of Cigarettes Smoked Daily: 10 'Breaking Loose' booklet given: 04/05/17 Hx Alcohol Use: No Drug/Substance Use Hx: No Substance Use Type: None Hx Substance Use Treatment: No ED Treatment Course - LABORATORY CBC & Chemistry Diagram: 04/08/19 08:00 04/08/19 08:00 Medical Decision Making - Medical Decision Making 04/08/19 09:26 Dr. Laura spoke to [facility]. [facility] (Kenn [id number]) scheduled dialysis appointment today (04.08.2019) at 3 pm today. Discharge - Discharge Information Problems reviewed: Yes Clinical Impression/Diagnosis: ESRD on hemodialysis, Chronic diastolic (congestive) heart failure, Smoker - Admission No - Follow up/Referral Referrals: [facility] [place] [Provider Group] - Patient Discharge Instructions Patient Printed Discharge Instructions: DI for Dialysis, How to Prevent Falls Additional Instructions: You were seen in the emergency department for the evaluation of your fall. Your xrays were negative for acute pathology. Please follow up with your primary medical doctor within 1 week after discharge for follow up care and management. Please return to the emergency department if you have worsening symptoms or new concerning symptoms. You have an appointment with your dialysis center at 3 pm. Please keep this appointment. Thank you. - Post Discharge Activity
[2019-04-08] MEDS ORDERED: ACETAMINOPHEN 1000 MG/100 ML VIAL (NON FORMULARY) IVPB ONE (07:45)
--- NOTE | 2019-04-08 07:55 | PDOC ---
Attending Attestation - Resident Resident Name: ChantalSukh - ED Attending Attestation I have performed the following: I have examined & evaluated the patient, The case was reviewed & discussed with the resident, I agree w/resident's findings & plan, Exceptions are as noted - HPI HPI: 04/08/19 10:15 62-year-old with past medical history significant for bladder cancer status post resection cataracts end-stage renal Monday presents with mechanical fall landed on her left hip complaining of pain to hip went to dialysis today secondary to hip pain patient was sent to the emergency department for evaluation pain is moderate persistent constant worse with ambulation patient is able to ambulate with it - Physicial Exam PE: 04/08/19 10:15 Vitals: Triage Vital signs reviewed General Appearance: No acute distress, well nourished well developed, Head: Atraumatic, Neck: Supple; no Nucal rigidity Chest Wall: Nontender Cardiac: Regular rate and rhythym, no murmurs, no rubs, no gallops, Lungs: Clear to auscultation bilateral, good air movement bilaterally, Abdomen: Soft, non distended, normal bowel sounds, non tender to palpation Extremities: Full range of motion to all extremities, n full range of motion tenderness to palpation to the left hip o cyanosis, clubbing, or edema Skin: Warm and dry, no rashes or lesions, no rash, no petechiae Neuro: , strength intact to all extremities, sensation intact to all extremities , Psych: Normal mood, normal affect - Medical Decision Making 04/08/19 10:17 No acute fracture dislocation noted on x-ray labs within normal limits EKG with no evidence of hyperkalemia potassium is 4.9. We have contacted the patient's dialysis center she is scheduled for today at 3 PM patient feels better after Tylenol Findings, need for follow-up and strict return instructions discussed with patient.
[2019-04-08] MEDS ORDERED: ACETAMINOPHEN INJECTION 100 ML IVPB ONE (08:01)
[2019-04-08 08:20] LABS: BASO % 1.1 % (0-2.0); EOS % 5.3 % (0-4.5); HEMATOCRIT 24.7 % (32.4-45.2); HEMOGLOBIN 8.2 GM/dL (10.7-15.3); LYMPH % 20.8 % (8-40); MCH 34.2 pg (25.7-33.7); MCHC 33.3 g/dl (32.0-36.0); MEAN CELL VOLUME 102.9 fl (80-96); MEAN PLT VOLUME 9.7 fl (7.5-11.1); MONO % 7.9 % (3.8-10.2); NEUT % 64.9 % (42.8-82.8); PLATELET COUNT 182 K/MM3 (134-434); RDW 13.7 % (11.6-15.6)
[2019-04-08 08:54] LABS: ALBUMIN 3.1 g/dl (3.4-5.0); BILIRUBIN,TOTAL 0.3 mg/dL (0.2-1); BLOOD UREA NITROGEN 87.6 mg/dL (7-18); CALCIUM 8.9 mg/dL (8.5-10.1); POTASSIUM 4.9 mmol/L (3.5-5.1); TOT PROT 6.8 g/dl (6.4-8.2)
[2019-04-08 08:57] LABS: CREATININE 11.3 mg/dL (0.55-1.3)
[2019-04-08 09:47] VITALS: BP 152/99; PULSE 74; TEMP 97.9; BMI 19.1
--- NOTE | 2019-04-08 10:19 | EKG ---
Test Reason : Blood Pressure : / mmHG Vent. Rate : 071 BPM Atrial Rate : 071 BPM P-R Int : 160 ms QRS Dur : 092 ms QT Int : 444 ms P-R-T Axes : 067 025 076 degrees QTc Int : 482 ms NORMAL SINUS RHYTHM MINIMAL VOLTAGE CRITERIA FOR LVH, MAY BE NORMAL VARIANT BORDERLINE ECG WHEN COMPARED WITH ECG OF 14-APR-2018 18:15, SINUS RHYTHM HAS REPLACED ECTOPIC ATRIAL RHYTHM Confirmed by JALIL GOMEZ, KOJO ([id number]) on 04/08/2019 10:19:06 AM Referred By: Confirmed By:KOJO JIMENES MD
== END 2019-04-08 13:48 | disposition home or self-care (01) ==
LOC: JER 07:08
PROC: 3E033NZ Introduction of Analgesics, Hypnotics, Sedatives into Peripheral Vein, Percutaneous Approach (ICD-10-PCS; principal; 2019-04-08)
DX: M25.552 Pain in left hip (principal); W19.XXXA Unspecified fall, initial encounter; Y93.89 Activity, other specified; Y92.89 Other specified places as the place of occurrence of the external cause; Y99.8 Other external cause status; I13.2 Hypertensive heart and chronic kidney disease with heart failure and with stage 5 chronic kidney disease, or end stage renal disease; N18.6 End stage renal disease; I50.32 Chronic diastolic (congestive) heart failure; N17.8 Other acute kidney failure; Z99.2 Dependence on renal dialysis; K21.9 Gastro-esophageal reflux disease without esophagitis; G40.909 Epilepsy, unspecified, not intractable, without status epilepticus; D64.9 Anemia, unspecified; F17.210 Nicotine dependence, cigarettes, uncomplicated; Z88.5 Allergy status to narcotic agent; Z85.528 Personal history of other malignant neoplasm of kidney; Z85.51 Personal history of malignant neoplasm of bladder; Z90.5 Acquired absence of kidney
CPT/HCPCS: 36415; 73523-TC-FY; 73552-TC-LT-FY; 80053; 85025; 93005; 93010; 99282-25; J0131

== ENCOUNTER 2019-04-16 10:46 | Inpatient (IN) | payer OTHER ==
[2019-04-16 11:01] VITALS: BMI 19.5
--- NOTE | 2019-04-16 11:27 | PDOC ---
History of Present Illness - General Chief Complaint: Abnormal Lab Results (Outside) Stated Complaint: SENT FOR LOW HEMOGLOBIN Time Seen by Provider: 04/16/19 10:51 - History of Present Illness Initial Comments: 04/16/19 12:06 63 y/o F hx of bladder ca s/p resection, ESRD on hemodialysis (, , mon) , bilateral cataractts, RCC s/p nephrectomy, HTN, CHF, seizure disorder. She presents today from dialysis with reported hgb of 4. she was last seen in this ED on 04/08 for left hip pain s/p a fall. Imaging at the time revealed no fracture or acute pathology. She denies any weakness, chest pain, fevers, chills , dizziness. She endorses similiar left hip pain, and another incident of falling this past Monday. Her last dialysis was on Monday. Past History - Past Medical History Allergies/Adverse Reactions: Allergies Allergy/AdvReac Type Severity Reaction Status Date / Time codeine Allergy Severe Verified 04/16/19 10:51 Home Medications: Ambulatory Orders Losartan Potassium 100 mg PO DAILY 04/06/17 Nifedipine ER [Procardia XL -] 90 mg PO DAILY tab.er.24 04/07/17 Budesonide/Formeterol Fumarate [SYMBICORT 160/4.5mcg -] 1 inh IH ASDIR 04/08/19 Clonidine HCl 0.2 mg PO BID 04/16/19 Doxazosin Mesylate [Cardura -] 1 mg PO BID 04/16/19 Labetalol HCl [Normodyne -] 200 mg PO BID 04/16/19 Phenytoin Na Extended [Dilantin -] 200 mg PO BID 04/16/19 Sevelamer Carbonate [Renvela] 800 mg PO CM 04/16/19 Spironolactone 50 mg PO DAILY 04/16/19 Anemia: Yes Asthma: No Cancer: Yes (renal cell ca) Cardiac Disorders: No CVA: No COPD: No CHF: No Dementia: No Diabetes: No Dialysis: Yes () GI Disorders: Yes (REFLUX) Disorders: Yes (DIALYSIS ,,[facility]) HTN: Yes Hypercholesterolemia: No Liver Disease: No Seizures: Yes (2 YEARS AGO) Thyroid Disease: No - Surgical History Abdominal Surgery: No Appendectomy: No Cardiac Surgery: No Cholecystectomy: Yes Lung Surgery: No Neurologic Surgery: No Orthopedic Surgery: No - Immunization History Immunization Up to Date: Yes - Psycho Social/Smoking Cessation Hx Smoking Status: Yes Smoking History: Never smoked Have you smoked in the past 12 months: No Number of Cigarettes Smoked Daily: 10 'Breaking Loose' booklet given: 04/05/17 Hx Alcohol Use: No Drug/Substance Use Hx: No Substance Use Type: None Hx Substance Use Treatment: No Review of Systems - Review of Systems Constitutional: No: Chills, Fever HEENTM: Yes: Cataracts Respiratory: No: Cough, Shortness of Breath Cardiac (ROS): No: Chest Pain, Lightheadedness ABD/GI: No: Nausea, Vomiting : No: Flank Pain Musculoskeletal: No: Back Pain, Gout Integumentary: No: Bruising, Change in Color Neurological: No: Headache, Tingling *Physical Exam - Vital Signs Last Vital Signs Temp Pulse Resp BP Pulse Ox 97.8 F 72 18 120/62 99 04/16/19 10:51 04/16/19 10:51 04/16/19 10:51 04/16/19 10:51 04/16/19 10:51 - Physical Exam 04/16/19 12:10 PE: GENERAL: Awake, alert, and fully oriented, in no acute distress thin appearing. HEAD: No signs of trauma, normocephalic, atraumatic EYES: bilateral cataracts. blind ENT: Auricles normal inspection, hearing grossly normal, nares patent, oropharynx clear without exudates. Moist mucosa NECK: Normal ROM, supple, no lymphadenopathy, JVD, or masses LUNGS: No distress, speaks full sentences, decreased breath sounds on the left. crackles lower right lung base. HEART: Regular rate and rhythm, normal S1 and S2, no murmurs, rubs or gallops, peripheral pulses normal and equal bilaterally. ABDOMEN: Soft, nontender, normoactive bowel sounds. No guarding, no rebound. No masses Rectal exam; no blood retrieved on gloved finger. very little stool in rectal vault. EXTREMITIES : Normal inspection, Normal range of motion, no edema. No clubbing or cyanosis NEUROLOGICAL: Alert and oriented. Sensation intact. SKIN: Warm, Dry, normal turgor, no rashes or lesions noted 04/16/19 13:53 ED Treatment Course - LABORATORY CBC & Chemistry Diagram: 04/18/19 06:55 04/18/19 06:55 Medical Decision Making - Medical Decision Making 04/16/19 13:11 63 y/o F hx of bladder ca s/p resection, ESRD on hemodialysis (, , mon) , bilateral cataractts, RCC s/p nephrectomy, HTN, CHF, seizure disorder. Hgb 6.6 hct 19.9 transfuse with blood. stool occult blood is negative. EKG: normal sinus rhythm, septal infarct age undetermine. PCP: Dr. Lj Morrow admits to Dr. Bustamante [phone] 04/16/19 13:11 Admit once all results are in. 04/16/19 13:14 04/16/19 13:45 Hip X-ray no acute bony abnormalities are seen it patients symptoms persist follow-up imaging may be considered Creatinine 8.7 Dr. Bustamante messaged for admission. 04/16/19 13:[address] Bustamante's service. Discharge - Discharge Information Problems reviewed: Yes Clinical Impression/Diagnosis: Anemia Qualifiers: Anemia type: unspecified type Qualified Code(s): D64.9 - Anemia, unspecified Condition: Stable - Follow up/Referral - Patient Discharge Instructions - Post Discharge Activity
[2019-04-16] MEDS ORDERED: ACETAMINOPHEN 1000 MG/100 ML VIAL (NON FORMULARY) IVPB ONE (11:52)
[2019-04-16] MEDS ORDERED: ACETAMINOPHEN INJECTION 100 ML IVPB ONE (12:10)
[2019-04-16 12:16] LABS: BASO % 0.9 % (0-2.0); EOS % 4.8 % (0-4.5); HEMATOCRIT 19.9 % (32.4-45.2); LYMPH % 17.6 % (8-40); MCH 33.5 pg (25.7-33.7); MCHC 33.2 g/dl (32.0-36.0); MEAN CELL VOLUME 100.9 fl (80-96); MEAN PLT VOLUME 8.9 fl (7.5-11.1); MONO % 8.8 % (3.8-10.2); NEUT % 67.9 % (42.8-82.8); PLATELET COUNT 226 K/MM3 (134-434); RBC 1.98 M/mm3 (3.60-5.2); RDW 13.7 % (11.6-15.6); WHITE BLOOD COUNT 7.8 K/mm3 (4.0-10.0)
[2019-04-16 12:18] LABS: HEMOGLOBIN 6.6 GM/dL (10.7-15.3)
[2019-04-16 12:38] LABS: PROTHROMBIN TIME (PATIENT) 11.8 SEC (9.7-13.0)
[2019-04-16 12:41] LABS: ACTIVATED PTT 29.6 SECONDS (25.2-36.5)
--- NOTE | 2019-04-16 12:59 | PDOC ---
Attending Attestation - Resident Resident Name: Cam Harden - ED Attending Attestation I have performed the following: I have examined & evaluated the patient, The case was reviewed & discussed with the resident, I agree w/resident's findings & plan - HPI HPI: 04/16/19 12:54 63-year-old female with history of hypertension, nephrectomies, end-stage renal disease on dialysis Monday//Monday, history of anemia requiring transfusions in the past without clear bleeding source presents now from dialysis center prior to receiving dialysis with hemoglobin report of 4. Patient denies any bleeding, did have a fall last week where she landed on her bottom. - Physicial Exam PE: 04/16/19 12:57 Vital signs normal Alert in stretcher, bilateral cataracts, otherwise conversant with clear speech Heart is regular, lungs are clear Abdomen benign Left arm fistula with palpable pulse Neurologically nonfocal No edema - Medical Decision Making 04/16/19 12:57 63-year-old female with history of end-stage renal disease on dialysis, history of anemia requiring transfusions presents now with worsened anemia from baseline , sent for transfusion. Hemodynamically stable here without acute signs or symptoms of volume overload or electrolyte abnormality EKG performed stat is within normal limits Send labs, transfuse as needed Consult renal for dialysis since she missed her session today Admission 04/16/19 13:38 K wnl. Hgb 6.6. Tx PRBC, admit. renal for HD. Heart Score/ECG Review #1 ECG reviewed & interpreted by me at: 11:39 General ECG Interpretation: Sinus Rhythm, Normal Rate (74), Normal Intervals ( qtc 481), No acute ischemic changes (septal q waves) Compared to previous ECG there are: No significant change (c/w 04/08/19)
[2019-04-16 13:23] LABS: BILIRUBIN,TOTAL 0.2 mg/dL (0.2-1); BLOOD UREA NITROGEN 69.7 mg/dL (7-18); CALCIUM 8.7 mg/dL (8.5-10.1); POTASSIUM 4.2 mmol/L (3.5-5.1); TOT PROT 6.5 g/dl (6.4-8.2)
[2019-04-16 13:32] LABS: CREATININE 8.7 mg/dL (0.55-1.3)
--- NOTE | 2019-04-16 14:30 | EKG ---
Test Reason : Blood Pressure : / mmHG Vent. Rate : 074 BPM Atrial Rate : 074 BPM P-R Int : 158 ms QRS Dur : 098 ms QT Int : 434 ms P-R-T Axes : 054 032 070 degrees QTc Int : 481 ms NORMAL SINUS RHYTHM SEPTAL INFARCT , AGE UNDETERMINED ABNORMAL ECG WHEN COMPARED WITH ECG OF 08-APR-2019 09:21, SEPTAL INFARCT IS NOW PRESENT T WAVE INVERSION NOW EVIDENT IN ANTERIOR LEADS Confirmed by MD Daisha, Mauricio ([id number]) on 04/16/2019 2:30:34 PM Referred By: Confirmed By:Mauricio Ashton MD
[2019-04-16] MEDS ORDERED: FUROSEMIDE 40 MG/4 ML INJECTABLE VIAL ONE (20:57)
[2019-04-16] MEDS ORDERED: PHENYTOIN NA EXTENDED 100 MG CAPSULE (FP) PO ONE (23:09)
[2019-04-16] MEDS ORDERED: PHENYTOIN NA EXTENDED 100 MG CAPSULE (FP) ONE (23:10)
[2019-04-16] MEDS: PHENYTOIN NA EXTENDED 100 MG CAPSULE (FP) PO SCH (23:20)
--- NOTE | 2019-04-16 23:41 | HP ---
Admitting History and Physical - Past Medical History CHAINER: Yes: Seizure, Other (Blindness) Cardiovascular: Yes: HTN Gastrointestinal: Yes: Constipation Renal/: Yes: Renal Failure (PCKD s/p nephrectomies), Cancer (Renal cell carcinoma) Heme/Onc: Yes: Anemia, Cancer (Renal cell carcinoma) - Past Surgical History Past Surgical History: Yes: AV Fistula/Graft, , Nephrectomy (right nephrectomy and left partial nephrectomy) - Smoking History Smoking history: Never smoked Have you smoked in the past 12 months: No Aproximately how many cigarettes per day: 10 - Alcohol/Substance Use Hx Alcohol Use: No History of Substance Use: reports: None - Social History ADL: Family Assistance History of Recent Travel: No Home Medications - Allergies Allergies/Adverse Reactions: Allergies Allergy/AdvReac Type Severity Reaction Status Date / Time codeine Allergy Severe Verified 04/16/19 10:51 - Home Medications Home Medications: Ambulatory Orders Losartan Potassium 100 mg PO DAILY 04/06/17 Nifedipine ER [Procardia XL -] 90 mg PO DAILY tab.er.24 04/07/17 Budesonide/Formeterol Fumarate [SYMBICORT 160/4.5mcg -] 1 inh IH ASDIR 04/08/19 Clonidine HCl 0.2 mg PO BID 04/16/19 Doxazosin Mesylate [Cardura -] 1 mg PO BID 04/16/19 Labetalol HCl [Normodyne -] 200 mg PO BID 04/16/19 Phenytoin Na Extended [Dilantin -] 200 mg PO BID 04/16/19 Sevelamer Carbonate [Renvela] 800 mg PO CM 04/16/19 Spironolactone 50 mg PO DAILY 04/16/19 Physical Examination Vital Signs: Vital Signs Temperature 98.1 F 04/16/19 19:00 Pulse Rate 79 04/16/19 19:00 Respiratory Rate 18 04/16/19 19:00 Blood Pressure 163/81 04/16/19 19:00 O2 Sat by Pulse Oximetry (%) 98 04/16/19 19:00 Labs: CBC, BMP 04/16/19 12:04 04/16/19 12:04
[2019-04-17 09:04] LABS: BASO % 0.5 % (0-2.0); EOS % 4.4 % (0-4.5); HEMATOCRIT 22.9 % (32.4-45.2); LYMPH % 22.2 % (8-40); MCH 33.6 pg (25.7-33.7); MCHC 34.8 g/dl (32.0-36.0); MEAN CELL VOLUME 96.3 fl (80-96); MEAN PLT VOLUME 8.7 fl (7.5-11.1); NEUT % 61.9 % (42.8-82.8); PLATELET COUNT 223 K/MM3 (134-434); RBC 2.38 M/mm3 (3.60-5.2); RDW 15.5 % (11.6-15.6)
[2019-04-17 09:38] LABS: ALBUMIN 2.9 g/dl (3.4-5.0); BILIRUBIN,TOTAL 0.3 mg/dL (0.2-1); BLOOD UREA NITROGEN 87.3 mg/dL (7-18); CALCIUM 8.6 mg/dL (8.5-10.1); POTASSIUM 4.4 mmol/L (3.5-5.1); TOT PROT 6.2 g/dl (6.4-8.2)
[2019-04-17 10:00] LABS: CREATININE 9.9 mg/dL (0.55-1.3)
[2019-04-17] MEDS: SEVELAMER CARBONATE 800 MG TAB (FP) PO SCH ×3 (10:08→18:07)
[2019-04-17] MEDS: cloNIDine HCL 0.1 MG TABLET PO SCH ×2 (10:08→21:22)
[2019-04-17] MEDS: SPIRONOLACTONE 25 MG TABLET (FP) PO SCH (10:08)
[2019-04-17] MEDS: LOSARTAN POTASSIUM 50 MG TABLET (FP) PO SCH (10:08)
[2019-04-17] MEDS: LABETALOL HCL 200 MG TABLET (FP) PO SCH ×2 (10:08→21:23)
[2019-04-17] MEDS: NIFEdipine E.R. 90 MG TABLET (FP) PO SCH (10:09)
[2019-04-17] MEDS: PHENYTOIN NA EXTENDED 100 MG CAPSULE (FP) PO SCH ×2 (10:09→21:21)
[2019-04-17] MEDS: DOXAZOSIN MESYLATE 1 MG TABLET PO SCH ×2 (11:23→21:22)
--- NOTE | 2019-04-17 11:27 | CONSULT ---
Consult - text type - Consultation Consultation Note: Renal consult for ESRD on HD This is a 63 year old woman with history of ESRD no HD (TTS), hypertension, RCC s/p bilateral nephrectomy, Cataracts, Blindness who presented from outpatient dialysis with low Hgb. Pt seen and examined at the bedside. Awake and alert, offers no acute complaints. Denies any shortness of breath, chest pain, fever or chills. No N/V/D. Denies any bleeding. No flank pain. Last dialysis was Monday. Was told that her Hgb was ~4 in HD unit. PMhx: as above Allergies: Codine Family hx: NC Social Hx: No T/A/D ROS: as per HPI, all other pertinent ros negative Home Medications Medication Instructions Recorded Losartan Potassium 100 mg PO DAILY 04/06/17 Nifedipine ER [Procardia XL -] 90 mg PO DAILY tab.er.24 04/07/17 Budesonide/Formeterol Fumarate 1 inh IH ASDIR 04/08/19 [SYMBICORT 160/4.5mcg -] Clonidine HCl 0.2 mg PO BID 04/16/19 Doxazosin Mesylate [Cardura -] 1 mg PO BID 04/16/19 Labetalol HCl [Normodyne -] 200 mg PO BID 04/16/19 Phenytoin Na Extended [Dilantin -] 200 mg PO BID 04/16/19 Sevelamer Carbonate [Renvela] 800 mg PO CM 04/16/19 Spironolactone 50 mg PO DAILY 04/16/19 Vital Signs Temperature 98.1 F 04/17/19 06:00 Pulse Rate 78 04/17/19 06:00 Respiratory Rate 18 04/17/19 06:00 Blood Pressure 186/89 H 04/17/19 06:00 O2 Sat by Pulse Oximetry (%) 99 04/17/19 00:11 Intake & Output 04/14/19 04/15/19 04/16/19 04/17/19 23:59 23:59 23:59 23:59 Intake Total 350 0 Balance 350 0 Weight 53.2 kg 53.184 kg NAD awake and alert neck supple RRR, no M/R CTA soft NT/ND no LE edema, clubbing or cyanosis CBC, BMP 04/17/19 07:35 04/17/19 07:35 Laboratory Tests 02/23/17 04/17/19 12:16 07:35 Calcium 7.9 L 8.6 Phosphorus 3.4 Albumin 2.9 L Laboratory Tests 04/16/19 04/17/19 12:04 07:35 Hgb 6.6 L* 8.0 L Hct 19.9 L D 22.9 L D Current Medications Acetaminophen (Tylenol -) 650 mg PO Q6H PRN PRN Reason: NEED PAIN SCALE OR PRN REASON Budesonide/Formoterol Fumarate (Symbicort 160/4.5mcg -) 1 puff IH ASDIR [facility] Clonidine (Catapres -) 0.2 mg PO BID [facility] Last Admin: 04/17/19 10:08 Dose: 0.2 mg Doxazosin Mesylate (Cardura -) 1 mg PO BID [facility] Last Admin: 04/17/19 11:23 Dose: 1 mg Labetalol HCl (Normodyne -) 200 mg PO BID [facility] Last Admin: 04/17/19 10:08 Dose: 200 mg Losartan Potassium (Cozaar -) 100 mg PO DAILY [facility] Last Admin: 04/17/19 10:08 Dose: 100 mg Nifedipine (Procardia Xl -) 90 mg PO DAILY [facility] Last Admin: 04/17/19 10:09 Dose: 90 mg Phenytoin Sodium (Dilantin -) 100 mg PO BID [facility] Last Admin: 04/17/19 10:09 Dose: 100 mg Sevelamer Carbonate (Renvela -) 800 mg PO CM [facility] Last Admin: 04/17/19 10:08 Dose: 800 mg Spironolactone (Aldactone -) 50 mg PO DAILY [facility] Last Admin: 04/17/19 10:08 Dose: 50 mg 63 year old woman with history of ESRD no HD (TTS), hypertension, RCC s/p bilateral nephrectomy, Cataracts, Blindness who presented from outpatient dialysis with low Hgb. 1. Acute on chronic anemia 2. ESRD on HD (TTS) 3. Hypertension 4. Renal Osteodystrophy Etiology of anemia unclear as stool occult blood is negative Will check blood cultures on dialysis as infection can sometimes cause DAISHA resistance for HD today as she has missed her previous dialysis will give Epogen with HD for anemia Continue Losartan, Labetalol and Nifedpine Continue Renvela will have abridged HD tomorrow as well Thank you Jake Stringer DO
[2019-04-17] MEDS ORDERED: EPOETIN ALFA 20,000 UNIT/1 ML VIAL IVPUSH ONE (11:56)
[2019-04-17] MEDS ORDERED: SODIUM CHLORIDE 250 ML IV PRN (12:22)
--- NOTE | 2019-04-17 17:42 | CONSULT ---
Consultation: REQUESTING PROVIDER: Heme/Onc Service CONSULT REQUEST: We have been asked to medically evaluate this patient for anemia. HISTORY OF PRESENT ILLNESS: Pt is a 63 y/o F with PMH ESRD no HD (TTS), hypertension, RCC s/p bilateral nephrectomy, Cataracts, Blindness who presented to ED sent from HD with low Hb. She was admitted for severe anemia requiring transfusion. Heme/Onc was consulted for the same. On my interview, pt's only complaint is of hip pain from a fall several weeks ago. Denies bleeding of any kind. Nurse also has not noted any blood since pt was admitted. Pt states she has had anemia for a long time but it is not normally bad enough to require transfusion. No personal history of malignancy or other hematologic issues. 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 No exposure to harsh chemicals. Active smoker ~ 1ppd for many years. No EtOH, no drugs REVIEW OF SYSTEMS: CONSTITUTIONAL: Absent: fever, chills, diaphoresis, generalized weakness, malaise, loss of appetite, weight change HEENT: Absent: rhinorrhea, nasal congestion, throat pain, throat swelling, difficulty swallowing, mouth swelling, ear pain, eye pain, visual changes CARDIOVASCULAR: Absent: chest pain, syncope, palpitations, irregular heart rate, lightheadedness , peripheral edema RESPIRATORY: Absent: cough, shortness of breath, dyspnea with exertion, orthopnea, wheezing, stridor, hemoptysis GASTROINTESTINAL: Absent: abdominal pain, abdominal distension, nausea, vomiting, diarrhea, constipation, melena, hematochezia GENITOURINARY: Absent: dysuria, frequency, urgency, hesitancy, hematuria, flank pain, genital pain MUSCULOSKELETAL: arthralgia L hip Absent: myalgia, , joint swelling, back pain, neck pain SKIN: Absent: rash, itching, pallor HEMATOLOGIC/IMMUNOLOGIC: Absent: easy bleeding, easy bruising, lymphadenopathy, frequent infections ENDOCRINE: Absent: unexplained weight gain, unexplained weight loss, heat intolerance, cold intolerance NEUROLOGIC: Absent: headache, focal weakness or paresthesias, dizziness, unsteady gait, seizure, mental status changes, bladder or bowel incontinence PSYCHIATRIC: Absent: anxiety, depression, suicidal or homicidal ideation, hallucinations. PHYSICAL EXAMINATION Vital Signs - 24 hr 04/16/19 04/16/19 04/16/19 18:06 19:00 21:00 Temperature 98.7 F 98.1 F Pulse Rate Pulse Rate [ 80 79 Left Radial] Respiratory 18 Rate Blood Pressure Blood Pressure 154/73 163/81 [Right Arm] O2 Sat by Pulse 96 98 99 Oximetry (%) 04/16/19 04/17/19 04/17/19 23:53 00:11 02:00 Temperature 97.9 F 98.2 F Pulse Rate 79 Pulse Rate [ 79 Left Radial] Respiratory 18 18 18 Rate Blood Pressure 154/80 Blood Pressure 176/88 H [Right Arm] O2 Sat by Pulse 98 99 Oximetry (%) 04/17/19 04/17/19 04/17/19 06:00 08:17 09:00 Temperature 98.1 F 98.2 F Pulse Rate 78 73 Pulse Rate [ Left Radial] Respiratory 18 20 Rate Blood Pressure 186/89 H 155/74 Blood Pressure [Right Arm] O2 Sat by Pulse 99 Oximetry (%) 04/17/19 04/17/19 04/17/19 13:55 14:00 14:30 Temperature 98.1 F Pulse Rate 71 71 73 Pulse Rate [ Left Radial] Respiratory 18 18 18 Rate Blood Pressure 145/79 144/72 146/84 Blood Pressure [Right Arm] O2 Sat by Pulse Oximetry (%) 04/17/19 04/17/19 04/17/19 15:00 15:30 16:00 Temperature Pulse Rate 74 714 H 77 Pulse Rate [ Left Radial] Respiratory 18 18 18 Rate Blood Pressure 143/70 141/73 110/75 Blood Pressure [Right Arm] O2 Sat by Pulse Oximetry (%) 04/17/19 04/17/19 04/17/19 16:30 17:00 17:05 Temperature Pulse Rate 77 74 75 Pulse Rate [ Left Radial] Respiratory 18 18 18 Rate Blood Pressure 141/87 152/78 136/80 Blood Pressure [Right Arm] O2 Sat by Pulse Oximetry (%) Gen: AAOx3, NAD, receiving HD HEENT: NCAT, corneal opacification b/l, poor dentition, moist membranes Neck: no jvd, thyromegally without bruit, no carotid bruits Cardio: rrr, normal s1s2, no mrg noted Pulm: cta b/l Breast: no nodules/masses noted Abd: soft, nontender, nondistended Ext: no edema Laboratory Results - last 24 hr 1204/17/19 04/17/19 12:04 07:35 07:35 WBC 9.0 RBC 2.38 L Hgb 8.0 L Hct 22.9 L D MCV 96.3 H MCH 33.6 MCHC 34.8 RDW 15.5 D Plt Count 223 MPV 8.7 Absolute Neuts (auto) 5.6 Neutrophils % 61.9 Lymphocytes % 22.2 D Monocytes % 11.0 H Eosinophils % 4.4 Basophils % 0.5 Nucleated RBC % 0 Sodium 137 Potassium 4.4 Chloride 103 Carbon Dioxide 22 Anion Gap 12 BUN 87.3 H Creatinine 9.9 H* Est GFR (CKD-EPI)AfAm 4.37 Est GFR (CKD-EPI)NonAf 3.77 Random Glucose 80 Calcium 8.6 Iron TIBC Iron Saturation Unsaturated IBC Ferritin Total Bilirubin 0.3 AST 16 ALT 16 Alkaline Phosphatase 130 H Total Protein 6.2 L Albumin 2.9 L Blood Type O POSITIVE Antibody Screen Negative Crossmatch See Detail 04/17/19 14:00 WBC RBC Hgb Hct MCV MCH MCHC RDW Plt Count MPV Absolute Neuts (auto) Neutrophils % Lymphocytes % Monocytes % Eosinophils % Basophils % Nucleated RBC % Sodium Potassium Chloride Carbon Dioxide Anion Gap BUN Creatinine Est GFR (CKD-EPI)AfAm Est GFR (CKD-EPI)NonAf Random Glucose Calcium Iron 79 TIBC 162 L Iron Saturation 48 H Unsaturated IBC 83 L Ferritin 586.9 H Total Bilirubin AST ALT Alkaline Phosphatase Total Protein Albumin Blood Type Antibody Screen Crossmatch Active Medications Generic Name Dose Route Start Last Admin Trade Name Freq PRN Reason Stop Dose Admin Acetaminophen 650 mg 04/17/19 08:31 Tylenol - PO Q6H PRN NEED PAIN SCALE OR PRN REASON Budesonide/Formoterol Fumarate 1 puff 04/16/19 22:45 Symbicort 160/4.5mcg - IH ASDIR CECILIO Clonidine 0.2 mg 04/17/19 10:00 04/17/19 10:08 Catapres - PO 0.2 mg BID CECILIO Administration Doxazosin Mesylate 1 mg 04/17/19 10:00 04/17/19 11:23 Cardura - PO 1 mg BID CECILIO Administration Sodium Chloride 250 mls @ 3,000 mls/hr 04/17/19 12:22 Normal Saline - IV 04/18/19 12:21 PRN PRN Hypotension during Dialysis Labetalol HCl 200 mg 04/17/19 10:00 04/17/19 10:08 Normodyne - PO 200 mg BID CECILIO Administration Losartan Potassium 100 mg 04/17/19 10:00 04/17/19 10:08 Cozaar - PO 100 mg DAILY [facility]ECILIO Administration Nifedipine 90 mg 04/17/19 10:00 04/17/19 10:09 Procardia Xl - PO 90 mg DAILY [facility]ILIO Administration Phenytoin Sodium 100 mg 04/16/19 22:45 04/17/19 10:09 Dilantin - PO 100 mg BID [facility]IO Administration Sevelamer Carbonate 800 mg 04/17/19 08:00 04/17/19 13:38 Renvela - PO 800 mg CM [facility]IO Administration Spironolactone 50 mg 04/17/19 10:00 04/17/19 10:08 Aldactone - PO 50 mg DAILY CECILIO Administration ASSESSMENT/PLAN: Pt is a 63 y/o F with PMH ESRD no HD (TTS), hypertension, RCC s/p bilateral nephrectomy, Cataracts, Blindness who presented to ED sent from HD with low Hb. She was admitted for severe anemia requiring transfusion. Heme/Onc was consulted for the same. Acute on chronic anemia -likely 2/2 renal disease -pt on Erythropoietin Stimulating Agents -adamantly denies bleeding -Fe studies suggestive of chronic disease -unclear if there was some inciting event to cause Hb to drop acutely -s/p 2 PRBC -monitor counts Dispo: We will continue to follow the patient. Thank you for this consultative opportunity. Visit type - Emergency Visit Emergency Visit: No - New Patient This patient is new to me today: Yes Date on this admission: 04/17/19 - Critical Care Critical Care patient: No ATTENDING PHYSICIAN STATEMENT I saw and evaluated the patient. I reviewed the resident's note and discussed the case with the resident. I agree with the resident's findings and plan as documented. SUBJECTIVE: OBJECTIVE: ASSESSMENT AND PLAN:
[2019-04-17] MEDS: ACETAMINOPHEN 325 MG TABLET (FP) PO PRN (18:42)
[2019-04-17] MEDS ORDERED: PT OWN MED DRAWER 7, Y5N ONE (20:51)
[2019-04-18] MEDS: ACETAMINOPHEN 325 MG TABLET (FP) PO PRN ×3 (02:13→17:19)
[2019-04-18 08:05] LABS: BASO % 0.7 % (0-2.0); EOS % 4.3 % (0-4.5); HEMATOCRIT 28.4 % (32.4-45.2); HEMOGLOBIN 10.1 GM/dL (10.7-15.3); LYMPH % 18.4 % (8-40); MCH 33.8 pg (25.7-33.7); MCHC 35.7 g/dl (32.0-36.0); MEAN CELL VOLUME 94.9 fl (80-96); MEAN PLT VOLUME 8.1 fl (7.5-11.1); MONO % 13.2 % (3.8-10.2); NEUT % 63.4 % (42.8-82.8); PLATELET COUNT 245 K/MM3 (134-434); RDW 15.2 % (11.6-15.6); WHITE BLOOD COUNT 10.1 K/mm3 (4.0-10.0)
[2019-04-18 08:43] LABS: ALBUMIN 3.1 g/dl (3.4-5.0); BILIRUBIN,TOTAL 0.3 mg/dL (0.2-1); BLOOD UREA NITROGEN 35.6 mg/dL (7-18); CALCIUM 8.5 mg/dL (8.5-10.1); CREATININE 5.4 mg/dL (0.55-1.3); POTASSIUM 3.5 mmol/L (3.5-5.1); TOT PROT 6.5 g/dl (6.4-8.2)
[2019-04-18] MEDS ORDERED: PT OWN MED DRAWER 7, Y5N ONE ×3 (08:48→21:09)
[2019-04-18] MEDS: LOSARTAN POTASSIUM 50 MG TABLET (FP) PO SCH (09:00)
[2019-04-18] MEDS: LABETALOL HCL 200 MG TABLET (FP) PO SCH ×2 (09:00→21:47)
[2019-04-18] MEDS: SPIRONOLACTONE 25 MG TABLET (FP) PO SCH (09:00)
[2019-04-18] MEDS: cloNIDine HCL 0.1 MG TABLET PO SCH ×2 (09:00→21:47)
[2019-04-18] MEDS: SEVELAMER CARBONATE 800 MG TAB (FP) PO SCH ×3 (09:02→17:16)
[2019-04-18] MEDS: DOXAZOSIN MESYLATE 1 MG TABLET PO SCH ×2 (09:02→21:46)
[2019-04-18] MEDS: PHENYTOIN NA EXTENDED 100 MG CAPSULE (FP) PO SCH ×2 (09:05→21:46)
[2019-04-18] MEDS: NIFEdipine E.R. 90 MG TABLET (FP) PO SCH (09:05)
[2019-04-18] MEDS: BUDESONIDE/FORMETEROL FUMARATE 160/4.5 mcg INHALER IH SCH ×2 (10:35→21:48)
--- NOTE | 2019-04-18 13:05 | PN ---
Progress Note (short form) - Note Progress Note: Renal follow up for ESRD on HD Seen and examined at the bedside awake and alert offers no acute complaints denies any sob, cp, fever or chills Vital Signs Temperature 98.3 F 04/18/19 09:00 Pulse Rate 78 04/18/19 09:00 Respiratory Rate 20 04/18/19 09:00 Blood Pressure 186/88 H 04/18/19 09:00 O2 Sat by Pulse Oximetry (%) 99 04/18/19 09:00 Intake & Output 04/15/19 04/16/19 04/17/19 04/18/19 23:59 23:59 23:59 23:59 Intake Total 350 1150 0 Output Total 2500 Balance 350 -1350 0 Weight 53.2 kg 53.184 kg NAD RRR, no M/R CTA soft NT/ND no LE edema, clubbing or cyanosis CBC, BMP 04/18/19 06:55 04/18/19 06:55 Current Medications Acetaminophen (Tylenol -) 650 mg PO Q6H PRN PRN Reason: PAIN SCALE 1-6 Last Admin: 04/18/19 10:43 Dose: 650 mg Budesonide/Formoterol Fumarate (Symbicort 160/4.5mcg -) 2 puff IH BID [facility] Last Admin: 04/18/19 10:35 Dose: 2 puff Clonidine (Catapres -) 0.2 mg PO BID [facility] Last Admin: 04/18/19 09:00 Dose: 0.2 mg Doxazosin Mesylate (Cardura -) 1 mg PO BID [facility] Last Admin: 04/18/19 09:02 Dose: 1 mg Labetalol HCl (Normodyne -) 200 mg PO BID [facility] Last Admin: 04/18/19 09:00 Dose: 200 mg Losartan Potassium (Cozaar -) 100 mg PO DAILY [facility] Last Admin: 04/18/19 09:00 Dose: 100 mg Nifedipine (Procardia Xl -) 90 mg PO DAILY [facility] Last Admin: 04/18/19 09:05 Dose: 90 mg Phenytoin Sodium (Dilantin -) 200 mg PO BID [facility] Last Admin: 04/18/19 09:05 Dose: 200 mg Sevelamer Carbonate (Renvela -) 800 mg PO CM [facility] Last Admin: 04/18/19 12:39 Dose: 800 mg Spironolactone (Aldactone -) 50 mg PO DAILY [facility] Last Admin: 04/18/19 09:00 Dose: 50 mg 63 year old woman with history of ESRD no HD (TTS), hypertension, RCC s/p bilateral nephrectomy, Cataracts, Blindness who presented from outpatient dialysis with low Hgb. 1. Acute on chronic anemia 2. ESRD on HD (TTS) 3. Hypertension 4. Renal Osteodystrophy Hgb is improved s/p PRBC transfusions f/u blood cultures no volume overload, acidosis or hyperkalemia to warrant dialysis today, will attempt to defer dialysis to Monday. will give Epogen with HD for anemia Continue Losartan, Labetalol and Nifedpine for hypertension Continue Renvela Thank you Jake Stringer DO
--- NOTE | 2019-04-18 15:04 | PN ---
Physical Exam: SUBJECTIVE: Patient seen and examined at bedside. No acute events. Feeling well today. HD will be deferred for the moment. OBJECTIVE: Vital Signs Period Temp Pulse Resp BP Sys/Venegas Pulse Ox Last 24 Hr 97.6 F-98.6 F 74-714 18-20 110-186/70-91 99-99 Gen: AAOx3, NAD, receiving HD HEENT: NCAT, corneal opacification b/l, poor dentition, moist membranes Neck: no jvd, thyromegally without bruit, no carotid bruits Cardio: rrr, normal s1s2, no mrg noted Pulm: cta b/l Breast: no nodules/masses noted Abd: soft, nontender, nondistended Ext: no edema Laboratory Results - last 24 hr 04/16/19 04/18/19 04/18/19 12:04 06:55 06:55 WBC 10.1 H RBC 3.00 L Hgb 10.1 L Hct 28.4 L D MCV 94.9 MCH 33.8 H MCHC 35.7 RDW 15.2 Plt Count 245 MPV 8.1 Absolute Neuts (auto) 6.4 Neutrophils % 63.4 Lymphocytes % 18.4 Monocytes % 13.2 H Eosinophils % 4.3 Basophils % 0.7 Nucleated RBC % 0 Sodium 141 Potassium 3.5 Chloride 104 Carbon Dioxide 32 Anion Gap 5 L BUN 35.6 H Creatinine 5.4 H Est GFR (CKD-EPI)AfAm 9.10 Est GFR (CKD-EPI)NonAf 7.85 Random Glucose 75 Calcium 8.5 Total Bilirubin 0.3 AST 16 ALT 20 Alkaline Phosphatase 142 H Total Protein 6.5 Albumin 3.1 L Blood Type O POSITIVE Antibody Screen Negative Crossmatch See Detail Active Medications Generic Name Dose Route Start Last Admin Trade Name Freq PRN Reason Stop Dose Admin Acetaminophen 650 mg 04/17/19 08:31 04/18/19 10:43 Tylenol - PO 650 mg Q6H PRN Administration PAIN SCALE 1-6 Budesonide/Formoterol Fumarate 2 puff 04/18/19 10:00 04/18/19 10:35 Symbicort 160/4.5mcg - IH 2 puff BID [facility]IO Administration Clonidine 0.2 mg 04/17/19 10:00 04/18/19 09:00 Catapres - PO 0.2 mg BID [facility]IO Administration Doxazosin Mesylate 1 mg 04/17/19 10:00 04/18/19 09:02 Cardura - PO 1 mg BID [facility] Administration Labetalol HCl 200 mg 04/17/19 10:00 04/18/19 09:00 Normodyne - PO 200 mg BID [facility]IO Administration Losartan Potassium 100 mg 04/17/19 10:00 04/18/19 09:00 Cozaar - PO 100 mg DAILY [facility]IO Administration Nifedipine 90 mg 04/17/19 10:00 04/18/19 09:05 Procardia Xl - PO 90 mg DAILY [facility] Administration Phenytoin Sodium 200 mg 04/17/19 22:00 04/18/19 09:05 Dilantin - PO 200 mg BID [facility] Administration Sevelamer Carbonate 800 mg 04/17/19 08:00 04/18/19 12:39 Renvela - PO 800 mg CM [facility]IO Administration Spironolactone 50 mg 04/17/19 10:00 04/18/19 09:00 Aldactone - PO 50 mg DAILY [facility] Administration ASSESSMENT/PLAN: Pt is a 63 y/o F with PMH ESRD no HD (TTS), hypertension, RCC s/p bilateral nephrectomy, Cataracts, Blindness who presented to ED sent from HD with low Hb. She was admitted for severe anemia requiring transfusion. Heme/Onc was consulted for the same. Acute on chronic anemia -likely 2/2 renal disease -pt on Erythropoietin Stimulating Agents -adamantly denies bleeding -Fe studies suggestive of chronic disease -unclear if there was some inciting event to cause Hb to drop acutely -s/p 2 PRBC -monitor counts. Stable for now Visit type - Emergency Visit Emergency Visit: No - New Patient This patient is new to me today: No - Critical Care Critical Care patient: No - Discharge Referral Referred to [facility] Med P.C[facility] No ATTENDING PHYSICIAN STATEMENT I saw and evaluated the patient. I reviewed the resident's note and discussed the case with the resident. I agree with the resident's findings and plan as documented. SUBJECTIVE: OBJECTIVE: ASSESSMENT AND PLAN:
--- NOTE | 2019-04-18 21:35 | PN ---
Progress Note, Physician - Current Medication List Current Medications: Active Medications Acetaminophen (Tylenol -) 650 mg PO Q6H PRN PRN Reason: PAIN SCALE 1-6 Last Admin: 04/18/19 17:19 Dose: 650 mg Budesonide/Formoterol Fumarate (Symbicort 160/4.5mcg -) 2 puff IH BID [facility] Last Admin: 04/18/19 10:35 Dose: 2 puff Clonidine (Catapres -) 0.2 mg PO BID [facility] Last Admin: 04/18/19 09:00 Dose: 0.2 mg Doxazosin Mesylate (Cardura -) 1 mg PO BID [facility] Last Admin: 04/18/19 09:02 Dose: 1 mg Labetalol HCl (Normodyne -) 200 mg PO BID [facility] Last Admin: 04/18/19 09:00 Dose: 200 mg Losartan Potassium (Cozaar -) 100 mg PO DAILY [facility] Last Admin: 04/18/19 09:00 Dose: 100 mg Nifedipine (Procardia Xl -) 90 mg PO DAILY [facility] Last Admin: 04/18/19 09:05 Dose: 90 mg Phenytoin Sodium (Dilantin -) 200 mg PO BID [facility] Last Admin: 04/18/19 09:05 Dose: 200 mg Sevelamer Carbonate (Renvela -) 800 mg PO CM [facility] Last Admin: 04/18/19 17:16 Dose: 800 mg Spironolactone (Aldactone -) 50 mg PO DAILY [facility] Last Admin: 04/18/19 09:00 Dose: 50 mg - Objective Vital Signs: Vital Signs Temperature 98.3 F 04/18/19 16:59 Pulse Rate 72 04/18/19 16:59 Respiratory Rate 20 04/18/19 16:59 Blood Pressure 162/80 04/18/19 16:59 O2 Sat by Pulse Oximetry (%) 99 04/18/19 09:00 Labs: CBC, BMP 04/18/19 06:55 04/18/19 06:55 INR, PTT INR 1.00 (0.83-1.09) 04/16/19 12:04
[2019-04-19] MEDS: ACETAMINOPHEN 325 MG TABLET (FP) PO PRN ×2 (02:00→21:46)
[2019-04-19 07:49] LABS: BASO % 0.5 % (0-2.0); EOS % 5.2 % (0-4.5); HEMATOCRIT 26.9 % (32.4-45.2); HEMOGLOBIN 9.4 GM/dL (10.7-15.3); LYMPH % 18.4 % (8-40); MCH 33.5 pg (25.7-33.7); MCHC 35.1 g/dl (32.0-36.0); MEAN CELL VOLUME 95.7 fl (80-96); MEAN PLT VOLUME 7.7 fl (7.5-11.1); MONO % 11.6 % (3.8-10.2); NEUT % 64.3 % (42.8-82.8); PLATELET COUNT 232 K/MM3 (134-434); RBC 2.81 M/mm3 (3.60-5.2); RDW 15.6 % (11.6-15.6); WHITE BLOOD COUNT 10.4 K/mm3 (4.0-10.0)
[2019-04-19 08:19] LABS: BLOOD UREA NITROGEN 60.3 mg/dL (7-18); CALCIUM 8.8 mg/dL (8.5-10.1); CREATININE 7.2 mg/dL (0.55-1.3); POTASSIUM 3.9 mmol/L (3.5-5.1)
[2019-04-19] MEDS ORDERED: PT OWN MED DRAWER 7, Y5N ONE ×2 (09:22→09:50)
[2019-04-19] MEDS: SPIRONOLACTONE 25 MG TABLET (FP) PO SCH (09:45)
[2019-04-19] MEDS: cloNIDine HCL 0.1 MG TABLET PO SCH ×2 (09:46→21:45)
[2019-04-19] MEDS: LOSARTAN POTASSIUM 50 MG TABLET (FP) PO SCH (09:46)
[2019-04-19] MEDS: DOXAZOSIN MESYLATE 1 MG TABLET PO SCH ×2 (09:46→21:46)
[2019-04-19] MEDS: NIFEdipine E.R. 90 MG TABLET (FP) PO SCH (09:47)
[2019-04-19] MEDS: PHENYTOIN NA EXTENDED 100 MG CAPSULE (FP) PO SCH ×2 (09:47→21:45)
[2019-04-19] MEDS: LABETALOL HCL 200 MG TABLET (FP) PO SCH ×2 (09:47→21:45)
[2019-04-19] MEDS: BUDESONIDE/FORMETEROL FUMARATE 160/4.5 mcg INHALER IH SCH ×2 (09:48→21:51)
[2019-04-19] MEDS: SEVELAMER CARBONATE 800 MG TAB (FP) PO SCH ×3 (09:50→18:12)
[2019-04-19] MEDS ORDERED: SODIUM CHLORIDE 250 ML IV PRN (14:06)
--- NOTE | 2019-04-19 14:06 | PN ---
Progress Note (short form) - Note Progress Note: Renal follow up for ESRD on HD Seen and examined at the bedside no acute complaints no cp, sob, abd pain tolerating oral diet Vital Signs Temperature 98.1 F 04/19/19 09:40 Pulse Rate 82 04/19/19 09:40 Respiratory Rate 20 04/19/19 09:40 Blood Pressure 169/103 H 04/19/19 09:40 O2 Sat by Pulse Oximetry (%) 100 04/18/19 21:00 Intake & Output 04/16/19 04/17/19 04/18/19 04/19/19 23:59 23:59 23:59 23:59 Intake Total 350 1150 120 120 Output Total 2500 0 Balance 350 -1350 120 120 Weight 53.2 kg 53.184 kg NAD RRR, no M/R CTA soft NT/ND no LE edema, clubbing or cyanosis CBC, BMP 04/19/19 07:20 04/19/19 07:20 Current Medications Acetaminophen (Tylenol -) 650 mg PO Q6H PRN PRN Reason: PAIN SCALE 1-6 Last Admin: 04/19/19 02:00 Dose: 650 mg Budesonide/Formoterol Fumarate (Symbicort 160/4.5mcg -) 2 puff IH BID [facility] Last Admin: 04/19/19 09:48 Dose: 2 puff Clonidine (Catapres -) 0.2 mg PO BID [facility] Last Admin: 04/19/19 09:46 Dose: 0.2 mg Doxazosin Mesylate (Cardura -) 1 mg PO BID [facility] Last Admin: 04/19/19 09:46 Dose: 1 mg Labetalol HCl (Normodyne -) 200 mg PO BID [facility] Last Admin: 04/19/19 09:47 Dose: 200 mg Losartan Potassium (Cozaar -) 100 mg PO DAILY [facility] Last Admin: 04/19/19 09:46 Dose: 100 mg Nifedipine (Procardia Xl -) 90 mg PO DAILY [facility] Last Admin: 04/19/19 09:47 Dose: 90 mg Phenytoin Sodium (Dilantin -) 200 mg PO BID [facility] Last Admin: 04/19/19 09:47 Dose: 200 mg Sevelamer Carbonate (Renvela -) 800 mg PO CM [facility] Last Admin: 04/19/19 13:03 Dose: 800 mg Spironolactone (Aldactone -) 50 mg PO DAILY [facility] Last Admin: 04/19/19 09:45 Dose: 50 mg 63 year old woman with history of ESRD no HD (TTS), hypertension, RCC s/p bilateral nephrectomy, Cataracts, Blindness who presented from outpatient dialysis with low Hgb. 1. Acute on chronic anemia 2. ESRD on HD (TTS) 3. Hypertension 4. Renal Osteodystrophy Hgb slightly downtrended today Stool occult blood negative s/p good response to PRBC transfusion no volume overload, acidosis or hyperkalemia to warrant dialysis today, next dialysis tomorrow will give Epogen with HD for anemia Continue Losartan, Labetalol and Nifedpine for hypertension Continue Renvela Thank you Jake Stringer DO
--- NOTE | 2019-04-19 21:51 | PN ---
Progress Note, Physician - Current Medication List Current Medications: Active Medications Acetaminophen (Tylenol -) 650 mg PO Q6H PRN PRN Reason: PAIN SCALE 1-6 Last Admin: 04/19/19 21:46 Dose: 650 mg Budesonide/Formoterol Fumarate (Symbicort 160/4.5mcg -) 2 puff IH BID [facility] Last Admin: 04/19/19 09:48 Dose: 2 puff Clonidine (Catapres -) 0.2 mg PO BID [facility] Last Admin: 04/19/19 21:45 Dose: 0.2 mg Doxazosin Mesylate (Cardura -) 1 mg PO BID [facility] Last Admin: 04/19/19 21:46 Dose: 1 mg Epoetin Nick (Epogen -) 10,000 unit IVPUSH ONCE ONE Stop: 04/20/19 09:01 Sodium Chloride (Normal Saline -) 250 mls @ 3,000 mls/hr IV PRN PRN PRN Reason: Hypotension during Dialysis Stop: 04/20/19 14:06 Labetalol HCl (Normodyne -) 200 mg PO BID [facility] Last Admin: 04/19/19 21:45 Dose: 200 mg Losartan Potassium (Cozaar -) 100 mg PO DAILY [facility] Last Admin: 04/19/19 09:46 Dose: 100 mg Nifedipine (Procardia Xl -) 90 mg PO DAILY [facility] Last Admin: 04/19/19 09:47 Dose: 90 mg Phenytoin Sodium (Dilantin -) 200 mg PO BID [facility] Last Admin: 04/19/19 21:45 Dose: 200 mg Sevelamer Carbonate (Renvela -) 800 mg PO CM [facility] Last Admin: 04/19/19 18:12 Dose: 800 mg Spironolactone (Aldactone -) 50 mg PO DAILY [facility] Last Admin: 04/19/19 09:45 Dose: 50 mg - Objective Vital Signs: Vital Signs Temperature 97.9 F 04/19/19 17:21 Pulse Rate 74 04/19/19 17:21 Respiratory Rate 20 04/19/19 17:21 Blood Pressure 142/85 04/19/19 17:21 O2 Sat by Pulse Oximetry (%) 100 04/19/19 19:55 Labs: CBC, BMP 04/19/19 07:20 04/19/19 07:20 INR, PTT INR 1.00 (0.83-1.09) 04/16/19 12:04
[2019-04-20] MEDS: ACETAMINOPHEN 325 MG TABLET (FP) PO PRN ×2 (04:15→16:27)
[2019-04-20] MEDS ORDERED: amLODIPine BESYLATE 2.5 MG TABLET (FP) PO ONE (05:00)
[2019-04-20] MEDS: SEVELAMER CARBONATE 800 MG TAB (FP) PO SCH ×3 (08:47→17:23)
[2019-04-20] MEDS ORDERED: PT OWN MED DRAWER 7, Y5N ONE (09:38)
[2019-04-20] MEDS: SPIRONOLACTONE 25 MG TABLET (FP) PO SCH (09:40)
[2019-04-20] MEDS: DOXAZOSIN MESYLATE 1 MG TABLET PO SCH (09:41)
[2019-04-20] MEDS: cloNIDine HCL 0.1 MG TABLET PO SCH (09:42)
[2019-04-20] MEDS: LOSARTAN POTASSIUM 50 MG TABLET (FP) PO SCH (09:42)
[2019-04-20] MEDS: PHENYTOIN NA EXTENDED 100 MG CAPSULE (FP) PO SCH (09:42)
[2019-04-20] MEDS: LABETALOL HCL 200 MG TABLET (FP) PO SCH (09:43)
[2019-04-20] MEDS: BUDESONIDE/FORMETEROL FUMARATE 160/4.5 mcg INHALER IH SCH (09:43)
[2019-04-20] MEDS: NIFEdipine E.R. 90 MG TABLET (FP) PO SCH (09:43)
[2019-04-20] MEDS ORDERED: EPOETIN ALFA 10,000 UNIT/1 ML VIAL IVPUSH ONE (12:30)
[2019-04-20 12:56] LABS: BASO % 0.6 % (0-2.0); EOS % 5.8 % (0-4.5); HEMATOCRIT 25.8 % (32.4-45.2); HEMOGLOBIN 8.5 GM/dL (10.7-15.3); LYMPH % 17.1 % (8-40); MCH 32.2 pg (25.7-33.7); MEAN CELL VOLUME 97.4 fl (80-96); MEAN PLT VOLUME 8.1 fl (7.5-11.1); MONO % 11.6 % (3.8-10.2); NEUT % 64.9 % (42.8-82.8); PLATELET COUNT 212 K/MM3 (134-434); RBC 2.65 M/mm3 (3.60-5.2); RDW 15.2 % (11.6-15.6); WHITE BLOOD COUNT 9.2 K/mm3 (4.0-10.0)
[2019-04-20 13:58] LABS: CALCIUM 8.5 mg/dL (8.5-10.1); PHOSPHOROUS 2.7 mg/dL (2.5-4.9); POTASSIUM 4.2 mmol/L (3.5-5.1)
[2019-04-20 15:25] VITALS: PULSE 74
[2019-04-20 16:18] VITALS: BP 166/88; TEMP 98.9
--- NOTE | 2019-04-20 19:56 | PN ---
Progress Note, Physician History of Present Illness: Pt tolerating HD. No new events. - Objective Vital Signs: Vital Signs Temperature 98.9 F 04/20/19 15:45 Pulse Rate 74 04/20/19 15:45 Respiratory Rate 20 04/20/19 15:45 Blood Pressure 166/88 04/20/19 15:45 O2 Sat by Pulse Oximetry (%) 100 04/19/19 19:55 Constitutional: Yes: Calm Cardiovascular: Yes: S1, S2 Respiratory: Yes: CTA Bilaterally Gastrointestinal: Yes: Soft Edema: No Integumentary: Yes: WNL Labs: CBC, BMP 04/20/19 12:00 04/20/19 12:00 INR, PTT INR 1.00 (0.83-1.09) 04/16/19 12:04 Assessment/Plan 63 year old woman with history of ESRD no HD (TTS), hypertension, RCC s/p bilateral nephrectomy, Cataracts, Blindness who presented from outpatient dialysis with low Hgb. 1. Acute on chronic anemia 2. ESRD on HD (TTS) 3. Hypertension 4. Renal Osteodystrophy Plan - HD today - monitor hg in HD - she has HD set up as outpt - cont bp meds
== END 2019-04-20 17:31 | disposition home health service (06) | DRG 291 ==
LOC: JER 10:46 → JERBED 13:59 → J8W 04-17 00:38
PROVIDERS: ADMIT Internal Medicine; ATTEND Internal Medicine
PROC: 30233N1 Transfusion of Nonautologous Red Blood Cells into Peripheral Vein, Percutaneous Approach (ICD-10-PCS; principal; 2019-04-16)
PROC: 5A1D70Z Performance of Urinary Filtration, Intermittent, Less than 6 Hours Per Day (ICD-10-PCS; 2019-04-17)
PROC: 5A1D70Z Performance of Urinary Filtration, Intermittent, Less than 6 Hours Per Day (ICD-10-PCS; 2019-04-20)
DX: I13.2 Hypertensive heart and chronic kidney disease with heart failure and with stage 5 chronic kidney disease, or end stage renal disease (principal); N18.6 End stage renal disease; D63.1 Anemia in chronic kidney disease; G40.909 Epilepsy, unspecified, not intractable, without status epilepticus; K21.9 Gastro-esophageal reflux disease without esophagitis; H54.7 Unspecified visual loss; K59.09 Other constipation; N25.0 Renal osteodystrophy; Z90.5 Acquired absence of kidney; Z85.51 Personal history of malignant neoplasm of bladder; Z99.2 Dependence on renal dialysis; I50.9 Heart failure, unspecified
CPT/HCPCS: 36415; 36430; 36511; 71045-TC-FY; 73523-TC-FY; 80048; 80053; 82272; 82728; 83540; 83550; 84100; 85025; 85610; 85730; 86803; 86850; 86900; 86901; 86922; 87040; 87340; 93005; 93010; 99285-25; J0131; J0735; J0885; P9038; P9058

== ENCOUNTER 2020-02-11 09:24 | Inpatient (IN) | payer OTHER ==
--- NOTE | 2020-02-11 09:37 | PDOC ---
History of Present Illness - General Stated Complaint: SENT FROM DIALYSIS (SOB) Time Seen by Provider: 02/11/20 09:32 History Source: Patient Exam Limitations: No Limitations - History of Present Illness Initial Comments: 02/11/20 09:37 64 y.o. F PMHx ESRD (T, Th, Sat), blader cancer (s/p resection), RCC (s/p nephrectomy), HTN, CHF, Seizure Presenting due to shortness of breath. Patient states she had been sitting down yesterday when she began feeling short of breath. Patient states she typically uses her symbacort inhaler but was out of refills. She is also due for dialysis today. Patient denies chills, fever, headache, chest pain, N/V/D. PCP: Dr. Morrow PMHx: ESRD (T, Th, Sat), blader cancer (s/p resection), RCC (s/p nephrectomy), HTN, CHF, Seizure Meds: In Chart Allergies: codeine 02/11/20 09:54 Is this a multiple visit Asthma Patient?: No Timing/Duration: 24 hours Severity: mild Past History - Medical History Allergies/Adverse Reactions: Allergies Allergy/AdvReac Type Severity Reaction Status Date / Time codeine Allergy Severe Verified 02/11/20 09:31 Home Medications: Ambulatory Orders Losartan Potassium 100 mg PO DAILY 04/06/17 Nifedipine ER [Procardia XL -] 90 mg PO DAILY tab.er.24 04/07/17 Budesonide/Formeterol Fumarate [SYMBICORT 160/4.5mcg -] 1 inh IH ASDIR 04/08/19 Clonidine HCl 0.2 mg PO BID 04/16/19 Doxazosin Mesylate [Cardura -] 1 mg PO BID 04/16/19 Labetalol HCl [Normodyne -] 200 mg PO BID 04/16/19 Phenytoin Na Extended [Dilantin -] 200 mg PO BID 04/16/19 Sevelamer Carbonate [Renvela -] 800 mg PO CM 04/16/19 Spironolactone 50 mg PO DAILY 04/16/19 Phenytoin Na Extended [Dilantin -] 200 mg PO BID capsule 04/20/19 Anemia: Yes Asthma: No Cancer: Yes (renal cell ca) Cardiac Disorders: No CVA: No COPD: No CHF: No Dementia: No Diabetes: No Dialysis: Yes () GI Disorders: Yes (REFLUX) Disorders: Yes (DIALYSIS ,,[facility]) HTN: Yes Hypercholesterolemia: No Liver Disease: No Seizures: Yes (2 YEARS AGO) Thyroid Disease: No - Surgical History Abdominal Surgery: No Appendectomy: No Cardiac Surgery: No Cholecystectomy: Yes Lung Surgery: No Neurologic Surgery: No Orthopedic Surgery: No - Immunization History Immunization Up to Date: Yes - Psycho-Social/Smoking History Smoking Status: Yes Smoking History: Current every day smoker Have you smoked in the past 12 months: No Number of Cigarettes Smoked Daily: 10 Information on smoking cessation initiated: No 'Breaking Loose' booklet given: 04/05/17 - Substance Abuse Hx (Audit-C & DAST Scrn) How often the patient has a drink containing alcohol: Never Score: In Men: 4 or > Positive; In Women: 3 or > Positive: 0 Screen Result (Pos requires Nsg. Audit-10AR): Negative In the last yr the pt used illegal drug/Rx for NonMed reason: No Score: Yes response is considered Positive: 0 Screen Result (Positive result requires Nsg. DAST-10): Negative Review of Systems - Review of Systems Able to Perform ROS?: Yes Is the patient limited Greenlandic proficient: No Constitutional: No: Chills, Fever HEENTM: No: Blurred Vision, Double Vision Respiratory: Yes: Shortness of Breath, Wheezing. No: Cough Cardiac (ROS): No: Chest Pain, Lightheadedness ABD/GI: No: Constipated, Diarrhea, Nausea, Vomiting : No: Burning, Dysuria Musculoskeletal: No: Back Pain, Muscle Pain Integumentary: No: Flushing Neurological: No: Headache, Numbness, Dizziness Hematologic/Lymphatic: No: Blood Clots, Easy Bleeding *Physical Exam - Vital Signs Last Vital Signs Temp Pulse Resp BP Pulse Ox 98.0 F 72 22 H 170/88 100 02/11/20 09:31 02/11/20 09:31 02/11/20 09:31 02/11/20 09:31 02/11/20 09:31 - Physical Exam General Appearance: Yes: Nourished, Appropriately Dressed. No: Apparent Distress Respiratory/Chest: positive: Crackles, Wheezing. negative: Chest Tender, Lungs Clear, Normal Breath Sounds, Accessory Muscle Use Cardiovascular: positive: Regular Rhythm, Regular Rate. negative: Edema, JVD, Murmur Gastrointestinal/Abdominal: positive: Normal Bowel Sounds, Flat, Soft. negative: Tender, Distended, Guarding, Tenderness Musculoskeletal: positive: Normal Inspection. negative: CVA Tenderness Extremity: negative: Normal Inspection, Pedal Edema, Swelling, Calf Tenderness Integumentary: positive: Normal Color, Dry, Warm Neurologic: positive: Fully Oriented, Alert, Normal Mood/Affect, Normal Response ED Treatment Course - LABORATORY CBC & Chemistry Diagram: 02/11/20 10:45 02/11/20 10:19 Medical Decision Making - Medical Decision Making 02/11/20 10:01 64 y.o. F PMHx ESRD (T, Th, Sat), blader cancer (s/p resection), RCC (s/p nephrectomy), HTN, CHF, Seizure Presenting due to shortness of breath. DDx: CHF exacerbation secondary to volume overload ESRD, COPD exacerbation. Labs: Na 133, K 5.3, Cr 7.9, BNP 86972 CXR: Clear well aerated lung, sharp angles, large heart, aorta, normal agustín. Soft tissue intact. EKG: NSR, QTc 479ms, rate 72 Dispo: Admission tele 02/11/20 12:22 Discharge - Discharge Information Problems reviewed: Yes Clinical Impression/Diagnosis: COPD exacerbation, End stage renal disease - Admission Yes - Follow up/Referral Referrals: Lj Morrow MD [Primary Care Provider] - - Patient Discharge Instructions - Post Discharge Activity
[2020-02-11] MEDS ORDERED: ALBUTEROL SO4 2.5/IPRATROPIUM 0.5 INH SOL 3 ML VIAL.NEB. NEB ONE ×2 (09:58→10:13)
[2020-02-11] MEDS: ALBUTEROL SO4 2.5/IPRATROPIUM 0.5 INH SOL 3 ML VIAL.NEB. NEB SCH ×4 (10:19→12:09)
--- OUTSIDE RECORDS SUMMARY | 2020-02-11 10:28 | XMS ---
:1955 [facility] Care Team Providers Name Role Phone WING HOLLIS Unavailable Unavailable Re-disclosure Warning The records that you are about to access may contain information from federally- assisted alcohol or drug abuse programs. If such information is present, then the following federally mandated warning applies: This information has been disclosed to you from records protected by federal confidentiality rules (42 CFR part 2). The federal rules prohibit you from making any further disclosure of this information unless further disclosure is expressly permitted by the written consent of the person to whom it pertains or as otherwise permitted by 42 CFR part 2. A general authorization for the release of medical or other information is NOT sufficient for this purpose. The Federal rules restrict any use of the information to criminally investigate or prosecute any alcohol or drug abuse patient.The records that you are about to access may contain highly sensitive health information, the redisclosure of which is protected by Article 27-F of the [facility] Public Health law. If you continue you may haveaccess to information: Regarding HIV / AIDS; Provided by facilities licensed or operated by the [facility] Office of Mental Health; or Provided by the [facility] Office for People With Developmental Disabilities. If such information is present, then the following [facility] mandated warning applies: This information has been disclosed to you from confidential records which are protected by state law. State law prohibits you from making any further disclosure of this information without the specific written consent of the person to whom it pertains, or as otherwise permitted by law. Any unauthorized further disclosure in violation of state law may result in a fine or fdc sentence or both. A general authorization for the release of medical or other information is NOT sufficient authorization for further disclosure. Allergies and Adverse Reactions Type Description Substance Reaction Status Data Source(s ) Drug allergy No Known Allergies No Known [facility] Allergies [facility] Food allergy No Known Food No Known Food [facility] Allergies Allergies [facility] Drug allergy No Known Drug No Known Drug [facility] Allergies Allergies [facility] Care [facility] Encounters Encounter Providers Location Date Indications Data Source(s ) Outpatient Attender: AVELINO, 02/06/2020 [facility] THOMASAdmitter: 01:08:00 AM [facility] [employer] [employer] THOMASReferrer: WING HOLLIS Outpatient [facility]ELMA[facility] THOMASReferrer: WING HOLLIS Outpatient Attender: TELMA, [facility] [employer] THOMASReferrer: WING HOLLIS Outpatient Attender: TELMA, [facility] 02[facility] [employer] THOMASReferrer: WING HOLLIS Outpatient Attender: TELMA, [facility] 12:32:00 PM [facility] [employer] WINGReferrer: WING HOLLIS Outpatient Attender: TELMA, [facility] 10[facility]21[facility] AM [facility]IFELIZAB[facility] [employer] THOMASReferrer: WING HOLLIS Outpatient Attender: TELMA, [facility] 02[facility]08[facility] [employer] THOMASReferrer: WING HOLLIS Outpatient Attender: TELMA, [facility]07[facility] 02:41:00 AM [facility] [employer] THOMASReferrer: WING HOLLIS Outpatient Attender: TELMA, [facility]2019 [facility] 01:30:00 PM [facility] [employer] THOMASReferrer: WING HOLLIS Outpatient Attender: TELMA, 05/08/2019 [facility]: 10:49:00 AM [facility] [employer] THOMASReferrer: WING HOLLIS Outpatient Attender: AVELIONLO, [facility]/07/2019 [facility]: 12:00:00 PM [facility] [employer] THOMASReferrer: DIFWING JOHNSON Outpatient Attender: AVELINOLO, 03[facility]08/2019 [facility]: 09:32:00 AM [facility] [employer] THOMASReferrer: WING HOLLIS Outpatient Attender: AVELINOLO, [facility]05/2019 [facility] 10:56:00 AM [facility] [employer] THOMASReferrer: WING HOLLIS Outpatient Attender: AVELINOLO, [facility]/06/2019 [facility] 04:19:00 AM [facility] [employer] WINGReferrer: WING HOLLIS Outpatient Attender: TELMA, 12/06/2018 [facility] 11:21:00 AM [facility] [employer] WINGReferrer: IWNG HOLLIS Outpatient Attender: TELMA, 11/05/2018 [facility] 01:29:00 PM [facility] [employer] WINGReferrer: WING HOLLIS Outpatient Attender: TELMA, 10/06/2018 [facility] 03:09:00 PM [facility] [employer] WINGReferrer: WING HOLLIS Outpatient Attender: TELMA, 09/05/2018 [facility] 10:05:00 AM [facility] [employer] THOMASReferrer: WING HOLLIS Outpatient Attender: TELMA, 08/06/2018 [facility] 01:32:00 PM [facility] [employer] THOMASReferrer: WING HOLLIS Outpatient Attender: AVELINOLO, 07/06/2018 [facility] 08:51:00 AM [facility] [employer] THOMASReferrer: WING HOLLIS Insurance Providers Payer name Policy type Policy ID Covered Covered republican's Policy P roma / Coverage republican ID relationship to [facility] ormation type [facility] [id number] - [id number] [employer] [id number] A Problems, Conditions, and Diagnoses Code Display Name Description Problem Type Effective Dates Data Source(s) N18.6 End stage END STAGE RENAL Diagnosis 02/06/2020 [facility] renal disease DISEASE 01:08:00 AM [facility]
--- NOTE | 2020-02-11 10:32 | PDOC ---
Attending Attestation - Resident Resident Name: Maria LuisaZain - ED Attending Attestation I have performed the following: I have examined & evaluated the patient, The case was reviewed & discussed with the resident, I agree w/resident's findings & plan - HPI HPI: 02/11/20 10:27 64-year-old female with multiple medical problems including end-stage renal disease on dialysis, COPD not on home oxygen, active smoker maintained on steroid inhaler presents with subjective shortness of breath since last night after running out of her steroid inhaler. Last dialysis was on Monday as scheduled, reporting increasing dyspnea which she attributes to not having her inhaler, denies having rescue albuterol inhaler, denies any chest pain or fevers or chills or cough, but on my history reports some epigastric discomfort. - Physicial Exam PE: 02/11/20 10:28 Afebrile, slight tachypnea, O2 sat is within normal limits Blind at baseline, otherwise conversant and speaking full sentences Distant breath sounds bilaterally with no focal decreased breath sounds or wheezing Heart is regular, abdomen is soft/nondistended. Epigastric discomfort without guarding or rebound, surgical incisional scars are healed No edema, left upper extremity fistula - Medical Decision Making 02/11/20 10:29 64-year-old female with history of COPD and end-stage renal disease presents with shortness of breath since last night, afebrile here without hypoxia, no chest pain. Question COPD exacerbation, rule out metabolic abnormality from missed dialysis this morning. Rule out cardiac event. Labs, EKG Chest x-ray Trial of nebulizers Reassess, disposition accordingly with nephrology consultation (Dr. Anguiano) 02/11/20 12:09 Potassium 5.3, BNP 44,000 without prior for comparison. Discussed with renal, request admission for dialysis. Heart Score/ECG Review #1 ECG reviewed & interpreted by me at: 10:07 General ECG Interpretation: Sinus Rhythm, Normal Rate (72), Normal Intervals (qtc 479, LVH), No acute ischemic changes (TWI AVL, tall T precordial leads slightly greater than prior EKG 2019) Discharge - Discharge Information Problems reviewed: Yes Clinical Impression/Diagnosis: COPD exacerbation, End stage renal disease - Follow up/Referral Referrals: Lj Morrow MD [Primary Care Provider] - - Patient Discharge Instructions - Post Discharge Activity
[2020-02-11 11:02] LABS: BASO % 0.7 % (0-2.0); EOS % 4.7 % (0-4.5); HEMOGLOBIN 11.4 GM/dL (10.7-15.3); LYMPH % 12.9 % (8-40); MCH 34.6 pg (25.7-33.7); MCHC 33.6 g/dl (32.0-36.0); MEAN CELL VOLUME 102.9 fl (80-96); MEAN PLT VOLUME 7.9 fl (7.5-11.1); MONO % 16.4 % (3.8-10.2); NEUT % 65.3 % (42.8-82.8); PLATELET COUNT 182 K/MM3 (134-434); RBC 3.31 M/mm3 (3.60-5.2); RDW 15.1 % (11.6-15.6); WHITE BLOOD COUNT 6.3 K/mm3 (4.0-10.0)
[2020-02-11 11:33] LABS: ALBUMIN 3.2 g/dl (3.4-5.0); BILIRUBIN,TOTAL 0.6 mg/dL (0.2-1); BLOOD UREA NITROGEN 64.1 mg/dL (7-18); CALCIUM 8.5 mg/dL (8.5-10.1); POTASSIUM 5.3 mmol/L (3.5-5.1); TOT PROT 6.9 g/dl (6.4-8.2)
[2020-02-11 11:42] LABS: N-TERMINAL BNP 44565.8 pg/ml (5-125)
[2020-02-11 11:43] LABS: CREATININE 7.9 mg/dL (0.55-1.3)
[2020-02-11] MEDS ORDERED: SODIUM CHLORIDE 250 ML IV PRN (12:06)
--- NOTE | 2020-02-11 12:06 | CON.NEP ---
Consult Consult Specialty:: Nephrology Referred by:: ED Reason for Consultation:: ESRD on HD - History of Present Illness Chief Complaint: Shortness of breath History of Present Illness: 64 year old woman with history of ESRD no HD (TTS), hypertension, RCC s/p bilateral nephrectomy, Cataracts, Blindness who presented from home with complaints of shortness of breath x 1 day. Seen and examined at the bedside. She reports running out of her inhaler at home. No fever or chills. + cough. No N/V/D. Last dialysis was Monday. 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 - Past Surgical History Past Surgical History: Yes: AV Fistula/Graft, , Nephrectomy (right nephrectomy and left partial nephrectomy) - Alcohol/Substance Use Hx Alcohol Use: No History of Substance Use: reports: None - Smoking History Smoking history: Current every day smoker Have you smoked in the past 12 months: No Aproximately how many cigarettes per day: 10 - Social History Usual Living Arrangement: With Spouse ADL: Family Assistance History of Recent Travel: No Home Medications - Allergies Allergies/Adverse Reactions: Allergies Allergy/AdvReac Type Severity Reaction Status Date / Time codeine Allergy Severe Verified 02/11/20 09:31 - Home Medications Home Medications: Ambulatory Orders Losartan Potassium 100 mg PO DAILY 04/06/17 Nifedipine ER [Procardia XL -] 90 mg PO DAILY tab.er.24 04/07/17 Budesonide/Formeterol Fumarate [SYMBICORT 160/4.5mcg -] 1 inh IH ASDIR 04/08/19 Clonidine HCl 0.2 mg PO BID 04/16/19 Doxazosin Mesylate [Cardura -] 1 mg PO BID 04/16/19 Labetalol HCl [Normodyne -] 200 mg PO BID 04/16/19 Phenytoin Na Extended [Dilantin -] 200 mg PO BID 04/16/19 Sevelamer Carbonate [Renvela -] 800 mg PO CM 04/16/19 Spironolactone 50 mg PO DAILY 04/16/19 Phenytoin Na Extended [Dilantin -] 200 mg PO BID capsule 04/20/19 Family Medical History Family History: Unremarkable Review of Systems - Review of Systems Constitutional: reports: No Symptoms Eyes: reports: No Symptoms HENT: reports: No Symptoms Neck: reports: No Symptoms Cardiovascular: reports: Shortness of Breath Respiratory: reports: Cough, SOB, SOB on Exertion Gastrointestinal: reports: No Symptoms Genitourinary: reports: No Symptoms Musculoskeletal: reports: No Symptoms Integumentary: reports: No Symptoms Neurological: reports: No Symptoms Nephrology Consult - Height Height: 5 ft 5 in - Weight Weight: 52.163 kg - BMI Body Mass Index (BMI): 19.1 - Lab Results CBC,BMP: CBC, BMP 02/11/20 10:45 02/11/20 10:19 Anion Gap: Anion Gap Anion Gap 15 MMOL/L (8-16) 02/11/20 10:19 - Physical Examination Vital Signs: Vital Signs Temperature 98.0 F 02/11/20 09:31 Pulse Rate 72 02/11/20 09:31 Respiratory Rate 22 H 02/11/20 09:31 Blood Pressure 170/88 02/11/20 09:31 O2 Sat by Pulse Oximetry (%) 100 02/11/20 09:31 Constitutional: Yes: No Distress, Calm Eyes: Yes: Conjunctiva Clear HENT: Yes: Atraumatic Neck: Yes: Supple Cardiovascular: Yes: Regular Rate and Rhythm. No: Murmur, Rub Respiratory: Yes: Regular, Diminished, Rales, Rhonchi, SOB Gastrointestinal: Yes: Soft. No: Tenderness Extremities: No: Cyanosis Edema: No Neurological: Yes: Alert Assessment/Plan 64 year old woman with history of ESRD no HD (TTS), hypertension, RCC s/p bilateral nephrectomy, Cataracts, Blindness who presented from home with complaints of shortness of breath x 1 day. 1. Shortness of breath r/o PNA/COVID/COPD 2. ESRD on HD 3. Hypertension 4. CKD related anemia 5. Renal Osteodystrophy Check CXR and COVID PCR Empiric antibiotics if CXR is suggestive of PNA Check blood and sputum cultures Will arrange for dialysis today with UF as tolerated Renal diet, 1.2L fluid restriction Hgb at goal, no DAISHA needed Trend PHos levels. Resume home phos binders. Thank you Jake Stringer DO
--- OUTSIDE RECORDS SUMMARY | 2020-02-11 13:11 | XMS ---
:1955 Author Organization [facility] Care Team Providers Name Role Phone [...] is protected by Article 27-F of the [facility] Public Health law. If you continue you may haveaccess to information: Regarding HIV / AIDS; Provided by facilities licensed or operated by the [facility] Office of Mental Health; or Provided by the [facility] Office for People With Developmental Disabilities. If such information is present, then the following [facility] mandated warning applies: This information has been [...] law may result in a fine or correction sentence or both. A general authorization for the release of medical or other information is NOT sufficient authorization for further disclosure. Allergies and Adverse Reactions Type Description Substance Reaction Status Data Source(s ) Drug allergy No Known Allergies No Known [facility] Allerg[facility] Food allergy No Known Food No Known Food [facility] Allergies Allergies [facility] Drug allergy No Known Drug No Known Drug [facility] Allergies Allergies [facility] Encounters Encounter Providers Location Date Indications Data Source(s ) Outpatient Attender: DIF, [facility]: [facility] [place], EDT [employer] THOMASReferrer: WING HOLLIS Outpatient Attender: AVELINOLO, [facility]07/2020 [facility]: [facility] AM [facility] are DIFLO, EDT [employer] THOMASReferrer: WING HOLLIS Outpatient Attender: TELMA, [facility]/07/2019 [facility]: 02[facility] AM [facility] are TELMA, EDT [employer] THOMASReferrer: WING HOLLIS Outpatient Attender: TELMA, 11/06/2019 [facility]: 02:25[facility]00 AM Health [facility] are DIFELIZABETH, EDT [employer] THOMASReferrer: WING HOLLIS Outpatient Attender: TELMA, 10/07/2019 [facility]: 12:32:00 PM Health [facility] are DIFLO, EDT [employer] THOMASReferrer: WING HOLLIS Outpatient Attender: TELMA, 09/06/2019 [facility]: 10:21:00 AM [facility] are TELMA, EDT [employer] THOMASReferrer: WING HOLLIS Outpatient Attender: TELMA, 08/07/2019 [facility]: 02:08:00 AM Health C are DIFELIZABETH, EDT [employer] THOMASReferrer: WING HOLLIS Outpatient Attender: TELMA, 07/07/2019 [facility]: 02:41:00 AM Health C are DIFELIZABETH, EST [employer] THOMASReferrer: WING HOLLIS Outpatient Attender: TELMA, 06/08/2019 [facility]: 01:30:00 PM Health C are TELMA, EST [employer] THOMASReferrer: WING HOLLIS Outpatient Attender: AVELINOLO, 05/08/2019 [facility]: 10:49:00 AM Health C are DIFLO, [employer] THOMASReferrer: WING HOLLIS Outpatient Attender: TELMA, 04/07/2019 [facility]: 12:00:00 PM Health C are DIFLO, [employer] THOMASReferrer: WING HOLLIS Outpatient Attender: TELMA, 03/08/2019 [facility]: 09:32:00 AM Health C are DIFLO, [employer]T [employer] THOMASReferrer: WING HOLLIS Outpatient Attender: TELMA, 02/05/2019 [facility]: 10:56:00 AM Health C are DIFLO, [employer] THOMASReferrer: WING HOLLIS Outpatient Attender: TELMA, 01/06/2019 [facility]: 04:19:00 AM Health C are DIFLO, [employer] THOMASReferrer: WING HOLLIS Outpatient Attender: TELMA, 12/06/2018 [facility] 11:21:00 AM Health C are DIFLO, EDT [employer] THOMASReferrer: WING HOLLIS Outpatient Attender: TELMA, 11/05/2018 [facility]: 01:29:00 PM Health C are DIFLO, [employer] WINGReferrer: WING HOLLIS Outpatient Attender: TELMA, 10/06/2018 [facility]: 03:09:00 PM Health C are DIFLO, [employer] THOMASReferrer: WING HOLLIS Outpatient Attender: TELMA, 09/05/2018 [facility] 10:05:00 AM Health C are DIFLO, EDT [employer] THOMASReferrer: WING HOLLIS Outpatient Attender: TELMA, 08/06/2018 [facility] THOMASAdmitter: 01:32:00 PM Health C are DIFLO, [employer] THOMASReferrer: WING HOLLIS Outpatient Attender: TELMA, 07/06/2018 [facility]: 08:51:00 AM Health C are DIFLO, [employer] THOMASReferrer: WING HOLLIS Insurance Providers Payer name Policy type Policy ID Covered Covered libertarian's Policy P roma / Coverage libertarian ID relationship to [employer] type jarvis [place] [id number] - [id number] [employer] [id number] A LOCAL [id number] [phone] [id number] [facility] Problems, Conditions, and Diagnoses Code Display Name Description Problem Type Effective Dates Data Source(s) N18.6 End stage END STAGE RENAL Diagnosis 02/06/2020 [facility] renal disease DISEASE 01:08:00 AM [facility] [employer] [facility]
--- NOTE | 2020-02-11 14:45 | EKG ---
Test Reason : Blood Pressure : / mmHG Vent. Rate : 072 BPM Atrial Rate : 072 BPM P-R Int : 148 ms QRS Dur : 098 ms QT Int : 438 ms P-R-T Axes : 077 020 079 degrees QTc Int : 479 ms NORMAL SINUS RHYTHM VOLTAGE CRITERIA FOR LEFT VENTRICULAR HYPERTROPHY CANNOT RULE OUT SEPTAL INFARCT (CITED ON OR BEFORE 16-APR-2019) ABNORMAL ECG WHEN COMPARED WITH ECG OF 16-APR-2019 11:39, NONSPECIFIC T WAVE ABNORMALITY NO LONGER EVIDENT IN LATERAL LEADS Confirmed by MD JOO, LENNY ([id number]) on 02/11/2020 2:45:23 PM Referred By: Confirmed By:LENNY GE MD
--- NOTE | 2020-02-11 16:24 | HP ---
Admitting History and Physical - Primary Care Physician PCP: Genny Bustamante - Admission History of Present Illness: 64 y.o. F PMHx ESRD (T, Th, Sat), blader cancer (s/p resection), RCC (s/p nephrectomy), HTN, CHF, Seizure Presenting due to shortness of breath. Patient states she had been sitting down yesterday when she began feeling short of breath. Patient states she typically uses her symbicort inhaler but was out of refills. She is also due for dialysis today. Patient denies chills, fever, headache, chest pain, N/V/D. PCP: Dr. Morrow PMHx: ESRD (T, Th, Sat), blader cancer (s/p resection), RCC (s/p nephrectomy), HTN, CHF, Seizure - Past Medical History [employer]: Yes: Seizure, Other (Blindness) Cardiovascular: Yes: HTN Gastrointestinal: Yes: Constipation Renal/: Yes: Renal Failure (PCKD s/p nephrectomies), Cancer (Renal cell carcinoma) Heme/Onc: Yes: Anemia, Cancer (Renal cell carcinoma) - Past Surgical History Past Surgical History: Yes: AV Fistula/Graft, , Nephrectomy (right nephrectomy and left partial nephrectomy) - Smoking History Smoking history: Current every day smoker Have you smoked in the past 12 months: No Aproximately how many cigarettes per day: 10 - Alcohol/Substance Use Hx Alcohol Use: No History of Substance Use: reports: None - Social History ADL: Family Assistance History of Recent Travel: No Home Medications - Allergies Allergies/Adverse Reactions: Allergies Allergy/AdvReac Type Severity Reaction Status Date / Time codeine Allergy Severe Verified 02/11/20 09:31 - Home Medications Home Medications: Ambulatory Orders Nifedipine ER [Procardia XL -] 90 mg PO DAILY tab.er.24 04/07/17 Budesonide/Formeterol Fumarate [SYMBICORT 160/4.5mcg -] 1 inh IH ASDIR 04/08/19 Labetalol HCl [Normodyne -] 200 mg PO BID 04/16/19 Sevelamer Carbonate [Renvela -] 800 mg PO CM 04/16/19 Phenytoin Na Extended [Dilantin -] 200 mg PO BID capsule 04/20/19 Hydralazine HCl 100 mg PO TID 02/11/20 Family Medical History Family History: Unremarkable Physical Examination Vital Signs: Vital Signs Temperature 98.2 F 02/11/20 15:35 Pulse Rate 71 02/11/20 15:40 Respiratory Rate 18 02/11/20 15:40 Blood Pressure 167/92 02/11/20 15:40 O2 Sat by Pulse Oximetry (%) 100 02/11/20 14:45 Constitutional: Yes: No Distress HENT: Yes: Atraumatic Neck: Yes: Supple Cardiovascular: Yes: Regular Rate and Rhythm Respiratory: Yes: Rhonchi Gastrointestinal: Yes: Normal Bowel Sounds Extremities: Yes: WNL Edema: No Neurological: Yes: Alert, Oriented Labs: CBC, BMP 02/11/20 10:45 02/11/20 10:19 Imaging - Results X-ray: Report Reviewed Problem List - Problems (1) COPD exacerbation Assessment/Plan: duo nebs prn iv steroids pulmonary eval Code(s): J44.1 - CHRONIC OBSTRUCTIVE PULMONARY DISEASE W (ACUTE) EXACERBATION (2) End stage renal disease Assessment/Plan: on hd renal on board Code(s): N18.6 - END STAGE RENAL DISEASE (3) Bladder cancer Code(s): C67.9 - MALIGNANT NEOPLASM OF BLADDER, UNSPECIFIED (4) ESRD on hemodialysis Code(s): N18.6 - END STAGE RENAL DISEASE; Z99.2 - DEPENDENCE ON RENAL DIALYSIS (5) Hypertension Assessment/Plan: on meds monitor Code(s): I10 - ESSENTIAL (PRIMARY) HYPERTENSION Qualifiers: Assessment/Plan Laboratory Tests 02/11/20 02/11/20 10:19 10:45 WBC 6.3 RBC 3.31 L Hgb 11.4 Hct 34.0 D MCV 102.9 H MCH 34.6 H MCHC 33.6 RDW 15.1 Plt Count 182 MPV 7.9 Absolute Neuts (auto) 4.1 Neutrophils % 65.3 Lymphocytes % 12.9 D Monocytes % 16.4 H Eosinophils % 4.7 H Basophils % 0.7 Nucleated RBC % 0 Sodium 133 L Potassium 5.3 H Chloride 96 L Carbon Dioxide 23 Anion Gap 15 BUN 64.1 H Creatinine 7.9 H* Est GFR (CKD-EPI)AfAm 5.71 Est GFR (CKD-EPI)NonAf 4.92 Random Glucose 88 Calcium 8.5 Total Bilirubin 0.6 AST 17 ALT 14 Alkaline Phosphatase 111 Troponin I 0.02 B-Natriuretic Peptide 76498.8 H Total Protein 6.9 Albumin 3.2 L Active Medications Generic Name Dose Route Start Last Admin Trade Name Freq PRN Reason Stop Dose Admin Sodium Chloride 250 mls @ 3,000 mls/hr 02/11/20 12:06 Normal Saline - IV 02/12/20 12:06 PRN PRN Hypotension during Dialysis Active Medications Generic Name Dose Route Start Last Admin Trade Name Freq PRN Reason Stop Dose Admin Acetaminophen 650 mg 02/11/20 16:32 Tylenol - PO Q6H PRN FEVER Albuterol/Ipratropium 1 amp 02/11/20 16:30 Duoneb - NEB Q4H PRN SHORTNESS OF BREATH Enoxaparin Sodium 30 mg 02/12/20 10:00 Lovenox - SQ DAILY CECILIO Sodium Chloride 250 mls @ 3,000 mls/hr 02/11/20 12:06 Normal Saline - IV 02/12/20 12:06 PRN PRN Hypotension during Dialysis Labetalol HCl 200 mg 02/11/20 22:00 Normodyne - PO BID [facility] Methylprednisolone Sodium Succinate 80 mg 02/11/20 18:00 Solu-Medrol - IVPUSH Q8H-IV CECILIO Nifedipine 90 mg 02/12/20 10:00 Procardia Xl - PO DAILY [facility] Non-Formulary Medication 100 mg 02/11/20 22:00 Hydralazine Hcl [Hydralazine Hcl] PO TID CECILIO Phenytoin Sodium 200 mg 02/11/20 22:00 Dilantin - PO BID CECILIO Sevelamer Carbonate 800 mg 02/11/20 17:30 Renvela - PO [facility] FOR DR BUSTAMANTE TODAY
[2020-02-11] MEDS ORDERED: ALBUTEROL SO4 HFA INHALER IH PRN (16:51)
[2020-02-11] MEDS: ACETAMINOPHEN 325 MG TABLET (FP) PO PRN (20:23)
[2020-02-11] MEDS: hydrALAZINE HCL 50 MG TABLET (FP) PO SCH (21:54)
[2020-02-11] MEDS: PHENYTOIN NA EXTENDED 100 MG CAPSULE (FP) PO SCH (21:54)
[2020-02-11] MEDS: LABETALOL HCL 200 MG TABLET (FP) PO SCH (21:54)
[2020-02-11] MEDS: HEPARIN NA (PORCINE) 5,000 UNITS/ML 1ML VIAL SQ SCH ×2 (21:55→22:02)
[2020-02-12] MEDS: ACETAMINOPHEN 325 MG TABLET (FP) PO PRN ×2 (02:27→09:44)
[2020-02-12] MEDS: methylPREDNISolone NA SUCC 125 MG/2 ML VIAL IVPUSH SCH ×3 (04:57→09:46)
[2020-02-12] MEDS: hydrALAZINE HCL 50 MG TABLET (FP) PO SCH ×3 (05:13→22:14)
[2020-02-12 07:42] LABS: BASO % 0.7 % (0-2.0); EOS % 3.6 % (0-4.5); HEMOGLOBIN 11.7 GM/dL (10.7-15.3); LYMPH % 23.3 % (8-40); MCH 34.4 pg (25.7-33.7); MCHC 33.5 g/dl (32.0-36.0); MEAN CELL VOLUME 102.7 fl (80-96); MEAN PLT VOLUME 8.1 fl (7.5-11.1); MONO % 21.9 % (3.8-10.2); NEUT % 50.5 % (42.8-82.8); PLATELET COUNT 178 K/MM3 (134-434); RBC 3.41 M/mm3 (3.60-5.2); RDW 14.9 % (11.6-15.6); WHITE BLOOD COUNT 4.2 K/mm3 (4.0-10.0)
[2020-02-12 08:10] LABS: CALCIUM 8.4 mg/dL (8.5-10.1); CREATININE 4.8 mg/dL (0.55-1.3); POTASSIUM 3.8 mmol/L (3.5-5.1)
[2020-02-12 08:11] LABS: BILIRUBIN,TOTAL 0.4 mg/dL (0.2-1); TOT PROT 6.7 g/dl (6.4-8.2)
[2020-02-12 08:22] LABS: BLOOD UREA NITROGEN 25.9 mg/dL (7-18)
[2020-02-12] MEDS: PHENYTOIN NA EXTENDED 100 MG CAPSULE (FP) PO SCH ×2 (09:44→22:14)
[2020-02-12] MEDS: NIFEdipine E.R. 90 MG TABLET PO SCH (09:45)
[2020-02-12] MEDS: LABETALOL HCL 200 MG TABLET (FP) PO SCH ×2 (09:45→22:14)
[2020-02-12] MEDS: SEVELAMER CARBONATE 800 MG TAB (FP) PO SCH ×3 (09:46→18:35)
[2020-02-12] MEDS: HEPARIN NA (PORCINE) 5,000 UNITS/ML 1ML VIAL SQ SCH ×3 (09:46→22:26)
[2020-02-12] MEDS ORDERED: ENOXAPARIN NA (PORCINE) 30 MG/0.3 ML DISP.SYRIN SQ SCH (10:00)
[2020-02-12 11:11] LABS: ANISOCYTOSIS 1+; MACROCYTOSIS 0; PLATELET ESTIMATE NORMAL
--- NOTE | 2020-02-12 12:33 | PN ---
Progress Note (short form) - Note Progress Note: PULMONARY CONSULTATION DICTATED 02/12/20 IMP DYSPNEA SUSPECTED COPD EXACERBATION CHF ESRD ON HD HTN RCC S/P BILATERAL NEPHRECTOMY TOBACCO ABUSE PLAN SUPPLEMENATAL O2 INHALED BRONCHODILATORS SHORT COURSE OF STEROIDS HD PER RENAL CHEST CT OUTPATIENT PFTS SMOKING CESSATION COUNSELED DR TEIXEIRA Problem List - Problems (1) COPD exacerbation Code(s): J44.1 - CHRONIC OBSTRUCTIVE PULMONARY DISEASE W (ACUTE) EXACERBATION (2) End stage renal disease Code(s): N18.6 - END STAGE RENAL DISEASE (3) Chronic diastolic (congestive) heart failure Code(s): I50.32 - CHRONIC DIASTOLIC (CONGESTIVE) HEART FAILURE (4) Dyspnea Code(s): R06.00 - DYSPNEA, UNSPECIFIED Qualifiers: Dyspnea type: unspecified Qualified Code(s): R06.00 - Dyspnea, unspecified (5) ESRD on hemodialysis Code(s): N18.6 - END STAGE RENAL DISEASE; Z99.2 - DEPENDENCE ON RENAL DIALYSIS (6) History of nephrectomy Code(s): Z90.5 - ACQUIRED ABSENCE OF KIDNEY (7) Hypertension Code(s): I10 - ESSENTIAL (PRIMARY) HYPERTENSION Qualifiers: (8) Anemia Code(s): D64.9 - ANEMIA, UNSPECIFIED Qualifiers: Anemia type: unspecified type Qualified Code(s): D64.9 - Anemia, unspecified (9) Blind Code(s): H54.0 - BLINDNESS, BOTH EYES * DO NOT USE *
--- NOTE | 2020-02-12 13:05 | PN ---
Progress Note, Physician History of Present Illness: Seen and examined at the bedside awake and alert offers no acute complaints denies any sob today on NC o2 s/p diaysis yesterday had prolong bleeding from AVF site after dialysis - Current Medication List Current Medications: Active Medications Acetaminophen (Tylenol -) 650 mg PO Q6H PRN PRN Reason: FEVER Last Admin: 02/12/20 09:44 Dose: 650 mg Documented by: Albuterol Sulfate (Ventolin Hfa Inhaler -) 1 puff IH Q4H PRN PRN Reason: SHORTNESS OF BREATH Albuterol/Ipratropium (Duoneb -) 1 amp NEB Q4H PRN PRN Reason: SHORTNESS OF BREATH Heparin Sodium (Porcine) (Heparin -) 5,000 unit SQ BID [facility] Last Admin: 02/12/20 09:46 Dose: Not Given Documented by: Hydralazine HCl (Apresoline -) 100 mg PO TID [facility] Last Admin: 02/12/20 05:13 Dose: 100 mg Documented by: Sodium Chloride (Normal Saline -) 250 mls @ 3,000 mls/hr IV PRN PRN PRN Reason: Hypotension during Dialysis Stop: 02/12/20 12:06 Labetalol HCl (Normodyne -) 200 mg PO BID [facility] Last Admin: 02/12/20 09:45 Dose: 200 mg Documented by: Methylprednisolone Sodium Succinate (Solu-Medrol -) 80 mg IVPUSH Q8H-IV [facility] Last Admin: 02/12/20 09:46 Dose: 80 mg Documented by: Nifedipine (Procardia Xl -) 90 mg PO DAILY [facility] Last Admin: 02/12/20 09:45 Dose: 90 mg Documented by: Phenytoin Sodium (Dilantin -) 200 mg PO BID [facility] Last Admin: 02/12/20 09:44 Dose: 200 mg Documented by: Sevelamer Carbonate (Renvela -) 800 mg PO TIDCM [facility] Last Admin: 02/12/20 09:46 Dose: 800 mg Documented by: - Objective Vital Signs: Vital Signs Temperature 98.0 F 02/12/20 10:00 Pulse Rate 80 02/12/20 10:00 Respiratory Rate 18 02/12/20 10:00 Blood Pressure 184/81 H 02/12/20 10:00 O2 Sat by Pulse Oximetry (%) 96 02/12/20 10:00 Constitutional: Yes: No Distress, Calm HENT: Yes: Atraumatic Neck: Yes: Supple Cardiovascular: Yes: Regular Rate and Rhythm Respiratory: Yes: Regular Gastrointestinal: Yes: Soft Extremities: No: Cyanosis Edema: No Neurological: Yes: Alert Labs: CBC, BMP 02/12/20 06:03 02/12/20 06:03 Assessment/Plan 64 year old woman with history of ESRD no HD (TTS), hypertension, RCC s/p bilateral nephrectomy, Cataracts, Blindness who presented from home with complaints of shortness of breath x 1 day. 1. Shortness of breath r/o PNA/COVID/COPD 2. ESRD on HD 3. Hypertension 4. CKD related anemia 5. Renal Osteodystrophy CXR w/o evidence of PNA or HF Pulmonary input noted, requested CT of the chest Tolerated dialysis well yesterday had prolonged bleeding from AVF site after completion of treatment, will check doppler of AVF to r/o stenosis Renal diet, 1.2L fluid restriction Hgb at goal, no DAISHA needed Thank you Jake Stringer DO
[2020-02-12] MEDS ORDERED: SODIUM CHLORIDE 250 ML IV PRN (13:06)
--- NOTE | 2020-02-12 16:01 | CONS ---
DATE OF CONSULTATION: 02/12/2020 REFERRING PHYSICIAN: Dr. Patel The patient is a 64-year-old female with past medical history of end-stage renal disease on hemodialysis 3 times weekly; hypertension; renal cell carcinoma status post bilateral nephrectomy; cataracts; blindness; longstanding history of tobacco use, currently still smoking approximately 1/2 pack per day since age 12; seizure disorder; anemia, admitted to [facility] secondary to increasing shortness of breath for 1 day. Patient denies chest pain, nausea, vomiting, diaphoresis. She denies any history of COPD but apparently is prescribed an inhaler at home. She states she ran out of her inhaler. Denied any fevers, chills. No history of recent travel. She has a cough which is nonproductive. On admission, she was started on inhaled bronchodilators, Solu-Medrol, as well as IV steroids. PAST MEDICAL HISTORY: Again includes end-stage renal disease on hemodialysis, hypertension, renal cell carcinoma status post bilateral nephrectomy, cataracts, blindness, anemia, seizure disorder. CURRENT MEDICATIONS: Include Solu-Medrol 80 q.8, Tylenol, albuterol, DuoNeb, Normodyne, Procardia, Apresoline, Dilantin, and Renvela. SOCIAL HISTORY: No occupational exposures, positive tobacco use since age 12. PHYSICAL EXAMINATION: General: The patient is a well-developed, thin female, awake, alert, in no acute distress. Vital Signs: She is afebrile. Blood pressure is 184/81. Respiratory rate is 18. O2 saturation is 96% on 2 L. HEENT: Exam is normocephalic, atraumatic. Neck: Supple. Heart: Regular, S1, S2. Chest: Diminished breath sounds bilaterally. Abdomen: Soft. Bowel sounds are positive. Extremities: No cyanosis or edema. LABORATORY: WBCs 4.2, hemoglobin 11.7, hematocrit 35, platelet count of 178,000. BUN 25, creatinine 4.8. COVID is not detected. Chest x-ray: Prominent mediastinum. IMPRESSION: 1. Dyspnea, likely secondary to mild chronic obstructive pulmonary disease exacerbation. 2. Congestive heart failure. 3. End-stage renal disease on hemodialysis. 4. Hypertension. 5. Renal cell carcinoma status post bilateral nephrectomy. 6. Tobacco abuse. PLAN: Supplemental O2, inhaled bronchodilators, short course of Solu-Medrol, hemodialysis as per Renal. Obtain CT scan of the chest, outpatient PFTs, and smoking cessation counseled. MATHIEU TEIXEIRA M.D. ANDREW/[id number] MTDD
[2020-02-12] MEDS ORDERED: ALBUTEROL SO4 2.5/IPRATROPIUM 0.5 INH SOL 3 ML VIAL.NEB. NEB PRN (16:30)
[2020-02-12] MEDS: methylPREDNISolone NA SUCC 40 MG/1 ML VIAL IVPUSH SCH (18:35)
--- NOTE | 2020-02-12 22:48 | PN ---
Progress Note, Physician History of Present Illness: Pt w/ productive cough - Current Medication List Current Medications: Active Medications Acetaminophen (Tylenol -) 650 mg PO Q6H PRN PRN Reason: FEVER Last Admin: 02/12/20 09:44 Dose: 650 mg Documented by: Albuterol/Ipratropium (Duoneb -) 1 amp NEB Q4H PRN PRN Reason: SHORTNESS OF BREATH Heparin Sodium (Porcine) (Heparin -) 5,000 unit SQ BID [facility] Last Admin: 02/12/20 22:26 Dose: Not Given Documented by: Hydralazine HCl (Apresoline -) 100 mg PO TID [facility] Last Admin: 02/12/20 22:14 Dose: 100 mg Documented by: Sodium Chloride (Normal Saline -) 250 mls @ 3,000 mls/hr IV PRN PRN PRN Reason: Hypotension during Dialysis Stop: 02/13/20 13:06 Labetalol HCl (Normodyne -) 200 mg PO BID [facility] Last Admin: 02/12/20 22:14 Dose: 200 mg Documented by: Methylprednisolone Sodium Succinate (Solu-Medrol -) 40 mg IVPUSH Q8H-IV [facility] Last Admin: 02/12/20 18:35 Dose: Not Given Documented by: Nifedipine (Procardia Xl -) 90 mg PO DAILY [facility] Last Admin: 02/12/20 09:45 Dose: 90 mg Documented by: Phenytoin Sodium (Dilantin -) 200 mg PO BID [facility] Last Admin: 02/12/20 22:14 Dose: 200 mg Documented by: Sevelamer Carbonate (Renvela -) 800 mg PO TIDCM [facility] Last Admin: 02/12/20 18:35 Dose: 800 mg Documented by: - Objective Vital Signs: Vital Signs Temperature 98.2 F 02/12/20 18:00 Pulse Rate 80 02/12/20 18:00 Respiratory Rate 20 02/12/20 18:00 Blood Pressure 151/75 02/12/20 18:00 O2 Sat by Pulse Oximetry (%) 97 02/12/20 20:05 Neck: Yes: WNL, Supple Cardiovascular: Yes: WNL, Regular Rate and Rhythm Respiratory: Yes: Other (Course BS B/L) Gastrointestinal: Yes: WNL, Normal Bowel Sounds, Soft Labs: CBC, BMP 02/12/20 06:03 02/12/20 06:03 Problem List - Problems (1) Fluid overload Assessment/Plan: Will start IV lasix BNP >44,000 Cardio consult Due to eSRD vs CHF Check echo Code(s): E87.70 - FLUID OVERLOAD, UNSPECIFIED Qualifiers: Hypervolemia type: other Qualified Code(s): E87.79 - Other fluid overload (2) COPD exacerbation Assessment/Plan: Cont inhalers Cont IV solumedrol Check ct scan chest Code(s): J44.1 - CHRONIC OBSTRUCTIVE PULMONARY DISEASE W (ACUTE) EXACERBATION (3) ESRD on hemodialysis Assessment/Plan: As per renal Code(s): N18.6 - END STAGE RENAL DISEASE; Z99.2 - DEPENDENCE ON RENAL DIALYSIS (4) Hypertension Assessment/Plan: BP elevated Cont nifedipine/hydralazine/labetolol Code(s): I10 - ESSENTIAL (PRIMARY) HYPERTENSION Qualifiers: (5) Seizure Assessment/Plan: Cont phenytoin Code(s): R56.9 - UNSPECIFIED CONVULSIONS Qualifiers: Convulsion type: unspecified Qualified Code(s): R56.9 - Unspecified convulsions (6) Anemia Assessment/Plan: Due to chronic renal dz Monitor H/H Code(s): D64.9 - ANEMIA, UNSPECIFIED Qualifiers: Anemia type: unspecified type Qualified Code(s): D64.9 - Anemia, unspecified (7) History of nephrectomy Assessment/Plan: Due to h/o renal cell carcinoma Code(s): Z90.5 - ACQUIRED ABSENCE OF KIDNEY
[2020-02-13] MEDS: methylPREDNISolone NA SUCC 40 MG/1 ML VIAL IVPUSH SCH ×4 (01:02→11:31)
[2020-02-13] MEDS ORDERED: guaiFENesin 200 MG/10 ML 10 ML UNIT-DOSE CUPS PO PRN (01:05)
[2020-02-13] MEDS: hydrALAZINE HCL 50 MG TABLET (FP) PO SCH ×3 (06:45→21:00)
--- NOTE | 2020-02-13 07:35 | PN ---
Progress Note, Physician History of Present Illness: PULMONARY ALERT,FEELING BETTER,LESS DYSPNEIC,-CP - Current Medication List Current Medications: Active Medications Acetaminophen (Tylenol -) 650 mg PO Q6H PRN PRN Reason: FEVER Last Admin: 02/12/20 09:44 Dose: 650 mg Documented by: Albuterol/Ipratropium (Duoneb -) 1 amp NEB Q4H PRN PRN Reason: SHORTNESS OF BREATH Furosemide (Lasix Injection -) 20 mg IVPUSH DAILY [facility] Guaifenesin (Robitussin -) 5 ml PO Q6H PRN PRN Reason: COUGH Heparin Sodium (Porcine) (Heparin -) 5,000 unit SQ BID [facility] Last Admin: 02/12/20 22:26 Dose: Not Given Documented by: Hydralazine HCl (Apresoline -) 100 mg PO TID [facility] Last Admin: 02/13/20 06:45 Dose: 100 mg Documented by: Sodium Chloride (Normal Saline -) 250 mls @ 3,000 mls/hr IV PRN PRN PRN Reason: Hypotension during Dialysis Stop: 02/13/20 13:06 Labetalol HCl (Normodyne -) 200 mg PO BID [facility] Last Admin: 02/12/20 22:14 Dose: 200 mg Documented by: Methylprednisolone Sodium Succinate (Solu-Medrol -) 40 mg IVPUSH Q8H-IV [facility] Last Admin: 02/13/20 01:02 Dose: 40 mg Documented by: Nifedipine (Procardia Xl -) 90 mg PO DAILY [facility] Last Admin: 02/12/20 09:45 Dose: 90 mg Documented by: Phenytoin Sodium (Dilantin -) 200 mg PO BID [facility] Last Admin: 02/12/20 22:14 Dose: 200 mg Documented by: Sevelamer Carbonate (Renvela -) 800 mg PO TIDCM [facility] Last Admin: 02/12/20 18:35 Dose: 800 mg Documented by: - Objective Vital Signs: Vital Signs Temperature 98.1 F 02/13/20 06:00 Pulse Rate 83 02/13/20 06:00 Respiratory Rate 20 02/13/20 06:00 Blood Pressure 120/93 02/13/20 06:00 O2 Sat by Pulse Oximetry (%) 96 02/13/20 06:00 Constitutional: Yes: Well Nourished, Calm Eyes: Yes: WNL HENT: Yes: WNL Neck: Yes: Supple Cardiovascular: Yes: Regular Rate and Rhythm, S1, S2 Respiratory: Yes: CTA Bilaterally Gastrointestinal: Yes: Normal Bowel Sounds, Soft Extremities: Yes: WNL Edema: No Problem List - Problems (1) COPD exacerbation Code(s): J44.1 - CHRONIC OBSTRUCTIVE PULMONARY DISEASE W (ACUTE) EXACERBATION (2) End stage renal disease Code(s): N18.6 - END STAGE RENAL DISEASE (3) Chronic diastolic (congestive) heart failure Code(s): I50.32 - CHRONIC DIASTOLIC (CONGESTIVE) HEART FAILURE (4) Dyspnea Code(s): R06.00 - DYSPNEA, UNSPECIFIED Qualifiers: Dyspnea type: unspecified Qualified Code(s): R06.00 - Dyspnea, unspecified (5) ESRD on hemodialysis Code(s): N18.6 - END STAGE RENAL DISEASE; Z99.2 - DEPENDENCE ON RENAL DIALYSIS (6) History of nephrectomy Code(s): Z90.5 - ACQUIRED ABSENCE OF KIDNEY (7) Hypertension Code(s): I10 - ESSENTIAL (PRIMARY) HYPERTENSION Qualifiers: (8) Anemia Code(s): D64.9 - ANEMIA, UNSPECIFIED Qualifiers: Anemia type: unspecified type Qualified Code(s): D64.9 - Anemia, unspecified (9) Blind Code(s): H54.0 - BLINDNESS, BOTH EYES * DO NOT USE * Assessment/Plan IMP DYSPNEA IMPROVING COPD EXACERBATION CHF ESRD ON HD HTN RCC S/P BILATERAL NEPHRECTOMY TOBACCO ABUSE PLAN SUPPLEMENATAL O2 INHALED BRONCHODILATORS TAPER STEROIDS HD PER RENAL CHEST CT OUTPATIENT PFTS SMOKING CESSATION COUNSELED DR TEIXEIRA Problem List - Problems (1) COPD exacerbation Code(s): J44.1 - CHRONIC OBSTRUCTIVE PULMONARY DISEASE W (ACUTE) EXACERBATION (2) End stage renal disease Code(s): N18.6 - END STAGE RENAL DISEASE (3) Chronic diastolic (congestive) heart failure Code(s): I50.32 - CHRONIC DIASTOLIC (CONGESTIVE) HEART FAILURE (4) Dyspnea Code(s): R06.00 - DYSPNEA, UNSPECIFIED Qualifiers: Dyspnea type: unspecified Qualified Code(s): R06.00 - Dyspnea, unspecified (5) ESRD on hemodialysis Code(s): N18.6 - END STAGE RENAL DISEASE; Z99.2 - DEPENDENCE ON RENAL DIALYSIS (6) History of nephrectomy Code(s): Z90.5 - ACQUIRED ABSENCE OF KIDNEY (7) Hypertension Code(s): I10 - ESSENTIAL (PRIMARY) HYPERTENSION Qualifiers: (8) Anemia Code(s): D64.9 - ANEMIA, UNSPECIFIED Qualifiers: Anemia type: unspecified type Qualified Code(s): D64.9 - Anemia, unspecified (9) Blind Code(s): H54.0 - BLINDNESS, BOTH EYES * DO NOT USE *
[2020-02-13 07:39] LABS: BASO % 0.6 % (0-2.0); EOS % 1.7 % (0-4.5); HEMATOCRIT 32.7 % (32.4-45.2); HEMOGLOBIN 11.1 GM/dL (10.7-15.3); LYMPH % 30.2 % (8-40); MCH 34.7 pg (25.7-33.7); MCHC 33.8 g/dl (32.0-36.0); MEAN CELL VOLUME 102.7 fl (80-96); MEAN PLT VOLUME 7.9 fl (7.5-11.1); MONO % 17.9 % (3.8-10.2); NEUT % 49.6 % (42.8-82.8); PLATELET COUNT 174 K/MM3 (134-434); RBC 3.19 M/mm3 (3.60-5.2); RDW 14.7 % (11.6-15.6); WHITE BLOOD COUNT 4.8 K/mm3 (4.0-10.0)
[2020-02-13 08:16] LABS: BILIRUBIN,TOTAL 0.4 mg/dL (0.2-1); BLOOD UREA NITROGEN 40.3 mg/dL (7-18); CALCIUM 8.3 mg/dL (8.5-10.1); MAGNESIUM 2.7 mg/dL (1.8-2.4); PHOSPHOROUS 5.4 mg/dL (2.5-4.9); POTASSIUM 3.9 mmol/L (3.5-5.1); TOT PROT 6.7 g/dl (6.4-8.2)
[2020-02-13] MEDS: SEVELAMER CARBONATE 800 MG TAB (FP) PO SCH ×3 (10:08→17:53)
[2020-02-13] MEDS: HEPARIN NA (PORCINE) 5,000 UNITS/ML 1ML VIAL SQ SCH ×2 (10:08→21:00)
[2020-02-13] MEDS: FUROSEMIDE 40 MG/4 ML INJECTABLE VIAL IVPUSH SCH ×2 (10:09→10:23)
[2020-02-13] MEDS: NIFEdipine E.R. 90 MG TABLET PO SCH (10:10)
[2020-02-13] MEDS: LABETALOL HCL 200 MG TABLET (FP) PO SCH ×2 (10:10→21:01)
[2020-02-13] MEDS: PHENYTOIN NA EXTENDED 100 MG CAPSULE (FP) PO SCH ×3 (10:12→20:59)
--- NOTE | 2020-02-13 10:23 | CON.CARD ---
Consult Consult Specialty:: cardiology Reason for Consultation:: CAD risks - History of Present Illness Chief Complaint: Pt is angry; asks where she is; initially does not believe she is in a hospital, and asks why so many people coming to her and asking question. History of Present Illness: Ms. Manzo is a 64-year-old black female with PMHx end-stage renal disease on dialysis, HTN, COPD not on home oxygen, diastolic CHF, active smoker maintained on steroid inhaler, seizures, blindness, who now presents with subjective shortness of breath since last night after running out of her steroid inhaler. 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, Other (Blindness) Cardio/Vascular: Yes: CHF, HTN Pulmonary: Yes: COPD Gastrointestinal: Yes: Constipation Renal/: Yes: Renal Failure (PCKD s/p nephrectomies), Cancer (Renal cell carcinoma) Reproductive: Yes: Postmenopausal ...: No Additional Medical History: HTN for >10 years, RCC s/p R nephrectomy and L partial nephrectomy, CKD, seizure disorder, blindness, anemia referred for admission due to signs and symptoms of worsening renal function for initiation of [employer] - Past Surgical History Past Surgical History: Yes: AV Fistula/Graft, , Nephrectomy (right nephrectomy and left partial nephrectomy) - Alcohol/Substance Use Hx Alcohol Use: No History of Substance Use: reports: None - Smoking History Smoking history: Current every day smoker Have you smoked in the past 12 months: No Aproximately how many cigarettes per day: 10 - Social History Usual Living Arrangement: With Spouse ADL: Family Assistance History of Recent Travel: No Home Medications - Allergies Allergies/Adverse Reactions: Allergies Allergy/AdvReac Type Severity Reaction Status Date / Time codeine Allergy Severe Verified 02/11/20 09:31 - Home Medications Home Medications: Ambulatory Orders Nifedipine ER [Procardia XL -] 90 mg PO DAILY tab.er.24 04/07/17 Budesonide/Formeterol Fumarate [SYMBICORT 160/4.5mcg -] 1 inh IH ASDIR 04/08/19 Labetalol HCl [Normodyne -] 200 mg PO BID 04/16/19 Sevelamer Carbonate [Renvela -] 800 mg PO CM 04/16/19 Phenytoin Na Extended [Dilantin -] 200 mg PO BID capsule 04/20/19 Hydralazine HCl 100 mg PO TID 02/11/20 Family Medical History Family History: Unremarkable Vital Signs: Vital Signs Temperature 98.1 F 02/13/20 06:00 Pulse Rate 83 02/13/20 06:00 Respiratory Rate 20 02/13/20 06:00 Blood Pressure 120/93 02/13/20 06:00 O2 Sat by Pulse Oximetry (%) 96 02/13/20 06:00 - Other Data Labs, Other Data: CBC, BMP 02/13/20 07:13 02/13/20 07:13 Assessment/Plan Brought to hospital for shortness of breath ESRD HTN seizures COPD confusion blindness diastolic CHF EKG: NSR; LVH; r/o septal infarct (noted since at least 04/2019). CXR: no acute pathology Rec: COVID negative TNI < 0.02 f/u prior outpatient cardiac workup ECHO for LVEF, wall motion and thickness, valve status, chamber sizes Lipid panel; TSH. Consider stress MIBI if not done recently (however, pt is poor historian, and angry at any suggestion of testing; would have to contact health-care proxy: ?daughter). Addendum: I contacted media strategist in Dr. Morrow's office: there are no records of cardiac tests being done there. I spoke with her daughter, JEIMY and ?healthcare proxy for her mother. She does not want tests done for her mother (specifically stress test) "that might hurt h er"; then says "wake my mother up and ask her if she wants it". Pt took off cardiac court recording monitor; if remains noncompliant to it, would discontinue telemetry.
--- NOTE | 2020-02-13 14:27 | ECHO ---
Name: JAMES RAFAEL Exam:Adult Echocardiogram Study Date: 02/13/2020 12:12 PM Age: 64 yrs Reason For Study: CHF Height: 65 in Weight: 114 lb BSA: 1.6 m2 MMode/2D Measurements & Calculations IVSd: 1.6 cm Ao root diam: 3.1 cm LVIDd: 4.2 cm LA dimension: 3.8 cm LVIDs: 2.6 cm ACS: 1.9 cm LVPWd: 1.7 cm EDV(Teich): 80.4 ml LVOT diam: 2.0 cm ESV(Teich): 25.3 ml LAV (MOD-bp): 99.0 ml TAPSE: 2.1 cm RV S Juan: 14.7 cm/sec Doppler Measurements & Calculations MV E max juan: 101.6 cm/sec Ao V2 max: 167.6 cm/sec MV A max juan: 104.2 cm/sec Ao max P.2 mmHg MV E/A: 0.98 Ao V2 mean: 119.4 cm/sec MV dec time: 0.23 sec Ao mean P.5 mmHg Ao V2 VTI: 32.8 cm AMA(I,D): 2.3 cm2 AMA(V,D): 2.4 cm2 LV V1 max P.4 mmHg MR max juan: 560.1 cm/sec LV V1 mean P.7 mmHg MR max P.5 mmHg LV V1 max: 126.1 cm/sec LV V1 mean: 76.3 cm/sec LV V1 VTI: 23.7 cm SV(LVOT): 75.3 ml TR max juan: 299.2 cm/sec TR max P.8 mmHg PA V2 max: 120.8 cm/sec Med Peak E' Juan: 5.1 cm/sec PA max P.8 mmHg Med E/e': 20.1 PA acc slope: 578.7 cm/sec2 Lat Peak E' Juan: 4.2 cm/sec PA acc time: 0.14 sec Lat E/e': 24.2 PA pr(Accel): 17.2 mmHg Pulm Sys Juan: 66.1 cm/sec Pulm Venegas Juan: 54.3 cm/sec Pulm S/D: 1.2 Procedure A complete two-dimensional transthoracic echocardiogram was performed (2D, M-mode, Doppler and color flow Doppler). Left Ventricle There is moderate concentric left ventricular hypertrophy. The left ventricular ejection fraction is normal. Ejection Fraction = 60-65%. The left ventricular wall motion is normal. Right Ventricle The right ventricle is normal in size and function. Atria The left atrium is mildly dilated. Right atrial size is normal. Mitral Valve There is mild mitral regurgitation. Tricuspid Valve There is moderate tricuspid regurgitation. Right ventricular systolic pressure is normal. Aortic Valve No hemodynamically significant valvular aortic stenosis. No aortic regurgitation is present. Pulmonic Valve There is no pulmonic valvular regurgitation. Great Vessels The aortic root is normal size. Pericardium/Pleura There is no pericardial effusion. Interpretation Summary The left ventricular ejection fraction is normal. There is moderate concentric left ventricular hypertrophy. The right ventricle is normal in size and function. The left atrium is mildly dilated. There is mild mitral regurgitation. There is moderate tricuspid regurgitation. MD Timothy Dalton 02/13/2020 02:26 PM
--- NOTE | 2020-02-13 16:04 | PN ---
Progress Note, Physician History of Present Illness: Seen and examined at the bedside awake and alert offers no acute complaints denies any sob today currently on dialysis access with good flow BP stable, UF ~2L as tolerated pt asking why she needs to stay in the hospital - Current Medication List Current Medications: Active Medications Acetaminophen (Tylenol -) 650 mg PO Q6H PRN PRN Reason: FEVER Last Admin: 02/12/20 09:44 Dose: 650 mg Documented by: Albuterol/Ipratropium (Duoneb -) 1 amp NEB Q4H PRN PRN Reason: SHORTNESS OF BREATH Furosemide (Lasix Injection -) 20 mg IVPUSH DAILY [facility] Last Admin: 02/13/20 10:23 Dose: Not Given Documented by: Guaifenesin (Robitussin -) 5 ml PO Q6H PRN PRN Reason: COUGH Heparin Sodium (Porcine) (Heparin -) 5,000 unit SQ BID [facility] Last Admin: 02/13/20 10:08 Dose: Not Given Documented by: Hydralazine HCl (Apresoline -) 100 mg PO TID [facility] Last Admin: 02/13/20 06:45 Dose: 100 mg Documented by: Sodium Chloride (Normal Saline -) 250 mls @ 3,000 mls/hr IV PRN PRN PRN Reason: Hypotension during Dialysis Stop: 02/13/20 13:06 Labetalol HCl (Normodyne -) 200 mg PO BID [facility] Last Admin: 02/13/20 10:10 Dose: Not Given Documented by: Methylprednisolone Sodium Succinate (Solu-Medrol -) 40 mg IVPUSH Q12H [facility] Last Admin: 02/13/20 11:31 Dose: 40 mg Documented by: Nifedipine (Procardia Xl -) 90 mg PO DAILY [facility] Last Admin: 02/13/20 10:10 Dose: Not Given Documented by: Phenytoin Sodium (Dilantin -) 200 mg PO BID [facility] Last Admin: 02/13/20 11:32 Dose: 200 mg Documented by: Sevelamer Carbonate (Renvela -) 800 mg PO TIDCM [facility] Last Admin: 02/13/20 12:00 Dose: Not Given Documented by: - Objective Vital Signs: Vital Signs Temperature 97.9 F 02/13/20 15:46 Pulse Rate 87 02/13/20 15:46 Respiratory Rate 20 02/13/20 15:46 Blood Pressure 152/80 02/13/20 15:46 O2 Sat by Pulse Oximetry (%) 96 02/13/20 06:00 Constitutional: Yes: No Distress HENT: Yes: Atraumatic Neck: Yes: Supple Cardiovascular: Yes: Regular Rate and Rhythm Respiratory: Yes: Regular Extremities: No: Cyanosis Edema: No Labs: CBC, BMP 02/13/20 07:13 02/13/20 07:13 Assessment/Plan 64 year old woman with history of ESRD no HD (TTS), hypertension, RCC s/p bilateral nephrectomy, Cataracts, Blindness who presented from home with complaints of shortness of breath x 1 day. 1. Shortness of breath r/o PNA/COVID/COPD 2. ESRD on HD 3. Hypertension 4. CKD related anemia 5. Renal Osteodystrophy CXR w/o evidence of PNA or HF tolerating dialysis well today. doppler of AVF not done, ? pt refused if there is no prolonged bleeding after dialysis today can consider discharge home after treatment. Renal diet, 1.2L fluid restriction Hgb at goal, no DAISHA needed Discharge planning as per primary team. Thank you Jake Stringer DO
[2020-02-13 16:33] VITALS: BMI 18.9
[2020-02-13] MEDS: ACETAMINOPHEN 325 MG TABLET (FP) PO PRN (20:58)
--- NOTE | 2020-02-13 21:03 | PN ---
Progress Note, Physician - Current Medication List Current Medications: Active Medications Acetaminophen (Tylenol -) 650 mg PO Q6H PRN PRN Reason: FEVER Last Admin: 02/12/20 09:44 Dose: 650 mg Documented by: Albuterol/Ipratropium (Duoneb -) 1 amp NEB Q4H PRN PRN Reason: SHORTNESS OF BREATH Furosemide (Lasix Injection -) 20 mg IVPUSH DAILY [facility] Last Admin: 02/13/20 10:23 Dose: Not Given Documented by: Guaifenesin (Robitussin -) 5 ml PO Q6H PRN PRN Reason: COUGH Heparin Sodium (Porcine) (Heparin -) 5,000 unit SQ BID [facility] Last Admin: 02/13/20 10:08 Dose: Not Given Documented by: Hydralazine HCl (Apresoline -) 100 mg PO TID [facility] Last Admin: 02/13/20 16:17 Dose: 100 mg Documented by: Sodium Chloride (Normal Saline -) 250 mls @ 3,000 mls/hr IV PRN PRN PRN Reason: Hypotension during Dialysis Stop: 02/13/20 13:06 Labetalol HCl (Normodyne -) 200 mg PO BID [facility] Last Admin: 02/13/20 10:10 Dose: Not Given Documented by: Methylprednisolone Sodium Succinate (Solu-Medrol -) 40 mg IVPUSH Q12H [facility] Last Admin: 02/13/20 11:31 Dose: 40 mg Documented by: Nifedipine (Procardia Xl -) 90 mg PO DAILY [facility] Last Admin: 02/13/20 10:10 Dose: Not Given Documented by: Phenytoin Sodium (Dilantin -) 200 mg PO BID [facility] Last Admin: 02/13/20 11:32 Dose: 200 mg Documented by: Sevelamer Carbonate (Renvela -) 800 mg PO TIDCM [facility] Last Admin: 02/13/20 17:53 Dose: 800 mg Documented by: - Objective Vital Signs: Vital Signs Temperature 97.6 F 02/13/20 18:00 Pulse Rate 80 02/13/20 18:00 Respiratory Rate 20 02/13/20 18:00 Blood Pressure 178/110 H 02/13/20 18:00 O2 Sat by Pulse Oximetry (%) 96 02/13/20 06:00 Labs: CBC, BMP 02/13/20 07:13 02/13/20 07:13 Problem List - Problems (1) Fluid overload Code(s): E87.70 - FLUID OVERLOAD, UNSPECIFIED Qualifiers: Hypervolemia type: other Qualified Code(s): E87.79 - Other fluid overload (2) COPD exacerbation Code(s): J44.1 - CHRONIC OBSTRUCTIVE PULMONARY DISEASE W (ACUTE) EXACERBATION (3) ESRD on hemodialysis Code(s): N18.6 - END STAGE RENAL DISEASE; Z99.2 - DEPENDENCE ON RENAL DIALYSIS (4) Hypertension Code(s): I10 - ESSENTIAL (PRIMARY) HYPERTENSION Qualifiers: (5) Seizure Code(s): R56.9 - UNSPECIFIED CONVULSIONS Qualifiers: Convulsion type: unspecified Qualified Code(s): R56.9 - Unspecified convulsions (6) Anemia Code(s): D64.9 - ANEMIA, UNSPECIFIED Qualifiers: Anemia type: unspecified type Qualified Code(s): D64.9 - Anemia, unspecified (7) History of nephrectomy Code(s): Z90.5 - ACQUIRED ABSENCE OF KIDNEY
[2020-02-13 22:12] LABS: HEP B CORE AB, TOT Negative (Negative)
[2020-02-14] MEDS: hydrALAZINE HCL 50 MG TABLET (FP) PO SCH ×3 (06:16→21:07)
--- NOTE | 2020-02-14 07:29 | PN ---
Progress Note, Physician History of Present Illness: pulmonary alert,comfortable,feeling better,less dyspneic - Current Medication List Current Medications: Active Medications Acetaminophen (Tylenol -) 650 mg PO Q6H PRN PRN Reason: FEVER Last Admin: 02/13/20 20:58 Dose: 650 mg Documented by: Albuterol/Ipratropium (Duoneb -) 1 amp NEB Q4H PRN PRN Reason: SHORTNESS OF BREATH Furosemide (Lasix Injection -) 20 mg IVPUSH DAILY [facility] Last Admin: 02/13/20 10:23 Dose: Not Given Documented by: Guaifenesin (Robitussin -) 5 ml PO Q6H PRN PRN Reason: COUGH Heparin Sodium (Porcine) (Heparin -) 5,000 unit SQ BID [facility] Last Admin: 02/13/20 21:00 Dose: 5,000 unit Documented by: Hydralazine HCl (Apresoline -) 100 mg PO TID [facility] Last Admin: 02/14/20 06:16 Dose: 100 mg Documented by: Sodium Chloride (Normal Saline -) 250 mls @ 3,000 mls/hr IV PRN PRN PRN Reason: Hypotension during Dialysis Stop: 02/13/20 13:06 Labetalol HCl (Normodyne -) 200 mg PO BID [facility] Last Admin: 02/13/20 21:01 Dose: 200 mg Documented by: Methylprednisolone Sodium Succinate (Solu-Medrol -) 40 mg IVPUSH Q12H [facility] Last Admin: 02/14/20 00:00 Dose: 40 mg Documented by: Nifedipine (Procardia Xl -) 90 mg PO DAILY [facility] Last Admin: 02/13/20 10:10 Dose: Not Given Documented by: Phenytoin Sodium (Dilantin -) 200 mg PO BID [facility] Last Admin: 02/13/20 20:59 Dose: 200 mg Documented by: Sevelamer Carbonate (Renvela -) 800 mg PO TIDCM [facility] Last Admin: 02/13/20 17:53 Dose: 800 mg Documented by: - Objective Vital Signs: Vital Signs Temperature 97.9 F 02/14/20 01:45 Pulse Rate 77 02/14/20 03:45 Respiratory Rate 20 02/14/20 06:14 Blood Pressure 179/90 H 02/14/20 06:14 O2 Sat by Pulse Oximetry (%) 96 02/13/20 06:00 Constitutional: Yes: Well Nourished, Calm Eyes: Yes: WNL HENT: Yes: WNL Neck: Yes: WNL Cardiovascular: Yes: Regular Rate and Rhythm, S1, S2 Respiratory: Yes: Diminished Gastrointestinal: Yes: Normal Bowel Sounds, Soft Extremities: Yes: WNL Edema: No Labs: CBC, BMP Problem List - Problems (1) COPD exacerbation Code(s): J44.1 - CHRONIC OBSTRUCTIVE PULMONARY DISEASE W (ACUTE) EXACERBATION (2) End stage renal disease Code(s): N18.6 - END STAGE RENAL DISEASE (3) Chronic diastolic (congestive) heart failure Code(s): I50.32 - CHRONIC DIASTOLIC (CONGESTIVE) HEART FAILURE (4) Dyspnea Code(s): R06.00 - DYSPNEA, UNSPECIFIED Qualifiers: Dyspnea type: unspecified Qualified Code(s): R06.00 - Dyspnea, unspecified (5) ESRD on hemodialysis Code(s): N18.6 - END STAGE RENAL DISEASE; Z99.2 - DEPENDENCE ON RENAL DIALYSIS (6) History of nephrectomy Code(s): Z90.5 - ACQUIRED ABSENCE OF KIDNEY (7) Hypertension Code(s): I10 - ESSENTIAL (PRIMARY) HYPERTENSION Qualifiers: (8) Anemia Code(s): D64.9 - ANEMIA, UNSPECIFIED Qualifiers: Anemia type: unspecified type Qualified Code(s): D64.9 - Anemia, unspecified (9) Blind Code(s): H54.0 - BLINDNESS, BOTH EYES * DO NOT USE * Assessment/Plan IMP DYSPNEA IMPROVING COPD EXACERBATION improving CHF ESRD ON HD HTN RCC S/P BILATERAL NEPHRECTOMY TOBACCO ABUSE PLAN SUPPLEMENTAL O2 INHALED BRONCHODILATORS TAPER STEROIDS HD PER RENAL CHEST CT OUTPATIENT PFTS SMOKING CESSATION COUNSELED DR TEIXEIRA Problem List - Problems (1) COPD exacerbation Code(s): J44.1 - CHRONIC OBSTRUCTIVE PULMONARY DISEASE W (ACUTE) EXACERBATION (2) End stage renal disease Code(s): N18.6 - END STAGE RENAL DISEASE (3) Chronic diastolic (congestive) heart failure Code(s): I50.32 - CHRONIC DIASTOLIC (CONGESTIVE) HEART FAILURE (4) Dyspnea Code(s): R06.00 - DYSPNEA, UNSPECIFIED Qualifiers: Dyspnea type: unspecified Qualified Code(s): R06.00 - Dyspnea, unspecified (5) ESRD on hemodialysis Code(s): N18.6 - END STAGE RENAL DISEASE; Z99.2 - DEPENDENCE ON RENAL DIALYSIS (6) History of nephrectomy Code(s): Z90.5 - ACQUIRED ABSENCE OF KIDNEY (7) Hypertension Code(s): I10 - ESSENTIAL (PRIMARY) HYPERTENSION Qualifiers: (8) Anemia Code(s): D64.9 - ANEMIA, UNSPECIFIED Qualifiers: Anemia type: unspecified type Qualified Code(s): D64.9 - Anemia, unspecified (9) Blind Code(s): H54.0 - BLINDNESS, BOTH EYES * DO NOT USE *
--- NOTE | 2020-02-14 08:47 | PN ---
Progress Note, Physician History of Present Illness: Ms. Manzo is a 64-year-old black female with PMHx end-stage renal disease on dialysis, HTN, COPD not on home oxygen, diastolic CHF, active smoker maintained on steroid inhaler, seizures, blindness, who now presents with subjective shortness of breath since last night after running out of her steroid inhaler. Last dialysis was on Monday as scheduled, reporting increasing dyspnea which she attributes to not having her inhaler, denies having rescue albuterol inhaler, denies any chest pain or fevers or chills PMD: Lj Morrow - Current Medication List Current Medications: Active Medications Acetaminophen (Tylenol -) 650 mg PO Q6H PRN PRN Reason: FEVER Last Admin: 02/13/20 20:58 Dose: 650 mg Documented by: Albuterol/Ipratropium (Duoneb -) 1 amp NEB Q4H PRN PRN Reason: SHORTNESS OF BREATH Furosemide (Lasix Injection -) 20 mg IVPUSH DAILY [facility] Last Admin: 02/13/20 10:23 Dose: Not Given Documented by: Guaifenesin (Robitussin -) 5 ml PO Q6H PRN PRN Reason: COUGH Heparin Sodium (Porcine) (Heparin -) 5,000 unit SQ BID [facility] Last Admin: 02/13/20 21:00 Dose: 5,000 unit Documented by: Hydralazine HCl (Apresoline -) 100 mg PO TID [facility] Last Admin: 02/14/20 06:16 Dose: 100 mg Documented by: Sodium Chloride (Normal Saline -) 250 mls @ 3,000 mls/hr IV PRN PRN PRN Reason: Hypotension during Dialysis Stop: 02/13/20 13:06 Labetalol HCl (Normodyne -) 200 mg PO BID [facility] Last Admin: 02/13/20 21:01 Dose: 200 mg Documented by: Methylprednisolone Sodium Succinate (Solu-Medrol -) 40 mg IVPUSH Q12H [facility] Last Admin: 02/14/20 00:00 Dose: 40 mg Documented by: Nifedipine (Procardia Xl -) 90 mg PO DAILY [facility] Last Admin: 02/13/20 10:10 Dose: Not Given Documented by: Phenytoin Sodium (Dilantin -) 200 mg PO BID [facility] Last Admin: 02/13/20 20:59 Dose: 200 mg Documented by: Sevelamer Carbonate (Renvela -) 800 mg PO TIDCM [facility] Last Admin: 02/13/20 17:53 Dose: 800 mg Documented by: - Objective Vital Signs: Vital Signs Temperature 97.9 F 02/14/20 01:45 Pulse Rate 77 02/14/20 03:45 Respiratory Rate 20 02/14/20 06:14 Blood Pressure 179/90 H 02/14/20 06:14 O2 Sat by Pulse Oximetry (%) 96 02/13/20 06:00 Eyes: Yes: WNL, Conjunctiva Clear, EOM Intact HENT: Yes: WNL, Atraumatic, Normocephalic Neck: Yes: WNL, Supple, Trachea Midline Cardiovascular: Yes: WNL, Regular Rate and Rhythm Respiratory: Yes: WNL, Regular, CTA Bilaterally Gastrointestinal: Yes: WNL, Normal Bowel Sounds Genitourinary: Yes: WNL Musculoskeletal: Yes: WNL Extremities: Yes: WNL Edema: No Integumentary: Yes: WNL Neurological: Yes: WNL, Alert, Oriented ...Motor Strength: WNL Psychiatric: Yes: WNL Labs: CBC, BMP 02/13/20 07:13 02/13/20 07:13 Assessment/Plan Brought to hospital for shortness of breath ESRD HTN seizures COPD confusion blindness diastolic CHF EKG: NSR; LVH; r/o septal infarct (noted since at least 04/2019). CXR: no acute pathology Rec: COVID negative TNI < 0.02 f/u prior outpatient cardiac workup ECHO for LVEF, wall motion and thickness, valve status, chamber sizes Lipid panel; TSH. Consider stress MIBI if not done recently (however, pt is poor historian, and angry at any suggestion of testing; would have to contact health-care proxy: ?daughter). In Dr. Morrow's office: there are no records of cardiac tests being done there. Dr. Sofia spoke with her daughter, JEIMY and ?healthcare proxy for her mother. She does not want tests done for her mother (specifically stress test) "that might hurt her"; then says "wake my mother up and ask her if she wants it". Pt took off cardiac transfer controller; if remains noncompliant to it, would discontinue telemetry. Refused stress test understands the risks of hrt decision including IN/. Will d/c telemetry.
[2020-02-14] MEDS: SEVELAMER CARBONATE 800 MG TAB (FP) PO SCH ×3 (09:00→16:56)
[2020-02-14] MEDS: PHENYTOIN NA EXTENDED 100 MG CAPSULE (FP) PO SCH ×2 (10:35→21:08)
[2020-02-14] MEDS: NIFEdipine E.R. 90 MG TABLET PO SCH (10:36)
[2020-02-14] MEDS: HEPARIN NA (PORCINE) 5,000 UNITS/ML 1ML VIAL SQ SCH ×2 (10:36→21:08)
[2020-02-14] MEDS: LABETALOL HCL 200 MG TABLET (FP) PO SCH ×2 (10:36→21:08)
[2020-02-14] MEDS: FUROSEMIDE 40 MG/4 ML INJECTABLE VIAL IVPUSH SCH (10:53)
[2020-02-14] MEDS: methylPREDNISolone NA SUCC 40 MG/1 ML VIAL IVPUSH SCH ×2 (10:54)
--- NOTE | 2020-02-14 13:07 | PN ---
Progress Note, Physician History of Present Illness: no complaints - Current Medication List Current Medications: Active Medications Acetaminophen (Tylenol -) 650 mg PO Q6H PRN PRN Reason: FEVER Last Admin: 02/13/20 20:58 Dose: 650 mg Documented by: Albuterol/Ipratropium (Duoneb -) 1 amp NEB Q4H PRN PRN Reason: SHORTNESS OF BREATH Furosemide (Lasix Injection -) 20 mg IVPUSH DAILY [facility] Last Admin: 02/14/20 10:53 Dose: 20 mg Documented by: Guaifenesin (Robitussin -) 5 ml PO Q6H PRN PRN Reason: COUGH Heparin Sodium (Porcine) (Heparin -) 5,000 unit SQ BID [facility] Last Admin: 02/14/20 10:36 Dose: 5,000 unit Documented by: Hydralazine HCl (Apresoline -) 100 mg PO TID [facility] Last Admin: 02/14/20 06:16 Dose: 100 mg Documented by: Sodium Chloride (Normal Saline -) 250 mls @ 3,000 mls/hr IV PRN PRN PRN Reason: Hypotension during Dialysis Stop: 02/13/20 13:06 Labetalol HCl (Normodyne -) 200 mg PO BID [facility] Last Admin: 02/14/20 10:36 Dose: 200 mg Documented by: Methylprednisolone Sodium Succinate (Solu-Medrol -) 40 mg IVPUSH Q12H [facility] Last Admin: 02/14/20 10:54 Dose: 40 mg Documented by: Nifedipine (Procardia Xl -) 90 mg PO DAILY [facility] Last Admin: 02/14/20 10:36 Dose: 90 mg Documented by: Phenytoin Sodium (Dilantin -) 200 mg PO BID [facility] Last Admin: 02/14/20 10:35 Dose: 200 mg Documented by: Sevelamer Carbonate (Renvela -) 800 mg PO TIDCM [facility] Last Admin: 02/14/20 09:00 Dose: Not Given Documented by: - Objective Vital Signs: Vital Signs Temperature 97.9 F 02/14/20 01:45 Pulse Rate 77 02/14/20 03:45 Respiratory Rate 20 02/14/20 06:14 Blood Pressure 179/90 H 02/14/20 06:14 O2 Sat by Pulse Oximetry (%) 96 02/13/20 06:00 Constitutional: Yes: No Distress HENT: Yes: Atraumatic Neck: Yes: Supple Cardiovascular: Yes: Regular Rate and Rhythm Respiratory: Yes: Rhonchi Gastrointestinal: Yes: Normal Bowel Sounds Extremities: Yes: WNL Neurological: Yes: Alert, Oriented Labs: CBC, BMP 02/13/20 07:13 02/13/20 07:13 Problem List - Problems (1) COPD exacerbation Assessment/Plan: duo nebs prn iv steroids pulmonary eval Code(s): J44.1 - CHRONIC OBSTRUCTIVE PULMONARY DISEASE W (ACUTE) EXACERBATION (2) End stage renal disease Assessment/Plan: on hd renal on board Code(s): N18.6 - END STAGE RENAL DISEASE (3) Bladder cancer Code(s): C67.9 - MALIGNANT NEOPLASM OF BLADDER, UNSPECIFIED (4) ESRD on hemodialysis Code(s): N18.6 - END STAGE RENAL DISEASE; Z99.2 - DEPENDENCE ON RENAL DIALYSIS (5) Hypertension Assessment/Plan: on meds monitor Code(s): I10 - ESSENTIAL (PRIMARY) HYPERTENSION Qualifiers: (6) Fluid overload Code(s): E87.70 - FLUID OVERLOAD, UNSPECIFIED Qualifiers: Hypervolemia type: other Qualified Code(s): E87.79 - Other fluid overload Assessment/Plan COVERING FOR DR HÉCTOR BARTHOLOMEW
--- NOTE | 2020-02-14 15:32 | PN ---
Progress Note, Physician History of Present Illness: Seen and examined at the bedside awake and alert offers no acute complaints denies any sob today no CP, fever, chills, N/V/D - Current Medication List Current Medications: Active Medications Acetaminophen (Tylenol -) 650 mg PO Q6H PRN PRN Reason: FEVER Last Admin: 02/13/20 20:58 Dose: 650 mg Documented by: Albuterol/Ipratropium (Duoneb -) 1 amp NEB Q4H PRN PRN Reason: SHORTNESS OF BREATH Furosemide (Lasix Injection -) 20 mg IVPUSH DAILY [facility] Last Admin: 02/14/20 10:53 Dose: 20 mg Documented by: Guaifenesin (Robitussin -) 5 ml PO Q6H PRN PRN Reason: COUGH Heparin Sodium (Porcine) (Heparin -) 5,000 unit SQ BID [facility] Last Admin: 02/14/20 10:36 Dose: 5,000 unit Documented by: Hydralazine HCl (Apresoline -) 100 mg PO TID [facility] Last Admin: 02/14/20 13:44 Dose: 100 mg Documented by: Sodium Chloride (Normal Saline -) 250 mls @ 3,000 mls/hr IV PRN PRN PRN Reason: Hypotension during Dialysis Stop: 02/13/20 13:06 Labetalol HCl (Normodyne -) 200 mg PO BID [facility] Last Admin: 02/14/20 10:36 Dose: 200 mg Documented by: Methylprednisolone Sodium Succinate (Solu-Medrol -) 40 mg IVPUSH Q12H [facility] Stop: 02/14/20 23:00 Last Admin: 02/14/20 10:54 Dose: 40 mg Documented by: Nifedipine (Procardia Xl -) 90 mg PO DAILY [facility] Last Admin: 02/14/20 10:36 Dose: 90 mg Documented by: Phenytoin Sodium (Dilantin -) 200 mg PO BID [facility] Last Admin: 02/14/20 10:35 Dose: 200 mg Documented by: Prednisone (Deltasone -) 40 mg PO DAILY [facility] Sevelamer Carbonate (Renvela -) 800 mg PO TIDCM [facility] Last Admin: 02/14/20 13:44 Dose: 800 mg Documented by: - Objective Vital Signs: Vital Signs Temperature 98 F 02/14/20 14:02 Pulse Rate 77 02/14/20 14:02 Respiratory Rate 20 02/14/20 14:02 Blood Pressure 175/88 H 02/14/20 14:02 O2 Sat by Pulse Oximetry (%) 96 02/13/20 06:00 Constitutional: Yes: No Distress Neck: Yes: Supple Respiratory: Yes: Regular Gastrointestinal: Yes: Soft Extremities: No: Cyanosis Edema: No Labs: CBC, BMP 02/13/20 07:13 02/13/20 07:13 Assessment/Plan 64 year old woman with history of ESRD no HD (TTS), hypertension, RCC s/p bilateral nephrectomy, Cataracts, Blindness who presented from home with complaints of shortness of breath x 1 day. 1. Shortness of breath r/o PNA/COVID/COPD 2. ESRD on HD 3. Hypertension 4. CKD related anemia 5. Renal Osteodystrophy CXR w/o evidence of PNA or HF next planned dialysis is tomorrow. no bleeding noted from AVF site yesterday after dialysis. Renal diet, 1.2L fluid restriction Hgb at goal, no DAISHA needed Steroid taper as per pulmonary Discharge planning as per primary team. Thank you Jake Stringer DO
[2020-02-14] MEDS: ACETAMINOPHEN 325 MG TABLET (FP) PO PRN ×2 (16:55→21:10)
[2020-02-15] MEDS: methylPREDNISolone NA SUCC 40 MG/1 ML VIAL IVPUSH SCH (00:35)
[2020-02-15] MEDS: hydrALAZINE HCL 50 MG TABLET (FP) PO SCH ×2 (06:34→15:16)
[2020-02-15] MEDS: SEVELAMER CARBONATE 800 MG TAB (FP) PO SCH ×2 (08:58→15:17)
[2020-02-15] MEDS: HEPARIN NA (PORCINE) 5,000 UNITS/ML 1ML VIAL SQ SCH (09:42)
[2020-02-15] MEDS: PHENYTOIN NA EXTENDED 100 MG CAPSULE (FP) PO SCH (09:44)
[2020-02-15] MEDS: FUROSEMIDE 40 MG/4 ML INJECTABLE VIAL IVPUSH SCH (09:58)
[2020-02-15] MEDS ORDERED: predniSONE 20 MG TABLET (UD) PO SCH (10:00)
[2020-02-15 10:41] VITALS: TEMP 97.5
[2020-02-15 11:51] LABS: HEMATOCRIT 36.8 % (32.4-45.2); HEMOGLOBIN 12.6 GM/dL (10.7-15.3); MCH 35.3 pg (25.7-33.7); MCHC 34.3 g/dl (32.0-36.0); MEAN CELL VOLUME 102.7 fl (80-96); MEAN PLT VOLUME 8.3 fl (7.5-11.1); PLATELET COUNT 183 K/MM3 (134-434); RBC 3.58 M/mm3 (3.60-5.2); RDW 14.6 % (11.6-15.6); WHITE BLOOD COUNT 4.4 K/mm3 (4.0-10.0)
[2020-02-15 12:22] LABS: BLOOD UREA NITROGEN 39.2 mg/dL (7-18); CALCIUM 8.6 mg/dL (8.5-10.1); CREATININE 7.2 mg/dL (0.55-1.3); POTASSIUM 4.2 mmol/L (3.5-5.1)
[2020-02-15] MEDS ORDERED: SODIUM CHLORIDE 250 ML IV PRN (13:00)
--- NOTE | 2020-02-15 13:56 | PN ---
Progress Note (short form) - Note Progress Note: Comfortable. HD today. No CP or SOB. No acute events overnight. Intake & Output 02/12/20 02/13/20 02/14/20 02/15/20 23:59 23:59 23:59 23:59 Intake Total 750 1050 940 200 Output Total 81252 4375 Balance 750 -17306 940 -417 Weight 114 lb Last Vital Signs Temp Pulse Resp BP Pulse Ox 97.5 F L 95 H 18 173/96 H 96 02/15/20 10:00 02/15/20 13:34 02/15/20 13:34 02/15/20 13:34 02/13/20 06:00 Active Medications Acetaminophen (Tylenol -) 650 mg PO Q6H PRN PRN Reason: FEVER Last Admin: 02/14/20 21:10 Dose: 650 mg Documented by: Albuterol/Ipratropium (Duoneb -) 1 amp NEB Q4H PRN PRN Reason: SHORTNESS OF BREATH Guaifenesin (Robitussin -) 5 ml PO Q6H PRN PRN Reason: COUGH Heparin Sodium (Porcine) (Heparin -) 5,000 unit SQ BID [facility] Last Admin: 02/15/20 09:42 Dose: 5,000 unit Documented by: Hydralazine HCl (Apresoline -) 100 mg PO TID [facility] Last Admin: 02/15/20 06:34 Dose: 100 mg Documented by: Labetalol HCl (Normodyne -) 200 mg PO BID [facility] Last Admin: 02/14/20 21:08 Dose: 200 mg Documented by: Nifedipine (Procardia Xl -) 90 mg PO DAILY [facility] Last Admin: 02/14/20 10:36 Dose: 90 mg Documented by: Phenytoin Sodium (Dilantin -) 200 mg PO BID [facility] Last Admin: 02/15/20 09:44 Dose: 200 mg Documented by: Prednisone (Deltasone -) 40 mg PO DAILY [facility] Last Admin: 02/15/20 09:44 Dose: 40 mg Documented by: Sevelamer Carbonate (Renvela -) 800 mg PO TIDCM [facility] Last Admin: 02/15/20 08:58 Dose: 800 mg Documented by: Constitutional: Yes: Thin, NAD Eyes: Yes: WNL HENT: Yes: WNL Neck: Yes: WNL Cardiovascular: Yes: Regular Rate and Rhythm, S1, S2 Respiratory: Yes: Diminished Gastrointestinal: Yes: Normal Bowel Sounds, Soft Extremities: Yes: WNL Edema: No Labs: Laboratory Results - last 24 hr 02/13/20 02/15/20 02/15/20 07:13 11:30 11:30 WBC 4.4 RBC 3.58 L Hgb 12.6 Hct 36.8 MCV 102.7 H MCH 35.3 H MCHC 34.3 RDW 14.6 Plt Count 183 MPV 8.3 Sodium 137 Potassium 4.2 Chloride 95 L Carbon Dioxide 33 H Anion Gap 9 BUN 39.2 H Creatinine 7.2 H Est GFR (CKD-EPI)AfAm 6.38 Est GFR (CKD-EPI)NonAf 5.51 Random Glucose 105 Calcium 8.6 Free T4 0.80 Problem List - Problems (1) COPD exacerbation Code(s): J44.1 - CHRONIC OBSTRUCTIVE PULMONARY DISEASE W (ACUTE) EXACERBATION (2) End stage renal disease Code(s): N18.6 - END STAGE RENAL DISEASE (3) Chronic diastolic (congestive) heart failure Code(s): I50.32 - CHRONIC DIASTOLIC (CONGESTIVE) HEART FAILURE (4) Dyspnea Code(s): R06.00 - DYSPNEA, UNSPECIFIED Qualifiers: Dyspnea type: unspecified Qualified Code(s): R06.00 - Dyspnea, unspecified (5) ESRD on hemodialysis Code(s): N18.6 - END STAGE RENAL DISEASE; Z99.2 - DEPENDENCE ON RENAL DIALYSIS (6) History of nephrectomy Code(s): Z90.5 - ACQUIRED ABSENCE OF KIDNEY (7) Hypertension Code(s): I10 - ESSENTIAL (PRIMARY) HYPERTENSION Qualifiers: (8) Anemia Code(s): D64.9 - ANEMIA, UNSPECIFIED Qualifiers: Anemia type: unspecified type Qualified Code(s): D64.9 - Anemia, unspecified (9) Blind Code(s): H54.0 - BLINDNESS, BOTH EYES * DO NOT USE * Assessment/Plan IMP DYSPNEA IMPROVING COPD EXACERBATION improving CHF ESRD ON HD HTN RCC S/P BILATERAL NEPHRECTOMY TOBACCO ABUSE PLAN SUPPLEMENTAL O2 INHALED BRONCHODILATORS AGREE WITH PREDNISONE HD PER RENAL OUTPATIENT PFTS SMOKING CESSATION COUNSELED Dr Carbajal
--- NOTE | 2020-02-15 14:33 | PN ---
Progress Note, Physician History of Present Illness: Seen and examined at the bedside seen while on dialysis BP stable 150/80 access working well goal UF is 2L offers no acute complaints denies any sob today no CP, fever, chills, N/V/D - Current Medication List Current Medications: Active Medications Acetaminophen (Tylenol -) 650 mg PO Q6H PRN PRN Reason: FEVER Last Admin: 02/14/20 21:10 Dose: 650 mg Documented by: Albuterol/Ipratropium (Duoneb -) 1 amp NEB Q4H PRN PRN Reason: SHORTNESS OF BREATH Guaifenesin (Robitussin -) 5 ml PO Q6H PRN PRN Reason: COUGH Heparin Sodium (Porcine) (Heparin -) 5,000 unit SQ BID [facility] Last Admin: 02/15/20 09:42 Dose: 5,000 unit Documented by: Hydralazine HCl (Apresoline -) 100 mg PO TID [facility] Last Admin: 02/15/20 06:34 Dose: 100 mg Documented by: Labetalol HCl (Normodyne -) 200 mg PO BID [facility] Last Admin: 02/14/20 21:08 Dose: 200 mg Documented by: Nifedipine (Procardia Xl -) 90 mg PO DAILY [facility] Last Admin: 02/14/20 10:36 Dose: 90 mg Documented by: Phenytoin Sodium (Dilantin -) 200 mg PO BID [facility] Last Admin: 02/15/20 09:44 Dose: 200 mg Documented by: Prednisone (Deltasone -) 40 mg PO DAILY [facility] Last Admin: 02/15/20 09:44 Dose: 40 mg Documented by: Sevelamer Carbonate (Renvela -) 800 mg PO TIDCM [facility] Last Admin: 02/15/20 08:58 Dose: 800 mg Documented by: - Objective Vital Signs: Vital Signs Temperature 97.5 F L 02/15/20 10:00 Pulse Rate 95 H 02/15/20 13:34 Respiratory Rate 18 02/15/20 13:34 Blood Pressure 173/96 H 02/15/20 13:34 O2 Sat by Pulse Oximetry (%) 96 02/13/20 06:00 Constitutional: Yes: No Distress Neck: Yes: Supple Cardiovascular: Yes: Regular Rate and Rhythm Respiratory: Yes: Regular Extremities: No: Cyanosis Edema: No Labs: CBC, BMP 02/15/20 11:30 02/15/20 11:30 Assessment/Plan 64 year old woman with history of ESRD no HD (TTS), hypertension, RCC s/p bilateral nephrectomy, Cataracts, Blindness who presented from home with complaints of shortness of breath x 1 day. 1. Shortness of breath r/o PNA/COVID/COPD 2. ESRD on HD 3. Hypertension 4. CKD related anemia 5. Renal Osteodystrophy Tolerating dialysis well today CXR w/o evidence of PNA or HF Renal diet, 1.2L fluid restriction Hgb at goal, no DAISHA needed Steroid taper as per pulmonary Discharge planning as per primary team. Thank you Jake Stringer DO
[2020-02-15 15:32] VITALS: PULSE 82
[2020-02-15 15:33] VITALS: BP 161/89
[2020-02-15] MEDS: ACETAMINOPHEN 325 MG TABLET (FP) PO PRN (15:45)
--- NOTE | 2020-02-15 16:07 | DS ---
Physical Examination Vital Signs: Vital Signs Temperature 97.5 F L 02/15/20 10:00 Pulse Rate 82 02/15/20 14:50 Respiratory Rate 18 02/15/20 14:50 Blood Pressure 161/89 02/15/20 14:50 O2 Sat by Pulse Oximetry (%) 96 02/13/20 06:00 Constitutional: Yes: No Distress HENT: Yes: Atraumatic Neck: Yes: Supple Cardiovascular: Yes: Regular Rate and Rhythm Respiratory: Yes: CTA Bilaterally Gastrointestinal: Yes: Normal Bowel Sounds Extremities: Yes: WNL Neurological: Yes: Alert, Oriented Labs: CBC, BMP 02/15/20 11:30 02/15/20 11:30 Discharge Summary Problems reviewed: Yes Reason For Visit: END STAGE RENAL DISEASE ON HEMODIALYSIS Current Active Problems COPD exacerbation (Acute) End stage renal disease (Chronic) - Instructions Diet, Activity, Other Instructions: SEE YOUR PMD IN 2-3 DAYS Referrals: Lj Morrow MD [Primary Care Provider] - - Home Medications Comprehensive Discharge Medication List: Ambulatory Orders Nifedipine ER [Procardia XL -] 90 mg PO DAILY tab.er.24 04/07/17 Budesonide/Formeterol Fumarate [SYMBICORT 160/4.5mcg -] 1 inh IH ASDIR 04/08/19 Labetalol HCl [Normodyne -] 200 mg PO BID 04/16/19 Sevelamer Carbonate [Renvela -] 800 mg PO CM 04/16/19 Phenytoin Na Extended [Dilantin -] 200 mg PO BID capsule 04/20/19 Hydralazine HCl 100 mg PO TID 02/11/20 Prednisone 10 mg PO ASDIR #30 tablet 02/15/20 CLEARED TO BE DC D/W DR ANAYA WHOM I AM COVERING TODAY
== END 2020-02-15 18:09 | disposition home or self-care (01) | DRG 190 ==
LOC: JER 09:24 → JERBED 13:05 → J4W 19:53
PROVIDERS: ADMIT Internal Medicine; ATTEND Internal Medicine
PROC: 5A1D70Z Performance of Urinary Filtration, Intermittent, Less than 6 Hours Per Day (ICD-10-PCS; principal; 2020-02-15)
DX: J44.1 Chronic obstructive pulmonary disease with (acute) exacerbation (principal); N18.6 End stage renal disease; I50.32 Chronic diastolic (congestive) heart failure; I13.2 Hypertensive heart and chronic kidney disease with heart failure and with stage 5 chronic kidney disease, or end stage renal disease; R06.00 Dyspnea, unspecified; Z99.2 Dependence on renal dialysis; D63.1 Anemia in chronic kidney disease; Z90.5 Acquired absence of kidney; G40.909 Epilepsy, unspecified, not intractable, without status epilepticus; N25.0 Renal osteodystrophy; H26.9 Unspecified cataract; F17.210 Nicotine dependence, cigarettes, uncomplicated; K21.9 Gastro-esophageal reflux disease without esophagitis; E87.70 Fluid overload, unspecified
CPT/HCPCS: 36415; 71045-TC-FY; 80048; 80053; 80061; 83721; 83735; 83880; 84100; 84439; 84443; 84484; 85025; 85027; 86704; 86706; 86707; 86708; 86709; 86803; 87340; 93005; 93010; 93306-TC; 99285-25; C9803; J1644; U0003

== ENCOUNTER 2020-04-15 13:19 | Inpatient (IN) | payer OTHER ==
[2020-04-15] MEDS ORDERED: ACETAMINOPHEN 500 MG TABLET (FP) PO ONE (14:22)
[2020-04-15] MEDS ORDERED: ACETAMINOPHEN 325 MG TABLET (FP) ONE ×2 (14:41→15:35)
[2020-04-15 15:09] LABS: BASO % 0.6 % (0-2.0); EOS % 8.1 % (0-4.5); HEMATOCRIT 34.5 % (32.4-45.2); HEMOGLOBIN 11.3 GM/dL (10.7-15.3); LYMPH % 14.8 % (8-40); MCH 33.4 pg (25.7-33.7); MCHC 32.9 g/dl (32.0-36.0); MEAN CELL VOLUME 101.7 fl (80-96); MEAN PLT VOLUME 8.1 fl (7.5-11.1); MONO % 11.2 % (3.8-10.2); NEUT % 65.3 % (42.8-82.8); PLATELET COUNT 233 K/MM3 (134-434); RBC 3.39 M/mm3 (3.60-5.2); RDW 14.2 % (11.6-15.6); WHITE BLOOD COUNT 7.1 K/mm3 (4.0-10.0)
[2020-04-15 15:36] LABS: ALBUMIN 2.8 g/dl (3.4-5.0); BLOOD UREA NITROGEN 100.1 mg/dL (7-18); CALCIUM 8.6 mg/dL (8.5-10.1)
[2020-04-15 15:41] LABS: BILIRUBIN,TOTAL 0.4 mg/dL (0.2-1); TOT PROT 6.6 g/dl (6.4-8.2)
[2020-04-15 15:48] LABS: CREATININE 10.4 mg/dL (0.55-1.3)
[2020-04-15 15:49] LABS: POTASSIUM 6.9 mmol/L (3.5-5.1)
[2020-04-15 16:46] LABS: CALCIUM 8.7 mg/dL (8.5-10.1)
[2020-04-15 16:47] LABS: BLOOD UREA NITROGEN 96.8 mg/dL (7-18)
[2020-04-15 16:55] LABS: CREATININE 10.5 mg/dL (0.55-1.3); POTASSIUM 6.8 mmol/L (3.5-5.1)
[2020-04-15] MEDS ORDERED: INSULIN REGULAR HUMAN 100 UNITS/ML *VIAL IVPUSH ONE (16:58)
[2020-04-15] MEDS ORDERED: DEXTROSE 50%-WATER - 25 GM/50 ML VIAL IVPUSH ONE (16:58)
[2020-04-15] MEDS ORDERED: CALCIUM GLUCONATE 10% - 1,000 MG/10 ML VIAL IVPUSH ONE (16:58)
[2020-04-15] MEDS ORDERED: ALBUTEROL SO4 HFA INHALER IH ONE ×2 (17:02→17:40)
[2020-04-15] MEDS ORDERED: CALCIUM CHLORIDE 1 GM/10 ML *DISP.SYRIN ONE (17:40)
[2020-04-15] MEDS ORDERED: DEXTROSE 50%-WATER 25 GM/50 ML DISP.SYRIN ONE (17:41)
[2020-04-15] MEDS ORDERED: PHENYTOIN NA EXTENDED 100 MG CAPSULE (FP) ONE ×2 (23:42→23:46)
[2020-04-15] MEDS ORDERED: LABETALOL HCL 100 MG TABLET (FP) ONE (23:43)
[2020-04-15] MEDS: PHENYTOIN NA EXTENDED 100 MG CAPSULE (FP) PO SCH (23:49)
[2020-04-15] MEDS: LABETALOL HCL 200 MG TABLET (FP) PO SCH (23:49)
[2020-04-16 00:03] LABS: BLOOD UREA NITROGEN 95.9 mg/dL (7-18); CALCIUM 8.7 mg/dL (8.5-10.1)
[2020-04-16 00:10] LABS: CREATININE 10.2 mg/dL (0.55-1.3); POTASSIUM 6.4 mmol/L (3.5-5.1)
[2020-04-16] MEDS ORDERED: SODIUM POLYSTYRENE SULFONATE 15 GM/60 ML BOTTLE PO ONE ×2 (00:57→06:49)
[2020-04-16] MEDS ORDERED: SODIUM POLYSTYRENE SULFONATE 15 GM/60 ML BOTTLE ONE (01:03)
[2020-04-16] MEDS ORDERED: ACETAMINOPHEN 325 MG TABLET (FP) PO ONE (02:59)
[2020-04-16] MEDS ORDERED: ACETAMINOPHEN 325 MG TABLET (FP) ONE (03:00)
[2020-04-16] MEDS ORDERED: hydrALAZINE HCL 25 MG TABLET (FP) ONE (05:50)
[2020-04-16] MEDS: hydrALAZINE HCL 50 MG TABLET (FP) PO SCH ×3 (06:10→21:43)
[2020-04-16 07:51] LABS: BASO % 0.6 % (0-2.0); EOS % 9.6 % (0-4.5); HEMATOCRIT 32.4 % (32.4-45.2); HEMOGLOBIN 10.7 GM/dL (10.7-15.3); LYMPH % 19.2 % (8-40); MCH 33.1 pg (25.7-33.7); MEAN CELL VOLUME 100.4 fl (80-96); MEAN PLT VOLUME 8.4 fl (7.5-11.1); NEUT % 57.6 % (42.8-82.8); PLATELET COUNT 238 K/MM3 (134-434); RBC 3.23 M/mm3 (3.60-5.2); RDW 14.2 % (11.6-15.6); WHITE BLOOD COUNT 6.9 K/mm3 (4.0-10.0)
[2020-04-16 08:14] LABS: CALCIUM 8.8 mg/dL (8.5-10.1)
[2020-04-16 08:15] LABS: ALBUMIN 2.8 g/dl (3.4-5.0); BLOOD UREA NITROGEN 102.4 mg/dL (7-18)
[2020-04-16 08:20] LABS: BILIRUBIN,TOTAL 0.6 mg/dL (0.2-1)
[2020-04-16 08:21] LABS: TOT PROT 6.8 g/dl (6.4-8.2)
[2020-04-16 08:37] LABS: CREATININE 11.2 mg/dL (0.55-1.3)
[2020-04-16 08:38] LABS: POTASSIUM 6.2 mmol/L (3.5-5.1)
[2020-04-16 11:57] VITALS: BMI 16.2
[2020-04-16] MEDS ORDERED: LABETALOL HCL 100 MG TABLET (FP) ONE ×2 (12:30→21:08)
[2020-04-16] MEDS: SEVELAMER CARBONATE 800 MG TAB (FP) PO SCH ×3 (12:39→17:00)
[2020-04-16] MEDS: LIDOCAINE 5% TOPICAL PATCH TP SCH (12:39)
[2020-04-16] MEDS: NIFEdipine E.R. 90 MG TABLET PO SCH (12:39)
[2020-04-16] MEDS: LABETALOL HCL 200 MG TABLET (FP) PO SCH ×2 (12:39→21:44)
[2020-04-16] MEDS: HEPARIN NA (PORCINE) 5,000 UNITS/ML 1ML VIAL SQ SCH ×3 (12:40→21:49)
[2020-04-16] MEDS: PHENYTOIN NA EXTENDED 100 MG CAPSULE (FP) PO SCH ×2 (12:40→21:43)
[2020-04-16 13:03] LABS: CALCIUM 8.4 mg/dL (8.5-10.1)
[2020-04-16 13:07] LABS: CREATININE 3.4 mg/dL (0.55-1.3)
[2020-04-16 13:10] LABS: BLOOD UREA NITROGEN 21.9 mg/dL (7-18)
[2020-04-16 13:13] LABS: POTASSIUM 2.9 mmol/L (3.5-5.1)
[2020-04-16 17:48] LABS: POTASSIUM 4.2 mmol/L (3.5-5.1)
[2020-04-16 17:51] LABS: BLOOD UREA NITROGEN 33.6 mg/dL (7-18); CALCIUM 8.1 mg/dL (8.5-10.1)
[2020-04-16 17:55] LABS: CREATININE 5.4 mg/dL (0.55-1.3)
[2020-04-16] MEDS: ACETAMINOPHEN 1000 MG/100 ML VIAL (NON FORMULARY) IVPB PRN (20:33)
[2020-04-16] MEDS: LIDOCAINE PATCH REMOVAL MC SCH (21:44)
[2020-04-17] MEDS: hydrALAZINE HCL 50 MG TABLET (FP) PO SCH ×3 (06:16→22:36)
[2020-04-17] MEDS: SEVELAMER CARBONATE 800 MG TAB (FP) PO SCH ×3 (08:41→18:54)
[2020-04-17 09:39] LABS: BASO % 0.6 % (0-2.0); EOS % 8.8 % (0-4.5); HEMATOCRIT 34.2 % (32.4-45.2); HEMOGLOBIN 11.2 GM/dL (10.7-15.3); LYMPH % 20.8 % (8-40); MCH 33.1 pg (25.7-33.7); MCHC 32.8 g/dl (32.0-36.0); MEAN CELL VOLUME 100.7 fl (80-96); MEAN PLT VOLUME 7.9 fl (7.5-11.1); MONO % 17.5 % (3.8-10.2); NEUT % 52.3 % (42.8-82.8); PLATELET COUNT 223 K/MM3 (134-434); RBC 3.39 M/mm3 (3.60-5.2); RDW 14.1 % (11.6-15.6); WHITE BLOOD COUNT 6.9 K/mm3 (4.0-10.0)
[2020-04-17 09:54] LABS: POTASSIUM 4.3 mmol/L (3.5-5.1)
[2020-04-17 09:57] LABS: ALBUMIN 2.7 g/dl (3.4-5.0); CALCIUM 8.2 mg/dL (8.5-10.1)
[2020-04-17 09:58] LABS: BLOOD UREA NITROGEN 40.6 mg/dL (7-18)
[2020-04-17 10:01] LABS: CREATININE 6.9 mg/dL (0.55-1.3)
[2020-04-17 10:03] LABS: TOT PROT 6.7 g/dl (6.4-8.2)
[2020-04-17 10:06] LABS: BILIRUBIN,TOTAL 0.4 mg/dL (0.2-1)
[2020-04-17] MEDS ORDERED: LABETALOL HCL 100 MG TABLET (FP) ONE ×2 (10:26→22:17)
[2020-04-17] MEDS: LIDOCAINE 5% TOPICAL PATCH TP SCH (10:37)
[2020-04-17] MEDS: PHENYTOIN NA EXTENDED 100 MG CAPSULE (FP) PO SCH ×2 (10:37→22:36)
[2020-04-17] MEDS: NIFEdipine E.R. 90 MG TABLET PO SCH (10:37)
[2020-04-17] MEDS: LABETALOL HCL 200 MG TABLET (FP) PO SCH ×2 (10:37→22:36)
[2020-04-17] MEDS: HEPARIN NA (PORCINE) 5,000 UNITS/ML 1ML VIAL SQ SCH ×3 (10:39→22:36)
[2020-04-17] MEDS: ACETAMINOPHEN 1000 MG/100 ML VIAL (NON FORMULARY) IVPB PRN (12:19)
[2020-04-17] MEDS ORDERED: SODIUM CHLORIDE 250 ML IV PRN (16:14)
[2020-04-17] MEDS ORDERED: hydrALAZINE HCL 50 MG TABLET (FP) PO SCH (22:00)
[2020-04-17] MEDS: LIDOCAINE PATCH REMOVAL MC SCH ×2 (22:36→22:45)
[2020-04-18] MEDS: hydrALAZINE HCL 50 MG TABLET (FP) PO SCH ×2 (05:52→17:28)
[2020-04-18 10:10] LABS: HEMATOCRIT 30.7 % (32.4-45.2); HEMOGLOBIN 9.9 GM/dL (10.7-15.3); MCH 32.2 pg (25.7-33.7); MCHC 32.2 g/dl (32.0-36.0); MEAN CELL VOLUME 99.9 fl (80-96); MEAN PLT VOLUME 8.1 fl (7.5-11.1); PLATELET COUNT 191 K/MM3 (134-434); RBC 3.07 M/mm3 (3.60-5.2); RDW 13.9 % (11.6-15.6); WHITE BLOOD COUNT 6.3 K/mm3 (4.0-10.0)
[2020-04-18 10:35] LABS: POTASSIUM 4.1 mmol/L (3.5-5.1)
[2020-04-18 10:38] LABS: CALCIUM 8.3 mg/dL (8.5-10.1)
[2020-04-18 12:48] LABS: CREATININE 8.1 mg/dL (0.55-1.3)
[2020-04-18] MEDS ORDERED: LABETALOL HCL 100 MG TABLET (FP) ONE (12:54)
[2020-04-18] MEDS: HEPARIN NA (PORCINE) 5,000 UNITS/ML 1ML VIAL SQ SCH (12:56)
[2020-04-18] MEDS: SEVELAMER CARBONATE 800 MG TAB (FP) PO SCH ×3 (12:58→17:28)
[2020-04-18] MEDS: PHENYTOIN NA EXTENDED 100 MG CAPSULE (FP) PO SCH (12:59)
[2020-04-18] MEDS: LABETALOL HCL 200 MG TABLET (FP) PO SCH (13:02)
[2020-04-18] MEDS: LIDOCAINE 5% TOPICAL PATCH TP SCH (13:02)
[2020-04-18] MEDS: NIFEdipine E.R. 90 MG TABLET PO SCH (13:02)
[2020-04-18 15:50] VITALS: BP 149/84; PULSE 79; TEMP 98.8
== END 2020-04-18 19:42 | disposition home or self-care (01) | DRG 640 ==
LOC: JER 13:19 → JERBED 18:00 → J6S 04-16 11:07
PROVIDERS: ADMIT Internal Medicine; ATTEND Internal Medicine
PROC: 5A1D70Z Performance of Urinary Filtration, Intermittent, Less than 6 Hours Per Day (ICD-10-PCS; principal; 2020-04-18)
DX: E87.5 Hyperkalemia (principal); E43 Unspecified severe protein-calorie malnutrition; N18.6 End stage renal disease; I13.2 Hypertensive heart and chronic kidney disease with heart failure and with stage 5 chronic kidney disease, or end stage renal disease; I50.32 Chronic diastolic (congestive) heart failure; Z68.1 Body mass index [BMI] 19.9 or less, adult; E11.22 Type 2 diabetes mellitus with diabetic chronic kidney disease; E87.2 Acidosis; Z99.2 Dependence on renal dialysis; J44.9 Chronic obstructive pulmonary disease, unspecified; H54.7 Unspecified visual loss; Z85.51 Personal history of malignant neoplasm of bladder; D63.1 Anemia in chronic kidney disease; R56.9 Unspecified convulsions; M25.551 Pain in right hip; W19.XXXA Unspecified fall, initial encounter; Y92.098 Other place in other non-institutional residence as the place of occurrence of the external cause; Y99.8 Other external cause status
CPT/HCPCS: 36415; 72170-TC-FY; 72192-TC; 73502-TC-RT-FY; 73552-TC-RT-FY; 73700-TC-RT; 80048; 80053; 84132; 85025; 85027; 86803; 87340; 93005; 93010; 97116-GP; 97162-GP; 99285-25; C9803; J0131; J1644; U0003

== ENCOUNTER 2020-07-28 13:35 | Inpatient (IN) | payer OTHER ==
[2020-07-28] MEDS ORDERED: METOCLOPRAMIDE HCL INJECTION 10 MG/2 ML VIAL IVPB ONE (15:07)
[2020-07-28] MEDS ORDERED: METOCLOPRAMIDE HCL INJECTION 10 MG/2 ML VIAL ONE (15:13)
[2020-07-28 15:21] LABS: BASO % 0.6 % (0-2.0); EOS % 3.7 % (0-4.5); HEMATOCRIT 20.2 % (32.4-45.2); LYMPH % 16.3 % (8-40); MCHC 33.7 g/dl (32.0-36.0); MEAN CELL VOLUME 104.1 fl (80-96); MEAN PLT VOLUME 7.6 fl (7.5-11.1); MONO % 11.1 % (3.8-10.2); NEUT % 68.3 % (42.8-82.8); PLATELET COUNT 254 K/MM3 (134-434); RBC 1.93 M/mm3 (3.60-5.2); RDW 13.8 % (11.6-15.6); WHITE BLOOD COUNT 8.5 K/mm3 (4.0-10.0)
[2020-07-28 15:23] LABS: HEMOGLOBIN 6.8 GM/dL (10.7-15.3)
[2020-07-28 15:36] LABS: CHLORIDE 104 mmol/L (98-107); POTASSIUM 4.5 mmol/L (3.5-5.1); SODIUM 141 mmol/L (136-145)
[2020-07-28 15:38] LABS: CALCIUM 8.4 mg/dL (8.5-10.1)
[2020-07-28 15:39] LABS: ALBUMIN 2.7 g/dl (3.4-5.0); ANION GAP 10 MMOL/L (8-16); BLOOD UREA NITROGEN 30.3 mg/dL (7-18); CO2 28 mmol/L (21-32); GLUCOSE,RANDOM 108 mg/dL (74-106)
[2020-07-28 15:42] LABS: CREATININE 4.4 mg/dL (0.55-1.3); SGOT/AST 33 U/L (15-37); SGPT/ALT 24 U/L (13-61)
[2020-07-28 15:43] LABS: BILIRUBIN,TOTAL 0.3 mg/dL (0.2-1)
[2020-07-28 15:45] LABS: ALK PHOS 106 U/L (45-117); TOT PROT 6.3 g/dl (6.4-8.2)
[2020-07-28] MEDS ORDERED: PANTOPRAZOLE SODIUM 40 MG VIAL IVPUSH ONE (16:13)
[2020-07-28] MEDS ORDERED: PANTOPRAZOLE SODIUM 40 MG VIAL ONE ×2 (16:24→16:38)
[2020-07-28] MEDS ORDERED: CEFTRIAXONE 1,000 MG in DEXTROSE 5%-WATER - 50 ML IVPB ONE (17:29)
[2020-07-28 17:34] LABS: EPI CELLS 3 /uL (0-25.1); HYALINE CASTS 0 /uL (0-3.1); PH,URINE 8.5 (5.0-8.0); URINE APPEARANCE TURBID; URINE BACTERIA 16 /uL (0-1359); URINE BILIRUBIN NEGATIVE (NEGATIVE); URINE GLUCOSE (UA) TRACE (NEGATIVE); URINE KETONE NEGATIVE (NEGATIVE); URINE LEUK ESTERASE NEGATIVE (NEGATIVE); URINE NITRITE NEGATIVE (NEGATIVE); URINE PROTEIN 4+ (NEGATIVE); URINE UROBILINOGEN 0.2 mg/dL (0.2-1.0); URINE WBC 0 /uL (0-25.8)
[2020-07-28 18:48] LABS: URINE COLOR RED
[2020-07-28 18:49] LABS: URINE RBC >100 /hpf (0-4)
[2020-07-28] MEDS ORDERED: LABETALOL HCL 100 MG TABLET (FP) ONE (23:07)
[2020-07-28] MEDS: PHENYTOIN NA EXTENDED 100 MG CAPSULE (FP) PO SCH (23:17)
[2020-07-28] MEDS: LABETALOL HCL 200 MG TABLET (FP) PO SCH (23:17)
[2020-07-29] MEDS ORDERED: PATIENT'S OWN MEDICATION (NON-FORMULARY) (Hydralazine Hcl [Hydralazine Hcl] 100 MG Tablet) PO SCH (06:00)
[2020-07-29] MEDS: hydrALAZINE HCL 50 MG TABLET (FP) PO SCH ×3 (06:58→21:17)
[2020-07-29 07:19] LABS: BASO % 0.6 % (0-2.0); EOS % 3.8 % (0-4.5); HEMATOCRIT 23.1 % (32.4-45.2); HEMOGLOBIN 8.1 GM/dL (10.7-15.3); LYMPH % 21.8 % (8-40); MCH 35.8 pg (25.7-33.7); MCHC 35.2 g/dl (32.0-36.0); MEAN CELL VOLUME 101.7 fl (80-96); MEAN PLT VOLUME 7.8 fl (7.5-11.1); MONO % 12.1 % (3.8-10.2); NEUT % 61.7 % (42.8-82.8); PLATELET COUNT 225 K/MM3 (134-434); RBC 2.27 M/mm3 (3.60-5.2); RDW 15.3 % (11.6-15.6); WHITE BLOOD COUNT 8.8 K/mm3 (4.0-10.0)
[2020-07-29 07:35] LABS: POTASSIUM 4.7 mmol/L (3.5-5.1)
[2020-07-29 07:38] LABS: ALBUMIN 2.6 g/dl (3.4-5.0); CALCIUM 8.7 mg/dL (8.5-10.1)
[2020-07-29 07:40] LABS: BLOOD UREA NITROGEN 44.5 mg/dL (7-18)
[2020-07-29 07:44] LABS: BILIRUBIN,TOTAL 0.4 mg/dL (0.2-1); TOT PROT 5.9 g/dl (6.4-8.2)
[2020-07-29] MEDS: SEVELAMER CARBONATE 800 MG TAB (FP) PO SCH ×3 (08:33→17:23)
[2020-07-29] MEDS ORDERED: PT OWN MED DRAWER 7, Y5N ONE ×2 (09:07→21:14)
[2020-07-29] MEDS: PHENYTOIN NA EXTENDED 100 MG CAPSULE (FP) PO SCH ×2 (09:46→21:18)
[2020-07-29] MEDS: NIFEdipine E.R. 90 MG TABLET PO SCH (09:46)
[2020-07-29] MEDS: LABETALOL HCL 200 MG TABLET (FP) PO SCH ×2 (09:47→21:17)
[2020-07-29] MEDS ORDERED: ACETAMINOPHEN 325 MG TABLET (FP) PO ONE (13:00)
[2020-07-29] MEDS: ACETAMINOPHEN 325 MG TABLET (FP) PO PRN (21:01)
[2020-07-30] MEDS: hydrALAZINE HCL 50 MG TABLET (FP) PO SCH ×3 (05:36→21:05)
[2020-07-30] MEDS ORDERED: POLYETHYLENE GLYCOL 3350 255 GM BTL PO ONE (08:00)
[2020-07-30] MEDS ORDERED: SODIUM CHLORIDE 250 ML IV PRN ×2 (09:11→13:26)
[2020-07-30] MEDS: ACETAMINOPHEN 325 MG TABLET (FP) PO PRN (09:18)
[2020-07-30] MEDS: SEVELAMER CARBONATE 800 MG TAB (FP) PO SCH ×3 (09:20→19:42)
[2020-07-30] MEDS ORDERED: PT OWN MED DRAWER 7, Y5N ONE (09:26)
[2020-07-30] MEDS: PHENYTOIN NA EXTENDED 100 MG CAPSULE (FP) PO SCH ×2 (09:29→21:06)
[2020-07-30 10:13] LABS: HEMATOCRIT 20.8 % (32.4-45.2); HEMOGLOBIN 7.3 GM/dL (10.7-15.3); MCH 35.5 pg (25.7-33.7); MCHC 34.9 g/dl (32.0-36.0); MEAN CELL VOLUME 101.8 fl (80-96); MEAN PLT VOLUME 7.7 fl (7.5-11.1); PLATELET COUNT 218 K/MM3 (134-434); RBC 2.04 M/mm3 (3.60-5.2); RDW 14.6 % (11.6-15.6); WHITE BLOOD COUNT 10.1 K/mm3 (4.0-10.0)
[2020-07-30 10:35] LABS: CHLORIDE 104 mmol/L (98-107); SODIUM 140 mmol/L (136-145)
[2020-07-30 10:37] LABS: CALCIUM 8.6 mg/dL (8.5-10.1)
[2020-07-30 10:38] LABS: CO2 24 mmol/L (21-32); GLUCOSE,RANDOM 118 mg/dL (74-106)
[2020-07-30 10:44] LABS: ANION GAP 12 MMOL/L (8-16); BLOOD UREA NITROGEN 58.7 mg/dL (7-18); CREATININE 8.4 mg/dL (0.55-1.3); POTASSIUM 4.9 mmol/L (3.5-5.1)
[2020-07-30] MEDS: LABETALOL HCL 200 MG TABLET (FP) PO SCH ×2 (11:35→21:05)
[2020-07-30] MEDS: NIFEdipine E.R. 90 MG TABLET PO SCH (11:35)
[2020-07-30] MEDS ORDERED: EPOETIN ALFA-EPBX 20,000 UNIT/ML VIAL IVPUSH ONE (14:00)
[2020-07-31 02:55] LABS: HEMATOCRIT 23.9 % (32.4-45.2); MCH 32.8 pg (25.7-33.7); MCHC 33.5 g/dl (32.0-36.0); MEAN CELL VOLUME 97.8 fl (80-96); MEAN PLT VOLUME 7.2 fl (7.5-11.1); PLATELET COUNT 207 K/MM3 (134-434); RBC 2.45 M/mm3 (3.60-5.2); RDW 17.4 % (11.6-15.6); WHITE BLOOD COUNT 7.9 K/mm3 (4.0-10.0)
[2020-07-31] MEDS ORDERED: MINERAL OIL ENEMA 133 ML ENEMA PR ONE ×2 (04:00→15:24)
[2020-07-31] MEDS: hydrALAZINE HCL 50 MG TABLET (FP) PO SCH ×3 (05:41→22:16)
[2020-07-31 07:30] LABS: BASO % 0.5 % (0-2.0); EOS % 3.8 % (0-4.5); HEMATOCRIT 23.9 % (32.4-45.2); HEMOGLOBIN 8.4 GM/dL (10.7-15.3); LYMPH % 21.7 % (8-40); MCH 34.2 pg (25.7-33.7); MCHC 35.2 g/dl (32.0-36.0); MEAN CELL VOLUME 97.1 fl (80-96); MEAN PLT VOLUME 7.6 fl (7.5-11.1); MONO % 12.7 % (3.8-10.2); NEUT % 61.3 % (42.8-82.8); PLATELET COUNT 213 K/MM3 (134-434); RBC 2.46 M/mm3 (3.60-5.2); RDW 17.3 % (11.6-15.6); WHITE BLOOD COUNT 8.8 K/mm3 (4.0-10.0)
[2020-07-31 07:32] LABS: ALBUMIN 2.6 g/dl (3.4-5.0); CALCIUM 8.2 mg/dL (8.5-10.1)
[2020-07-31 07:36] LABS: BILIRUBIN,TOTAL 0.5 mg/dL (0.2-1); CREATININE 4.6 mg/dL (0.55-1.3); TOT PROT 5.8 g/dl (6.4-8.2)
[2020-07-31 07:47] LABS: BLOOD UREA NITROGEN 17.4 mg/dL (7-18)
[2020-07-31] MEDS: PHENYTOIN NA EXTENDED 100 MG CAPSULE (FP) PO SCH ×3 (10:07→22:16)
[2020-07-31] MEDS: SEVELAMER CARBONATE 800 MG TAB (FP) PO SCH ×3 (10:07→17:36)
[2020-07-31] MEDS: LABETALOL HCL 200 MG TABLET (FP) PO SCH ×3 (10:07→22:17)
[2020-07-31] MEDS: NIFEdipine E.R. 90 MG TABLET PO SCH ×2 (10:07→11:57)
[2020-07-31] MEDS ORDERED: SODIUM CHLORIDE 250 ML IV PRN (11:16)
[2020-07-31 14:12] LABS: HEP B CORE AB, TOT Negative (Negative)
[2020-07-31] MEDS ORDERED: MINERAL OIL ENEMA 133 ML ENEMA RC ONE (22:00)
[2020-07-31] MEDS ORDERED: POLYETHYLENE GLYCOL 3350 119 GM BTL PO SCH (22:00)
[2020-07-31 22:09] LABS: BASO % 0.3 % (0-2.0); EOS % 4.5 % (0-4.5); HEMATOCRIT 26.3 % (32.4-45.2); LYMPH % 17.8 % (8-40); MCH 32.7 pg (25.7-33.7); MCHC 34.4 g/dl (32.0-36.0); MEAN CELL VOLUME 95.3 fl (80-96); MEAN PLT VOLUME 7.7 fl (7.5-11.1); MONO % 13.4 % (3.8-10.2); PLATELET COUNT 172 K/MM3 (134-434); RBC 2.76 M/mm3 (3.60-5.2); RDW 18.6 % (11.6-15.6); WHITE BLOOD COUNT 8.5 K/mm3 (4.0-10.0)
[2020-07-31] MEDS: POLYETHYLENE GLYCOL 3350 119 GM BTL PO SCH (22:15)
[2020-08-01] MEDS: hydrALAZINE HCL 50 MG TABLET (FP) PO SCH ×3 (05:35→21:12)
[2020-08-01] MEDS: SEVELAMER CARBONATE 800 MG TAB (FP) PO SCH ×3 (08:34→18:05)
[2020-08-01 08:55] LABS: BASO % 0.5 % (0-2.0); EOS % 4.5 % (0-4.5); HEMATOCRIT 24.9 % (32.4-45.2); HEMOGLOBIN 8.8 GM/dL (10.7-15.3); LYMPH % 16.8 % (8-40); MCH 33.6 pg (25.7-33.7); MCHC 35.1 g/dl (32.0-36.0); MEAN CELL VOLUME 95.7 fl (80-96); MEAN PLT VOLUME 7.7 fl (7.5-11.1); MONO % 11.5 % (3.8-10.2); NEUT % 66.7 % (42.8-82.8); PLATELET COUNT 199 K/MM3 (134-434); RDW 19.2 % (11.6-15.6)
[2020-08-01 09:22] LABS: POTASSIUM 4.6 mmol/L (3.5-5.1)
[2020-08-01 10:47] LABS: CALCIUM 8.6 mg/dL (8.5-10.1)
[2020-08-01 10:48] LABS: ALBUMIN 2.5 g/dl (3.4-5.0); BLOOD UREA NITROGEN 29.8 mg/dL (7-18)
[2020-08-01 10:51] LABS: CREATININE 6.8 mg/dL (0.55-1.3)
[2020-08-01 10:52] LABS: BILIRUBIN,TOTAL 0.6 mg/dL (0.2-1)
[2020-08-01 10:53] LABS: TOT PROT 5.7 g/dl (6.4-8.2)
[2020-08-01] MEDS ORDERED: EPOETIN ALFA-EPBX 20,000 UNIT/ML VIAL SQ ONE (12:00)
[2020-08-01] MEDS: LABETALOL HCL 200 MG TABLET (FP) PO SCH ×3 (12:09→21:12)
[2020-08-01] MEDS: PHENYTOIN NA EXTENDED 100 MG CAPSULE (FP) PO SCH ×3 (12:09→21:12)
[2020-08-01] MEDS: NIFEdipine E.R. 90 MG TABLET PO SCH ×2 (12:09→14:03)
[2020-08-01] MEDS: POLYETHYLENE GLYCOL 3350 119 GM BTL PO SCH ×3 (12:09→21:22)
[2020-08-01] MEDS: ACETAMINOPHEN 325 MG TABLET (FP) PO PRN ×2 (15:19→21:00)
[2020-08-01] MEDS ORDERED: PT OWN MED DRAWER 7, Y5N ONE (21:07)
[2020-08-02] MEDS: hydrALAZINE HCL 50 MG TABLET (FP) PO SCH ×3 (06:27→21:44)
[2020-08-02] MEDS: ACETAMINOPHEN 325 MG TABLET (FP) PO PRN (07:56)
[2020-08-02] MEDS: SEVELAMER CARBONATE 800 MG TAB (FP) PO SCH ×3 (10:58→16:55)
[2020-08-02] MEDS: LABETALOL HCL 200 MG TABLET (FP) PO SCH ×2 (10:59→21:44)
[2020-08-02] MEDS: NIFEdipine E.R. 90 MG TABLET PO SCH (10:59)
[2020-08-02] MEDS: POLYETHYLENE GLYCOL 3350 119 GM BTL PO SCH ×2 (10:59→21:44)
[2020-08-02] MEDS ORDERED: PT OWN MED DRAWER 7, Y5N ONE (11:00)
[2020-08-02] MEDS: PHENYTOIN NA EXTENDED 100 MG CAPSULE (FP) PO SCH ×2 (11:03→21:44)
[2020-08-03] MEDS: POLYETHYLENE GLYCOL 3350 119 GM BTL PO SCH ×3 (00:05→22:18)
[2020-08-03] MEDS: hydrALAZINE HCL 50 MG TABLET (FP) PO SCH ×3 (06:24→22:18)
[2020-08-03] MEDS: SEVELAMER CARBONATE 800 MG TAB (FP) PO SCH ×3 (10:12→16:53)
[2020-08-03] MEDS: LABETALOL HCL 200 MG TABLET (FP) PO SCH ×2 (10:12→22:18)
[2020-08-03] MEDS: PHENYTOIN NA EXTENDED 100 MG CAPSULE (FP) PO SCH ×2 (10:13→22:17)
[2020-08-03] MEDS: NIFEdipine E.R. 90 MG TABLET PO SCH (10:13)
[2020-08-03 10:45] LABS: BASO % 0.5 % (0-2.0); EOS % 4.3 % (0-4.5); HEMATOCRIT 20.1 % (32.4-45.2); LYMPH % 16.7 % (8-40); MCH 33.9 pg (25.7-33.7); MCHC 34.4 g/dl (32.0-36.0); MEAN CELL VOLUME 98.4 fl (80-96); MEAN PLT VOLUME 7.8 fl (7.5-11.1); MONO % 9.5 % (3.8-10.2); PLATELET COUNT 195 K/MM3 (134-434); RBC 2.04 M/mm3 (3.60-5.2); RDW 17.5 % (11.6-15.6); WHITE BLOOD COUNT 9.7 K/mm3 (4.0-10.0)
[2020-08-03 10:49] LABS: HEMOGLOBIN 6.9 GM/dL (10.7-15.3)
[2020-08-03 11:01] LABS: CALCIUM 8.1 mg/dL (8.5-10.1)
[2020-08-03 11:02] LABS: ALBUMIN 2.3 g/dl (3.4-5.0); BLOOD UREA NITROGEN 27.8 mg/dL (7-18)
[2020-08-03 11:05] LABS: CREATININE 6.9 mg/dL (0.55-1.3)
[2020-08-03 11:06] LABS: BILIRUBIN,TOTAL 0.4 mg/dL (0.2-1); TOT PROT 5.2 g/dl (6.4-8.2)
[2020-08-03 12:44] LABS: PHOSPHOROUS 3.7 mg/dL (2.5-4.9)
[2020-08-03] MEDS: ACETAMINOPHEN 325 MG TABLET (FP) PO PRN (14:52)
[2020-08-03] MEDS ORDERED: SODIUM CHLORIDE 250 ML IV PRN (18:04)
[2020-08-03] MEDS ORDERED: PANTOPRAZOLE 40 MG TABLET PO ONE (19:00)
[2020-08-03] MEDS ORDERED: PT OWN MED DRAWER 7, Y5N ONE (22:11)
[2020-08-04] MEDS: hydrALAZINE HCL 50 MG TABLET (FP) PO SCH ×3 (06:54→21:00)
[2020-08-04 08:00] LABS: RBC 1.77 M/mm3 (3.60-5.2); WHITE BLOOD COUNT 8.1 K/mm3 (4.0-10.0)
[2020-08-04 08:03] LABS: BASO % 0.7 % (0-2.0); EOS % 4.4 % (0-4.5); HEMATOCRIT 17.6 % (32.4-45.2); LYMPH % 19.4 % (8-40); MCHC 34.1 g/dl (32.0-36.0); MEAN CELL VOLUME 99.5 fl (80-96); MONO % 9.8 % (3.8-10.2); NEUT % 65.7 % (42.8-82.8); PLATELET COUNT 201 K/MM3 (134-434); RDW 17.3 % (11.6-15.6)
[2020-08-04 08:08] LABS: CHLORIDE 96 mmol/L (98-107); POTASSIUM 4.7 mmol/L (3.5-5.1); SODIUM 133 mmol/L (136-145)
[2020-08-04 08:10] LABS: CALCIUM 8.1 mg/dL (8.5-10.1)
[2020-08-04 08:11] LABS: ALBUMIN 2.2 g/dl (3.4-5.0); ANION GAP 8 MMOL/L (8-16); BLOOD UREA NITROGEN 41.9 mg/dL (7-18); CO2 30 mmol/L (21-32); GLUCOSE,RANDOM 80 mg/dL (74-106)
[2020-08-04 08:14] LABS: PHOSPHOROUS 3.7 mg/dL (2.5-4.9); SGOT/AST 11 U/L (15-37); SGPT/ALT 12 U/L (13-61)
[2020-08-04 08:16] LABS: ALK PHOS 101 U/L (45-117); BILIRUBIN,TOTAL 0.3 mg/dL (0.2-1); TOT PROT 5.1 g/dl (6.4-8.2)
[2020-08-04] MEDS: SEVELAMER CARBONATE 800 MG TAB (FP) PO SCH ×4 (08:38→17:12)
[2020-08-04 08:44] LABS: CREATININE 8.4 mg/dL (0.55-1.3)
[2020-08-04] MEDS ORDERED: ACETAMINOPHEN 325 MG TABLET (FP) PO ONE (10:00)
[2020-08-04] MEDS: PHENYTOIN NA EXTENDED 100 MG CAPSULE (FP) PO SCH ×2 (10:01→21:01)
[2020-08-04] MEDS: LABETALOL HCL 200 MG TABLET (FP) PO SCH ×2 (10:01→21:00)
[2020-08-04] MEDS: NIFEdipine E.R. 90 MG TABLET PO SCH (10:01)
[2020-08-04] MEDS: POLYETHYLENE GLYCOL 3350 119 GM BTL PO SCH ×2 (10:01→21:09)
[2020-08-04 11:47] LABS: RETICULOCYTES 5.99 % (0.5-1.5)
[2020-08-04] MEDS ORDERED: ONDANSETRON 4 MG/2 ML VIAL IVPUSH PRN ×2 (12:57→15:54)
[2020-08-04] MEDS ORDERED: PROPOFOL 20 ML ONE (13:10)
[2020-08-04] MEDS ORDERED: DEXAMETHASONE SOD PHOSPHATE 4 MG/1 ML VIAL ONE (13:11)
[2020-08-04 13:27] LABS: LDH 156 U/L (84-246)
[2020-08-04] MEDS ORDERED: LIDOCAINE HCL/PF 2% SDV 5ML VIAL ONE (13:30)
[2020-08-04 13:41] LABS: IRON SERUM 38 ug/dL (50-175)
[2020-08-04 13:44] LABS: TOTAL IRON BINDING CAPACITY 153 ug/dL (250-450)
[2020-08-04] MEDS ORDERED: ceFAZolin SODIUM 1 GM VIAL IVPB ONE (13:49)
[2020-08-04] MEDS ORDERED: ceFAZolin SODIUM 1 GM VIAL ONE ×2 (13:49→20:54)
[2020-08-04 14:56] VITALS: BMI 18.4
[2020-08-04] MEDS ORDERED: SODIUM CHLORIDE 250 ML IV PRN (15:54)
[2020-08-04] MEDS: ACETAMINOPHEN 325 MG TABLET (FP) PO PRN (18:39)
[2020-08-04] MEDS ORDERED: PT OWN MED DRAWER 7, Y5N ONE (20:40)
[2020-08-04] MEDS ORDERED: DEXTROSE 5%-WATER - 50 ML IVPB ONE (20:54)
[2020-08-04] MEDS: CEFAZOLIN 1 GM in DEXTROSE 5%-WATER - 1 GM/50 ML IVPB IVPB SCH (21:01)
[2020-08-04] MEDS ORDERED: CEFAZOLIN 1 GM/D5W 1 GM/50 ML BAG IVPB SCH (22:00)
[2020-08-05] MEDS ORDERED: MAG HYDROX/AL HYDROX/SIMETH 30 ML UNIT-DOSE CUP PO ONE (00:45)
[2020-08-05] MEDS ORDERED: PANTOPRAZOLE 40 MG TABLET PO SCH (01:00)
[2020-08-05] MEDS ORDERED: ceFAZolin SODIUM 1 GM VIAL ONE ×3 (06:04→20:37)
[2020-08-05] MEDS ORDERED: DEXTROSE 5%-WATER - 50 ML IVPB ONE ×3 (06:04→20:37)
[2020-08-05] MEDS: CEFAZOLIN 1 GM in DEXTROSE 5%-WATER - 1 GM/50 ML IVPB IVPB SCH ×2 (06:14→15:07)
[2020-08-05] MEDS: hydrALAZINE HCL 50 MG TABLET (FP) PO SCH ×3 (06:15→21:11)
[2020-08-05] MEDS: SEVELAMER CARBONATE 800 MG TAB (FP) PO SCH ×3 (09:29→16:45)
[2020-08-05] MEDS: PHENYTOIN NA EXTENDED 100 MG CAPSULE (FP) PO SCH ×2 (09:32→21:11)
[2020-08-05] MEDS: POLYETHYLENE GLYCOL 3350 119 GM BTL PO SCH ×2 (09:33→21:20)
[2020-08-05] MEDS: LABETALOL HCL 200 MG TABLET (FP) PO SCH ×2 (09:33→21:11)
[2020-08-05] MEDS ORDERED: NIFEdipine E.R. 90 MG TABLET PO SCH (10:00)
[2020-08-05] MEDS ORDERED: VITAMIN B COMP W-C 1 EA TABLET (NEPHRO-VITE) PO SCH (10:00)
[2020-08-05] MEDS: ACETAMINOPHEN 325 MG TABLET (FP) PO PRN ×2 (10:41→21:11)
[2020-08-05] MEDS ORDERED: SODIUM CHLORIDE 250 ML IV PRN (14:31)
[2020-08-05] MEDS ORDERED: ACETAMINOPHEN 1000 MG/100 ML VIAL (NON FORMULARY) IVPB ONE (14:45)
[2020-08-05] MEDS ORDERED: MODERNA COVID-19 VACC,MRNA/PF 100 MCG/0.5 ML IM ONE (16:00)
[2020-08-05] MEDS ORDERED: PT OWN MED DRAWER 7, Y5N ONE (21:05)
[2020-08-06] MEDS: ACETAMINOPHEN 325 MG TABLET (FP) PO PRN (02:30)
[2020-08-06] MEDS: hydrALAZINE HCL 50 MG TABLET (FP) PO SCH (05:48)
[2020-08-06 05:49] VITALS: BP 197/93; PULSE 98; TEMP 98.4
== END 2020-08-06 06:11 | disposition short-term general hospital (02) | DRG 668 ==
LOC: JER 13:35 → JERBED 17:53 → J7W 07-29 02:08
PROVIDERS: ADMIT Internal Medicine; ATTEND Internal Medicine
PROC: 30233N1 Transfusion of Nonautologous Red Blood Cells into Peripheral Vein, Percutaneous Approach (ICD-10-PCS; 2020-07-28)
PROC: 0DBP8ZX Excision of Rectum, Via Natural or Artificial Opening Endoscopic, Diagnostic (ICD-10-PCS; 2020-07-31)
PROC: 5A1D70Z Performance of Urinary Filtration, Intermittent, Less than 6 Hours Per Day (ICD-10-PCS; 2020-08-04)
PROC: 0TBB8ZX Excision of Bladder, Via Natural or Artificial Opening Endoscopic, Diagnostic (ICD-10-PCS; principal; 2020-08-04 13:00)
DX: C67.9 Malignant neoplasm of bladder, unspecified (principal); N18.6 End stage renal disease; D62 Acute posthemorrhagic anemia; I13.0 Hypertensive heart and chronic kidney disease with heart failure and stage 1 through stage 4 chronic kidney disease, or unspecified chronic kidney disease; I50.32 Chronic diastolic (congestive) heart failure; K56.41 Fecal impaction; Z90.5 Acquired absence of kidney; R50.9 Fever, unspecified; R31.0 Gross hematuria; H54.8 Legal blindness, as defined in USA; D25.9 Leiomyoma of uterus, unspecified; F17.210 Nicotine dependence, cigarettes, uncomplicated; K62.1 Rectal polyp
CPT/HCPCS: 36415; 36430; 36511; 74174-TC; 76830-TC; 76856-TC; 76937; 80048; 80053; 81003; 82272; 82550; 82728; 83540; 83550; 83615; 84100; 84484; 85025; 85027; 85045; 86704; 86706; 86707; 86708; 86709; 86803; 86850; 86900; 86901; 86922; 87086; 87340; 88305-TC; 93005; 93010; 94760; 97116-GP; 97161-GP; 99285-25; C9803; J0131; P9038; P9058; U0003; U0005

== ENCOUNTER 2020-09-19 10:59 | Inpatient (IN) | payer OTHER ==
[2020-09-19 11:15] VITALS: BMI 17.6
[2020-09-19 13:36] LABS: CALCIUM 8.5 mg/dL (8.5-10.1)
[2020-09-19 13:37] LABS: ALBUMIN 2.7 g/dl (3.4-5.0); BLOOD UREA NITROGEN 51.3 mg/dL (7-18)
[2020-09-19 13:40] LABS: CREATININE 7.1 mg/dL (0.55-1.3)
[2020-09-19 13:42] LABS: BILIRUBIN,TOTAL 0.3 mg/dL (0.2-1); TOT PROT 6.7 g/dl (6.4-8.2)
[2020-09-19 14:01] LABS: BASO % 0.9 % (0-2.0); EOS % 6.8 % (0-4.5); HEMOGLOBIN 7.1 GM/dL (10.7-15.3); MCHC 33.9 g/dl (32.0-36.0); MEAN CELL VOLUME 100.4 fl (80-96); MEAN PLT VOLUME 7.2 fl (7.5-11.1); MONO % 12.2 % (3.8-10.2); NEUT % 61.1 % (42.8-82.8); PLATELET COUNT 323 K/MM3 (134-434); RBC 2.09 M/mm3 (3.60-5.2); RDW 18.6 % (11.6-15.6)
[2020-09-19 14:11] LABS: INR 0.99 (0.83-1.09)
[2020-09-19 14:13] LABS: ACTIVATED PTT 27.8 SECONDS (25.2-36.5)
[2020-09-19 14:21] LABS: CALCIUM 8.3 mg/dL (8.5-10.1)
[2020-09-19 14:22] LABS: ALBUMIN 2.6 g/dl (3.4-5.0); BLOOD UREA NITROGEN 50.7 mg/dL (7-18)
[2020-09-19] MEDS ORDERED: SODIUM CHLORIDE 250 ML IV PRN (14:26)
[2020-09-19 15:39] LABS: BILIRUBIN,TOTAL 0.2 mg/dL (0.2-1); CREATININE 7.3 mg/dL (0.55-1.3); TOT PROT 6.2 g/dl (6.4-8.2)
[2020-09-19] MEDS: SEVELAMER CARBONATE 800 MG TAB (FP) PO SCH (20:37)
[2020-09-19] MEDS: PHENYTOIN NA EXTENDED 100 MG CAPSULE (FP) PO SCH (20:59)
[2020-09-19] MEDS ORDERED: ACETAMINOPHEN 325 MG TABLET (FP) PO ONE (22:23)
[2020-09-20] MEDS ORDERED: INSULIN (NOVOLOG) ASPART 100 UNITS/ML 10ML VIAL ONE (07:34)
[2020-09-20] MEDS ORDERED: INSULIN (LEVEMIR) 100 UNITS/ML UNITS SQ ONE (07:34)
[2020-09-20] MEDS: SEVELAMER CARBONATE 800 MG TAB (FP) PO SCH ×3 (09:11→17:42)
[2020-09-20 09:13] LABS: BASO % 0.4 % (0-2.0); EOS % 4.5 % (0-4.5); HEMATOCRIT 24.5 % (32.4-45.2); HEMOGLOBIN 8.4 GM/dL (10.7-15.3); LYMPH % 16.9 % (8-40); MCHC 34.4 g/dl (32.0-36.0); MEAN PLT VOLUME 7.2 fl (7.5-11.1); NEUT % 66.2 % (42.8-82.8); PLATELET COUNT 316 K/MM3 (134-434); RBC 2.55 M/mm3 (3.60-5.2); RDW 22.5 % (11.6-15.6); WHITE BLOOD COUNT 8.7 K/mm3 (4.0-10.0)
[2020-09-20] MEDS: PHENYTOIN NA EXTENDED 100 MG CAPSULE (FP) PO SCH ×2 (09:13→21:27)
[2020-09-20 09:55] LABS: CALCIUM 8.2 mg/dL (8.5-10.1)
[2020-09-20 09:56] LABS: MAGNESIUM 2.4 mg/dL (1.8-2.4); PHOSPHOROUS 3.7 mg/dL (2.5-4.9)
[2020-09-20 09:59] LABS: BLOOD UREA NITROGEN 19.6 mg/dL (7-18); CREATININE 4.2 mg/dL (0.55-1.3)
[2020-09-20] MEDS ORDERED: NIFEdipine E.R. 90 MG TABLET PO SCH (11:00)
[2020-09-20] MEDS: LABETALOL HCL 200 MG TABLET (FP) PO SCH ×2 (12:33→21:27)
[2020-09-21 08:56] VITALS: BP 152/84; PULSE 78; TEMP 98.2
[2020-09-21] MEDS: LABETALOL HCL 200 MG TABLET (FP) PO SCH (09:12)
[2020-09-21] MEDS: PHENYTOIN NA EXTENDED 100 MG CAPSULE (FP) PO SCH (09:12)
[2020-09-21] MEDS: SEVELAMER CARBONATE 800 MG TAB (FP) PO SCH ×2 (09:12→12:09)
[2020-09-21 17:07] LABS: HEP B CORE AB, TOT Negative (Negative)
== END 2020-09-21 15:08 | disposition home health service (06) | DRG 686 ==
LOC: JER 10:59 → JERBED 14:27 → J5S 19:26
PROVIDERS: ADMIT Hospitalist; ATTEND Internal Medicine
PROC: 30233N1 Transfusion of Nonautologous Red Blood Cells into Peripheral Vein, Percutaneous Approach (ICD-10-PCS; principal; 2020-09-19)
PROC: 5A1D70Z Performance of Urinary Filtration, Intermittent, Less than 6 Hours Per Day (ICD-10-PCS; 2020-09-19)
DX: C67.9 Malignant neoplasm of bladder, unspecified (principal); N18.6 End stage renal disease; I13.2 Hypertensive heart and chronic kidney disease with heart failure and with stage 5 chronic kidney disease, or end stage renal disease; I50.32 Chronic diastolic (congestive) heart failure; D62 Acute posthemorrhagic anemia; D63.8 Anemia in other chronic diseases classified elsewhere; R31.9 Hematuria, unspecified; J44.9 Chronic obstructive pulmonary disease, unspecified; G40.909 Epilepsy, unspecified, not intractable, without status epilepticus; H54.7 Unspecified visual loss; K21.9 Gastro-esophageal reflux disease without esophagitis; F17.210 Nicotine dependence, cigarettes, uncomplicated; K59.09 Other constipation; E87.5 Hyperkalemia; Z88.0 Allergy status to penicillin; Z99.2 Dependence on renal dialysis
CPT/HCPCS: 36415; 36430; 80048; 80053; 83735; 84100; 85025; 85610; 85730; 86704; 86706; 86707; 86708; 86709; 86803; 86850; 86900; 86901; 86922; 87086; 87340; 93005; 93010; 99285-25; C9803; P9058; U0003; U0005

== ENCOUNTER 2021-02-01 11:07 | Inpatient (IN) | payer OTHER ==
[2021-02-01] MEDS ORDERED: ACETAMINOPHEN 1000 MG/100 ML VIAL (NON FORMULARY) IVPB ONE (11:45)
[2021-02-01] MEDS ORDERED: ACETAMINOPHEN INJECTION 100 ML IVPB ONE (11:50)
[2021-02-01 11:57] LABS: VENOUS BASE EXCESS -1.6 mmol/L (-2-2); VENOUS O2 SATURATION 89.1 % (70-80); VENOUS PCO2 37.4 mmHg (38-52); VENOUS PH 7.403 (7.310-7.410)
[2021-02-01 12:16] LABS: CHLORIDE 104 mmol/L (98-107); SODIUM 134 mmol/L (136-145)
[2021-02-01 12:17] LABS: HEMATOCRIT 34.3 % (32.4-45.2); HEMOGLOBIN 10.8 GM/dL (10.7-15.3); MCH 31.9 pg (25.7-33.7); MCHC 31.6 g/dl (32.0-36.0); MEAN CELL VOLUME 100.8 fl (80-96); MEAN PLT VOLUME 8.5 fl (7.5-11.1); PLATELET COUNT 166 10^3/uL (134-434); RDW 22.7 % (11.6-15.6); WHITE BLOOD COUNT 16.4 K/mm3 (4.0-10.0)
[2021-02-01 12:18] LABS: ALBUMIN 2.4 g/dl (3.4-5.0); CO2 21 mmol/L (21-32)
[2021-02-01 12:19] LABS: BLOOD UREA NITROGEN 61.8 mg/dL (7-18); GLUCOSE,RANDOM 121 mg/dL (74-106)
[2021-02-01 12:21] LABS: SGPT/ALT 17 U/L (13-61)
[2021-02-01 12:22] LABS: CREATININE 7.4 mg/dL (0.55-1.3); SGOT/AST 27 U/L (15-37)
[2021-02-01 12:23] LABS: BILIRUBIN,TOTAL 0.5 mg/dL (0.2-1); TOT PROT 7.1 g/dl (6.4-8.2)
[2021-02-01 12:24] LABS: ALK PHOS 116 U/L (45-117)
[2021-02-01 12:25] LABS: ACTIVATED PTT 28.5 SECONDS (25.2-36.5)
[2021-02-01 12:33] LABS: PH,URINE >= 9.0 (5.0-8.0); URINE APPEARANCE Turbid; URINE BILIRUBIN 3+ (NEGATIVE); URINE COLOR Other; URINE GLUCOSE (UA) Trace (NEGATIVE); URINE KETONE 1+ (NEGATIVE); URINE LEUK ESTERASE 3+ (NEGATIVE); URINE NITRITE Positive (NEGATIVE); URINE PROTEIN 3+ (NEGATIVE)
[2021-02-01 12:39] LABS: INR 1.14 (0.83-1.09); PROTHROMBIN TIME (PATIENT) 18.8 SEC (9.7-13.0)
[2021-02-01 12:57] LABS: ANION GAP 10 MMOL/L (8-16)
[2021-02-01] MEDS ORDERED: CEFTRIAXONE 1,000 MG in DEXTROSE 5%-WATER - 50 ML IVPB ONE (13:21)
[2021-02-01] MEDS ORDERED: CEFTRIAXONE 1 GM/50 ML BAG ONE (13:31)
[2021-02-01 14:00] LABS: ANISOCYTOSIS 0; MACROCYTOSIS 1+; PLATELET ESTIMATE NORMAL
[2021-02-01 14:02] LABS: EPI CELLS 11.9 /uL (0-25.1); URINE BACTERIA 14.9 /uL (0-1359); URINE RBC 23010 /uL (0-23.9); URINE WBC 823.3 /uL (0-25.8)
[2021-02-01 14:07] LABS: HYALINE CASTS NONE SEEN /uL (0-3.1)
[2021-02-01 15:28] LABS: CHLORIDE 102 mmol/L (98-107); SODIUM 135 mmol/L (136-145)
[2021-02-01 15:30] LABS: ANION GAP 12 MMOL/L (8-16); BLOOD UREA NITROGEN 62.8 mg/dL (7-18); CO2 21 mmol/L (21-32); GLUCOSE,RANDOM 120 mg/dL (74-106)
[2021-02-01 15:45] LABS: CREATININE 7.5 mg/dL (0.55-1.3)
[2021-02-01 17:55] LABS: CHLORIDE 100 mmol/L (98-107); SODIUM 135 mmol/L (136-145)
[2021-02-01 17:56] LABS: CALCIUM 9.2 mg/dL (8.5-10.1)
[2021-02-01 17:57] LABS: BLOOD UREA NITROGEN 64.6 mg/dL (7-18); CO2 24 mmol/L (21-32); GLUCOSE,RANDOM 102 mg/dL (74-106)
[2021-02-01 18:10] LABS: ANION GAP 11 MMOL/L (8-16); CREATININE 7.7 mg/dL (0.55-1.3)
[2021-02-01] MEDS ORDERED: DEXTROSE 50%-WATER - 25 GM/50 ML VIAL IVPUSH ONE (18:13)
[2021-02-01] MEDS ORDERED: CALCIUM GLUCONATE 10% - 1,000 MG/10 ML VIAL IVPUSH ONE (18:13)
[2021-02-01] MEDS ORDERED: INSULIN REGULAR HUMAN 100 UNITS/ML *VIAL IVPUSH ONE (18:13)
[2021-02-01] MEDS ORDERED: SODIUM CHLORIDE 250 ML IV PRN (18:35)
[2021-02-01] MEDS ORDERED: SODIUM ZIRCONIUM CYCLOSILICATE (LOKELMA) 5 GM PACKET PO SCH (18:45)
[2021-02-01] MEDS ORDERED: CALCIUM GLUCONATE 10% - 1,000 MG/10 ML VIAL ONE (18:47)
[2021-02-01] MEDS ORDERED: DEXTROSE 50%-WATER 25 GM/50 ML DISP.SYRIN ONE (18:47)
[2021-02-01] MEDS ORDERED: INSULIN REGULAR HUMAN 100 UNITS/ML *VIAL ONE (18:49)
[2021-02-02] MEDS: PHENYTOIN NA EXTENDED 100 MG CAPSULE (FP) PO SCH ×3 (00:49→22:13)
[2021-02-02 01:03] LABS: HEMATOCRIT 30.8 % (32.4-45.2); MCH 31.8 pg (25.7-33.7); MCHC 32.5 g/dl (32.0-36.0); MEAN CELL VOLUME 97.9 fl (80-96); MEAN PLT VOLUME 8.7 fl (7.5-11.1); PLATELET COUNT 166 10^3/uL (134-434); RBC 3.14 M/mm3 (3.60-5.2); RDW 21.9 % (11.6-15.6); WHITE BLOOD COUNT 12.2 K/mm3 (4.0-10.0)
[2021-02-02 01:22] LABS: CHLORIDE 103 mmol/L (98-107); SODIUM 137 mmol/L (136-145)
[2021-02-02 01:24] LABS: CALCIUM 8.9 mg/dL (8.5-10.1)
[2021-02-02 01:25] LABS: ALBUMIN 2.3 g/dl (3.4-5.0); ANION GAP 12 MMOL/L (8-16); BLOOD UREA NITROGEN 72.8 mg/dL (7-18); CO2 21 mmol/L (21-32); GLUCOSE,RANDOM 86 mg/dL (74-106)
[2021-02-02 01:28] LABS: PHOSPHOROUS 4.3 mg/dL (2.5-4.9); SGOT/AST 18 U/L (15-37); SGPT/ALT 16 U/L (13-61)
[2021-02-02 01:29] LABS: BILIRUBIN,TOTAL 0.4 mg/dL (0.2-1); TOT PROT 6.7 g/dl (6.4-8.2)
[2021-02-02 01:31] LABS: ALK PHOS 110 U/L (45-117)
[2021-02-02 01:38] LABS: CREATININE 8.2 mg/dL (0.55-1.3)
[2021-02-02] MEDS: hydrALAZINE HCL 50 MG TABLET (FP) PO SCH ×3 (06:28→22:06)
[2021-02-02 07:47] LABS: CHLORIDE 102 mmol/L (98-107); SODIUM 136 mmol/L (136-145)
[2021-02-02 07:52] LABS: BASO % 0.3 % (0-2.0); EOS % 0.3 % (0-4.5); HEMATOCRIT 30.9 % (32.4-45.2); HEMOGLOBIN 10.2 GM/dL (10.7-15.3); MCH 32.7 pg (25.7-33.7); MCHC 33.1 g/dl (32.0-36.0); MEAN CELL VOLUME 98.8 fl (80-96); MEAN PLT VOLUME 8.6 fl (7.5-11.1); MONO % 13.5 % (3.8-10.2); NEUT % 81.9 % (42.8-82.8); PLATELET COUNT 155 10^3/uL (134-434); RBC 3.13 M/mm3 (3.60-5.2); RDW 21.4 % (11.6-15.6); WHITE BLOOD COUNT 9.5 K/mm3 (4.0-10.0)
[2021-02-02 07:53] LABS: ALBUMIN 2.2 g/dl (3.4-5.0); ANION GAP 13 MMOL/L (8-16); BLOOD UREA NITROGEN 81.3 mg/dL (7-18); CALCIUM 8.6 mg/dL (8.5-10.1); CO2 20 mmol/L (21-32); GLUCOSE,RANDOM 82 mg/dL (74-106)
[2021-02-02 07:56] LABS: SGOT/AST 20 U/L (15-37); SGPT/ALT 14 U/L (13-61)
[2021-02-02 07:58] LABS: BILIRUBIN,TOTAL 0.4 mg/dL (0.2-1); TOT PROT 6.7 g/dl (6.4-8.2)
[2021-02-02 07:59] LABS: ALK PHOS 114 U/L (45-117)
[2021-02-02 08:01] LABS: CREATININE 8.8 mg/dL (0.55-1.3)
[2021-02-02] MEDS: SEVELAMER CARBONATE 800 MG TAB (FP) PO SCH ×3 (08:34→17:58)
[2021-02-02] MEDS: LABETALOL HCL 200 MG TABLET (FP) PO SCH ×2 (10:00→22:14)
[2021-02-02] MEDS ORDERED: CEFTRIAXONE 1 GM/50 ML BAG ONE (13:31)
[2021-02-02] MEDS ORDERED: LABETALOL HCL 100 MG TABLET (FP) ONE (13:31)
[2021-02-02] MEDS ORDERED: PHENYTOIN NA EXTENDED 100 MG CAPSULE (FP) ONE (13:31)
[2021-02-02] MEDS: CEFTRIAXONE 1 GM in DEXTROSE 5%-WATER - 50 ML IVPB SCH (13:37)
[2021-02-02] MEDS: ACETAMINOPHEN 325 MG TABLET (FP) PO PRN (22:05)
[2021-02-03] MEDS: hydrALAZINE HCL 50 MG TABLET (FP) PO SCH ×3 (06:28→21:11)
[2021-02-03 07:35] LABS: HEMATOCRIT 31.3 % (32.4-45.2); HEMOGLOBIN 10.4 GM/dL (10.7-15.3); MCHC 33.1 g/dl (32.0-36.0); MEAN CELL VOLUME 96.7 fl (80-96); MEAN PLT VOLUME 8.6 fl (7.5-11.1); PLATELET COUNT 160 10^3/uL (134-434); RBC 3.24 M/mm3 (3.60-5.2); RDW 21.3 % (11.6-15.6); WHITE BLOOD COUNT 6.7 K/mm3 (4.0-10.0)
[2021-02-03 08:01] LABS: CALCIUM 8.6 mg/dL (8.5-10.1)
[2021-02-03 08:02] LABS: ALBUMIN 2.2 g/dl (3.4-5.0)
[2021-02-03 08:05] LABS: BILIRUBIN,TOTAL 0.3 mg/dL (0.2-1); CREATININE 4.8 mg/dL (0.55-1.3); TOT PROT 6.7 g/dl (6.4-8.2)
[2021-02-03 08:36] LABS: BLOOD UREA NITROGEN 31.6 mg/dL (7-18)
[2021-02-03] MEDS ORDERED: cefTRIAXone SODIUM 1 GM VIAL ONE (08:59)
[2021-02-03] MEDS ORDERED: DEXTROSE 5%-WATER - 50 ML IVPB ONE (09:00)
[2021-02-03] MEDS: LABETALOL HCL 200 MG TABLET (FP) PO SCH ×2 (09:07→21:11)
[2021-02-03] MEDS: ACETAMINOPHEN 325 MG TABLET (FP) PO PRN ×2 (09:07→23:19)
[2021-02-03] MEDS: PHENYTOIN NA EXTENDED 100 MG CAPSULE (FP) PO SCH ×2 (09:08→21:11)
[2021-02-03] MEDS: SEVELAMER CARBONATE 800 MG TAB (FP) PO SCH ×3 (09:08→18:12)
[2021-02-03] MEDS: CEFTRIAXONE 1 GM in DEXTROSE 5%-WATER - 50 ML IVPB SCH (09:09)
[2021-02-03 09:40] LABS: ANISOCYTOSIS 1+; MACROCYTOSIS 0; OVALOCYTE 1+; PLATELET ESTIMATE NORMAL; TEAR DROP CELLS 1+
[2021-02-03] MEDS: CEFAZOLIN 500 MG in DEXTROSE 5%-WATER - 50 ML IVPB SCH (13:45)
[2021-02-03 15:35] VITALS: BMI 15.7
[2021-02-04] MEDS ORDERED: SODIUM CHLORIDE 250 ML IV PRN (06:21)
[2021-02-04] MEDS: hydrALAZINE HCL 50 MG TABLET (FP) PO SCH ×3 (06:31→21:42)
[2021-02-04 07:55] LABS: BLOOD UREA NITROGEN 41.5 mg/dL (7-18)
[2021-02-04 07:56] LABS: HEMATOCRIT 30.8 % (32.4-45.2); MCHC 32.6 g/dl (32.0-36.0); MEAN CELL VOLUME 98.2 fl (80-96); MEAN PLT VOLUME 8.6 fl (7.5-11.1); PLATELET COUNT 156 10^3/uL (134-434); RBC 3.14 M/mm3 (3.60-5.2); RDW 21.5 % (11.6-15.6); WHITE BLOOD COUNT 5.2 K/mm3 (4.0-10.0)
[2021-02-04 07:57] LABS: CALCIUM 8.5 mg/dL (8.5-10.1)
[2021-02-04 07:58] LABS: CREATININE 6.4 mg/dL (0.55-1.3); PHOSPHOROUS 2.4 mg/dL (2.5-4.9)
[2021-02-04] MEDS: ACETAMINOPHEN 325 MG TABLET (FP) PO PRN (08:35)
[2021-02-04] MEDS: SEVELAMER CARBONATE 800 MG TAB (FP) PO SCH ×3 (08:35→17:53)
[2021-02-04] MEDS ORDERED: PT OWN MED DRAWER 7, Y5N ONE (09:37)
[2021-02-04] MEDS: LABETALOL HCL 200 MG TABLET (FP) PO SCH ×2 (10:07→21:42)
[2021-02-04] MEDS: CEFAZOLIN 500 MG in DEXTROSE 5%-WATER - 50 ML IVPB SCH (10:07)
[2021-02-04] MEDS: PHENYTOIN NA EXTENDED 100 MG CAPSULE (FP) PO SCH ×2 (10:08→21:42)
[2021-02-04] MEDS ORDERED: morphine SULFATE 4 MG/ML VIAL IVPUSH ONE (10:45)
[2021-02-04] MEDS: morphine SULFATE 4 MG/ML VIAL IVPUSH PRN (21:42)
[2021-02-05] MEDS: hydrALAZINE HCL 50 MG TABLET (FP) PO SCH ×3 (05:58→21:12)
[2021-02-05] MEDS: morphine SULFATE 4 MG/ML VIAL IVPUSH PRN (06:10)
[2021-02-05] MEDS: SEVELAMER CARBONATE 800 MG TAB (FP) PO SCH ×3 (08:35→17:28)
[2021-02-05] MEDS ORDERED: PT OWN MED DRAWER 7, Y5N ONE (09:59)
[2021-02-05] MEDS: CEFAZOLIN 500 MG in DEXTROSE 5%-WATER - 50 ML IVPB SCH (10:04)
[2021-02-05] MEDS: PHENYTOIN NA EXTENDED 100 MG CAPSULE (FP) PO SCH ×2 (10:05→21:12)
[2021-02-05] MEDS: LABETALOL HCL 200 MG TABLET (FP) PO SCH ×2 (10:05→21:12)
[2021-02-05] MEDS ORDERED: SODIUM CHLORIDE 250 ML IV PRN (12:54)
[2021-02-06] MEDS: hydrALAZINE HCL 50 MG TABLET (FP) PO SCH ×3 (07:02→21:23)
[2021-02-06] MEDS: SEVELAMER CARBONATE 800 MG TAB (FP) PO SCH ×2 (08:00→12:59)
[2021-02-06 08:23] LABS: BASO % 0.6 % (0-2.0); HEMATOCRIT 32.1 % (32.4-45.2); HEMOGLOBIN 10.4 GM/dL (10.7-15.3); LYMPH % 15.1 % (8-40); MCHC 32.5 g/dl (32.0-36.0); MEAN CELL VOLUME 98.4 fl (80-96); MEAN PLT VOLUME 8.7 fl (7.5-11.1); MONO % 18.3 % (3.8-10.2); PLATELET COUNT 197 10^3/uL (134-434); RBC 3.26 M/mm3 (3.60-5.2); RDW 20.5 % (11.6-15.6); WHITE BLOOD COUNT 5.7 K/mm3 (4.0-10.0)
[2021-02-06 08:43] LABS: ALBUMIN 2.1 g/dl (3.4-5.0); CALCIUM 8.5 mg/dL (8.5-10.1)
[2021-02-06 08:44] LABS: BLOOD UREA NITROGEN 42.7 mg/dL (7-18)
[2021-02-06 08:46] LABS: CREATININE 6.6 mg/dL (0.55-1.3)
[2021-02-06 08:47] LABS: BILIRUBIN,TOTAL 0.3 mg/dL (0.2-1); TOT PROT 6.6 g/dl (6.4-8.2)
[2021-02-06 11:25] LABS: ANISOCYTOSIS 1+; MACROCYTOSIS 1+; PLATELET ESTIMATE NORMAL
[2021-02-06] MEDS ORDERED: PT OWN MED DRAWER 7, Y5N ONE (12:54)
[2021-02-06] MEDS: LABETALOL HCL 200 MG TABLET (FP) PO SCH ×2 (12:59→21:23)
[2021-02-06] MEDS: CEFAZOLIN 500 MG in DEXTROSE 5%-WATER - 50 ML IVPB SCH (13:00)
[2021-02-06] MEDS: PHENYTOIN NA EXTENDED 100 MG CAPSULE (FP) PO SCH ×2 (13:00→21:23)
[2021-02-06] MEDS: AMINO ACIDS/PROTEIN HYDROLYS 30 ML LIQUID.PKT PO SCH (13:30)
[2021-02-06] MEDS: ACETAMINOPHEN 325 MG TABLET (FP) PO PRN (21:24)
[2021-02-06] MEDS: morphine SULFATE 4 MG/ML VIAL IVPUSH PRN (21:32)
[2021-02-07] MEDS: hydrALAZINE HCL 50 MG TABLET (FP) PO SCH ×3 (05:54→21:47)
[2021-02-07] MEDS: AMINO ACIDS/PROTEIN HYDROLYS 30 ML LIQUID.PKT PO SCH (08:23)
[2021-02-07] MEDS: LABETALOL HCL 200 MG TABLET (FP) PO SCH ×2 (09:04→21:47)
[2021-02-07] MEDS: PHENYTOIN NA EXTENDED 100 MG CAPSULE (FP) PO SCH ×2 (09:05→21:46)
[2021-02-07] MEDS: CEFAZOLIN 500 MG in DEXTROSE 5%-WATER - 50 ML IVPB SCH (09:06)
[2021-02-07 11:36] LABS: BLOOD UREA NITROGEN 39.1 mg/dL (7-18); CALCIUM 8.8 mg/dL (8.5-10.1)
[2021-02-07 11:40] LABS: CREATININE 5.1 mg/dL (0.55-1.3); PHOSPHOROUS 3.4 mg/dL (2.5-4.9)
[2021-02-07] MEDS: ACETAMINOPHEN 325 MG TABLET (FP) PO PRN ×2 (13:29→21:47)
[2021-02-07] MEDS ORDERED: POLYETHYLENE GLYCOL (HEALTHYLAX) 3350 17 GM PACKET PO ONE (14:45)
[2021-02-07] MEDS: DOCUSATE SODIUM 100 MG CAPSULE (FP) PO SCH (21:47)
[2021-02-08] MEDS: hydrALAZINE HCL 50 MG TABLET (FP) PO SCH ×3 (07:22→21:09)
[2021-02-08] MEDS: AMINO ACIDS/PROTEIN HYDROLYS 30 ML LIQUID.PKT PO SCH (08:24)
[2021-02-08] MEDS: PHENYTOIN NA EXTENDED 100 MG CAPSULE (FP) PO SCH ×2 (10:28→21:10)
[2021-02-08] MEDS: POLYETHYLENE GLYCOL (HEALTHYLAX) 3350 17 GM PACKET PO SCH (10:28)
[2021-02-08] MEDS: LABETALOL HCL 200 MG TABLET (FP) PO SCH ×2 (10:28→21:11)
[2021-02-08] MEDS: CEFAZOLIN 500 MG in DEXTROSE 5%-WATER - 50 ML IVPB SCH (10:29)
[2021-02-08] MEDS ORDERED: SODIUM CHLORIDE 250 ML IV PRN (14:00)
[2021-02-08] MEDS: DOCUSATE SODIUM 100 MG CAPSULE (FP) PO SCH (21:10)
[2021-02-08] MEDS: ACETAMINOPHEN 325 MG TABLET (FP) PO PRN (21:14)
[2021-02-09] MEDS: hydrALAZINE HCL 50 MG TABLET (FP) PO SCH ×2 (05:52→14:30)
[2021-02-09] MEDS: PHENYTOIN NA EXTENDED 100 MG CAPSULE (FP) PO SCH (09:39)
[2021-02-09] MEDS: LABETALOL HCL 200 MG TABLET (FP) PO SCH (09:39)
[2021-02-09] MEDS: AMINO ACIDS/PROTEIN HYDROLYS 30 ML LIQUID.PKT PO SCH (09:39)
[2021-02-09] MEDS: POLYETHYLENE GLYCOL (HEALTHYLAX) 3350 17 GM PACKET PO SCH (09:39)
[2021-02-09] MEDS ORDERED: ceFAZolin SODIUM 1 GM VIAL ONE (12:26)
[2021-02-09] MEDS ORDERED: DEXTROSE 5%-WATER 100 ML IVPB ONE (12:27)
[2021-02-09] MEDS: ACETAMINOPHEN 325 MG TABLET (FP) PO PRN (12:29)
[2021-02-09 13:42] LABS: HEMATOCRIT 29.7 % (32.4-45.2); HEMOGLOBIN 9.7 GM/dL (10.7-15.3); MCH 31.5 pg (25.7-33.7); MCHC 32.8 g/dl (32.0-36.0); MEAN CELL VOLUME 96.1 fl (80-96); MEAN PLT VOLUME 8.4 fl (7.5-11.1); PLATELET COUNT 297 10^3/uL (134-434); RBC 3.09 M/mm3 (3.60-5.2); RDW 20.7 % (11.6-15.6); WHITE BLOOD COUNT 5.2 K/mm3 (4.0-10.0)
[2021-02-09] MEDS ORDERED: ceFAZolin 2 GRAM PREMIX BAG IVPB SCH (14:00)
[2021-02-09] MEDS ORDERED: CEFAZOLIN 2 GM in DEXTROSE 5%-WATER 100 ML IVPB SCH (14:00)
[2021-02-09 14:05] LABS: CHLORIDE 96 mmol/L (98-107); SODIUM 135 mmol/L (136-145)
[2021-02-09 14:11] LABS: CALCIUM 8.5 mg/dL (8.5-10.1)
[2021-02-09 14:12] LABS: ANION GAP 11 MMOL/L (8-16); CO2 28 mmol/L (21-32); GLUCOSE,RANDOM 76 mg/dL (74-106)
[2021-02-09 14:17] LABS: PHOSPHOROUS 4.1 mg/dL (2.5-4.9)
[2021-02-09 14:23] LABS: BLOOD UREA NITROGEN 86.4 mg/dL (7-18); CREATININE 8.2 mg/dL (0.55-1.3)
[2021-02-09 15:59] VITALS: BP 104/70; PULSE 71; TEMP 97.8
== END 2021-02-09 18:38 | disposition home health service (06) | DRG 689 ==
LOC: JER 11:07 → JERBED 13:36 → J4S 02-02 14:41
PROVIDERS: ADMIT Internal Medicine; ATTEND Internal Medicine
PROC: 5A1D70Z Performance of Urinary Filtration, Intermittent, Less than 6 Hours Per Day (ICD-10-PCS; principal; 2021-02-09)
DX: N39.0 Urinary tract infection, site not specified (principal); E43 Unspecified severe protein-calorie malnutrition; A41.9 Sepsis, unspecified organism; N18.6 End stage renal disease; R64 Cachexia; Z68.1 Body mass index [BMI] 19.9 or less, adult; C64.9 Malignant neoplasm of unspecified kidney, except renal pelvis; I13.2 Hypertensive heart and chronic kidney disease with heart failure and with stage 5 chronic kidney disease, or end stage renal disease; I50.32 Chronic diastolic (congestive) heart failure; R63.0 Anorexia; E87.5 Hyperkalemia; Z99.2 Dependence on renal dialysis; C67.9 Malignant neoplasm of bladder, unspecified; D72.829 Elevated white blood cell count, unspecified; H54.7 Unspecified visual loss
CPT/HCPCS: 36415; 70450-TC; 71045-TC-FY; 80048; 80053; 80185; 81003; 82803; 83605; 84100; 84484; 85025; 85027; 85610; 85730; 86803; 87040; 87086; 87186; 87340; 93005; 93010; 99285-25; C9803; J0131; U0003; U0005

== ENCOUNTER 2021-03-03 10:34 | Inpatient (IN) | payer OTHER ==
[2021-03-03 14:31] LABS: BASO % 0.6 % (0-2.0); EOS % 3.7 % (0-4.5); HEMATOCRIT 32.7 % (32.4-45.2); LYMPH % 14.8 % (8-40); MCH 32.9 pg (25.7-33.7); MCHC 30.7 g/dl (32.0-36.0); MEAN CELL VOLUME 107.2 fl (80-96); MEAN PLT VOLUME 8.2 fl (7.5-11.1); MONO % 11.3 % (3.8-10.2); NEUT % 69.6 % (42.8-82.8); PLATELET COUNT 201 10^3/uL (134-434); RBC 3.05 M/mm3 (3.60-5.2); WHITE BLOOD COUNT 6.6 K/mm3 (4.0-10.0)
[2021-03-03 14:50] LABS: CHLORIDE 104 mmol/L (98-107); SODIUM 126 mmol/L (136-145)
[2021-03-03 14:52] LABS: CALCIUM 8.2 mg/dL (8.5-10.1)
[2021-03-03 14:53] LABS: ALBUMIN 2.2 g/dl (3.4-5.0); BLOOD UREA NITROGEN 98.1 mg/dL (7-18); CO2 17 mmol/L (21-32); GLUCOSE,RANDOM 95 mg/dL (74-106)
[2021-03-03 14:56] LABS: PHOSPHOROUS 6.6 mg/dL (2.5-4.9)
[2021-03-03 14:57] LABS: BILIRUBIN,TOTAL 0.4 mg/dL (0.2-1); TOT PROT 7.8 g/dl (6.4-8.2)
[2021-03-03 14:59] LABS: ALK PHOS 138 U/L (45-117)
[2021-03-03 15:04] LABS: ANION GAP 4 MMOL/L (8-16); CREATININE 12.1 mg/dL (0.55-1.3); MAGNESIUM 2.7 mg/dL (1.8-2.4); SGOT/AST 60 U/L (15-37); SGPT/ALT < 6 U/L (13-61)
[2021-03-03 15:06] LABS: ANISOCYTOSIS 3+; MACROCYTOSIS 1+; PLATELET ESTIMATE NORMAL
[2021-03-03] MEDS ORDERED: SODIUM CHLORIDE 250 ML IV PRN (15:38)
[2021-03-03 17:36] LABS: CHLORIDE 108 mmol/L (98-107); SODIUM 136 mmol/L (136-145)
[2021-03-03 17:38] LABS: ALBUMIN 2.3 g/dl (3.4-5.0); CALCIUM 8.1 mg/dL (8.5-10.1); CO2 16 mmol/L (21-32)
[2021-03-03 17:39] LABS: GLUCOSE,RANDOM 141 mg/dL (74-106)
[2021-03-03 17:41] LABS: SGPT/ALT < 6 U/L (13-61)
[2021-03-03 17:42] LABS: SGOT/AST 12 U/L (15-37)
[2021-03-03 17:43] LABS: BILIRUBIN,TOTAL 0.4 mg/dL (0.2-1); TOT PROT 6.7 g/dl (6.4-8.2)
[2021-03-03 17:44] LABS: ALK PHOS 139 U/L (45-117)
[2021-03-03 17:45] LABS: ANION GAP 12 MMOL/L (8-16); CREATININE 12.2 mg/dL (0.55-1.3)
[2021-03-03 18:08] LABS: CHLORIDE 108 mmol/L (98-107); SODIUM 138 mmol/L (136-145)
[2021-03-03 18:09] LABS: CALCIUM 8.2 mg/dL (8.5-10.1)
[2021-03-03 18:10] LABS: BLOOD UREA NITROGEN 95.5 mg/dL (7-18); CO2 18 mmol/L (21-32); GLUCOSE,RANDOM 138 mg/dL (74-106)
[2021-03-03 18:21] LABS: ANION GAP 12 MMOL/L (8-16); CREATININE 11.1 mg/dL (0.55-1.3)
[2021-03-03] MEDS ORDERED: DOCUSATE SODIUM 100 MG CAPSULE (FP) PO SCH (22:00)
[2021-03-03] MEDS ORDERED: hydrALAZINE HCL 50 MG TABLET (FP) PO SCH (22:00)
[2021-03-03] MEDS ORDERED: HEPARIN NA (PORCINE) 5,000 UNITS/ML 1ML VIAL SQ SCH (22:00)
[2021-03-03] MEDS ORDERED: PHENYTOIN NA EXTENDED 100 MG CAPSULE (FP) PO SCH (22:00)
[2021-03-03] MEDS ORDERED: LABETALOL HCL 200 MG TABLET (FP) PO SCH (22:00)
[2021-03-04] MEDS ORDERED: PT OWN MED DRAWER 7, Y5N ONE (02:57)
[2021-03-04] MEDS ORDERED: SODIUM CHLORIDE 250 ML IV PRN (03:56)
[2021-03-04 04:27] LABS: HEMATOCRIT 31.5 % (32.4-45.2); HEMOGLOBIN 10.5 GM/dL (10.7-15.3); MCH 32.7 pg (25.7-33.7); MCHC 33.4 g/dl (32.0-36.0); MEAN CELL VOLUME 98.1 fl (80-96); MEAN PLT VOLUME 7.5 fl (7.5-11.1); PLATELET COUNT 196 10^3/uL (134-434); RBC 3.21 M/mm3 (3.60-5.2); RDW 21.4 % (11.6-15.6); WHITE BLOOD COUNT 5.2 K/mm3 (4.0-10.0)
[2021-03-04 04:35] LABS: INR 1.11 (0.83-1.09); PROTHROMBIN TIME (PATIENT) 12.4 SEC (9.7-13.0)
[2021-03-04 04:37] LABS: ACTIVATED PTT 28.9 SECONDS (25.2-36.5)
[2021-03-04 04:47] LABS: CHLORIDE 102 mmol/L (98-107); SODIUM 140 mmol/L (136-145)
[2021-03-04 04:49] LABS: ALBUMIN 2.2 g/dl (3.4-5.0); ANION GAP 8 MMOL/L (8-16); CALCIUM 8.1 mg/dL (8.5-10.1); CO2 29 mmol/L (21-32)
[2021-03-04 04:50] LABS: GLUCOSE,RANDOM 84 mg/dL (74-106)
[2021-03-04 04:52] LABS: SGPT/ALT < 6 U/L (13-61)
[2021-03-04 04:53] LABS: SGOT/AST 18 U/L (15-37)
[2021-03-04 04:54] LABS: BILIRUBIN,TOTAL 0.3 mg/dL (0.2-1); TOT PROT 6.6 g/dl (6.4-8.2)
[2021-03-04 04:55] LABS: ALK PHOS 137 U/L (45-117)
[2021-03-04 05:08] LABS: BLOOD UREA NITROGEN 33.3 mg/dL (7-18)
[2021-03-04] MEDS: hydrALAZINE HCL 50 MG TABLET (FP) PO SCH ×3 (05:39→22:06)
[2021-03-04] MEDS ORDERED: SEVELAMER CARBONATE 800 MG TAB (FP) PO SCH (08:00)
[2021-03-04] MEDS: PHENYTOIN NA EXTENDED 100 MG CAPSULE (FP) PO SCH ×2 (10:00→22:06)
[2021-03-04] MEDS ORDERED: LABETALOL HCL 200 MG TABLET (FP) PO SCH (10:00)
[2021-03-04] MEDS: SEVELAMER CARBONATE 800 MG TAB (FP) PO SCH ×3 (10:01→18:29)
[2021-03-04] MEDS: HEPARIN NA (PORCINE) 5,000 UNITS/ML 1ML VIAL SQ SCH ×2 (10:01→22:06)
[2021-03-04] MEDS: NICOTINE 21 MG/24 HOURS TOPICAL PATCH TD SCH (10:02)
[2021-03-04 10:36] LABS: BASO % 0.5 % (0-2.0); EOS % 4.7 % (0-4.5); HEMATOCRIT 31.2 % (32.4-45.2); HEMOGLOBIN 10.5 GM/dL (10.7-15.3); LYMPH % 16.2 % (8-40); MCH 33.1 pg (25.7-33.7); MCHC 33.6 g/dl (32.0-36.0); MEAN CELL VOLUME 98.7 fl (80-96); MEAN PLT VOLUME 7.4 fl (7.5-11.1); MONO % 17.1 % (3.8-10.2); NEUT % 61.5 % (42.8-82.8); PLATELET COUNT 194 10^3/uL (134-434); RBC 3.17 M/mm3 (3.60-5.2); RDW 20.9 % (11.6-15.6); WHITE BLOOD COUNT 6.2 K/mm3 (4.0-10.0)
[2021-03-04 10:56] LABS: CHLORIDE 103 mmol/L (98-107); SODIUM 140 mmol/L (136-145)
[2021-03-04 10:59] LABS: ALBUMIN 2.2 g/dl (3.4-5.0); ANION GAP 8 MMOL/L (8-16); BLOOD UREA NITROGEN 34.4 mg/dL (7-18); CALCIUM 7.6 mg/dL (8.5-10.1); CO2 28 mmol/L (21-32); GLUCOSE,RANDOM 108 mg/dL (74-106)
[2021-03-04 11:02] LABS: SGOT/AST 15 U/L (15-37); SGPT/ALT < 6 U/L (13-61)
[2021-03-04 11:03] LABS: CREATININE 6.5 mg/dL (0.55-1.3)
[2021-03-04 11:04] LABS: BILIRUBIN,TOTAL 0.4 mg/dL (0.2-1); TOT PROT 6.6 g/dl (6.4-8.2)
[2021-03-04 11:05] LABS: ALK PHOS 133 U/L (45-117)
[2021-03-04] MEDS: DOCUSATE SODIUM 100 MG CAPSULE (FP) PO SCH (22:06)
[2021-03-05] MEDS: hydrALAZINE HCL 50 MG TABLET (FP) PO SCH ×4 (06:59→21:03)
[2021-03-05] MEDS: SEVELAMER CARBONATE 800 MG TAB (FP) PO SCH ×3 (08:06→17:25)
[2021-03-05 10:35] LABS: ALBUMIN 2.3 g/dl (3.4-5.0); ALK PHOS 128 U/L (45-117); ANION GAP 7 MMOL/L (8-16); BILIRUBIN,TOTAL 0.3 mg/dL (0.2-1); BLOOD UREA NITROGEN 40.4 mg/dL (7-18); CALCIUM 7.8 mg/dL (8.5-10.1); CHLORIDE 102 mmol/L (98-107); CHOLESTEROL 125 mg/dL (50-200); CO2 30 mmol/L (21-32); CREATININE 8.2 mg/dL (0.55-1.3); GLUCOSE,RANDOM 117 mg/dL (74-106); HDL CHOLESTEROL 45 mg/dL (40-60); LDL CHOLESTEROL (ONLY SJRH) 65 mg/dL (5-100); SGOT/AST 14 U/L (15-37); SGPT/ALT < 6 U/L (13-61); SODIUM 139 mmol/L (136-145); TOT PROT 6.7 g/dl (6.4-8.2); TRIGLYCERIDES 125 mg/dL (0-150)
[2021-03-05 10:45] LABS: N-TERMINAL BNP 36485.4 pg/ml (5-125)
[2021-03-05] MEDS: PHENYTOIN NA EXTENDED 100 MG CAPSULE (FP) PO SCH ×2 (12:06→21:06)
[2021-03-05] MEDS: NICOTINE 21 MG/24 HOURS TOPICAL PATCH TD SCH ×2 (12:07→12:10)
[2021-03-05] MEDS: HEPARIN NA (PORCINE) 5,000 UNITS/ML 1ML VIAL SQ SCH ×2 (12:07→22:01)
[2021-03-05] MEDS ORDERED: SODIUM CHLORIDE 250 ML IV PRN ×2 (13:00→13:03)
[2021-03-05] MEDS: DOCUSATE SODIUM 100 MG CAPSULE (FP) PO SCH (21:04)
[2021-03-05] MEDS ORDERED: PANTOPRAZOLE 40 MG TABLET PO ONE (22:30)
[2021-03-06] MEDS: hydrALAZINE HCL 50 MG TABLET (FP) PO SCH ×3 (05:38→22:17)
[2021-03-06] MEDS ORDERED: PT OWN MED DRAWER 7, Y5N ONE (06:37)
[2021-03-06 08:24] LABS: HEMATOCRIT 30.9 % (32.4-45.2); HEMOGLOBIN 10.2 GM/dL (10.7-15.3); MCH 32.9 pg (25.7-33.7); MCHC 32.9 g/dl (32.0-36.0); MEAN CELL VOLUME 100.1 fl (80-96); MEAN PLT VOLUME 8.3 fl (7.5-11.1); PLATELET COUNT 168 10^3/uL (134-434); RBC 3.09 M/mm3 (3.60-5.2); RDW 20.6 % (11.6-15.6); WHITE BLOOD COUNT 5.2 K/mm3 (4.0-10.0)
[2021-03-06 08:48] LABS: CALCIUM 8.3 mg/dL (8.5-10.1)
[2021-03-06 08:49] LABS: BLOOD UREA NITROGEN 24.4 mg/dL (7-18)
[2021-03-06 08:52] LABS: CREATININE 5.9 mg/dL (0.55-1.3)
[2021-03-06 09:46] VITALS: BMI 16.5
[2021-03-06] MEDS: SEVELAMER CARBONATE 800 MG TAB (FP) PO SCH ×3 (10:56→18:03)
[2021-03-06] MEDS: NICOTINE 21 MG/24 HOURS TOPICAL PATCH TD SCH ×2 (10:57→11:04)
[2021-03-06] MEDS: HEPARIN NA (PORCINE) 5,000 UNITS/ML 1ML VIAL SQ SCH ×2 (10:58→22:18)
[2021-03-06] MEDS: PHENYTOIN NA EXTENDED 100 MG CAPSULE (FP) PO SCH ×2 (11:42→22:18)
[2021-03-06] MEDS: DOCUSATE SODIUM 100 MG CAPSULE (FP) PO SCH (22:18)
[2021-03-07] MEDS: hydrALAZINE HCL 50 MG TABLET (FP) PO SCH ×3 (06:16→21:16)
[2021-03-07 08:16] LABS: BASO % 0.6 % (0-2.0); EOS % 5.7 % (0-4.5); HEMATOCRIT 32.1 % (32.4-45.2); HEMOGLOBIN 10.5 GM/dL (10.7-15.3); LYMPH % 21.3 % (8-40); MCH 32.4 pg (25.7-33.7); MCHC 32.5 g/dl (32.0-36.0); MEAN CELL VOLUME 99.6 fl (80-96); MEAN PLT VOLUME 8.3 fl (7.5-11.1); MONO % 18.4 % (3.8-10.2); PLATELET COUNT 150 10^3/uL (134-434); RBC 3.23 M/mm3 (3.60-5.2); RDW 20.8 % (11.6-15.6); WHITE BLOOD COUNT 5.6 K/mm3 (4.0-10.0)
[2021-03-07 08:29] LABS: CHLORIDE 100 mmol/L (98-107); SODIUM 137 mmol/L (136-145)
[2021-03-07 08:33] LABS: ALBUMIN 2.3 g/dl (3.4-5.0); ANION GAP 4 MMOL/L (8-16); BLOOD UREA NITROGEN 24.9 mg/dL (7-18); CALCIUM 8.3 mg/dL (8.5-10.1); CO2 32 mmol/L (21-32); GLUCOSE,RANDOM 75 mg/dL (74-106)
[2021-03-07 08:36] LABS: CREATININE 5.8 mg/dL (0.55-1.3); SGOT/AST 16 U/L (15-37)
[2021-03-07 08:38] LABS: BILIRUBIN,TOTAL 0.3 mg/dL (0.2-1); TOT PROT 6.6 g/dl (6.4-8.2)
[2021-03-07 08:39] LABS: ALK PHOS 118 U/L (45-117)
[2021-03-07 08:40] LABS: SGPT/ALT < 6 U/L (13-61)
[2021-03-07] MEDS: SEVELAMER CARBONATE 800 MG TAB (FP) PO SCH ×3 (09:05→18:31)
[2021-03-07] MEDS: HEPARIN NA (PORCINE) 5,000 UNITS/ML 1ML VIAL SQ SCH ×2 (09:08→21:16)
[2021-03-07] MEDS: PHENYTOIN NA EXTENDED 100 MG CAPSULE (FP) PO SCH ×2 (09:09→21:16)
[2021-03-07] MEDS: VITAMIN B COMP W-C 1 EA TABLET (NEPHRO-VITE) PO SCH (09:09)
[2021-03-07] MEDS: NICOTINE 21 MG/24 HOURS TOPICAL PATCH TD SCH (09:10)
[2021-03-07] MEDS ORDERED: SODIUM CHLORIDE 250 ML IV PRN (11:26)
[2021-03-07] MEDS: DOCUSATE SODIUM 100 MG CAPSULE (FP) PO SCH (21:16)
[2021-03-07] MEDS: ACETAMINOPHEN 325 MG TABLET (FP) PO PRN (23:30)
[2021-03-08] MEDS: hydrALAZINE HCL 50 MG TABLET (FP) PO SCH ×2 (05:51→15:11)
[2021-03-08] MEDS: ACETAMINOPHEN 325 MG TABLET (FP) PO PRN ×2 (05:51→15:23)
[2021-03-08] MEDS: SEVELAMER CARBONATE 800 MG TAB (FP) PO SCH ×2 (08:15→12:09)
[2021-03-08] MEDS: PHENYTOIN NA EXTENDED 100 MG CAPSULE (FP) PO SCH (12:06)
[2021-03-08] MEDS: HEPARIN NA (PORCINE) 5,000 UNITS/ML 1ML VIAL SQ SCH (12:08)
[2021-03-08] MEDS: NICOTINE 21 MG/24 HOURS TOPICAL PATCH TD SCH ×2 (12:08→12:28)
[2021-03-08] MEDS: VITAMIN B COMP W-C 1 EA TABLET (NEPHRO-VITE) PO SCH (12:08)
[2021-03-08 17:55] VITALS: BP 147/92; PULSE 89; TEMP 98.1
== END 2021-03-08 18:39 | disposition home health service (06) | DRG 291 ==
LOC: JER 10:34 → JERBED 17:23 → J5S 03-04 01:08 → J4W 03-04 04:00
PROVIDERS: ADMIT Internal Medicine; ATTEND Internal Medicine
PROC: 5A1D70Z Performance of Urinary Filtration, Intermittent, Less than 6 Hours Per Day (ICD-10-PCS; principal; 2021-03-03)
DX: I13.2 Hypertensive heart and chronic kidney disease with heart failure and with stage 5 chronic kidney disease, or end stage renal disease (principal); N18.6 End stage renal disease; E43 Unspecified severe protein-calorie malnutrition; R64 Cachexia; Z68.1 Body mass index [BMI] 19.9 or less, adult; I48.0 Paroxysmal atrial fibrillation; J44.9 Chronic obstructive pulmonary disease, unspecified; Z99.2 Dependence on renal dialysis; E87.5 Hyperkalemia; D64.9 Anemia, unspecified; I50.32 Chronic diastolic (congestive) heart failure; R62.7 Adult failure to thrive; H54.8 Legal blindness, as defined in USA; D63.1 Anemia in chronic kidney disease; Z91.15 Patient's noncompliance with renal dialysis
CPT/HCPCS: 36415; 71045-TC-FY; 80048; 80053; 80061; 82550; 83036; 83735; 83880; 84100; 84132; 84443; 84484; 85025; 85027; 85610; 85730; 86803; 87040; 87340; 93005; 93010; 93306-TC; 97116-GP; 97162-GP; 99285-25; C9803; J1644; U0003; U0005

== ENCOUNTER 2021-03-30 13:02 | Inpatient (IN) | payer OTHER ==
[2021-03-30 14:49] LABS: BASO % 0.5 % (0-2.0); EOS % 3.6 % (0-4.5); HEMATOCRIT 25.4 % (32.4-45.2); HEMOGLOBIN 8.6 GM/dL (10.7-15.3); LYMPH % 9.7 % (8-40); MCH 34.5 pg (25.7-33.7); MCHC 33.8 g/dl (32.0-36.0); MEAN CELL VOLUME 101.9 fl (80-96); MONO % 12.4 % (3.8-10.2); NEUT % 73.8 % (42.8-82.8); PLATELET COUNT 210 10^3/uL (134-434); RBC 2.49 M/mm3 (3.60-5.2); RDW 19.5 % (11.6-15.6); WHITE BLOOD COUNT 7.9 K/mm3 (4.0-10.0)
[2021-03-30 14:53] LABS: INR 1.12 (0.83-1.09); PROTHROMBIN TIME (PATIENT) 12.6 SEC (9.7-13.0)
[2021-03-30 14:56] LABS: ACTIVATED PTT 30.1 SECONDS (25.2-36.5)
[2021-03-30 16:22] LABS: ALBUMIN 2.1 g/dl (3.4-5.0); ALK PHOS 122 U/L (45-117); ANION GAP 7 MMOL/L (8-16); BILIRUBIN,TOTAL 0.3 mg/dL (0.2-1); BLOOD UREA NITROGEN 41.9 mg/dL (7-18); CALCIUM 8.1 mg/dL (8.5-10.1); CHLORIDE 108 mmol/L (98-107); CO2 23 mmol/L (21-32); CREATININE 7.7 mg/dL (0.55-1.3); GLUCOSE,RANDOM 129 mg/dL (74-106); SGOT/AST 23 U/L (15-37); SGPT/ALT 12 U/L (13-61); SODIUM 138 mmol/L (136-145); TOT PROT 6.2 g/dl (6.4-8.2)
[2021-03-30] MEDS ORDERED: ACETAMINOPHEN 500 MG TABLET (FP) PO ONE (18:07)
[2021-03-30] MEDS ORDERED: ACETAMINOPHEN 325 MG TABLET (FP) ONE (18:11)
[2021-03-30] MEDS ORDERED: ACETAMINOPHEN 325 MG TABLET (FP) PO ONE (23:40)
[2021-03-31] MEDS: hydrALAZINE HCL 50 MG TABLET (FP) PO SCH ×2 (05:58→15:44)
[2021-03-31] MEDS ORDERED: hydrALAZINE HCL 50 MG TABLET (FP) PO SCH ×2 (06:00→22:00)
[2021-03-31] MEDS ORDERED: AMINO ACIDS/PROTEIN HYDROLYS 30 ML LIQUID.PKT PO SCH (08:00)
[2021-03-31] MEDS ORDERED: ACETAMINOPHEN 1000 MG/100 ML VIAL IVPB PRN ×3 (09:44→15:34)
[2021-03-31] MEDS ORDERED: PHENYTOIN NA EXTENDED 100 MG CAPSULE (FP) PO SCH ×2 (10:00→22:00)
[2021-03-31] MEDS ORDERED: NIFEdipine E.R. 90 MG TABLET PO SCH (10:00)
[2021-03-31] MEDS ORDERED: NICOTINE 21 MG/24 HOURS TOPICAL PATCH TD SCH (10:00)
[2021-03-31] MEDS: SEVELAMER CARBONATE 800 MG TAB (FP) PO SCH ×2 (10:30→11:06)
[2021-03-31] MEDS ORDERED: IBUPROFEN 200 MG TABLET PO ONE (11:45)
[2021-03-31] MEDS ORDERED: PAPAVERINE HCL 30 MG/1 ML 10 ML VIAL NR ONE (11:46)
[2021-03-31] MEDS ORDERED: LIDOCAINE HCL 1%, 10 MG/ML (20ML VIAL) ONE (11:47)
[2021-03-31] MEDS ORDERED: HEPARIN NA (PORCINE) 5,000 UNITS/ML 1ML VIAL ONE ×2 (11:47→13:25)
[2021-03-31 12:15] VITALS: BMI 16.7
[2021-03-31] MEDS ORDERED: ceFAZolin SODIUM 1 GM VIAL ONE (12:20)
[2021-03-31] MEDS ORDERED: MIDAZOLAM HCL 2 MG/2 ML SINGLE DOSE VIAL ONE ×2 (12:20→13:39)
[2021-03-31] MEDS ORDERED: SODIUM CHLORIDE 250 ML IV PRN ×2 (12:22→15:34)
[2021-03-31] MEDS ORDERED: ceFAZolin SODIUM 1 GM VIAL IVPB ONE (12:25)
[2021-03-31] MEDS ORDERED: LIDOCAINE HCL 1%, 10 MG/ML (20ML VIAL) NR ONE ×3 (12:39)
[2021-03-31] MEDS ORDERED: HEPARIN NA (PORCINE) 5,000 UNITS/ML 1ML VIAL SQ ONE (12:39)
[2021-03-31] MEDS ORDERED: POVIDONE-IODINE OINTMENT 10% - 28.4 GM TUBE ONE (14:16)
[2021-03-31 15:04] VITALS: TEMP 98.2
[2021-03-31] MEDS ORDERED: SEVELAMER CARBONATE 800 MG TAB (FP) PO SCH (17:30)
[2021-03-31 18:39] VITALS: BP 108/59; PULSE 82
[2021-03-31] MEDS ORDERED: DOCUSATE SODIUM 100 MG CAPSULE (FP) PO SCH ×2 (22:00)
[2021-04-01] MEDS ORDERED: AMINO ACIDS/PROTEIN HYDROLYS 30 ML LIQUID.PKT PO SCH (08:00)
[2021-04-01] MEDS ORDERED: NICOTINE 21 MG/24 HOURS TOPICAL PATCH TD SCH (10:00)
[2021-04-01] MEDS ORDERED: NIFEdipine E.R. 90 MG TABLET PO SCH (10:00)
== END 2021-03-31 20:20 | disposition home or self-care (01) | DRG 252 ==
LOC: JER 13:02 → JERBED 16:37 → J5S 22:44
PROVIDERS: ADMIT Internal Medicine; ATTEND Internal Medicine
PROC: 037 Upper Arteries, Dilation (ICD-10-PCS; 2021-03-31)
PROC: 037 Upper Arteries, Dilation (ICD-10-PCS; 2021-03-31)
PROC: 3E05317 Introduction of Other Thrombolytic into Peripheral Artery, Percutaneous Approach (ICD-10-PCS; 2021-03-31)
PROC: 5A1D70Z Performance of Urinary Filtration, Intermittent, Less than 6 Hours Per Day (ICD-10-PCS; 2021-03-31)
PROC: 05C80ZZ Extirpation of Matter from Left Axillary Vein, Open Approach (ICD-10-PCS; principal; 2021-03-31 12:00)
DX: T82.868A Thrombosis due to vascular prosthetic devices, implants and grafts, initial encounter (principal); N18.6 End stage renal disease; E43 Unspecified severe protein-calorie malnutrition; R64 Cachexia; Z68.1 Body mass index [BMI] 19.9 or less, adult; I50.32 Chronic diastolic (congestive) heart failure; Y83.9 Surgical procedure, unspecified as the cause of abnormal reaction of the patient, or of later complication, without mention of misadventure at the time of the procedure
CPT/HCPCS: 36415; 71045-TC-FY; 76000-TC-FY; 80053; 85025; 85610; 85730; 86850; 86900; 86901; 88304-TC; 93005; 93010; 93971; 94760; 99285-25; C9803; J1644; U0003; U0005

== ENCOUNTER 2021-05-18 11:05 | Inpatient (IN) | payer OTHER ==
[2021-05-18 15:16] LABS: BASO % 0.2 % (0-2.0); EOS % 1.6 % (0-4.5); HEMATOCRIT 38.4 % (32.4-45.2); HEMOGLOBIN 12.4 GM/dL (10.7-15.3); LYMPH % 9.6 % (8-40); MCH 31.7 pg (25.7-33.7); MCHC 32.2 g/dl (32.0-36.0); MEAN CELL VOLUME 98.3 fl (80-96); MEAN PLT VOLUME 8.1 fl (7.5-11.1); NEUT % 74.6 % (42.8-82.8); PLATELET COUNT 213 10^3/uL (134-434); RDW 16.5 % (11.6-15.6); WHITE BLOOD COUNT 5.9 K/mm3 (4.0-10.0)
[2021-05-18 15:36] LABS: CHLORIDE 98 mmol/L (98-107); SODIUM 137 mmol/L (136-145)
[2021-05-18 15:39] LABS: ALBUMIN 2.4 g/dl (3.4-5.0); ANION GAP 13 MMOL/L (8-16); BLOOD UREA NITROGEN 57.8 mg/dL (7-18); CALCIUM 8.3 mg/dL (8.5-10.1); CO2 26 mmol/L (21-32); GLUCOSE,RANDOM 68 mg/dL (74-106); MAGNESIUM 2.9 mg/dL (1.8-2.4)
[2021-05-18 15:42] LABS: PHOSPHOROUS 4.1 mg/dL (2.5-4.9); SGOT/AST 28 U/L (15-37); SGPT/ALT 18 U/L (13-61)
[2021-05-18 15:44] LABS: BILIRUBIN,TOTAL 0.6 mg/dL (0.2-1); TOT PROT 7.1 g/dl (6.4-8.2)
[2021-05-18 15:45] LABS: ALK PHOS 145 U/L (45-117)
[2021-05-18 15:48] LABS: CREATININE 8.3 mg/dL (0.55-1.3)
[2021-05-18] MEDS ORDERED: PHENYTOIN NA EXTENDED 100 MG CAPSULE (FP) ONE (21:27)
[2021-05-18] MEDS ORDERED: DOCUSATE SODIUM 100 MG CAPSULE (FP) PO ONE (21:28)
[2021-05-18] MEDS: HEPARIN NA (PORCINE) 5,000 UNITS/ML 1ML VIAL SQ SCH (23:00)
[2021-05-18] MEDS: PHENYTOIN NA EXTENDED 100 MG CAPSULE (FP) PO SCH (23:00)
[2021-05-18] MEDS: DOCUSATE SODIUM 100 MG CAPSULE (FP) PO SCH (23:00)
[2021-05-19 08:52] LABS: BASO % 0.8 % (0-2.0); EOS % 1.8 % (0-4.5); HEMATOCRIT 35.5 % (32.4-45.2); HEMOGLOBIN 11.2 GM/dL (10.7-15.3); LYMPH % 9.3 % (8-40); MCH 30.7 pg (25.7-33.7); MCHC 31.5 g/dl (32.0-36.0); MEAN CELL VOLUME 97.4 fl (80-96); MONO % 15.3 % (3.8-10.2); NEUT % 72.8 % (42.8-82.8); PLATELET COUNT 219 10^3/uL (134-434); RBC 3.64 M/mm3 (3.60-5.2); RDW 16.2 % (11.6-15.6); WHITE BLOOD COUNT 6.5 K/mm3 (4.0-10.0)
[2021-05-19 09:11] LABS: CHLORIDE 100 mmol/L (98-107); SODIUM 136 mmol/L (136-145)
[2021-05-19 09:15] LABS: CALCIUM 8.4 mg/dL (8.5-10.1)
[2021-05-19 09:16] LABS: ALBUMIN 2.3 g/dl (3.4-5.0); ANION GAP 14 MMOL/L (8-16); BLOOD UREA NITROGEN 67.9 mg/dL (7-18); CO2 22 mmol/L (21-32); GLUCOSE,RANDOM 77 mg/dL (74-106)
[2021-05-19 09:19] LABS: SGOT/AST 20 U/L (15-37); SGPT/ALT 16 U/L (13-61)
[2021-05-19 09:20] LABS: ALK PHOS 139 U/L (45-117)
[2021-05-19 09:22] LABS: BILIRUBIN,TOTAL 0.6 mg/dL (0.2-1); TOT PROT 6.8 g/dl (6.4-8.2)
[2021-05-19 09:25] LABS: CREATININE 9.4 mg/dL (0.55-1.3)
[2021-05-19] MEDS ORDERED: PHENYTOIN NA EXTENDED 100 MG CAPSULE (FP) ONE (10:12)
[2021-05-19] MEDS ORDERED: HEPARIN NA (PORCINE) 5,000 UNITS/ML 1ML VIAL ONE (10:12)
[2021-05-19] MEDS: SEVELAMER CARBONATE 800 MG TAB (FP) PO SCH ×2 (10:59→14:56)
[2021-05-19] MEDS: HEPARIN NA (PORCINE) 5,000 UNITS/ML 1ML VIAL SQ SCH (10:59)
[2021-05-19] MEDS: AMINO ACIDS/PROTEIN HYDROLYS 30 ML LIQUID.PKT PO SCH (10:59)
[2021-05-19] MEDS: PHENYTOIN NA EXTENDED 100 MG CAPSULE (FP) PO SCH (10:59)
[2021-05-19] MEDS: NIFEdipine E.R. 90 MG TABLET PO SCH (10:59)
[2021-05-19] MEDS ORDERED: SODIUM CHLORIDE 250 ML IV PRN (12:00)
[2021-05-20] MEDS: DOCUSATE SODIUM 100 MG CAPSULE (FP) PO SCH ×2 (00:31→23:43)
[2021-05-20] MEDS: PHENYTOIN NA EXTENDED 100 MG CAPSULE (FP) PO SCH ×3 (00:32→23:42)
[2021-05-20] MEDS: HEPARIN NA (PORCINE) 5,000 UNITS/ML 1ML VIAL SQ SCH ×2 (00:38→10:30)
[2021-05-20] MEDS: ZINC SULFATE 220 MG CAPSULE (FP) PO SCH (10:27)
[2021-05-20] MEDS: NIFEdipine E.R. 90 MG TABLET PO SCH (10:27)
[2021-05-20] MEDS: CHOLECALCIFEROL (VIT D3) 5000 UNITS (125 MCG) CAP PO SCH (10:28)
[2021-05-20] MEDS: ASCORBIC ACID 500 MG TABLET (FP) PO SCH ×2 (10:28→23:43)
[2021-05-20] MEDS: AMINO ACIDS/PROTEIN HYDROLYS 30 ML LIQUID.PKT PO SCH (10:28)
[2021-05-20] MEDS: SEVELAMER CARBONATE 800 MG TAB (FP) PO SCH ×2 (10:28→14:15)
[2021-05-20] MEDS ORDERED: REMDESIVIR 200 MG in SODIUM CHLORIDE 250 ML IVPB ONE ×2 (14:24→18:15)
[2021-05-20] MEDS ORDERED: SODIUM CHLORIDE 250 ML IV PRN (16:29)
[2021-05-21] MEDS: HEPARIN NA (PORCINE) 5,000 UNITS/ML 1ML VIAL SQ SCH ×3 (00:08→21:31)
[2021-05-21 08:39] LABS: HEMATOCRIT 35.7 % (32.4-45.2); HEMOGLOBIN 11.3 GM/dL (10.7-15.3); MCHC 31.8 g/dl (32.0-36.0); MEAN CELL VOLUME 97.4 fl (80-96); MEAN PLT VOLUME 8.5 fl (7.5-11.1); PLATELET COUNT 167 10^3/uL (134-434); RBC 3.66 M/mm3 (3.60-5.2); RDW 15.9 % (11.6-15.6); WHITE BLOOD COUNT 8.7 K/mm3 (4.0-10.0)
[2021-05-21 09:00] LABS: ALBUMIN 2.3 g/dl (3.4-5.0); CALCIUM 8.6 mg/dL (8.5-10.1)
[2021-05-21 09:04] LABS: PHOSPHOROUS 4.2 mg/dL (2.5-4.9)
[2021-05-21 09:05] LABS: BILIRUBIN,TOTAL 0.6 mg/dL (0.2-1); TOT PROT 6.9 g/dl (6.4-8.2)
[2021-05-21 09:06] LABS: BLOOD UREA NITROGEN 37.8 mg/dL (7-18)
[2021-05-21] MEDS ORDERED: REMDESIVIR 100 MG in SODIUM CHLORIDE 250 ML IVPB SCH (10:00)
[2021-05-21] MEDS: ASCORBIC ACID 500 MG TABLET (FP) PO SCH ×2 (11:24→21:31)
[2021-05-21] MEDS: SEVELAMER CARBONATE 800 MG TAB (FP) PO SCH ×3 (11:24→17:33)
[2021-05-21] MEDS: ZINC SULFATE 220 MG CAPSULE (FP) PO SCH (11:24)
[2021-05-21] MEDS: NIFEdipine E.R. 90 MG TABLET PO SCH ×2 (11:25→11:31)
[2021-05-21] MEDS: PHENYTOIN NA EXTENDED 100 MG CAPSULE (FP) PO SCH ×2 (11:27→21:31)
[2021-05-21] MEDS: AMINO ACIDS/PROTEIN HYDROLYS 30 ML LIQUID.PKT PO SCH (11:27)
[2021-05-21] MEDS: CHOLECALCIFEROL (VIT D3) 5000 UNITS (125 MCG) CAP PO SCH (11:29)
[2021-05-21] MEDS: DOCUSATE SODIUM 100 MG CAPSULE (FP) PO SCH (21:31)
[2021-05-21 22:22] VITALS: BMI 12.7
[2021-05-22 08:02] LABS: BASO % 0.3 % (0-2.0); EOS % 1.3 % (0-4.5); HEMATOCRIT 39.1 % (32.4-45.2); LYMPH % 6.5 % (8-40); MCH 30.7 pg (25.7-33.7); MCHC 30.8 g/dl (32.0-36.0); MEAN CELL VOLUME 99.7 fl (80-96); MEAN PLT VOLUME 9.1 fl (7.5-11.1); MONO % 11.7 % (3.8-10.2); NEUT % 80.2 % (42.8-82.8); PLATELET COUNT 170 10^3/uL (134-434); RBC 3.92 M/mm3 (3.60-5.2); RDW 16.1 % (11.6-15.6); WHITE BLOOD COUNT 10.3 K/mm3 (4.0-10.0)
[2021-05-22 08:21] LABS: ALBUMIN 2.4 g/dl (3.4-5.0); BLOOD UREA NITROGEN 31.6 mg/dL (7-18); CALCIUM 8.7 mg/dL (8.5-10.1)
[2021-05-22 08:24] LABS: CREATININE 5.1 mg/dL (0.55-1.3)
[2021-05-22 08:26] LABS: BILIRUBIN,TOTAL 0.3 mg/dL (0.2-1); TOT PROT 7.3 g/dl (6.4-8.2)
[2021-05-22] MEDS: SEVELAMER CARBONATE 800 MG TAB (FP) PO SCH ×5 (12:49→18:20)
[2021-05-22] MEDS: PHENYTOIN NA EXTENDED 100 MG CAPSULE (FP) PO SCH ×2 (12:50→21:09)
[2021-05-22] MEDS: NIFEdipine E.R. 90 MG TABLET PO SCH (12:50)
[2021-05-22] MEDS: ZINC SULFATE 220 MG CAPSULE (FP) PO SCH (12:50)
[2021-05-22] MEDS: ASCORBIC ACID 500 MG TABLET (FP) PO SCH ×2 (12:50→21:10)
[2021-05-22] MEDS: HEPARIN NA (PORCINE) 5,000 UNITS/ML 1ML VIAL SQ SCH ×2 (12:50→21:09)
[2021-05-22] MEDS: AMINO ACIDS/PROTEIN HYDROLYS 30 ML LIQUID.PKT PO SCH (12:52)
[2021-05-22] MEDS: CHOLECALCIFEROL (VIT D3) 5000 UNITS (125 MCG) CAP PO SCH (13:02)
[2021-05-22] MEDS: DOCUSATE SODIUM 100 MG CAPSULE (FP) PO SCH (21:09)
[2021-05-23] MEDS: AMINO ACIDS/PROTEIN HYDROLYS 30 ML LIQUID.PKT PO SCH (08:29)
[2021-05-23] MEDS: SEVELAMER CARBONATE 800 MG TAB (FP) PO SCH ×3 (08:29→18:37)
[2021-05-23] MEDS: PHENYTOIN NA EXTENDED 100 MG CAPSULE (FP) PO SCH ×3 (08:32→21:34)
[2021-05-23] MEDS: NIFEdipine E.R. 90 MG TABLET PO SCH ×2 (08:32→10:11)
[2021-05-23] MEDS: ASCORBIC ACID 500 MG TABLET (FP) PO SCH ×3 (08:32→21:34)
[2021-05-23] MEDS: HEPARIN NA (PORCINE) 5,000 UNITS/ML 1ML VIAL SQ SCH ×3 (08:33→21:33)
[2021-05-23] MEDS: CHOLECALCIFEROL (VIT D3) 5000 UNITS (125 MCG) CAP PO SCH ×2 (08:33→10:12)
[2021-05-23] MEDS: ZINC SULFATE 220 MG CAPSULE (FP) PO SCH ×2 (08:33→10:11)
[2021-05-23] MEDS: DEXAMETHASONE SOD PHOSPHATE 10 MG/1 ML VIAL IVPUSH SCH (12:07)
[2021-05-23] MEDS: DOCUSATE SODIUM 100 MG CAPSULE (FP) PO SCH (21:34)
[2021-05-24] MEDS ORDERED: SODIUM CHLORIDE 250 ML IV PRN (07:29)
[2021-05-24] MEDS: SEVELAMER CARBONATE 800 MG TAB (FP) PO SCH ×3 (08:00→18:16)
[2021-05-24 08:49] LABS: BASO % 0.4 % (0-2.0); EOS % 1.6 % (0-4.5); HEMATOCRIT 37.8 % (32.4-45.2); HEMOGLOBIN 11.5 GM/dL (10.7-15.3); LYMPH % 8.1 % (8-40); MCH 29.9 pg (25.7-33.7); MCHC 30.4 g/dl (32.0-36.0); MEAN CELL VOLUME 98.2 fl (80-96); MEAN PLT VOLUME 9.9 fl (7.5-11.1); NEUT % 83.9 % (42.8-82.8); PLATELET COUNT 217 10^3/uL (134-434); RBC 3.85 M/mm3 (3.60-5.2); RDW 16.6 % (11.6-15.6); WHITE BLOOD COUNT 11.1 K/mm3 (4.0-10.0)
[2021-05-24 09:09] LABS: ALBUMIN 2.3 g/dl (3.4-5.0)
[2021-05-24 09:12] LABS: CREATININE 7.2 mg/dL (0.55-1.3)
[2021-05-24 09:13] LABS: TOT PROT 7.2 g/dl (6.4-8.2)
[2021-05-24 09:14] LABS: BILIRUBIN,TOTAL 0.3 mg/dL (0.2-1)
[2021-05-24 09:21] LABS: BLOOD UREA NITROGEN 61.8 mg/dL (7-18)
[2021-05-24] MEDS: AMINO ACIDS/PROTEIN HYDROLYS 30 ML LIQUID.PKT PO SCH (09:35)
[2021-05-24] MEDS: ZINC SULFATE 220 MG CAPSULE (FP) PO SCH (09:48)
[2021-05-24] MEDS: CHOLECALCIFEROL (VIT D3) 5000 UNITS (125 MCG) CAP PO SCH (09:48)
[2021-05-24] MEDS: HEPARIN NA (PORCINE) 5,000 UNITS/ML 1ML VIAL SQ SCH ×2 (09:48→22:03)
[2021-05-24] MEDS: PHENYTOIN NA EXTENDED 100 MG CAPSULE (FP) PO SCH ×2 (09:48→22:03)
[2021-05-24] MEDS: ASCORBIC ACID 500 MG TABLET (FP) PO SCH ×2 (09:48→22:03)
[2021-05-24] MEDS: NIFEdipine E.R. 90 MG TABLET PO SCH (09:48)
[2021-05-24] MEDS: AMINO ACIDS 4.25%/D5W 1,000 ML IV SCH (15:28)
[2021-05-24] MEDS: DEXAMETHASONE SOD PHOSPHATE 10 MG/1 ML VIAL IVPUSH SCH (15:28)
[2021-05-24] MEDS ORDERED: ENOXAPARIN NA (PORCINE) 30 MG/0.3 ML DISP.SYRIN SQ SCH (22:00)
[2021-05-24] MEDS: DOCUSATE SODIUM 100 MG CAPSULE (FP) PO SCH (22:03)
[2021-05-24] MEDS: NYSTATIN 500,000 UNITS/5 ML SUSPENSION PO SCH (23:59)
[2021-05-25] MEDS: NYSTATIN 500,000 UNITS/5 ML SUSPENSION PO SCH ×3 (05:21→17:33)
[2021-05-25] MEDS: AMINO ACIDS/PROTEIN HYDROLYS 30 ML LIQUID.PKT PO SCH ×2 (09:00→09:51)
[2021-05-25 09:07] LABS: BASO % 0.2 % (0-2.0); EOS % 0.7 % (0-4.5); HEMOGLOBIN 12.3 GM/dL (10.7-15.3); LYMPH % 7.6 % (8-40); MCH 29.6 pg (25.7-33.7); MEAN CELL VOLUME 98.7 fl (80-96); MEAN PLT VOLUME 10.5 fl (7.5-11.1); MONO % 9.5 % (3.8-10.2); PLATELET COUNT 220 10^3/uL (134-434); RBC 4.15 M/mm3 (3.60-5.2); RDW 17.1 % (11.6-15.6); WHITE BLOOD COUNT 12.1 K/mm3 (4.0-10.0)
[2021-05-25 09:36] LABS: ALBUMIN 2.5 g/dl (3.4-5.0); BLOOD UREA NITROGEN 59.5 mg/dL (7-18)
[2021-05-25 09:39] LABS: CREATININE 6.2 mg/dL (0.55-1.3)
[2021-05-25 09:40] LABS: BILIRUBIN,TOTAL 0.9 mg/dL (0.2-1); TOT PROT 7.6 g/dl (6.4-8.2)
[2021-05-25] MEDS: SEVELAMER CARBONATE 800 MG TAB (FP) PO SCH ×3 (09:51→17:33)
[2021-05-25] MEDS: PHENYTOIN NA EXTENDED 100 MG CAPSULE (FP) PO SCH ×2 (09:52→22:49)
[2021-05-25] MEDS: CHOLECALCIFEROL (VIT D3) 5000 UNITS (125 MCG) CAP PO SCH (09:52)
[2021-05-25] MEDS: ZINC SULFATE 220 MG CAPSULE (FP) PO SCH (09:53)
[2021-05-25] MEDS: DEXAMETHASONE SOD PHOSPHATE 10 MG/1 ML VIAL IVPUSH SCH (09:53)
[2021-05-25] MEDS: NIFEdipine E.R. 90 MG TABLET PO SCH (09:53)
[2021-05-25] MEDS: HEPARIN NA (PORCINE) 5,000 UNITS/ML 1ML VIAL SQ SCH ×2 (09:53→22:49)
[2021-05-25] MEDS: ASCORBIC ACID 500 MG TABLET (FP) PO SCH ×2 (09:53→22:49)
[2021-05-25] MEDS: AMINO ACIDS 4.25%/D5W 1,000 ML IV SCH (11:34)
[2021-05-25] MEDS ORDERED: SODIUM CHLORIDE 250 ML IV PRN (13:20)
[2021-05-25] MEDS: DOCUSATE SODIUM 100 MG CAPSULE (FP) PO SCH (22:48)
[2021-05-26] MEDS: NYSTATIN 500,000 UNITS/5 ML SUSPENSION PO SCH ×4 (00:35→17:27)
[2021-05-26] MEDS: AMINO ACIDS/PROTEIN HYDROLYS 30 ML LIQUID.PKT PO SCH (09:00)
[2021-05-26] MEDS: SEVELAMER CARBONATE 800 MG TAB (FP) PO SCH ×3 (09:00→17:27)
[2021-05-26] MEDS: NIFEdipine E.R. 90 MG TABLET PO SCH (10:00)
[2021-05-26] MEDS: ZINC SULFATE 220 MG CAPSULE (FP) PO SCH (10:00)
[2021-05-26] MEDS: HEPARIN NA (PORCINE) 5,000 UNITS/ML 1ML VIAL SQ SCH ×2 (10:00→22:14)
[2021-05-26] MEDS: ASCORBIC ACID 500 MG TABLET (FP) PO SCH ×2 (10:00→22:14)
[2021-05-26] MEDS: CHOLECALCIFEROL (VIT D3) 5000 UNITS (125 MCG) CAP PO SCH (10:00)
[2021-05-26] MEDS: PHENYTOIN NA EXTENDED 100 MG CAPSULE (FP) PO SCH ×2 (10:00→22:07)
[2021-05-26] MEDS: AMINO ACIDS 4.25%/D5W 1,000 ML IV SCH (13:49)
[2021-05-26] MEDS: DEXAMETHASONE SOD PHOSPHATE 10 MG/1 ML VIAL IVPUSH SCH (13:52)
[2021-05-26] MEDS: DOCUSATE SODIUM 100 MG CAPSULE (FP) PO SCH (22:14)
[2021-05-27] MEDS: NYSTATIN 500,000 UNITS/5 ML SUSPENSION PO SCH ×4 (00:37→18:52)
[2021-05-27] MEDS: SEVELAMER CARBONATE 800 MG TAB (FP) PO SCH ×3 (09:06→17:03)
[2021-05-27] MEDS: PHENYTOIN NA EXTENDED 100 MG CAPSULE (FP) PO SCH ×2 (09:07→21:03)
[2021-05-27] MEDS: DEXAMETHASONE SOD PHOSPHATE 10 MG/1 ML VIAL IVPUSH SCH (09:07)
[2021-05-27] MEDS: NIFEdipine E.R. 90 MG TABLET PO SCH (09:08)
[2021-05-27] MEDS: CHOLECALCIFEROL (VIT D3) 5000 UNITS (125 MCG) CAP PO SCH (09:08)
[2021-05-27] MEDS: ZINC SULFATE 220 MG CAPSULE (FP) PO SCH (09:08)
[2021-05-27] MEDS: ASCORBIC ACID 500 MG TABLET (FP) PO SCH ×2 (09:08→21:03)
[2021-05-27] MEDS: HEPARIN NA (PORCINE) 5,000 UNITS/ML 1ML VIAL SQ SCH ×2 (09:08→21:03)
[2021-05-27] MEDS: AMINO ACIDS/PROTEIN HYDROLYS 30 ML LIQUID.PKT PO SCH (09:15)
[2021-05-27] MEDS ORDERED: LIDOCAINE HCL 1%, 10 MG/ML (20ML VIAL) ONE (15:22)
[2021-05-27] MEDS ORDERED: SODIUM CHLORIDE 250 ML IV PRN (15:34)
[2021-05-27] MEDS ORDERED: MIDAZOLAM HCL 2 MG/2 ML SINGLE DOSE VIAL ONE (16:02)
[2021-05-27] MEDS ORDERED: ceFAZolin SODIUM 1 GM VIAL IVPB ONE (17:05)
[2021-05-27] MEDS ORDERED: ceFAZolin SODIUM 1 GM VIAL ONE (17:20)
[2021-05-27] MEDS ORDERED: LIDOCAINE HCL 1%, 10 MG/ML (20ML VIAL) INF ONE (17:28)
[2021-05-27] MEDS: AMINO ACIDS 4.25%/D5W 1,000 ML IV SCH (18:00)
[2021-05-27] MEDS: DOCUSATE SODIUM 100 MG CAPSULE (FP) PO SCH (21:03)
[2021-05-28] MEDS: NYSTATIN 500,000 UNITS/5 ML SUSPENSION PO SCH ×4 (00:17→17:59)
[2021-05-28] MEDS: AMINO ACIDS/PROTEIN HYDROLYS 30 ML LIQUID.PKT PO SCH (09:10)
[2021-05-28] MEDS: SEVELAMER CARBONATE 800 MG TAB (FP) PO SCH ×3 (09:11→16:49)
[2021-05-28] MEDS: DEXAMETHASONE SOD PHOSPHATE 10 MG/1 ML VIAL IVPUSH SCH (09:11)
[2021-05-28] MEDS: ZINC SULFATE 220 MG CAPSULE (FP) PO SCH (09:11)
[2021-05-28] MEDS: PHENYTOIN NA EXTENDED 100 MG CAPSULE (FP) PO SCH ×2 (09:11→22:32)
[2021-05-28] MEDS: HEPARIN NA (PORCINE) 5,000 UNITS/ML 1ML VIAL SQ SCH ×2 (09:11→22:33)
[2021-05-28] MEDS: NIFEdipine E.R. 90 MG TABLET PO SCH (09:12)
[2021-05-28] MEDS: ASCORBIC ACID 500 MG TABLET (FP) PO SCH ×2 (09:12→22:33)
[2021-05-28] MEDS: CHOLECALCIFEROL (VIT D3) 5000 UNITS (125 MCG) CAP PO SCH (09:12)
[2021-05-28] MEDS: AMINO ACIDS 4.25%/D5W 1,000 ML IV SCH (11:38)
[2021-05-28] MEDS ORDERED: SODIUM CHLORIDE 250 ML IV PRN ×2 (13:51→22:01)
[2021-05-28] MEDS ORDERED: ALTEPLASE (CATHFLO) 2 MG/2 ML VIAL NR ONE ×2 (14:00)
[2021-05-28] MEDS ORDERED: PROPOFOL 20 ML ONE (15:08)
[2021-05-28 17:05] LABS: HEMATOCRIT 35.1 % (32.4-45.2); MCHC 31.4 g/dl (32.0-36.0); MEAN CELL VOLUME 95.3 fl (80-96); MEAN PLT VOLUME 10.6 fl (7.5-11.1); PLATELET COUNT 181 10^3/uL (134-434); RBC 3.68 M/mm3 (3.60-5.2); RDW 16.6 % (11.6-15.6); WHITE BLOOD COUNT 7.4 K/mm3 (4.0-10.0)
[2021-05-28 17:26] LABS: ALBUMIN 2.2 g/dl (3.4-5.0); CALCIUM 8.7 mg/dL (8.5-10.1)
[2021-05-28 17:29] LABS: CREATININE 6.7 mg/dL (0.55-1.3); PHOSPHOROUS 3.2 mg/dL (2.5-4.9)
[2021-05-28 17:31] LABS: BILIRUBIN,TOTAL 0.3 mg/dL (0.2-1); TOT PROT 6.8 g/dl (6.4-8.2)
[2021-05-28 17:37] LABS: BLOOD UREA NITROGEN 92.4 mg/dL (7-18)
[2021-05-28] MEDS: DOCUSATE SODIUM 100 MG CAPSULE (FP) PO SCH (22:32)
[2021-05-29] MEDS: NIFEdipine E.R. 90 MG TABLET PO SCH (10:19)
[2021-05-29] MEDS: PHENYTOIN NA EXTENDED 100 MG CAPSULE (FP) PO SCH ×2 (10:19→21:12)
[2021-05-29] MEDS: ZINC SULFATE 220 MG CAPSULE (FP) PO SCH (10:19)
[2021-05-29] MEDS: ASCORBIC ACID 500 MG TABLET (FP) PO SCH ×2 (10:19→21:13)
[2021-05-29] MEDS: AMINO ACIDS/PROTEIN HYDROLYS 30 ML LIQUID.PKT PO SCH (10:20)
[2021-05-29] MEDS: SEVELAMER CARBONATE 800 MG TAB (FP) PO SCH ×3 (10:20→16:39)
[2021-05-29] MEDS: DEXAMETHASONE SOD PHOSPHATE 10 MG/1 ML VIAL IVPUSH SCH (10:20)
[2021-05-29] MEDS: HEPARIN NA (PORCINE) 5,000 UNITS/ML 1ML VIAL SQ SCH ×2 (10:20→21:09)
[2021-05-29] MEDS: CHOLECALCIFEROL (VIT D3) 5000 UNITS (125 MCG) CAP PO SCH (10:21)
[2021-05-29 11:33] LABS: HEMATOCRIT 34.3 % (32.4-45.2); HEMOGLOBIN 10.7 GM/dL (10.7-15.3); MCH 29.8 pg (25.7-33.7); MEAN CELL VOLUME 96.1 fl (80-96); MEAN PLT VOLUME 10.3 fl (7.5-11.1); PLATELET COUNT 196 10^3/uL (134-434); RBC 3.57 M/mm3 (3.60-5.2); RDW 16.6 % (11.6-15.6); WHITE BLOOD COUNT 11.9 K/mm3 (4.0-10.0)
[2021-05-29 11:55] LABS: CALCIUM 9.1 mg/dL (8.5-10.1)
[2021-05-29 11:56] LABS: BLOOD UREA NITROGEN 77.6 mg/dL (7-18)
[2021-05-29] MEDS: AMINO ACIDS 4.25%/D5W 1,000 ML IV SCH (11:56)
[2021-05-29 11:59] LABS: CREATININE 6.5 mg/dL (0.55-1.3)
[2021-05-29] MEDS: DOCUSATE SODIUM 100 MG CAPSULE (FP) PO SCH (21:09)
[2021-05-30] MEDS: NYSTATIN 500,000 UNITS/5 ML SUSPENSION PO SCH ×5 (06:57→17:06)
[2021-05-30] MEDS: SEVELAMER CARBONATE 800 MG TAB (FP) PO SCH ×3 (09:02→17:06)
[2021-05-30] MEDS: AMINO ACIDS/PROTEIN HYDROLYS 30 ML LIQUID.PKT PO SCH (09:02)
[2021-05-30] MEDS: ASCORBIC ACID 500 MG TABLET (FP) PO SCH ×2 (10:13→23:05)
[2021-05-30] MEDS: ZINC SULFATE 220 MG CAPSULE (FP) PO SCH (10:13)
[2021-05-30] MEDS: NIFEdipine E.R. 90 MG TABLET PO SCH (10:13)
[2021-05-30] MEDS: CHOLECALCIFEROL (VIT D3) 5000 UNITS (125 MCG) CAP PO SCH (10:13)
[2021-05-30] MEDS: PHENYTOIN NA EXTENDED 100 MG CAPSULE (FP) PO SCH ×2 (10:13→23:05)
[2021-05-30] MEDS: HEPARIN NA (PORCINE) 5,000 UNITS/ML 1ML VIAL SQ SCH ×2 (10:14→23:04)
[2021-05-30] MEDS: DEXAMETHASONE SOD PHOSPHATE 10 MG/1 ML VIAL IVPUSH SCH (10:14)
[2021-05-30] MEDS: AMINO ACIDS 4.25%/D5W 1,000 ML IV SCH (12:20)
[2021-05-30] MEDS: DOCUSATE SODIUM 100 MG CAPSULE (FP) PO SCH (23:06)
[2021-05-31] MEDS: NYSTATIN 500,000 UNITS/5 ML SUSPENSION PO SCH ×4 (00:15→17:03)
[2021-05-31] MEDS ORDERED: ALTEPLASE (CATHFLO) 2 MG/2 ML VIAL NR ONE ×2 (08:46)
[2021-05-31] MEDS: AMINO ACIDS/PROTEIN HYDROLYS 30 ML LIQUID.PKT PO SCH (09:52)
[2021-05-31] MEDS: SEVELAMER CARBONATE 800 MG TAB (FP) PO SCH ×3 (09:53→16:43)
[2021-05-31] MEDS: ZINC SULFATE 220 MG CAPSULE (FP) PO SCH ×2 (10:50→17:02)
[2021-05-31] MEDS: DEXAMETHASONE SOD PHOSPHATE 10 MG/1 ML VIAL IVPUSH SCH ×2 (10:50→17:02)
[2021-05-31] MEDS: ASCORBIC ACID 500 MG TABLET (FP) PO SCH ×3 (10:50→21:55)
[2021-05-31] MEDS: PHENYTOIN NA EXTENDED 100 MG CAPSULE (FP) PO SCH ×3 (10:50→21:55)
[2021-05-31] MEDS: CHOLECALCIFEROL (VIT D3) 5000 UNITS (125 MCG) CAP PO SCH (10:50)
[2021-05-31] MEDS: HEPARIN NA (PORCINE) 5,000 UNITS/ML 1ML VIAL SQ SCH ×3 (10:50→21:55)
[2021-05-31] MEDS: NIFEdipine E.R. 90 MG TABLET PO SCH (10:50)
[2021-05-31] MEDS: AMINO ACIDS 4.25%/D5W 1,000 ML IV SCH ×2 (12:46→16:47)
[2021-05-31] MEDS: DOCUSATE SODIUM 100 MG CAPSULE (FP) PO SCH (21:54)
[2021-06-01] MEDS: NYSTATIN 500,000 UNITS/5 ML SUSPENSION PO SCH ×5 (01:00→18:29)
[2021-06-01] MEDS ORDERED: NIFEdipine E.R. 90 MG TABLET PO SCH (10:00)
[2021-06-01] MEDS ORDERED: DEXAMETHASONE SOD PHOSPHATE 10 MG/1 ML VIAL IVPUSH SCH (10:00)
[2021-06-01] MEDS: HEPARIN NA (PORCINE) 5,000 UNITS/ML 1ML VIAL SQ SCH ×2 (10:05→21:49)
[2021-06-01] MEDS: PHENYTOIN NA EXTENDED 100 MG CAPSULE (FP) PO SCH ×2 (10:07→21:48)
[2021-06-01] MEDS: AMINO ACIDS/PROTEIN HYDROLYS 30 ML LIQUID.PKT PO SCH (10:07)
[2021-06-01] MEDS: SEVELAMER CARBONATE 800 MG TAB (FP) PO SCH ×3 (10:07→18:29)
[2021-06-01] MEDS: DRONABINOL 2.5 MG CAPSULE PO SCH (10:07)
[2021-06-01] MEDS: ZINC SULFATE 220 MG CAPSULE (FP) PO SCH (10:08)
[2021-06-01] MEDS: ASCORBIC ACID 500 MG TABLET (FP) PO SCH ×2 (10:08→21:48)
[2021-06-01] MEDS: CHOLECALCIFEROL (VIT D3) 5000 UNITS (125 MCG) CAP PO SCH (10:09)
[2021-06-01] MEDS: AMINO ACIDS 4.25%/D5W 1,000 ML IV SCH (17:22)
[2021-06-01] MEDS: MIRTAZAPINE 15 MG TABLET (FP) PO SCH (21:48)
[2021-06-01] MEDS: DOCUSATE SODIUM 100 MG CAPSULE (FP) PO SCH (21:48)
[2021-06-02] MEDS: NYSTATIN 500,000 UNITS/5 ML SUSPENSION PO SCH ×4 (01:00→18:25)
[2021-06-02] MEDS: AMINO ACIDS/PROTEIN HYDROLYS 30 ML LIQUID.PKT PO SCH (08:51)
[2021-06-02] MEDS: SEVELAMER CARBONATE 800 MG TAB (FP) PO SCH ×3 (08:51→18:11)
[2021-06-02] MEDS: DRONABINOL 2.5 MG CAPSULE PO SCH (08:51)
[2021-06-02] MEDS: PHENYTOIN NA EXTENDED 100 MG CAPSULE (FP) PO SCH ×2 (10:32→21:34)
[2021-06-02] MEDS: HEPARIN NA (PORCINE) 5,000 UNITS/ML 1ML VIAL SQ SCH ×2 (10:32→21:34)
[2021-06-02] MEDS: ZINC SULFATE 220 MG CAPSULE (FP) PO SCH (10:32)
[2021-06-02] MEDS: CHOLECALCIFEROL (VIT D3) 5000 UNITS (125 MCG) CAP PO SCH (10:33)
[2021-06-02] MEDS: ASCORBIC ACID 500 MG TABLET (FP) PO SCH ×2 (10:33→21:34)
[2021-06-02] MEDS ORDERED: SODIUM CHLORIDE 250 ML IV PRN ×2 (11:43→13:19)
[2021-06-02] MEDS: AMINO ACIDS 4.25%/D5W 1,000 ML IV SCH ×2 (13:13→21:43)
[2021-06-02] MEDS: ALBUMIN HUMAN 25% 12.5 GM/50 ML VIAL IVPB SCH ×4 (13:30→15:00)
[2021-06-02 14:12] LABS: HEMATOCRIT 29.6 % (32.4-45.2); HEMOGLOBIN 9.2 GM/dL (10.7-15.3); MCH 29.6 pg (25.7-33.7); MEAN CELL VOLUME 95.5 fl (80-96); MEAN PLT VOLUME 10.7 fl (7.5-11.1); PLATELET COUNT 113 10^3/uL (134-434); RDW 16.4 % (11.6-15.6); WHITE BLOOD COUNT 13.5 K/mm3 (4.0-10.0)
[2021-06-02 14:37] LABS: CHLORIDE 102 mmol/L (98-107); SODIUM 137 mmol/L (136-145)
[2021-06-02 14:41] LABS: ANION GAP 13 MMOL/L (8-16); CO2 22 mmol/L (21-32); GLUCOSE,RANDOM 83 mg/dL (74-106)
[2021-06-02 14:43] LABS: CALCIUM 8.8 mg/dL (8.5-10.1)
[2021-06-02 14:44] LABS: PHOSPHOROUS 3.2 mg/dL (2.5-4.9)
[2021-06-02 14:45] LABS: CREATININE 6.2 mg/dL (0.55-1.3)
[2021-06-02] MEDS: MIRTAZAPINE 15 MG TABLET (FP) PO SCH (21:33)
[2021-06-02] MEDS: DOCUSATE SODIUM 100 MG CAPSULE (FP) PO SCH (21:34)
[2021-06-03] MEDS: NYSTATIN 500,000 UNITS/5 ML SUSPENSION PO SCH ×4 (00:35→18:00)
[2021-06-03 09:37] LABS: CHLORIDE 103 mmol/L (98-107); SODIUM 140 mmol/L (136-145)
[2021-06-03 09:41] LABS: CALCIUM 8.6 mg/dL (8.5-10.1); CO2 28 mmol/L (21-32)
[2021-06-03 09:42] LABS: GLUCOSE,RANDOM 88 mg/dL (74-106)
[2021-06-03] MEDS: DRONABINOL 2.5 MG CAPSULE PO SCH (09:44)
[2021-06-03] MEDS: AMINO ACIDS/PROTEIN HYDROLYS 30 ML LIQUID.PKT PO SCH (09:44)
[2021-06-03 09:45] LABS: CREATININE 3.5 mg/dL (0.55-1.3)
[2021-06-03] MEDS: SEVELAMER CARBONATE 800 MG TAB (FP) PO SCH ×3 (09:45→17:59)
[2021-06-03 10:06] LABS: ANION GAP 9 MMOL/L (8-16)
[2021-06-03] MEDS: HEPARIN NA (PORCINE) 5,000 UNITS/ML 1ML VIAL SQ SCH ×2 (10:15→21:21)
[2021-06-03] MEDS: PHENYTOIN NA EXTENDED 100 MG CAPSULE (FP) PO SCH ×2 (10:16→21:21)
[2021-06-03] MEDS: ZINC SULFATE 220 MG CAPSULE (FP) PO SCH (10:16)
[2021-06-03] MEDS: CHOLECALCIFEROL (VIT D3) 5000 UNITS (125 MCG) CAP PO SCH (10:16)
[2021-06-03] MEDS: ASCORBIC ACID 500 MG TABLET (FP) PO SCH ×2 (10:16→21:21)
[2021-06-03] MEDS: KCL 10 MEQ IVPB 10 MEQ/100 ML INFUS.BAG IVPB SCH ×2 (10:29→11:41)
[2021-06-03] MEDS ORDERED: POTASSIUM CHLORIDE TABS 10 MEQ TABLET.ER (FP) PO ONE (10:30)
[2021-06-03] MEDS ORDERED: POTASSIUM CHLORIDE TABS 20 MEQ TABLET.ER (FP) PO ONE (10:30)
[2021-06-03] MEDS ORDERED: SODIUM CHLORIDE 250 ML IV PRN ×2 (12:41→12:42)
[2021-06-03] MEDS: AMINO ACIDS 4.25%/D5W 1,000 ML IV SCH (17:59)
[2021-06-03] MEDS: MIRTAZAPINE 15 MG TABLET (FP) PO SCH (21:21)
[2021-06-03] MEDS: DOCUSATE SODIUM 100 MG CAPSULE (FP) PO SCH (21:21)
[2021-06-04] MEDS: NYSTATIN 500,000 UNITS/5 ML SUSPENSION PO SCH ×4 (00:33→17:16)
[2021-06-04] MEDS: DRONABINOL 2.5 MG CAPSULE PO SCH (08:38)
[2021-06-04] MEDS: SEVELAMER CARBONATE 800 MG TAB (FP) PO SCH ×3 (08:46→17:16)
[2021-06-04] MEDS: AMINO ACIDS/PROTEIN HYDROLYS 30 ML LIQUID.PKT PO SCH (08:46)
[2021-06-04] MEDS ORDERED: EPOETIN ALFA-EPBX 10,000 UNIT/ML VIAL IVPUSH ONE (09:45)
[2021-06-04 09:51] LABS: HEMATOCRIT 26.4 % (32.4-45.2); HEMOGLOBIN 8.4 GM/dL (10.7-15.3); MCH 29.9 pg (25.7-33.7); MCHC 31.8 g/dl (32.0-36.0); MEAN PLT VOLUME 10.1 fl (7.5-11.1); PLATELET COUNT 101 10^3/uL (134-434); RBC 2.81 M/mm3 (3.60-5.2); RDW 16.2 % (11.6-15.6); WHITE BLOOD COUNT 7.5 K/mm3 (4.0-10.0)
[2021-06-04] MEDS: PHENYTOIN NA EXTENDED 100 MG CAPSULE (FP) PO SCH ×3 (10:13→21:26)
[2021-06-04 10:17] LABS: BLOOD UREA NITROGEN 53.4 mg/dL (7-18); CALCIUM 8.5 mg/dL (8.5-10.1)
[2021-06-04 10:18] LABS: MAGNESIUM 1.6 mg/dL (1.8-2.4)
[2021-06-04 10:21] LABS: CREATININE 3.9 mg/dL (0.55-1.3); PHOSPHOROUS 1.6 mg/dL (2.5-4.9)
[2021-06-04] MEDS: HEPARIN NA (PORCINE) 5,000 UNITS/ML 1ML VIAL SQ SCH ×3 (12:29→21:26)
[2021-06-04] MEDS: ZINC SULFATE 220 MG CAPSULE (FP) PO SCH (12:29)
[2021-06-04] MEDS: CHOLECALCIFEROL (VIT D3) 5000 UNITS (125 MCG) CAP PO SCH (12:29)
[2021-06-04] MEDS: ASCORBIC ACID 500 MG TABLET (FP) PO SCH ×2 (12:29→21:26)
[2021-06-04] MEDS: AMINO ACIDS 4.25%/D5W 1,000 ML IV SCH (16:35)
[2021-06-04] MEDS: MIRTAZAPINE 15 MG TABLET (FP) PO SCH (21:26)
[2021-06-04] MEDS: DOCUSATE SODIUM 100 MG CAPSULE (FP) PO SCH (21:27)
[2021-06-05] MEDS: NYSTATIN 500,000 UNITS/5 ML SUSPENSION PO SCH ×4 (01:13→17:33)
[2021-06-05] MEDS: AMINO ACIDS/PROTEIN HYDROLYS 30 ML LIQUID.PKT PO SCH (08:09)
[2021-06-05] MEDS: SEVELAMER CARBONATE 800 MG TAB (FP) PO SCH ×3 (08:09→17:35)
[2021-06-05] MEDS: DRONABINOL 2.5 MG CAPSULE PO SCH (08:59)
[2021-06-05] MEDS: PHENYTOIN NA EXTENDED 100 MG CAPSULE (FP) PO SCH ×2 (10:09→22:02)
[2021-06-05] MEDS: ASCORBIC ACID 500 MG TABLET (FP) PO SCH ×2 (10:10→22:03)
[2021-06-05] MEDS: CHOLECALCIFEROL (VIT D3) 5000 UNITS (125 MCG) CAP PO SCH (10:10)
[2021-06-05] MEDS: ZINC SULFATE 220 MG CAPSULE (FP) PO SCH (12:13)
[2021-06-05] MEDS: HEPARIN NA (PORCINE) 5,000 UNITS/ML 1ML VIAL SQ SCH ×2 (12:13→22:03)
[2021-06-05] MEDS: AMINO ACIDS 4.25%/D5W 1,000 ML IV SCH (14:32)
[2021-06-05] MEDS: MIRTAZAPINE 15 MG TABLET (FP) PO SCH (22:02)
[2021-06-05] MEDS: DOCUSATE SODIUM 100 MG CAPSULE (FP) PO SCH (22:03)
[2021-06-06] MEDS: NYSTATIN 500,000 UNITS/5 ML SUSPENSION PO SCH ×4 (00:32→17:28)
[2021-06-06 09:37] LABS: BASO % 0.4 % (0-2.0); EOS % 3.1 % (0-4.5); HEMATOCRIT 27.1 % (32.4-45.2); HEMOGLOBIN 8.4 GM/dL (10.7-15.3); LYMPH % 4.5 % (8-40); MCH 29.6 pg (25.7-33.7); MEAN CELL VOLUME 95.4 fl (80-96); MEAN PLT VOLUME 10.1 fl (7.5-11.1); MONO % 9.3 % (3.8-10.2); NEUT % 82.7 % (42.8-82.8); PLATELET COUNT 144 10^3/uL (134-434); RBC 2.84 M/mm3 (3.60-5.2); RDW 16.5 % (11.6-15.6); WHITE BLOOD COUNT 14.4 K/mm3 (4.0-10.0)
[2021-06-06 09:56] LABS: BLOOD UREA NITROGEN 51.6 mg/dL (7-18); CALCIUM 8.4 mg/dL (8.5-10.1)
[2021-06-06 09:59] LABS: ALBUMIN 2.1 g/dl (3.4-5.0)
[2021-06-06 10:00] LABS: CREATININE 4.7 mg/dL (0.55-1.3)
[2021-06-06 10:01] LABS: BILIRUBIN,TOTAL 0.2 mg/dL (0.2-1)
[2021-06-06 10:04] LABS: TOT PROT 5.8 g/dl (6.4-8.2)
[2021-06-06] MEDS: AMINO ACIDS/PROTEIN HYDROLYS 30 ML LIQUID.PKT PO SCH (10:14)
[2021-06-06] MEDS: DRONABINOL 2.5 MG CAPSULE PO SCH (10:14)
[2021-06-06] MEDS: PHENYTOIN NA EXTENDED 100 MG CAPSULE (FP) PO SCH ×2 (10:15→21:55)
[2021-06-06] MEDS: HEPARIN NA (PORCINE) 5,000 UNITS/ML 1ML VIAL SQ SCH ×2 (10:29→21:55)
[2021-06-06] MEDS: SEVELAMER CARBONATE 800 MG TAB (FP) PO SCH ×3 (11:15→17:24)
[2021-06-06] MEDS: ZINC SULFATE 220 MG CAPSULE (FP) PO SCH (11:16)
[2021-06-06] MEDS: ASCORBIC ACID 500 MG TABLET (FP) PO SCH ×2 (11:16→21:55)
[2021-06-06] MEDS: CHOLECALCIFEROL (VIT D3) 5000 UNITS (125 MCG) CAP PO SCH (11:18)
[2021-06-06] MEDS ORDERED: SODIUM CHLORIDE 250 ML IV PRN (13:02)
[2021-06-06] MEDS: AMINO ACIDS 4.25%/D5W 1,000 ML IV SCH ×2 (13:10→15:02)
[2021-06-06] MEDS ORDERED: POTASSIUM CHLORIDE TABS 20 MEQ TABLET.ER (FP) PO ONE (15:58)
[2021-06-06] MEDS: DOCUSATE SODIUM 100 MG CAPSULE (FP) PO SCH (21:55)
[2021-06-06] MEDS: MIRTAZAPINE 15 MG TABLET (FP) PO SCH (21:55)
[2021-06-07] MEDS: NYSTATIN 500,000 UNITS/5 ML SUSPENSION PO SCH ×4 (00:57→18:53)
[2021-06-07] MEDS ORDERED: PORTA CATH FLUSH 10 ML IVPUSH ONE (07:54)
[2021-06-07] MEDS: HEPARIN NA (PORCINE) 5,000 UNITS/ML 1ML VIAL SQ SCH (10:00)
[2021-06-07] MEDS: CHOLECALCIFEROL (VIT D3) 5000 UNITS (125 MCG) CAP PO SCH (10:00)
[2021-06-07] MEDS: PHENYTOIN NA EXTENDED 100 MG CAPSULE (FP) PO SCH ×2 (10:00→21:45)
[2021-06-07] MEDS: AMINO ACIDS/PROTEIN HYDROLYS 30 ML LIQUID.PKT PO SCH (10:00)
[2021-06-07] MEDS: DRONABINOL 2.5 MG CAPSULE PO SCH (10:00)
[2021-06-07] MEDS ORDERED: EPOETIN ALFA-EPBX 10,000 UNIT/ML VIAL IVPUSH ONE (12:00)
[2021-06-07 12:06] LABS: HEMATOCRIT 25.8 % (32.4-45.2); HEMOGLOBIN 8.1 GM/dL (10.7-15.3); MCH 29.8 pg (25.7-33.7); MCHC 31.2 g/dl (32.0-36.0); MEAN CELL VOLUME 95.4 fl (80-96); PLATELET COUNT 157 10^3/uL (134-434); RDW 17.1 % (11.6-15.6); WHITE BLOOD COUNT 14.3 K/mm3 (4.0-10.0)
[2021-06-07 13:01] LABS: CALCIUM 8.3 mg/dL (8.5-10.1)
[2021-06-07 13:02] LABS: BLOOD UREA NITROGEN 71.1 mg/dL (7-18)
[2021-06-07 13:05] LABS: CREATININE 6.1 mg/dL (0.55-1.3); PHOSPHOROUS 1.8 mg/dL (2.5-4.9)
[2021-06-07] MEDS: SEVELAMER CARBONATE 800 MG TAB (FP) PO SCH ×2 (16:57→18:04)
[2021-06-07] MEDS: SEVELAMER CARBONATE 0.8 GM POWDER PACKET PO SCH (17:41)
[2021-06-07] MEDS: AMINO ACIDS 4.25%/D5W 1,000 ML IV SCH (18:03)
[2021-06-07] MEDS: ZINC SULFATE 220 MG CAPSULE (FP) PO SCH (18:04)
[2021-06-07] MEDS: ASCORBIC ACID 500 MG TABLET (FP) PO SCH (18:04)
[2021-06-07] MEDS: DOCUSATE SODIUM 100 MG CAPSULE (FP) PO SCH (21:45)
[2021-06-07] MEDS: MIRTAZAPINE 15 MG TABLET (FP) PO SCH (21:45)
[2021-06-08] MEDS: NYSTATIN 500,000 UNITS/5 ML SUSPENSION PO SCH ×4 (00:30→18:03)
[2021-06-08] MEDS: AMINO ACIDS 4.25%/D5W 1,000 ML IV SCH (06:30)
[2021-06-08] MEDS: AMINO ACIDS/PROTEIN HYDROLYS 30 ML LIQUID.PKT PO SCH (10:17)
[2021-06-08] MEDS: PHENYTOIN NA EXTENDED 100 MG CAPSULE (FP) PO SCH ×2 (10:17→22:44)
[2021-06-08] MEDS: SEVELAMER CARBONATE 0.8 GM POWDER PACKET PO SCH ×2 (10:17→12:23)
[2021-06-08] MEDS: CHOLECALCIFEROL (VIT D3) 5000 UNITS (125 MCG) CAP PO SCH (10:18)
[2021-06-08] MEDS ORDERED: SODIUM CHLORIDE 250 ML IV PRN (14:34)
[2021-06-08] MEDS: MIRTAZAPINE 15 MG TABLET (FP) PO SCH (22:45)
[2021-06-08] MEDS: DOCUSATE SODIUM 100 MG CAPSULE (FP) PO SCH (22:45)
[2021-06-09] MEDS: NYSTATIN 500,000 UNITS/5 ML SUSPENSION PO SCH ×4 (01:15→17:31)
[2021-06-09] MEDS: AMINO ACIDS/PROTEIN HYDROLYS 30 ML LIQUID.PKT PO SCH (10:03)
[2021-06-09] MEDS: PHENYTOIN NA EXTENDED 100 MG CAPSULE (FP) PO SCH ×2 (10:03→21:05)
[2021-06-09] MEDS: CHOLECALCIFEROL (VIT D3) 5000 UNITS (125 MCG) CAP PO SCH (10:08)
[2021-06-09 12:17] LABS: HEMATOCRIT 25.4 % (32.4-45.2); MCH 29.7 pg (25.7-33.7); MCHC 31.3 g/dl (32.0-36.0); MEAN CELL VOLUME 94.9 fl (80-96); MEAN PLT VOLUME 9.3 fl (7.5-11.1); PLATELET COUNT 124 10^3/uL (134-434); RBC 2.68 M/mm3 (3.60-5.2); RDW 17.1 % (11.6-15.6); WHITE BLOOD COUNT 14.6 K/mm3 (4.0-10.0)
[2021-06-09 14:08] LABS: CALCIUM 8.3 mg/dL (8.5-10.1)
[2021-06-09 14:09] LABS: BLOOD UREA NITROGEN 48.3 mg/dL (7-18)
[2021-06-09 14:12] LABS: PHOSPHOROUS 1.6 mg/dL (2.5-4.9)
[2021-06-09 14:14] LABS: CREATININE 4.3 mg/dL (0.55-1.3)
[2021-06-09] MEDS: DOCUSATE SODIUM 100 MG CAPSULE (FP) PO SCH (21:05)
[2021-06-09] MEDS: MIRTAZAPINE 15 MG TABLET (FP) PO SCH (21:05)
[2021-06-10] MEDS: NYSTATIN 500,000 UNITS/5 ML SUSPENSION PO SCH ×4 (00:07→17:24)
[2021-06-10] MEDS: AMINO ACIDS/PROTEIN HYDROLYS 30 ML LIQUID.PKT PO SCH ×2 (10:31→10:38)
[2021-06-10] MEDS: PHENYTOIN NA EXTENDED 100 MG CAPSULE (FP) PO SCH (10:31)
[2021-06-10] MEDS: CHOLECALCIFEROL (VIT D3) 5000 UNITS (125 MCG) CAP PO SCH (10:32)
[2021-06-10 18:32] VITALS: BP 138/83; PULSE 78; TEMP 98
== END 2021-06-10 18:49 | disposition hospice, inpatient (51) | DRG 177 ==
LOC: JER 11:05 → JERBED 16:12 → J4W 05-19 21:22 → J6S 05-31 18:50
PROVIDERS: ADMIT Internal Medicine; ATTEND Internal Medicine
PROC: XW033E5 Introduction of Remdesivir Anti-infective into Peripheral Vein, Percutaneous Approach, New Technology Group 5 (ICD-10-PCS; 2021-05-18)
PROC: 05HM33Z Insertion of Infusion Device into Right Internal Jugular Vein, Percutaneous Approach (ICD-10-PCS; principal; 2021-05-27 16:00)
PROC: 5A1D70Z Performance of Urinary Filtration, Intermittent, Less than 6 Hours Per Day (ICD-10-PCS; 2021-06-09)
DX: U07.1 COVID-19 (principal); N18.6 End stage renal disease; E43 Unspecified severe protein-calorie malnutrition; I13.2 Hypertensive heart and chronic kidney disease with heart failure and with stage 5 chronic kidney disease, or end stage renal disease; I50.32 Chronic diastolic (congestive) heart failure; R64 Cachexia; Z68.1 Body mass index [BMI] 19.9 or less, adult; I24.8 Other forms of acute ischemic heart disease; Q61.3 Polycystic kidney, unspecified; J44.9 Chronic obstructive pulmonary disease, unspecified; Z99.2 Dependence on renal dialysis; G40.909 Epilepsy, unspecified, not intractable, without status epilepticus; D64.9 Anemia, unspecified; R62.7 Adult failure to thrive; E87.5 Hyperkalemia; R63.0 Anorexia; D63.1 Anemia in chronic kidney disease; F41.9 Anxiety disorder, unspecified; R31.9 Hematuria, unspecified; I10 Essential (primary) hypertension; D72.829 Elevated white blood cell count, unspecified; H54.8 Legal blindness, as defined in USA
CPT/HCPCS: 36415; 71045-TC-FY; 74177-TC; 76000-TC-FY; 80048; 80053; 82550; 82728; 83735; 84100; 84484; 85025; 85027; 85379; 86140; 86803; 87340; 87804; 93005; 93010; 94760; 99285-25; C9399; C9803; J1100; J1644; J2997; P9047; Q5106; Q9967; U0003; U0005